=== PATIENT | male | born 1980 | race Caucasian/White ===

== ENCOUNTER 2023-04-19 08:54 | Inpatient (IN) | payer MEDICAID, SELFPAY ==
--- NOTE | 2023-04-19 09:19 | ED.C_ITS ---
Documented by User: CHAPIS Brooke 04/19/23 12:01 HPI - Psych General: Chief Complaint: Psychiatric Symptoms Stated Complaint: SI Time Seen by Provider: 04/19/23 08:55 Source: patient and other (family friend) Mode of arrival: ambulatory Limitations: no limitations History of Present Illness: Patient is a 43-year-old male who presents to ED today after being brought by a family friend for concerns of suicidal ideations. Family friend states that she was contacted early this morning by patient asking her if she would take his dog. When she questioned further, he stated that he was suicidal and had a plan to kill himself this morning. She quickly rushed to his house and convinced him to come to the emergency department for evaluation. On exam patient is sobbing stating that he feels like he has lost everything. He states he lost his mother approximately a year ago. He lost his job a few months ago secondary to untreated mental health illness/anxiety. Patient states he has never seen a psychiatrist or medical health provider. He lives alone currently with his dog, Gisel. Patient states last month he attempted suicide by medication overdose. Of note he states he has not been to a medical provider in years but states he has untreated type II diabetes. Was on Gabapentin one time due to his peripheral neuropathy but states it didn't help. complaint: suicidal ideation and feels depressed History of same: Yes Relieving factors: none Context: significant life stressor (lost mother a year ago/lost job a few months ago) Associated psychiatric symptoms: depression and suicidal ideation Associated symptoms: Reports depression and suicidal ideation; Deny auditory hallucinations, visual hallucinations or homicidal ideation Treatments prior to arrival: none If self harm: admits thoughts of self harm Review of Systems Const: Denies: fever(s) or chills Card: Denies: chest pain, palpitations, lightheadedness or syncope Resp: Denies: dyspnea GI: Denies: abdominal pain, nausea, vomiting or diarrhea Skin/Breast: Denies: rash Neuro: Denies: headache(s) Psych: Reports: anxiety, depression, hopelessness and suicidal ideation; Denies: paranoia, visual hallucinations, auditory hallucinations or homicidal ideation [facility] ED PFSH: Medical History (Updated 04/19/23 @ 13:09 by Scott Rehman MD) Diabetes Peripheral neuropathy Family History (Updated 04/19/23 @ 13:09 by Scott Rehman MD) Other Diabetes Social History (Updated 04/19/23 @ 13:09 by Scott Rehman MD) Smoking and tobacco/nicotine status: current every day tobacco/nicotine user Alcohol intake: never Substance/Drug Use: current Substance/Drug use type: Marijuana Physical Exam Const: COMMON NORMALS: average body habitus, patient oriented x3, no limitations, alert and well nourished GENERAL APPEARANCE: cooperative and in distress (sobbing) ORIENTATION/CONSCIOUSNESS: Yes awake, Yes oriented to person, Yes oriented to place and Yes oriented to time Resp: COMMON NORMALS: normal respiratory effort and clear to auscultation bilaterally AUSCULTATION: clear to auscultation bilaterally Cardio: COMMON NORMALS: regular rate and regular rhythm RATE: regular rate RHYTHM: regular rhythm Extremity: NARRATIVE EXTREMITY EXAM: bilateral LE are cool to the touch-equally; DP/PT pulses palpated Neuro: COMMON NORMALS: patient oriented x3 SENSORIUM/ORIENTATION: Yes ponce rt, Yes oriented to person, Yes oriented to place and Yes oriented to time Psych: COMMON NORMALS: mental status grossly normal, Normal thought process present, cooperative, speech normal, activity/motor behavior normal, denies hallucinations and denies homicidal ideation APPEARANCE: Yes grossly normal ATTITUDE: Yes calm ACTIVITY/MOTOR BEHAVIOR: Yes appropriate eye contact and No psychomotor agitation SPEECH: Yes normal speech MOOD & AFFECT: Yes sad and Yes tearful THOUGHT PROCESS: Normal thought process present ATTENTION/CONCENTRATION: Yes attention grossly intact and Yes concentration grossly intact MEMORY/COGNITION: Yes memory grossly intact and Yes cognition grossly intact INSIGHT: Good insight present (Psych) JUDGEMENT: Good judgement present (Psych) Course Consultations: Consultation #1: Dr. Laureano-accepts to NPU; requests hospitalist consult on patient due to his hyperglycemia Consultation #2: Dr. Rehman-will consult on patient while at NPU Vital Signs: Vital signs: Vital Signs Temperature 98.6 F 04/19/23 14:00 Pulse Rate 96 04/19/23 14:00 Respiratory Rate 16 04/19/23 14:00 Blood Pressure 104/67 04/19/23 14:00 Pulse Oximetry 92 04/19/23 14:00 Oxygen Delivery Me thod Room Air 04/19/23 14:00 MDM - Psych Medical Decision Making Patient will be admitted to NPU to Dr. Laureano for treatment/evaluation of his suicidal ideations. Dr. Rehman will consult on patient for his untreated diabetes/hyperglycemia. Lab Data 04/19/23 10:18 04/19/23 10:18 Laboratory Results WBC 9.12 10^3/uL (3.29-11.43) 04/19/23 10:18 RBC 4.97 10^6/uL (3.85-5.65) 04/19/23 10:18 Hgb 15.50 g/dL (11.27-16.99) 04/19/23 10:18 Hct 44.5 % (37-53) 04/19/23 10:18 MCV 89.5 fl (82-101) 04/19/23 10:18 MCH 31.2 pg (27-33) 04/19/23 10:18 MCHC 34.8 g/dL (30-55) 04/19/23 10:18 RDW 11.8 % (12.1-15.1) L 04/19/23 10:18 Plt Count 188 10^3/cmm (157-399) 04/19/23 10:18 MPV 11.0 fL (7.4-10.4) H 04/19/23 10:18 Neut % (Auto) 58.8 % 04/19/23 10:18 Lymph % (Auto) 32.9 % 04/19/23 10:18 Briscoe % (Auto) 6.1 % 04/19/23 10:18 Eos % (Auto) 1.6 % 04/19/23 10:18 Baso % (Auto) 0.4 % 04/19/23 10:18 Neut # (Auto) 5.35 10^3/uL (1.8-7.7) 04/19/23 10:18 Lymph # (Auto) 3.0 10^3/uL (0.8-4.8) 04/19/23 10:18 Briscoe # (Auto) 0.6 10^3/uL (0.2-0.9) 04/19/23 10:18 Eos # (Auto) 0.2 10^3/uL (0.0-0.8) 04/19/23 10:18 Baso # (Auto) 0.0 10^3/uL (0.0-0.1) 04/19/23 10:18 Nucleated RBC % (auto) 0 % 04/19/23 10:18 Nucleated RBCs # 0.0 /100WBC 04/19/23 10:18 Sodium 129 mmol/L (136-145) L 04/19/23 10:18 Potassium 4.2 mmol/L (3.5-5.1) 04/19/23 10:18 Chloride 90 mmol/L (98-107) L 04/19/23 10:18 Carbon Dioxide 29 mmol/L (22-29) 04/19/23 10:18 Anion Gap 14.2 (5-19) 04/19/23 10:18 BUN 14 mg/dL (6-20) 04/19/23 10:18 Creatinine 0.7 mg/dL (0.7-1.2) 04/19/23 10:18 GFR Calculation 122.5 mL/min (90-130) 04/19/23 10:18 Glucose 645 mg/dL (65-115) H* 04/19/23 10:18 Estimat Average Glucose 286 04/19/23 10:18 Hemoglobin A1c 11.6 % (4.0-6.0) H 04/19/23 10:18 Calculated Osmolality 299 mOsm/kg (285-295) H 04/19/23 10:18 Calcium 9.5 mg/dL (8.5-10.5) 04/19/23 10:18 Total Bilirubin 0.2 mg/dL (0.15-1.2) 04/19/23 10:18 AST 11 U/L (0-40) 04/19/23 10:18 ALT 19 U/L (0-41) 04/19/23 10:18 Alkaline Phosphatase 175 U/L (40-130) H 04/19/23 10:18 Total Protein 7.3 g/dL (6.6-8.7) 04/19/23 10:18 Albumin 3.9 g/dL (3.5-5.2) 04/19/23 10:18 Globulin 3.4 g/dL (1.3-4.6) 04/19/23 10:18 TSH 1.10 uIU/mL (0.27-4.20) 04/19/23 10:18 Salicylates < 0.3 mg/dL (3-10) L 04/19/23 10:18 Urine Opiates Screen Negative ng/mL (Negative) 04/19/23 10:22 Acetaminophen < 5.0 ug/mL (10-30) L 04/19/23 10:18 Ur Barbiturates Screen Negative ng/mL (Negative) 04/19/23 10:22 Ur Phencyclidine Scrn Negative ng/mL (Negative) 04/19/23 10:22 Ur Amphetamines Screen Negative ng/mL (Negative) 04/19/23 10:22 U Benzodiazepines Scrn Negative ng/mL (Negative) 04/19/23 10:22 Urine Cocaine Screen Negative ng/mL (Negative) 04/19/23 10:22 U Marijuana (THC) Screen Positive ng/mL (Negative) H 04/19/23 10:22 Ethyl Alcohol < 10 mg/dL (0-10) 04/19/23 10:18 No radiology studies performed this visit Discharge Plan Discharge Patient Disposition: Admitted As Inpatient Admit Provider: Chad Laureano Clinical Impression: Suicidal ideation, Diabetes, Hyperglycemia Condition: Stable Coding Level of Care Code ED Middleware Consultant for Chg Fwd Documented by User: Rashad Ramachandran DO 04/19/23 17:29 HPI - Psych General: Chief Complaint: Psychiatric Symptoms Stated Complaint: SI Time Seen by Provider: 04/19/23 08:55 PFSH ED PFSH: Medical History (Updated 04/19/23 @ 13:09 by Scott Rehman MD) Diabetes Peripheral neuropathy Family History (Updated 04/19/23 @ 13:09 by Scott Rehman MD) Other Diabetes Social History (Updated 04/19/23 @ 13:09 by Scott Rehman MD) Smoking and tobacco/nicotine status: current every day tobacco/nicotine user Alcohol intake: never Substance/Drug Use: current Substance/Drug use type: Marijuana Course Vital Signs: Vital signs: Vital Signs Temperature 98.6 F 04/19/23 14:00 Pulse Rate 96 04/19/23 14:00 Respiratory Rate 16 04/19/23 14:00 Blood Pressure 104/67 04/19/23 14:00 Pulse Oximetry 92 04/19/23 14:00 Oxygen Delivery Me thod Room Air 04/19/23 14:00 MDM - Psych Medical Decision Making Patient will be admitted to NPU to Dr. Laureano for treatment/evaluation of his suicidal ideations. Dr. Rehman will consult on patient for his untreated diabetes/hyperglycemia. Chart reviewed and patient discussed with midlevel. Agree with assessment and plan. Lab Data 04/19/23 10:18 04/19/23 10:18 Laboratory Results WBC 9.12 10^3/uL (3.29-11.43) 04/19/23 10:18 RBC 4.97 10^6/uL (3.85-5.65) 04/19/23 10:18 Hgb 15.50 g/dL (11.27-16.99) 04/19/23 10:18 Hct 44.5 % (37-53) 04/19/23 10:18 MCV 89.5 fl (82-101) 04/19/23 10:18 MCH 31.2 pg (27-33) 04/19/23 10:18 MCHC 34.8 g/dL (30-55) 04/19/23 10:18 RDW 11.8 % (12.1-15.1) L 04/19/23 10:18 Plt Count 188 10^3/cmm (157-399) 04/19/23 10:18 MPV 11.0 fL (7.4-10.4) H 04/19/23 10:18 Neut % (Auto) 58.8 % 04/19/23 10:18 Lymph % (Auto) 32.9 % 04/19/23 10:18 Briscoe % (Auto) 6.1 % 04/19/23 10:18 Eos % (Auto) 1.6 % 04/19/23 10:18 Baso % (Auto) 0.4 % 04/19/23 10:18 Neut # (Auto) 5.35 10^3/uL (1.8-7.7) 04/19/23 10:18 Lymph # (Auto) 3.0 10^3/uL (0.8-4.8) 04/19/23 10:18 Briscoe # (Auto) 0.6 10^3/uL (0.2-0.9) 04/19/23 10:18 Eos # (Auto) 0.2 10^3/uL (0.0-0.8) 04/19/23 10:18 Baso # (Auto) 0.0 10^3/uL (0.0-0.1) 04/19/23 10:18 Nucleated RBC % (auto) 0 % 04/19/23 10:18 Nucleated RBCs # 0.0 /100WBC 04/19/23 10:18 Sodium 129 mmol/L (136-145) L 04/19/23 10:18 Potassium 4.2 mmol/L (3.5-5.1) 04/19/23 10:18 Chloride 90 mmol/L (98-107) L 04/19/23 10:18 Carbon Dioxide 29 mmol/L (22-29) 04/19/23 10:18 Anion Gap 14.2 (5-19) 04/19/23 10:18 BUN 14 mg/dL (6-20) 04/19/23 10:18 Creatinine 0.7 mg/dL (0.7-1.2) 04/19/23 10:18 GFR Calculation 122.5 mL/min (90-130) 04/19/23 10:18 Glucose 645 mg/dL (65-115) H* 04/19/23 10:18 Estimat Average Glucose 286 04/19/23 10:18 Hemoglobin A1c 11.6 % (4.0-6.0) H 04/19/23 10:18 Calculated Osmolality 299 mOsm/kg (285-295) H 04/19/23 10:18 Calcium 9.5 mg/dL (8.5-10.5) 04/19/23 10:18 Total Bilirubin 0.2 mg/dL (0.15-1.2) 04/19/23 10:18 AST 11 U/L (0-40) 04/19/23 10:18 ALT 19 U/L (0-41) 04/19/23 10:18 Alkaline Phosphatase 175 U/L (40-130) H 04/19/23 10:18 Total Protein 7.3 g/dL (6.6-8.7) 04/19/23 10:18 Albumin 3.9 g/dL (3.5-5.2) 04/19/23 10:18 Globulin 3.4 g/dL (1.3-4.6) 04/19/23 10:18 TSH 1.10 uIU/mL (0.27-4.20) 04/19/23 10:18 Salicylates < 0.3 mg/dL (3-10) L 04/19/23 10:18 Urine Opiates Screen Negative ng/mL (Negative) 04/19/23 10:22 Acetaminophen < 5.0 ug/mL (10-30) L 04/19/23 10:18 Ur Barbiturates Screen Negative ng/mL (Negative) 04/19/23 10:22 Ur Phencyclidine Scrn Negative ng/mL (Negative) 04/19/23 10:22 Ur Amphetamines Screen Negative ng/mL (Negative) 04/19/23 10:22 U Benzodiazepines Scrn Negative ng/mL (Negative) 04/19/23 10:22 Urine Cocaine Screen Negative ng/mL (Negative) 04/19/23 10:22 U Marijuana (THC) Screen Positive ng/mL (Negative) H 04/19/23 10:22 Ethyl Alcohol < 10 mg/dL (0-10) 04/19/23 10:18 Discharge Plan Discharge Patient Disposition: Admitted As Inpatient Admit Provider: Chad Laureano Clinical Impression: Suicidal ideation, Diabetes, Hyperglycemia Condition: Stable Coding Level of Care Code ED Middleware Consultant for Shubham Avila
[2023-04-19 10:24] LABS: Basophils % 0.4 %; Eosinophils # 0.2 10^3/uL (0.0-0.8); Eosinophils % 1.6 %; Hematocrit 44.5 % (37-53); Lymphocytes % 32.9 %; Mean Corpuscular HGB Conc 34.8 g/dL (30-55); Mean Corpuscular Hemoglobin 31.2 pg (27-33); Mean Corpuscular Volume 89.5 fl (82-101); Monocytes # 0.6 10^3/uL (0.2-0.9); Monocytes % 6.1 %; Neutrophils # 5.35 10^3/uL (1.8-7.7); Neutrophils % 58.8 %; Nucleated Red Blood Cells % 0 %; Platelet Count 188 10^3/cmm (157-399); Red Blood Count 4.97 10^6/uL (3.85-5.65); Red Cell Distribution Width 11.8 % (12.1-15.1); White Blood Count 9.12 10^3/uL (3.29-11.43)
[2023-04-19 10:39] LABS: Amphetamines Screen Urine Negative (Negative); Barbiturates Screen Urine Negative (Negative); Benzodiazepines Screen Urine Negative (Negative); Cocaine Screen Urine Negative (Negative); Opiate Screen Urine Negative (Negative); PCP Screen Urine Negative (Negative); THC Screen Urine Positive (Negative)
[2023-04-19 10:43] LABS: Alanine Aminotransferase 19 U/L (0-41); Albumin Level 3.9 g/dL (3.5-5.2); Alkaline Phosphatase 175 U/L (40-130); Anion Gap 14.2 (5-19); Aspartate Amino Transferase 11 U/L (0-40); Blood Urea Nitrogen 14 mg/dL (6-20); Calcium 9.5 mg/dL (8.5-10.5); Carbon Dioxide 29 mmol/L (22-29); Chloride 90 mmol/L (98-107); Globulin 3.4 g/dL (1.3-4.6); Glomerular Filtration Rate 122.5 mL/min (90-130); Osmolality Calculated 299 mOsm/kg (285-295); Potassium 4.2 mmol/L (3.5-5.1); Sodium 129 mmol/L (136-145); Total Bilirubin 0.2 mg/dL (0.15-1.2); Total Protein 7.3 g/dL (6.6-8.7)
[2023-04-19 10:48] LABS: Acetaminophen < 5.0 ug/mL (10-30); Alcohol Level < 10 mg/dL (0-10); Glucose 645 mg/dL (65-115); Salicylate < 0.3 mg/dL (3-10)
[2023-04-19 10:53] VITALS: BP 104/69; PULSE 93; RESP 18; O2SAT 95
[2023-04-19 10:58] VITALS: TEMP 37.2
[2023-04-19] MEDS: insulin regular-human 100 units/1 mL 10 UNIT IVP (11:16)
[2023-04-19] MEDS: sodium chloride 0.9% 1,000 ML 999 ML IV ×2 (11:23→12:10)
[2023-04-19] MEDS: LORazepam 2 mg/mL INJ 1 mL 1 MG IM (11:38)
[2023-04-19 12:00] VITALS: PULSE 93; O2SAT 96
[2023-04-19 12:59] LABS: Glucose Point of Care 250 mg/dL (70-110)
--- NOTE | 2023-04-19 13:07 | P.CONIM_ITS ---
Providers/Reason For Consult Consulting Physician/Specialty*: Scott Rehman MD, Hospitalist Reason for Consult*: Elevated sugar Requesting Physician: Dr. Laureano Attending Physician: Chad Laureano MD Primary Care Provider: Sonu Barragan DO History of Present Illness History of Present Illness Hany Richardson is a 43 year old male who presented to the emergency department with suicidal ideation. He had been feeling very down, was wanting to give away his dog, and had apparently had a plan to kill himself. I am being consulted as his blood sugar was found to be over 600. He had no significant anion gap. The patient relates he has been diabetic for 15 years and really has not taken any medicine in years. He reports he wakes up multiple times at night to drink fluids, and urinate. He reports to some weight loss in the last year. He states he has peripheral neuropathy. He is amenable to taking medication for diabetes currently. Review of Systems General: Reports: 10 or more systems reviewed and unremarkable except in HPI and below Card: Denies: chest pain Resp: Denies: dyspnea GI: Denies: abdominal pain, nausea, hematochezia or melena Medications/Allergies Home Medications Medication Instructions Recorded Confirmed Last Taken Type No Known Home Medications 04/19/23 04/19/23 Unknown History Allergies Allergy/AdvReac Type Severity Reaction Status Date / Time No Known Allergies Allergy Unverified 04/19/23 09:39 PFSH Acute PFSH: Medical History (Updated 04/19/23 @ 13:09 by Scott Rehman MD) Diabetes Peripheral neuropathy Family History (Updated 04/19/23 @ 13:09 by Scott Rehman MD) Other Diabetes Social History (Updated 04/19/23 @ 13:09 by Scott Rehman MD) Smoking and tobacco/nicotine status: current every day tobacco/nicotine user Alcohol intake: never Substance/Drug Use: current Substance/Drug use type: Marijuana Vitals/I&O/Wt Last Vital Signs Temp 98.9 F 04/19/23 10:58 Pulse 93 04/19/23 12:00 Resp 18 04/19/23 10:53 BP 104/69 04/19/23 10:53 Pulse Ox 96 04/19/23 12:00 O2 Del Method Room Air 04/19/23 10:53 04/18/23 04/19/23 04/19/23 22:59 06:59 14:59 Intake Total 1000 / 1000 Balance 1000 / 1000 Physical Exam Narrative: General exam is a white male, conversant, very sad and tearful HEENT: Atraumatic normocephalic. Oropharynx clear. Neck is supple without any lymphadenopathy or thyromegaly Cardiovascular regular rate and rhythm without murmur, no S3 or S4 Lungs clear no wheezing or crackles Abdomen is soft with positive bowel sounds. No obvious organomegaly exam was deferred Extremities no cyanosis clubbing or edema, cap refill is brisk Skin no rash Neuro no obvious focal deficits Data 04/19/23 10:18 04/19/23 10:18 Other Labs: LFTs reviewed. Alk phos slightly high at 175 otherwise normal. I have ordered a TSH and hemoglobin A1c Urine drug screen positive for marijuana otherwise negative. Salicylate and acetaminophen level undetectable Blood sugar is now in the 200s after being given saline, and 10 units of insulin. A&P Assessment and plan (1) Diabetes: From history diabetes was diagnosed around 15 years ago, and he is not effectively treated Hemoglobin A1c is expected to be elevated Initiate metformin 500 mg twice daily Mild sliding scale insulin Await hemoglobin A1c, and further blood sugars before deciding on any further oral therapy or long-acting insulin. TSH is ordered and pending Urinalysis will be ordered to check for significant proteinuria Consistent carb diet Plan Suicidal ideation Thank you for this consultation Consult Attestations Medical Necessity Statement: As per primary Coding Level of Care Code 54086 Moderate MDM includes number and complexity of problems actively addressed during encounter and amount and/or complexity of data reviewed/ordered as do cumented Diagnoses Diabetes E11.9 Time Spent (min) 44
[2023-04-19 13:08] LABS: Estmated Average Glucose 286; Hemoglobin A1C 11.6 % (4.0-6.0)
[2023-04-19 13:22] VITALS: BP 104/67; PULSE 96; RESP 16; TEMP 37; O2SAT 92
[2023-04-19] MEDS: hyDROXYzine 25 mg Capsule 50 MG PO (13:34)
[2023-04-19 14:00] VITALS: BP 104/67; PULSE 96; RESP 16; TEMP 37; O2SAT 92
[2023-04-19 17:49] LABS: Glucose Point of Care 261 mg/dL (70-110)
[2023-04-19] MEDS: insulin lispro 100 unit/1 mL SUBCUT ×2 (17:58→20:29)
[2023-04-19] MEDS: metformin 500 mg Tablet PO (17:59)
[2023-04-19 20:05] VITALS: BP 115/78; PULSE 92; RESP 17; TEMP 36.8; O2SAT 92
[2023-04-19 20:25] LABS: Glucose Point of Care 191 mg/dL (70-110)
[2023-04-19] MEDS: insulin glargine 100 units/1 mL 20 UNIT SUBCUT (20:29)
[2023-04-19 20:31] LABS: Glucose Point of Care 409 mg/dL (70-110)
--- NOTE | 2023-04-20 03:46 | PC.NURSE ---
Pt came up to nurses desk tearful and anxious and stated I have not been able to sleep, I dont want to be here anymore, I just want to go home . Pt was offered a PRN to help sleep in which pt replied I am sick of taking pills and being forced pills . Pt was reminded that he did not have to take the PRN that was offered it was up to him. Pt was also reminded that in the morning when the doctor gets here they could discuss whether or not he could discharge. Pt was then offered distractions such as tv, coloring, a book. Pt then stated I am not [age] years old and then stomped back to his room.
[2023-04-20 06:00] VITALS: BP 100/65; PULSE 102; RESP 18; TEMP 36.9; O2SAT 95
--- NOTE | 2023-04-20 08:16 | PC.NURSE ---
patient agitated, yelling at staff, banging head against wall. security present
[2023-04-20] MEDS: LORazepam 2 mg/mL INJ 1 mL IM (08:24)
[2023-04-20] MEDS: diphenhydrAMINE 50 mg/mL SDV 1mL IM (08:24)
[2023-04-20] MEDS: haloperidol inj 5 mg/mL INJ 1 mL IM (08:24)
--- NOTE | 2023-04-20 08:45 | W.PM.BREST ---
Face to Face: Restrn/Seclusion Events leading up to initiation: Verbalizing threat to self or others and Demonstrating self-destructive behavior (cutting, hitting espinoza etc.) Evaluation of patient's immediate situation: Alert and oriented, Signs of physical distress and Signs of psychological distress Patient reaction since intervention applied: Behaviors/threats have lessened, but still present Recent labs reviewed: Yes Review of medications: Yes Patient's current medical/behavioral condition: No new concerns since last ROS Need for restraint or seclusion is: No longer present Attending notified: Attending completed assessment
--- NOTE | 2023-04-20 09:58 | PC.NURSE ---
UPon arrival to the unit for my shift, patient was agitated, pacing the halls, cursing at staff. Patient tearful. Security present. Not long after shift change, patient still agitated. Patient tearful, pacing. Patient slamming his door, not complying with unit rules. Patient banged his head against the wall multiple times. When asked if he would like medication to help him, patient stated fuck you, fuck off . Patient told a nurse that he was going to punch her in the face. Security Andres asked patient if he could assist him, patient told Andres that he would punch him in the face too. Nursing staff, security, and [employer] attempted to de-esculate patient numerous times, with no success. Code 10 was called at 0820. Patient made verbal threats to staff when presented with the notion of receiving injections. Patient refused to go to his room. Patient agitated, hostile. At about 0823, Andres held patient by his right arm, Luis held patient by his left arm, nurse Neel put hands on patient's right leg, and nurse Acacia put hands on his left leg. Patient did not kick at staff. Patient was given 50mg Benadryl, 2mg Ativan, and 5mg Haldol IM injection into left and right deltoid muscles. No adverse reactions. Patient tearful.
--- NOTE | 2023-04-20 10:51 | P.NPUHP_ITS ---
Providers/Chief Complaint Admitting Physician: Chad Laureano MD Primary Care Provider: Sonu Barragan DO Chief Complaint: SI HPI NPU History of Present Illness Hany Richardson is a 43 year old male who presented to the emergency department with the following report: Chief Complaint: Psychiatric Symptoms Stated Complaint: SI Time Seen by Provider: 04/19/23 08:55 Source: patient and other (family friend) Mode of arrival: ambulatory Limitations: no limitations History of Present Illness: Patient is a 43-year-old male who presents to ED today after being brought by a family friend for concerns of suicidal ideations. Family friend states that she was contacted early this morning by patient asking her if she would take his dog. When she questioned further, he stated that he was suicidal and had a plan to kill himself this morning. She quickly rushed to his house and convinced him to come to the emergency department for evaluation. On exam patient is sobbing stating that he feels like he has lost everything. He states he lost his mother approximately a year ago. He lost his job a few months ago secondary to untreated mental health illness/anxiety. Patient states he has never seen a psychiatrist or medical health provider. He lives alone currently with his dog, Gisel. Patient states last month he attempted suicide by medication overdose. Of note he states he has not been to a medical provider in years but states he has untreated type II diabetes. Was on Gabapentin one time due to his peripheral neuropathy but states it didn't help. complaint: suicidal ideation and feels depressed History of same: Yes Relieving factors: none Context: significant life stressor (lost mother a year ago/lost job a few months ago) Associated psychiatric symptoms: depression and suicidal ideation Associated symptoms: Reports depression and suicidal ideation; Deny auditory hallucinations, visual hallucinations or homicidal ideation Treatments prior to arrival: none If self harm: admits thoughts of self harm He was admitted to the neuropsychiatric unit for definitive treatment of those issues. He was initially seen this morning as part of a [id number] after a seclusion episode where he lost emotional control saying that he needed to go see his dog which she given to someone initially with a plan to kill himself. There was nothing anyone can say to calm him to a rational level and this escalated to him needing to be held and he was given an injection. Shortly thereafter when I went to speak to him he was lethargic secondary to the injections but was able to arouse himself to answer some questions. He continued to focus on going to see his dog and seem to forget that he had made arrangements for the pet. He was suggesting that the dog was in some danger and we did make a call and verify that he infected given that to some apparently responsible people who are reportedly taking good care of it and they advised t hat the pet would be just fine in their home and that he should remain here and get the help that he needs. He did not seem to take that information with much recognition of its significance. And continued to be quite emotional surrounding the dog. He was able to share that he is had a long history of mental health issues and depression that has been essentially untreated with a reported lack of history of any medication. He reports that he was willing to begin Prozac 20 mg p.o. daily after discussion of the risks, benefits and alternatives he understood and agreed to proceed as is documented in this note. Attempts were made to get more accurate picture of exactly why he was overwhelmed but he mostly [place] rolled around in the bed lamenting about not being with his dog and not really answering the questions with any clarity. He could not give any nidus for his suicidality just reporting that he was not feeling like himself. He denied any drug use other than the marijuana and his UDS was only positive for cannabis. Meds NPU Home Medications Medication Instructions Recorded Confirmed Last Taken Type No Known Home Medications 04/19/23 04/19/23 Unknown History Allergies Allergy/AdvReac Type Severity Reaction Status Date / Time No Known Allergies Allergy Unverified 04/19/23 09:39 PFS NPU PFS: Medical History (Updated 04/20/23 @ 22:21 by Chad Laureano MD) Diabetes Peripheral neuropathy Family History (Updated 04/19/23 @ 13:09 by Scott Rehman MD) Other Diabetes Social History (Updated 04/19/23 @ 13:09 by Scott Rehman MD) Smoking and tobacco/nicotine status: current every day tobacco/nicotine user Alcohol intake: never Substance/Drug Use: current Substance/Drug use type: Marijuana Mental Status Exam MSE Comments: This is a well-nourished well-developed white male in hospital scrubs looking older than his stated age with limited grooming and eye contact. No abnormal movements except for significant psychomotor agitation. Mostly cooperative with exam and moderate to extreme distress. Speech was normal rate and decreased volume. Mood described as overwhelmed, affect congruent. Thought process linear. Thought content: Patient denied current suicidal or homicidal ideation, there were no delusions reported or noted, he denied any auditory or visual hallucinations. Attention and concentration were limited and memory was somewhat reliable but none were formally tested. He is alert and oriented x3. Insight and judgment impaired impulse control impaired. Vitals/I&O/Wt Last Vital Signs Temp 98.5 F 04/20/23 06:00 Pulse 102 H 04/20/23 06:00 Resp 18 04/20/23 06:00 BP 100/65 04/20/23 06:00 Pulse Ox 95 04/20/23 06:00 O2 Del Method Room Air 04/20/23 06:00 04/19/23 04/19/23 04/20/23 14:59 22:59 06:59 Intake Total 1999 Balance 1999 Data NPU 04/19/23 10:18 04/19/23 10:18 A&P Assessment and plan (1) Suicidal ideation: (2) Hyperglycemia: (3) Diabetes: (4) Major depressive disorder, recurrent: (5) Personality disorder, unspecified: Plan This is a 43-year-old white male with a reported history of mental health issues who presents reporting suicidal ideation and being emotionally dysregulated to the level that he needed as needed medication and a brief restraint to calm down here with an affidavit and reporting profound sadness and open to a trial of medication. 1. Initiate Prozac 20 mg p.o. every morning. 2. Encourage individual, group and milieu therapies. 3. Continue every 15 minute checks for safety. 4. Encourage sober living treatment after discharge at the highest level of care to which he is willing to commit. Involuntary Hold Information 96 Hour Hold: 96 Hour Involuntary Admission: No Attestations NPU Medical Necessity Statement*: Inpatient psychiatric hospitalization is medically necessary and the clinically appropriate intervention at this time. We will monitor medications and make changes as indicated. He will be in the hospital for over 2 midnights. Likely length of stay 3 to 5 days. Coding Level of Care Code Acute Code for [facility] Diagnoses Suicidal ideation R45.851 Hyperglycemia R73.9 Diabetes E11.9 Major depressive disorder, recurrent F33.9 Personality disorder, unspecified F60.9
[2023-04-20 12:06] LABS: Glucose Point of Care 246 mg/dL (70-110)
[2023-04-20] MEDS: metformin 500 mg Tablet PO (12:06)
[2023-04-20 12:25] LABS: Bilirubin Urine Neg (Negative); Blood Urine Neg (Negative); Glucose Urine UA 4+ (Normal); Ketones Urine Negative (Negative); Leukocyte Esterase Urine Negative (Negative); Nitrate Urine Negative (Negative); Protein Urine Neg (Negative); Specific Gravity, Urine 1.005 (1.005-1.030); Urine Appearance Clear (CLEAR); Urine Color Colorless (Yellow); Urobilinogen Urine Norm (Negative); pH Urine 7 (5-7)
[2023-04-20 12:27] LABS: Add Urine Culture? No; Mucus Urine 1+ /hpf; WBC Urine RARE /hpf (0-5)
[2023-04-20 14:00] VITALS: BP 111/71; PULSE 84; RESP 16; TEMP 36.8; O2SAT 94
[2023-04-20 16:53] LABS: Glucose Point of Care 254 mg/dL (70-110)
--- NOTE | 2023-04-20 16:57 | PC.NURSE ---
PATIENT REFUSED LUNCH TIME HUMALOG AND DINNER TIME HUMALOG.
[2023-04-20 20:10] VITALS: BP 115/73; PULSE 90; RESP 16; TEMP 36.9; O2SAT 92
[2023-04-21 01:28] LABS: Glucose Point of Care 167 mg/dL (70-110)
[2023-04-21 06:00] VITALS: BP 112/75; PULSE 100; RESP 18; TEMP 36.4; O2SAT 93
[2023-04-21] MEDS: metformin 500 mg Tablet PO (07:08)
[2023-04-21] MEDS: nicotine 2 mg Gum BUCCAL ×2 (07:08→11:30)
--- NOTE | 2023-04-21 07:32 | P.NPUPN_ITS ---
Subjective NPU Subjective: Patient presented today continuing to talk about his dog and making sure it is okay. He talked about the fact that his dog is in appropriate hands and we are worried about his extreme emotionality and hoping that he can demonstrate control over that so that we can feel comfortable with him being ready to discharge. We discussed the social work team returning tomorrow and being able to help him get connected with outpatient resources. He denied any side effects to the medication. Mental Status Exam MSE Comments: This is a well-nourished well-developed white male in hospital scrubs looking older than his stated age with limited grooming and eye contact. No abnormal movements except for significant psychomotor agitation. Mostly cooperative with exam and moderate to extreme distress. Speech was normal rate and decreased volume. Mood described as overwhelmed, affect congruent. Thought process linear. Thought content: Patient denied current suicidal or homicidal ideation, there were no delusions reported or noted, he denied any auditory or visual hallucinations. Attention and concentration were limited and memory was somewhat reliable but none were formally tested. He is alert and oriented x3. Insight and judgment impaired impulse control impaired. Vitals/I&O/Wt Last Vital Signs Temp 97.5 F L 04/21/23 06:00 Pulse 100 04/21/23 06:00 Resp 18 04/21/23 06:00 BP 112/75 04/21/23 06:00 Pulse Ox 93 04/21/23 06:00 O2 Del Method Room Air 04/21/23 06:00 Weight last 48 hrs Weight 73.595 kg Data NPU 04/19/23 10:18 04/19/23 10:18 A&P Assessment and plan (1) Suicidal ideation: (2) Hyperglycemia: (3) Diabetes: (4) Major depressive disorder, recurrent: (5) Personality disorder, unspecified: Plan This is a 43-year-old white male with a reported history of mental health issues who presents reporting suicidal ideation and being emotionally dysregulated to the level that he needed as needed medication and a brief restraint to calm down here with an affidavit and reporting profound sadness and open to a trial of med ication. 1. Initiated Prozac 20 mg p.o. every morning. 2. Encourage individual, group and milieu therapies. 3. Continue every 15 minute checks for safety. 4. Encourage sober living treatment after discharge at the highest level of care to which he is willing to commit. Involuntary Hold Information 96 Hour Hold: 96 Hour Involuntary Admission: No Attestations NPU Medical Necessity Statement*: Inpatient psychiatric hospitalization is medically necessary and the clinically appropriate intervention at this time. We will monitor medications and make changes as indicated. Likely length of stay 2-4 days. Coding Level of Care Code Acute Code for [facility] Diagnoses Suicidal ideation R45.851 Hyperglycemia R73.9 Diabetes E11.9 Major depressive disorder, recurrent F33.9 Personality disorder, unspecified F60.9
[2023-04-21] MEDS: fluoxetine 20 mg Capsule PO (07:36)
[2023-04-21 07:58] LABS: Glucose Point of Care 289 mg/dL (70-110)
[2023-04-21] MEDS: insulin lispro 100 unit/1 mL SUBCUT ×2 (08:16→12:01)
[2023-04-21 11:59] LABS: Glucose Point of Care 215 mg/dL (70-110)
[2023-04-21] MEDS: hyDROXYzine 25 mg Capsule 50 MG PO (12:16)
--- NOTE | 2023-04-21 12:17 | PC.NURSE ---
Patient requesting medication for anxiety. Patient states that the manic patient is driving me nuts . Administered 50mg PO Vistaril to patient.
[2023-04-21 13:43] VITALS: BP 107/72; PULSE 95; RESP 18; TEMP 36.7; O2SAT 96
[2023-04-21 16:59] LABS: Glucose Point of Care 283 mg/dL (70-110)
--- NOTE | 2023-04-21 18:06 | PC.NURSE ---
REFUSED DINNER TRAY, SCHEDULED METFORMIN & SCHEDULED HUMALOG INSULIN
[2023-04-21] MEDS: insulin glargine 100 units/1 mL 20 UNIT SUBCUT (19:46)
[2023-04-21 19:50] LABS: Glucose Point of Care 316 mg/dL (70-110)
[2023-04-21] MEDS: trazodone 50 mg Tablet PO (19:51)
[2023-04-21 20:50] VITALS: BP 99/62; PULSE 93; RESP 16; TEMP 36.8; O2SAT 93
[2023-04-22 06:00] VITALS: BP 106/71; PULSE 98; RESP 18; TEMP 36.5; O2SAT 95
[2023-04-22 08:08] LABS: Glucose Point of Care 262 mg/dL (70-110)
[2023-04-22] MEDS: fluoxetine 20 mg Capsule PO (08:52)
[2023-04-22] MEDS: insulin lispro 100 unit/1 mL SUBCUT ×2 (08:52→18:23)
[2023-04-22] MEDS: metformin 500 mg Tablet PO ×2 (08:52→18:22)
[2023-04-22] MEDS: insulin glargine 100 units/1 mL 15 UNIT SUBCUT ×3 (09:42→19:54)
[2023-04-22 12:20] LABS: Glucose Point of Care 103 mg/dL (70-110)
[2023-04-22] MEDS: nicotine 4 mg lozenge MUCOUS MEM (13:29)
[2023-04-22 14:00] VITALS: BP 110/72; PULSE 57; RESP 15; TEMP 36.7; O2SAT 96
--- NOTE | 2023-04-22 17:46 | W.PM.NPUPNS ---
Subjective NPU Subjective: Patient presented today reporting that he was feeling better. This was the first day since he has been here that he was not whining or crying or lamenting about his dog. He was smiling and appropriate. We discussed the improvement and he denied any problems with the medication. We discussed monitoring for an additional day and that if he showed continued stability that we would be open to discharge in the morning. Mental Status Exam MSE Comments: This is a well-nourished well-developed white male in hospital scrubs looking older than his stated age with improving grooming and eye contact. No abnormal movements. Mostly cooperative with exam in no acute distress. Speech was normal rate and more normal volume. Mood described as better, affect congruent. Thought process linear. Thought content: Patient denied current suicidal or homicidal ideation, there were no delusions reported or noted, he denied any auditory or visual hallucinations. Attention and concentration were in tact and memory was more for reliable but none were formally tested. He is alert and oriented x3. Insight and judgment limited, but improving impulse control and improving. Vitals/I&O/Wt Last Vital Signs Temp 98.3 F 04/22/23 20:08 Pulse 61 04/22/23 20:08 Resp 16 04/22/23 20:08 BP 91/58 04/22/23 20:08 Pulse Ox 97 04/22/23 20:08 O2 Del Method Room Air 04/22/23 06:00 Weight last 48 hrs Weight 73.595 kg Data NPU 04/19/23 10:18 04/19/23 10:18 A&P Assessment and plan (1) Suicidal ideation: (2) Hyperglycemia: (3) Diabetes: (4) Major depressive disorder, recurrent: (5) Personality disorder, unspecified: Plan This is a 43-year-old white male with a reported history of mental health issues who presents reporting suicidal ideation and being emotionally dysregulated to the level that he needed as needed medication and a brief restraint to calm down here with an affidavit and reporting profound sadness and open to a trial of medication. 1. Initiated Prozac 20 mg p.o. every morning. 2. Encourage individual, group and milieu therapies. 3. Continue every 15 minute checks for safety. 4. Encourage sober living treatment after discharge at the highest level of care to which he is willing to commit. Involuntary Hold Information 96 Hour Hold: 96 Hour Involuntary Admission: No Attestations NPU Medical Necessity Statement*: Inpatient psychiatric hospitalization is medically necessary and the clinically appropriate intervention at this time. We will monitor medications and make changes as indicated. Likely length of stay 1-3 days. Coding Level of Care Code Acute Code for [facility] Diagnoses Suicidal ideation R45.851 Hyperglycemia R73.9 Diabetes E11.9 Major depressive disorder, recurrent F33.9 Personality disorder, unspecified F60.9
[2023-04-22 17:56] LABS: Glucose Point of Care 205 mg/dL (70-110)
[2023-04-22 20:08] VITALS: BP 91/58; PULSE 61; RESP 16; TEMP 36.8; O2SAT 97
[2023-04-22 20:15] LABS: Glucose Point of Care 126 mg/dL (70-110)
[2023-04-23] MEDS: trazodone 50 mg Tablet PO (01:31)
[2023-04-23 01:37] LABS: Glucose Point of Care 117 mg/dL (70-110)
[2023-04-23 06:00] VITALS: BP 94/63; PULSE 90; RESP 18; TEMP 36.4; O2SAT 96
[2023-04-23 07:40] LABS: Glucose Point of Care 144 mg/dL (70-110)
--- NOTE | 2023-04-23 07:51 | P.NPUDS_ITS ---
Diagnoses at Discharge Discharge Diagnosis (1) Suicidal ideation: Status: Resolved (2) Hyperglycemia: Status: Acute (3) Diabetes: Status: Acute (4) Major depressive disorder, recurrent: Status: Acute (5) Personality disorder, unspecified: Status: Acute Reason for Visit Reason for Visit: SI Brief History: History of Present Illness Hany Richardson is a 43 year old male who presented to the emergency department with the following report: Chief Complaint: Psychiatric Symptoms Stated Complaint: SI Time Seen by Provider: 04/19/23 08:55 Source: patient and other (family friend) Mode of arrival: ambulatory Limitations: no limitations History of Present Illness: ? Patient is a 43-year-old male who presents to ED today after being brought by a family friend for concerns of suicidal ideations.? Family friend states that she was contacted early this morning by patient asking her if she would take his dog.? When she questioned further, he stated that he was suicidal and had a plan to kill himself this morning.? She quickly rushed to his house and convinced him to come to the emergency department for evaluation.? On exam patient is sobbing stating that he feels like he has lost everything.? He states he lost his mother approximately a year ago.? He lost his job a few months ago secondary to untreated mental health illness/anxiety.? Patient states he has never seen a psychiatrist or medical health provider.? He lives alone currently with his dog, Gisel.? Patient states last month he attempted suicide by medication overdose. Of note he states he has not been to a medical provider in years but states he has untreated type II diabetes. Was on Gabapentin one time due to his peripheral neuropathy but states it didn't help. ? MD complaint: suicidal ideation and feels depressed History of same: Yes Relieving factors: none Context: significant life stressor (lost mother a year ago/lost job a few months ago) Associated psychiatric symptoms: depression and suicidal ideation Associated symptoms: Reports depression and suicidal ideation; Deny auditory hallucinations, visual hallucinations or homicidal ideation Treatments prior to arrival: none If self harm: admits thoughts of self harm He was admitted to the neuropsychiatric unit for definitive treatment of those issues.? He was initially seen this morning as part of a [id number] after a seclusion episode where he lost emotional control saying that he needed to go see his dog which she given to someone initially with a plan to kill himself.? There was nothing anyone can say to calm him to a rational level and this escalated to him needing to be held and he was given an injection.? Shortly thereafter when I went to speak to him he was lethargic secondary to the injections but was able to arouse himself to answer some questions.? He contin ued to focus on going to see his dog and seem to forget that he had made arrangements for the pet.? He was suggesting that the dog was in some danger and we did make a call and verify that he infected given that to some apparently responsible people who are reportedly taking good care of it and they advised that the pet would be just fine in their home and that he should remain here and get the help that he needs.? He did not seem to take that information with much recognition of its significance.? And continued to be quite emotional surrounding the dog.? He was able to share that he is had a long history of mental health issues and depression that has been essentially untreated with a reported lack of history of any medication.? He reports that he was willing to begin Prozac 20 mg p.o. daily after discussion of the risks, benefits and alternatives he understood and agreed to proceed as is documented in this note.? Attempts were made to get more accurate picture of exactly why he was o verwhelmed but he mostly [place] rolled around in the bed lamenting about not being with his dog and not really answering the questions with any clarity.? He could not give any nidus for his suicidality just reporting that he was not feeling like himself.? He denied any drug use other than the marijuana and his UDS was only positive for cannabis. Hospital Course Hospital Course He slowly acclimated to the individual, group and milieu therapies provided.? He presented with significant emotional dysregulation. Initially he had to be restrained and given as needed medication because he was not able to control his emotions and agitation. His diabetes was more appropriately managed during the stay which likely had a significant impact on his functioning. He was started on Prozac 20 mg p.o. daily as well as trazodone to help with sleep He was able to work with the social work team to establish appropriate aftercare and follow- up appointments. He had significant improvement during his stay and was able to contract for safety outside of the hospital prior to discharge.? During the hospitalization, patient had routine laboratory studies which were within normal limits except for few outliers.? Additionally there was a general medical evaluation which was also within normal limits and revealed no new acute processes. It is noteworthy that his blood sugars were not well managed and hospitalists intervene and assisted him in getting a reasonable regimen prior to discharge. At the time of discharge, he denied psychosis or lethality.? Mood and anxiety were well managed.? Patient endorsed a plan to avoid all drugs of abuse and follow-up with the aftercare recommendations of the treatment team.? Patient was evaluated and deemed to be absent credible lethality, and had the maximum benefit of inpatient hospitalization, so was discharged. Involuntary Hold Information 96 Hour Hold: 96 Hour Involuntary Admission: No Mental Status Exam MSE Comments: This is a well-nourished well-developed white male in hospital scrubs looking older than his stated age with improving grooming and eye contact. No abnormal movements. Mostly cooperative with exam in no acute distress. Speech was normal rate and more normal volume. Mood described as better, affect congruent. Thought process linear. Thought content: Patient denied current suicidal or homicidal ideation, there were no delusions reported or noted, he denied any auditory or visual hallucinations. Attention and concentration were in tact and memory was more for reliable but none were formally tested. He is alert and oriented x3. Insight and judgment limited, but improving impulse control and improving. Discharge Data Studies Completed and Pending: Laboratory Results WBC 9.12 10^3/uL (3.2 9-11.43) 04/19/23 10:18 RBC 4.97 10^6/uL (3.8 5-5.65) 04/19/23 10:18 Hgb 15.50 g/dL (11.27 -16.99) 04/19/23 10:18 Hct 44.5 % (37-53) 04/19/23 10:18 MCV 89.5 fl (82-101) 04/19/23 10:18 MCH 31.2 pg (27-33) 04/19/23 10:18 MCHC 34.8 g/dL (30-55) 04/19/23 10:18 RDW 11.8 % (12.1-15.1 ) L 04/19/23 10:18 Plt Count 188 10^3/cmm (157 -399) 04/19/23 10:18 MPV 11.0 fL (7.4-10.4 ) H 04/19/23 10:18 Neut % (Auto) 58.8 % 04/19/23 10:18 Lymph % (Auto) 32.9 % 04/19/23 10:18 Foster % (Auto) 6.1 % 04/19/23 10:18 Eos % (Auto) 1.6 % 04/19/23 10:18 Baso % (Auto) 0.4 % 04/19/23 10:18 Neut # (Auto) 5.35 10^3/uL (1.8 -7.7) 04/19/23 10:18 Lymph # (Auto) 3.0 10^3/uL (0.8- 4.8) 04/19/23 10:18 Foster # (Auto) 0.6 10^3/uL (0.2- 0.9) 04/19/23 10:18 Eos # (Auto) 0.2 10^3/uL (0.0- 0.8) 04/19/23 10:18 Baso # (Auto) 0.0 10^3/uL (0.0- 0.1) 04/19/23 10:18 Nucleated RBC % (a uto) 0 % 04/19/23 10:18 Nucleated RBCs # 0.0 /100WBC 04/19/23 10:18 Sodium 129 mmol/L (136-1 45) L 04/19/23 10:18 Potassium 4.2 mmol/L (3.5-5 .1) 04/19/23 10:18 Chloride 90 mmol/L (98-107 ) L 04/19/23 10:18 Carbon Dioxide 29 mmol/L (22-29) 04/19/23 10:18 Anion Gap 14.2 (5-19) 04/19/23 10:18 BUN 14 mg/dL (6-20) 04/19/23 10:18 Creatinine 0.7 mg/dL (0.7-1. 2) 04/19/23 10:18 GFR Calculation 122.5 mL/min (90- 130) 04/19/23 10:18 Glucose 645 mg/dL (65-115 ) H* 04/19/23 10:18 POC Glucose 144 mg/dL (70-110 ) H 04/23/23 07:36 Estimat Average Gl ucose 286 04/19/23 10:18 Hemoglobin A1c 11.6 % (4.0-6.0) H 04/19/23 10:18 Calculated Osmolal ity 299 mOsm/kg (285- 295) H 04/19/23 10:18 Calcium 9.5 mg/dL (8.5-10 .5) 04/19/23 10:18 Total Bilirubin 0.2 mg/dL (0.15-1 .2) 04/19/23 10:18 AST 11 U/L (0-40) 04/19/23 10:18 ALT 19 U/L (0-41) 04/19/23 10:18 Alkaline Phosphata se 175 U/L (40-130) H 04/19/23 10:18 Total Protein 7.3 g/dL (6.6-8.7 ) 04/19/23 10:18 Albumin 3.9 g/dL (3.5-5.2 ) 04/19/23 10:18 Globulin 3.4 g/dL (1.3-4.6 ) 04/19/23 10:18 TSH 1.10 uIU/mL (0.27 -4.20) 04/19/23 10:18 Urine Color Colorless (Yello w) 04/19/23 10:22 Urine Appearance Clear (CLEAR) 04/19/23 10:22 Urine pH 7 (5-7) 04/19/23 10:22 Ur Specific Gravit y 1.005 (1.005-1.0 30) 04/19/23 10:22 Urine Protein Neg (Negative) 04/19/23 10:22 Urine Glucose (UA) 4+ (Normal) H 04/19/23 10:22 Urine Ketones Negative (Negati ve) 04/19/23 10:22 Urine Blood Neg (Negative) 04/19/23 10:22 Urine Nitrate Negative (Negati ve) 04/19/23 10:22 Urine Bilirubin Neg (Negative) 04/19/23 10:22 Urine Urobilinogen Norm mg/dL (Negat garcía) 04/19/23 10:22 Ur Leukocyte Yanci ase Negative (Negati ve) 04/19/23 10:22 Urine RBC None /hpf (0-2) 04/19/23 10:22 Urine WBC Rare /hpf (0-5) 04/19/23 10:22 Ur Squamous Epith Cells None /hpf (0-5) 04/19/23 10:22 Amorphous Sediment Not Reportable 04/19/23 10:22 Urine Bacteria None /hpf (NONE) 04/19/23 10:22 Urine Mucus 1+ /hpf 04/19/23 10:22 Salicylates < 0.3 mg/dL (3-10 ) L 04/19/23 10:18 Urine Opiates Scre en Negative ng/mL (N egative) 04/19/23 10:22 Acetaminophen < 5.0 ug/mL (10-3 0) L 04/19/23 10:18 Ur Barbiturates Sc reen Negative ng/mL (N egative) 04/19/23 10:22 Ur Phencyclidine S crn Negative ng/mL (N egative) 04/19/23 10:22 Ur Amphetamines Sc reen Negative ng/mL (N egative) 04/19/23 10:22 U Benzodiazepines Scrn Negative ng/mL (N egative) 04/19/23 10:22 Urine Cocaine Scre en Negative ng/mL (N egative) 04/19/23 10:22 U Marijuana (THC) Screen Positive ng/mL (N egative) H 04/19/23 10:22 Ethyl Alcohol < 10 mg/dL (0-10) 04/19/23 10:18 Vitals: Last Vital Signs Temp 97.5 F L 04/23/23 06:00 Pulse 90 04/23/23 06:00 Resp 18 04/23/23 06:00 BP 94/63 04/23/23 06:00 Pulse Ox 96 04/23/23 06:00 O2 Del Method Room Air 04/23/23 06:00 Discharge Plan Discharge Patient Disposition: Home Condition: Stable Prescriptions: New metformin 500 mg Tablet 500 mg PO BIDWM 30 Days Qty: 60 1RF trazodone 50 mg Tablet 50 mg PO BEDTIME PRN (Reason: Sleep) 30 Days Qty: 30 1RF fluoxetine 20 mg Capsule 20 mg PO DAILY 30 Days Qty: 30 1RF hydroxyzine pamoate 25 mg Capsule 50 mg PO Q6H PRN (Reason: Anxiety) 30 Days Qty: 120 1RF Lantus Solostar U-100 Insulin 100 unit/mL (3 mL) insulin pen 15 unit SUBCUT BID Qty: 15 0RF (DME) blood-glucose meter Kit See Rx Instructions .Route Qty: 1 0RF Rx Instructions: As directed Discharge Orders: Discharge Order (Routine); Ordered 04/23/23 Ordered By: Chad Laureano Referrals: [facility] [Outside] - 04/29/23 2:15 pm (Initial assessmewnt for services) Matty Toledo MD [Physician] - 04/26/23 10:45 am Discharge Diet: Regular Discharge Activity: Resume usual activity Patient Instructions: Fluoxetine (By mouth), Trazodone (By mouth), Hydroxyzine (By mouth), Metformin (By mouth), Insulin Glargine (By injection), Hyperglycemia, Suicide Prevention (DC), Opioid Safety Activity Restrictions/Additional Instructions: Please instruct on use of Lantus Solostar prior to discharge. Follow-up with primary care provider 3 to 5 days Monitor sugars every morning and at bedtime Discussed signs and symptoms of hypoglycemia, actions to take should this occur. Discharge Attestations NPU Time Spent in Discharge Care*: less than 30 min Specific Discharge Activities: Specific discharge activities: educating patient, discussing with case technician/social workers/dc planners, documenting/other paperwork and evaluating patient/reviewing data Coding Level of Care Code Acute Chg FW DC note Diagnoses Suicidal ideation R45.851 Hyperglycemia R73.9 Diabetes E11.9 Major depressive disorder, recurrent F33.9 Personality disorder, unspecified F60.9
[2023-04-23 07:58] VITALS: BP 94/63; PULSE 90; RESP 18; TEMP 36.4; O2SAT 96
[2023-04-23] MEDS: fluoxetine 20 mg Capsule PO (08:28)
[2023-04-23] MEDS: metformin 500 mg Tablet PO (08:28)
[2023-04-23] MEDS: insulin lispro 100 unit/1 mL SUBCUT (08:28)
--- NOTE | 2023-04-23 08:51 | PM.PN ---
Subjective Subjective: I came to see Mr. Richardson as psychiatry was discharging him today. I was asked to facilitate some of his home medicines. He is amenable to taking insulin products, and is familiar with injecting Lantus Solostar in the past. Medications: Reviewed: Yes Vitals/I&O/Wt Last Vital Signs Temp 97.5 F L 04/23/23 07:58 Pulse 90 04/23/23 07:58 Resp 18 04/23/23 07:58 BP 94/63 04/23/23 07:58 Pulse Ox 96 04/23/23 07:58 O2 Del Method Room Air 04/23/23 06:00 Physical Exam Narrative: General exam no distress Data 04/19/23 10:18 04/19/23 10:18 A&P Assessment and plan (1) Diabetes: Patient has poorly controlled diabetes mellitus Metformin 500 mg twice daily was added. Discussed with patient. Lantus Solostar 15 units twice daily. Glucose monitoring kit, and patient is to take blood sugar twice daily and follow-up with his primary care provider 3 to 5 days for review of blood sugars. I discussed with him in detail the risk and benefits of insulin, including side effects. He can relate to me what to do if hypoglycemia occurs, and to notify his primary care provider. Plan Patient is currently being discharged Attestations Medical Necessity Statement*: Not applicable Diagnoses Diabetes E11.9 Time Spent (min) 21
== END 2023-04-23 10:34 | disposition home or self-care (01) | DRG 885 ==
LOC: ER 11:52 → NP 12:31
PROVIDERS: Internal Medicine; Admitting Provider Psychiatry & Neurology Psychiatry; Emergency Provider Physician Assistant; PCP Electrodiagnostic Medicine; Visit Provider Psychiatry & Neurology Psychiatry
DX: F33.9 Major depressive disorder, recurrent, unspecified (principal); R45.851 Suicidal ideations; E11.65 Type 2 diabetes mellitus with hyperglycemia; E11.42 Type 2 diabetes mellitus with diabetic polyneuropathy; Z79.4 Long term (current) use of insulin; F60.9 Personality disorder, unspecified; F41.9 Anxiety disorder, unspecified; Z63.4 Disappearance and death of family member; F17.200 Nicotine dependence, unspecified, uncomplicated
CPT/HCPCS: 36415; 36416; 80053; 80306; 80307; 81001; 82962; 83036; 84443; 85025; 96361; 96372; 96374; 97150; 97165; 99285; J1200; J1630; J1815; J2060; J7030

== ENCOUNTER 2023-06-13 09:45 | Inpatient (IN) | payer MEDICAID, SELFPAY ==
[2023-06-13] VITALS (49 sets, daily range): BP systolic 103–158; BP diastolic 65–113; PULSE 78–115; RESP 11–23; TEMP 36.3–36.9; O2SAT 94–99; BMI 25.5
--- NOTE | 2023-06-13 09:53 | ECG_ITS ---
[facility] Test Date: 2023-06-13 Pat Name: Eldon Richardson Department: Room: Gender: Male Set Designer: : 1980 Requested By: Nina Coy Order Number: [id number] Juni MD: Alvaro Enamorado M.D. Measurements Intervals Leiv[place] Rate: 112 P: 73 AL: 137 QRS: 52 QRSD: 94 T: 71 QT: 333 QTc: 456 Interpretive Statements SINUS TACHYCARDIA Compared to ECG 07/02/2014 03:04:48 No significant changes Electronically Signed On 06-13-2023 12:37:02 BOBBIN DOFFER by Alvaro Enamorado M.D. [id number]
--- NOTE | 2023-06-13 09:54 | ED_ITS ---
HPI - Overdose 2 General: Chief Complaint: Overdose Stated Complaint: overdose Time Seen by Provider: 06/13/23 09:46 Source: patient and EMS Mode of arrival: EMS Limitations: no limitations History of Present Illness: 43-year-old male who states he has been extremely depressed his mother recently he attempted suicide this morning at 9 AM. Patient had taken 3500 mg Tylenol's with Benadryl he also took 30-40 ibuprofen PM and he took 6 aspirins all in attempt to kill himself this morning at 9 AM. Had no vomiting. Review of Systems 2 Const: Denies: fever(s), chills, body aches or change in appetite ENMT: Denies: throat pain or dental pain Card: Denies: chest pain Resp: Denies: dyspnea GI: Denies: abdominal pain, nausea, vomiting or diarrhea Musc: Denies: neck pain or back pain Skin/Breast: Denies: rash Neuro: Denies: headache(s) Psych: Reports: depression and suicidal ideation PFS ED 2 PFSH: Medical History Suicidal ideation Moderate tobacco use disorder Anxiety Insomnia Personality disorder, unspecified Major depressive disorder, recurrent Peripheral neuropathy Diabetes Family History Father Cancer Pancreas, liver, colon Grandfather Cancer Maternal-pancreatic Other Diabetes Liver disease Stroke Denies family history of CAD (coronary artery disease) Aneurysm Autoimmune disease Clotting disorder Dementia Hyperlipidemia Hyperthyroidism Hypothyroidism Psychiatric illness Chronic kidney disease (CKD) Bleeding disorder Lung disease Hypertension Social History Smoking and tobacco/nicotine status: current every day tobacco/nicotine user cigarettes Alcohol intake: current Alcohol intake frequency: holidays/special occasions only Substance/Drug Use: current Substance/Drug use frequency: daily Lives independently: Yes Current occupational status: unemployed Physical Exam 2 Const: COMMON NORMALS: patient oriented x3 GENERAL APPEARANCE: disheveled HENMT: COMMON NORMALS: normocephalic and atraumatic HEAD & SCALP: n ormocephalic and atraumatic Neck/C-Spine: COMMON NORMALS: full ROM and supple Chest: COMMONS NORMALS: normal inspection of the chest and normal palpation of entire chest wall Resp: COMMON NORMALS: normal respiratory effort Cardio: COMMON NORMALS: regular rate, regular rhythm and No murmurs present (Cardio) RATE: regular rate RHYTHM: regular rhythm Extremity: COMMON NORMALS: normal to inspection and full ROM Neuro: COMMON NORMALS: patient oriented x3, moves all extremities and no focal motor deficits Psych: COMMON NORMALS: mental status grossly normal, Normal thought process present and cooperative THOUGHT PROCESS: Normal thought process present T HOUGHT CONTENT: Yes Suicidality present Skin: COMMON NORMALS: no rashes or lesions noted and no wounds GENERAL SKIN EXAM: no rashes or lesions noted Course 2 Vital Signs: Vital signs: Vital Signs Temperature 98.4 F 06/13/23 09:49 Pulse Rate 99 06/13/23 11:14 Respiratory Rate 23 H 06/13/23 11:14 Blood Pressure 128/80 06/13/23 11:14 Pulse Oximetry 97 06/13/23 11:14 Oxygen Delivery Me thod Room Air 06/13/23 11:14 MDM - Overdose Medical Decision Making Patient presents here after an overdose attempt on Tylenol along with Benadryl ibuprofen and aspirin. His aspirin level here is normal ABG is normal no signs of aspirin overdose is 1 hour Tylenol level was elevated I did speak to the hospitalist here will admit to the ICU did order a 4-hour Tylenol level at 1 and will decide at that time if he needs any note. Medical Records I reviewed the patient's medical records. Lab Data I reviewed the patient's lab results. 06/13/23 09:53 06/13/23 10:15 Laboratory Results WBC 12.66 10^3/uL (3.29-11.43) H 06/13/23 09:53 RBC 5.82 10^6/uL (3.85-5.65) H 06/13/23 09:53 Hgb 18.00 g/dL (11.27-16.99) H 06/13/23 09:53 Hct 51.4 % (37-53) 06/13/23 09:53 MCV 88.3 fl (82-101) 06/13/23 09:53 MCH 30.9 pg (27-33) 06/13/23 09:53 MCHC 35.0 g/dL (30-55) 06/13/23 09:53 RDW 11.9 % (12.1-15.1) L 06/13/23 09:53 Plt Count 212 10^3/cmm (157-399) 06/13/23 09:53 MPV 11.6 fL (7.4-10.4) H 06/13/23 09:53 Neut % (Auto) 50.2 % 06/13/23 09:53 Lymph % (Auto) 38.8 % 06/13/23 09:53 [place] % (Auto) 8.0 % 06/13/23 09:53 Eos % (Auto) 2.5 % 06/13/23 09:53 Baso % (Auto) 0.3 % 06/13/23 09:53 Neut # (Auto) 6.35 10^3/uL (1.8-7.7) 06/13/23 09:53 Lymph # (Auto) 4.9 10^3/uL (0.8-4.8) H 06/13/23 09:53 [place] # (Auto) 1.0 10^3/uL (0.2-0.9) H 06/13/23 09:53 Eos # (Auto) 0.3 10^3/uL (0.0-0.8) 06/13/23 09:53 Baso # (Auto) 0.0 10^3/uL (0.0-0.1) 06/13/23 09:53 Nucleated RBC % (auto) 0 % 06/13/23 09:53 Nucleated RBCs # 0.0 /100WBC 06/13/23 09:53 Specimen Type Arterial 06/13/23 10:05 Sample Site Radial, left 06/13/23 10:05 ABG pH 7.45 (7.35-7.45) 06/13/23 10:05 ABG pCO2 43.7 mmHg (35-45) 06/13/23 10:05 ABG pO2 69.1 mmHg (80.0-100.0) L 06/13/23 10:05 ABG PO2/FiO2 Ratio 0 06/13/23 10:05 ABG HCO3 30.0 mmol/L (22-26) H 06/13/23 10:05 ABG Base Excess 5.1 mmol/L (-2.0-2.0) H 06/13/23 10:05 Augustine Test Pos 06/13/23 10:05 Hematocrit 47.8 % (42-52) 06/13/23 10:05 O2 Delivery Device Room air 06/13/23 10:05 FiO2 21.0 % 06/13/23 10:05 Surgery Attendant ID Doreen 06/13/23 10:05 Sodium 133 mmol/L (136-145) L 06/13/23 10:15 Potassium 3.7 mmol/L (3.5-5.1) 06/13/23 10:15 Chloride 94 mmol/L (98-107) L 06/13/23 10:15 Carbon Dioxide 26 mmol/L (22-29) 06/13/23 10:15 Anion Gap 16.7 (5-19) 06/13/23 10:15 BUN 13 mg/dL (6-20) 06/13/23 10:15 Creatinine 0.8 mg/dL (0.7-1.2) 06/13/23 10:15 GFR Calculation 105.0 mL/min (90-130) 06/13/23 10:15 Glucose 482 mg/dL (65-115) H 06/13/23 10:15 POC Glucose 388 mg/dL (70-110) H 06/13/23 10:34 Calculated Osmolality 297 mOsm/kg (285-295) H 06/13/23 10:15 Calcium 9.1 mg/dL (8.5-10.5) 06/13/23 10:15 Total Bilirubin 0.3 mg/dL (0.15-1.2) 06/13/23 10:15 AST 9 U/L (0-40) 06/13/23 10:15 ALT 9 U/L (0-41) 06/13/23 10:15 Alkaline Phosphatase 154 U/L (40-130) H 06/13/23 10:15 Total Protein 7.1 g/dL (6.6-8.7) 06/13/23 10:15 Albumin 3.6 g/dL (3.5-5.2) 06/13/23 10:15 Globulin 3.5 g/dL (1.3-4.6) 06/13/23 10:15 Salicylates 5.2 mg/dL (3-10) 06/13/23 10:15 Acetaminophen 148.1 ug/mL (10-30) H* 06/13/23 10:15 Ethyl Alcohol < 10 mg/dL (0-10) 06/13/23 10:15 No radiology studies performed this visit EKG Data EKG 1: I personally reviewed and interpreted this EKG as follows: EKG interpretation date: 06/13/23 EKG interpretation time: 09:53 Interpretation: sinus tach hr [address] or t wave abnormalities qrs 94 qtc 399 Critical Care Time 2 Critical Care Time: Critical Care Time: Yes Total Critical Care Time: 45 Attestation: The high probability of a clinically significant, sudden or life threatening deterioration of the patient's od system(s) required my full and direct attention, intervention and personal management. The critical care time is as shown. This time is in addition to time spent performing any reported procedures but includes the following: [x] Data and vital sign review and interpretation [x] Patient assessment, examination and intervention [x] Documentation [x] Medication orders and management . Discharge Plan Discharge Patient Disposition: Admitted As Inpatient Clinical Impression: Suicidal ideation, Overdose by ingestion Condition: Stable Prescriptions: No Action metformin 500 mg tablet extended release 24hr 1,000 mg PO BID Qty: 120 0RF trazodone 50 mg Tablet 50 mg PO BEDTIME PRN (Reason: Sleep) 30 Days Qty: 30 1RF fluoxetine 20 mg Capsule 20 mg PO DAILY 30 Days Qty: 30 1RF hydroxyzine pamoate 25 mg Capsule 50 mg PO Q6H PRN (Reason: Anxiety) 30 Days Qty: 120 1RF insulin glargine [Lantus Solostar U-100 Insulin] 100 unit/mL (3 mL) insulin pen 15 unit SUBCUT BID Qty: 15 0RF (DME) blood-glucose meter Kit See Rx Instructions .Route Qty: 1 0RF Rx Instructions: As directed Referrals: Matty Toledo MD [Primary Care Provider] - Coding Level of Care Code ED Protein Chemist for Chg Margarita
[2023-06-13 09:57] LABS: Basophils % 0.3 %; Eosinophils # 0.3 10^3/uL (0.0-0.8); Eosinophils % 2.5 %; Hematocrit 51.4 % (37-53); Lymphocytes # 4.9 10^3/uL (0.8-4.8); Lymphocytes % 38.8 %; Mean Corpuscular Hemoglobin 30.9 pg (27-33); Mean Corpuscular Volume 88.3 fl (82-101); Mean Platelet Volume 11.6 fL (7.4-10.4); Neutrophils # 6.35 10^3/uL (1.8-7.7); Neutrophils % 50.2 %; Nucleated Red Blood Cells % 0 %; Platelet Count 212 10^3/cmm (157-399); Red Blood Count 5.82 10^6/uL (3.85-5.65); Red Cell Distribution Width 11.9 % (12.1-15.1); White Blood Count 12.66 10^3/uL (3.29-11.43)
[2023-06-13] MEDS: sodium chloride 0.9% 1,000 ML 999 ML IV (10:08)
[2023-06-13 10:19] LABS: ABG PCO2 43.7 mmHg (35-45); ABG PH Result 7.45 (7.35-7.45); Arterial Blood Gas Hematocrit 47.8 % (42-52); Base Excess ABG 5.1 mmol/L (-2.0-2.0); Blood Gas Allen Test Pos; Blood Gas Operator Identificat MONRO; Blood Gas Sample Site Radial, left; Blood Gas Sample Type Arterial; Oxygen Device ROOM AIR; PO2 ABG 69.1 mmHg (80.0-100.0); PO2 FiO2 Ratio Arterial Blood 0
[2023-06-13 10:35] LABS: Glucose Point of Care 388 mg/dL (70-110)
[2023-06-13 10:39] LABS: Alanine Aminotransferase 9 U/L (0-41); Albumin Level 3.6 g/dL (3.5-5.2); Alkaline Phosphatase 154 U/L (40-130); Anion Gap 16.7 (5-19); Aspartate Amino Transferase 9 U/L (0-40); Blood Urea Nitrogen 13 mg/dL (6-20); Calcium 9.1 mg/dL (8.5-10.5); Carbon Dioxide 26 mmol/L (22-29); Chloride 94 mmol/L (98-107); Globulin 3.5 g/dL (1.3-4.6); Glucose 482 mg/dL (65-115); Osmolality Calculated 297 mOsm/kg (285-295); Potassium 3.7 mmol/L (3.5-5.1); Salicylate 5.2 mg/dL (3-10); Sodium 133 mmol/L (136-145); Total Bilirubin 0.3 mg/dL (0.15-1.2); Total Protein 7.1 g/dL (6.6-8.7)
[2023-06-13 10:42] LABS: Acetaminophen 148.1 ug/mL (10-30); Alcohol Level < 10 mg/dL (0-10)
--- NOTE | 2023-06-13 10:45 | PC.NURSE ---
poison control notified pt ingested amounts listed acetaminophen/diphehydramine 500/25mg aspirin/caffeine 500/32.5 mg ibuprofen/diphehydramine 200/25mg at approx 0900. sba underwriter will continue to update.
--- NOTE | 2023-06-13 11:05 | P.HP_ITS ---
Providers/Chief Complaint 2 Admitting Physician: Scott Rehman MD Primary Care Provider: Matty Toledo MD Chief Complaint: overdose History of Present Illness Eldon Richardson is a 43 year old male presenting with after a suicide attempt by overdose. He has a history of depression, and suicidal ideation previously. Most recent admission was in April. He reports he took Tylenol PM, ibuprofen PM, and perhaps 6 aspirin. Tylenol PM bottle was 500 mg of acetaminophen and 25 mg of Benadryl. Potential for ingestion of 30 pills which would total 15 g of Tylenol. He is sleepy, and can answer a few questions. He states he took everything in the bottle, and the bottle was probably full. No nausea or vomiting currently. Has received some IV fluids in the emergency department. Placed on a 96-hour hold. Review of Systems 2 General: Denies: 10 or more systems reviewed and unremarkable except in HPI and below Card: Denies: chest pain Resp: Denies: dyspnea GI: Denies: abdominal pain, nausea or vomiting Medications/Allergies Home Medications Medication Instructions Recorded Confirmed Last Taken Type blood-glucose meter #1 ea 04/23/23 06/13/23 Unknown Rx fluoxetine 20 mg capsule 20 mg PO DAILY 30 days #30 caps 04/23/23 06/13/23 Unknown Rx hydroxyzine pamoate 25 mg capsule 50 mg (2 x 25 mg) PO Q6H PRN 04/23/23 06/13/23 Unknown Rx Anxiety 30 days #120 caps insulin glargine 100 unit/mL (3 15 unit (0.15 mL) SUBCUT BID #15 mL 04/23/23 06/13/23 Unknown Rx mL) subcutaneous pen (Lantus Solostar U-100 Insulin) trazodone 50 mg tablet 50 mg PO BEDTIME PRN Sleep 30 days 04/23/23 06/13/23 Unknown Rx #30 tabs metformin 500 mg tablet,extended 1,000 mg (2 x 500 mg) PO BID #120 04/26/23 06/13/23 Unknown Rx release 24hr (osmotic) tabs Allergies Allergy/AdvReac Type Severity Reaction Status Date / Time No Known Allergies Allergy Verified 05/29/23 11:48 PFSH Acute 2 PFSH: Medical History Suicidal ideation Moderate tobacco use disorder Anxiety Insomnia Personality disorder, unspecified Major depressive disorder, recurrent Peripheral neuropathy Diabetes Family History Father Cancer Pancreas, liver, colon Grandfather Cancer Maternal-pancreatic Other Diabetes Liver disease Stroke Denies family history of CAD (coronary artery disease) Aneurysm Autoimmune disease Clotting disorder Dementia Hyperlipidemia Hyperthyroidism Hypothyroidism Psychiatric illness Chronic kidney disease (CKD) Bleeding disorder Lung disease Hypertension Social History Smoking and tobacco/nicotine status: current every day tobacco/nicotine user cigarettes Alcohol intake: current Alcohol intake frequency: holidays/special occasions only Substance/Drug Use: current Substance/Drug use frequency: daily Lives independently: Yes Current occupational status: unemployed Vitals/I&O/Wt Last Vital Signs Temp 98.4 F 06/13/23 09:49 Pulse 101 H 06/13/23 10:50 Resp 13 06/13/23 10:50 BP 149/104 06/13/23 10:50 Pulse Ox 97 06/13/23 10:50 O2 Del Method Room Air 06/13/23 10:34 Weight last 48 hrs Weight 76.204 kg Physical Exam 2 Narrative: General exam is a white male, conversant but sleepy and occasionally crying. HEENT: Atraumatic and normocephalic. Oropharynx clear Neck is supple no lymphadenopathy thyromegaly Cardiovascular regular rate and rhythm, borderline tachycardic, no murmur Lungs clear no wheezing or crackles Abdomen is soft nontender positive bowel sounds. No obvious organomegaly exam is deferred Extremities no cyanosis clubbing edema, cap refill brisk Skin no rash Neuro no focal deficits. Data 06/13/23 09:53 06/13/23 10:15 Other Labs: ABG demonstrates pH 7.45, pCO2 44, pO2 of 69 LFTs are normal with exception of alk phos of 154 Salicylate level 5.2 Alcohol level less than 10 Initial acetaminophen level 148 EKG which I reviewed demonstrates sinus tachycardia, normal axis, no concerning changes. QTc approximately 450 A&P Assessment and plan (1) Overdose by ingestion: Patient presents with overdose of Tylenol, Benadryl. He also had some aspirin ingestion although this is not likely significant as bottle only contained 6 pills Initial Tylenol level is elevated Poison control has been notified CMP, CBC, INR daily Likely will need acetylcysteine, but awaiting 4-hour level. If above treatment line which is 150, initiate treatment. Otherwise supportive care Secondary to Benadryl overdose Ativan as needed, monitoring for sedation (2) Suicidal ideation: 96-hour hold Psychiatric consultation (3) Diabetes: Sliding scale insulin Consistent carb clear liquid diet Lantus 10 units daily Plan Other medical problems as outlined in past medical history Full code Low risk for DVT, no prophylaxis indicated Attestations 2 Medical Necessity Statement*: Will require greater than 2 midnight stay for evaluation and treatment of Tylenol overdose. Diagnoses Overdose by ingestion T50.901A Suicidal ideation R45.851 Diabetes E11.9 Time Spent (min) 54
--- NOTE | 2023-06-13 11:17 | PC.NURSE ---
pt sister called for pt update, verbal consent from patient to give update to sister Katie.
[2023-06-13 12:02] LABS: Amphetamines Screen Urine Positive (Negative); Barbiturates Screen Urine Negative (Negative); Benzodiazepines Screen Urine Positive (Negative); Cocaine Screen Urine Negative (Negative); Opiate Screen Urine Negative (Negative); PCP Screen Urine Negative (Negative); THC Screen Urine Positive (Negative)
--- NOTE | 2023-06-13 12:07 | PC.NURSE ---
Parvez from poison control called for pt update, no new information available will follow up with ICU.
[2023-06-13 12:33] LABS: Glucose Urine UA 4+ (Normal); Ketones Urine Negative (Negative); Protein Urine 3+ (Negative); Specific Gravity, Urine 1.015 (1.005-1.030); Urine Appearance Clear (CLEAR); Urine Color Yellow (Yellow); pH Urine 5 (5-7)
[2023-06-13 12:34] LABS: Add Urine Culture? No; Bacteria Urine TRACE /hpf; Bilirubin Urine Neg (Negative); Blood Urine Trace (Negative); Hyaline Casts Urine 0-4 /lpf; Leukocyte Esterase Urine Negative (Negative); Mucus Urine TRACE /hpf; Nitrate Urine Negative (Negative); RBC Urine 0-4 /hpf (0-2); Squamous Epithelial Cell Urine 0-4 /hpf (0-5); Urobilinogen Urine Neg (Negative); WBC Urine 0-4 /hpf (0-5)
[2023-06-13] MEDS: sodium chloride 0.9% 1,000 ML 100 ML IV ×2 (13:26→23:12)
[2023-06-13 13:55] LABS: Acetaminophen 106.6 ug/mL (10-30)
[2023-06-13 16:55] LABS: Glucose Point of Care 393 mg/dL (70-110)
[2023-06-13] MEDS: insulin lispro 100 unit/1 mL SUBCUT ×2 (16:55→21:22)
[2023-06-13 17:54] LABS: Acetaminophen 83.4 ug/mL (10-30); Salicylate 8.7 mg/dL (3-10)
--- NOTE | 2023-06-13 19:08 | PC.NURSE ---
15min Rounding: See paper chart for 1:1 15min rounding documentation.
[2023-06-13 19:42] LABS: Glucose Point of Care 227 mg/dL (70-110)
[2023-06-13] MEDS: insulin glargine 100 units/1 mL 10 UNIT SUBCUT (21:22)
[2023-06-14] VITALS (22 sets, daily range): BP systolic 91–168; BP diastolic 53–92; PULSE 85–121; RESP 13–28; TEMP 36.7–37.4; O2SAT 79–98
[2023-06-14] MEDS: ondansetron 2 mg/ML SDV 2 mL 4 MG IVP (03:48)
[2023-06-14] MEDS: pantoprazole DR 40 mg Tablet PO (03:50)
--- NOTE | 2023-06-14 03:51 | PC.NURSE ---
Abd Pain: Pt awoke, crying and reported 8/[address] Moran already in ICU and notified in person. New order to give Protonix early and for PRN TUMS.
[2023-06-14 05:53] LABS: Basophils % 0.4 %; Eosinophils # 0.1 10^3/uL (0.0-0.8); Eosinophils % 0.7 %; Hematocrit 43.3 % (37-53); Lymphocytes % 30.9 %; Mean Corpuscular HGB Conc 34.2 g/dL (30-55); Mean Corpuscular Hemoglobin 30.5 pg (27-33); Mean Corpuscular Volume 89.3 fl (82-101); Mean Platelet Volume 11.4 fL (7.4-10.4); Monocytes # 0.8 10^3/uL (0.2-0.9); Monocytes % 8.5 %; Neutrophils # 5.75 10^3/uL (1.8-7.7); Neutrophils % 59.3 %; Nucleated Red Blood Cells % 0 %; Platelet Count 220 10^3/cmm (157-399); Red Blood Count 4.85 10^6/uL (3.85-5.65); Red Cell Distribution Width 11.9 % (12.1-15.1)
[2023-06-14 06:00] LABS: INR 1.22 (0.8-1.2)
[2023-06-14 06:09] LABS: Alanine Aminotransferase 8 U/L (0-41); Albumin Level 3.3 g/dL (3.5-5.2); Alkaline Phosphatase 131 U/L (40-130); Anion Gap 14.4 (5-19); Aspartate Amino Transferase 10 U/L (0-40); Blood Urea Nitrogen 19 mg/dL (6-20); Calcium 8.7 mg/dL (8.5-10.5); Carbon Dioxide 26 mmol/L (22-29); Chloride 99 mmol/L (98-107); Globulin 3.3 g/dL (1.3-4.6); Glomerular Filtration Rate 91.7 mL/min (90-130); Glucose 205 mg/dL (65-115); Magnesium 1.8 mg/dL (1.7-2.3); Osmolality Calculated 290 mOsm/kg (285-295); Potassium 3.4 mmol/L (3.5-5.1); Sodium 136 mmol/L (136-145); Total Bilirubin 0.3 mg/dL (0.15-1.2); Total Protein 6.6 g/dL (6.6-8.7)
[2023-06-14 07:41] LABS: Glucose Point of Care 170 mg/dL (70-110)
--- NOTE | 2023-06-14 08:49 | W.PM.PSYCONS ---
Providers/Reason for Consult Consulting Physican/Specialty*: Contreras Lyon MD Reason for Consult*: suicide attempt via tylenol overdose Attending Physician: Scott Rehman MD Primary Care Provider: Matty Toledo MD Psych Consult HPI History of Present Illness Eldon Richardson is a 43 year old male Recently discharged from the neuropsychiatric unit on 04/23/2023 with suicidal ideation who was admitted to the intensive care unit after the patient had taken 6 aspirin, multiple Tylenol pills along with several pills of 25 mg of Benadryl. The patient had been given N-acetylcysteine in the intensive care unit and had potentially ingested up to 15 g of Tylenol. The patient upon evaluation in the ICU appeared distraught and stated that he has been feeling hopeless and that he had reached out to a few of his friends to let them know through phone text that he had appreciated them and that he was planning on ending his life. He had reported no improvement with his depression since his last hospitalization. Patient had reported that he had been thinking about killing himself for the past several weeks. He had continued to report feelings of hopelessness. He reports that he has been more depressed over the past 13 months since his mother had suddenly. He reports low energy and he Trudy insomnia with frequent awakenings at night. He reports that he has been more tearful. He reports continued lack of social supports and states that he frequently feels let down by others. He states that he has been crying nearly every day. He reports that he is often overwhelmed by worry and states that he has difficulties with concentration and reports often being paralyzed by inactivity. He reports that he feels that that his worry is out of control. He reports that the holidays had been worse for him as he had felt alone and reports that he continues to grieve his mother's . He had reported compliance with Prozac but stated that the medication had been unsuccessful at helping with his mood at the dose of 20 mg daily. He had reported that he had recently lost a job in January and reports that he has been concerned that he may lose the house that he owns currently. He denies any history of yuan. He denied any history of psychosis. He minimized any drug or alcohol use other than marijuana use. The patient's urine was positive for amphetamine. Inpatient psychiatric history: 1 previous hospitalization in April 2023. There had been previous Outpatient psychiatric history: He has not received psychotherapy services but has been seen through the crisis team through [facility]. Current psychiatric medications are being monitored under Dr. Seals who is his primary care physician. Current medications: Prozac 20 mg daily, hydroxyzine, insulin, metformin, trazodone Drug and alcohol history: None reported with no prior history of substance abuse treatment. He reports he has been using marijuana on a regular basis for years. Legal history: Unknown family psychiatric history: None reported medical history: Diabetes type 2., diabetic neuropathy allergies: No known drug allergies social history: Patient grew up in [place]. He is the only product of his mother and father. He states that his mother had been multiple times. He had reported that he had apparently tried to harm himself as a child but did not elaborate. He states that he moved to [place] and has never been . He has no children. He reports having a few friends and reports that he has a dog that he describes as his best friend. He had previously worked a variety of jobs and had worked at [employer] for several years but lost his job in January. He reports having half-siblings that he has little contact with. He states that his mother had 14 months ago suddenly and reports that his depression has begun after that period time. suicide attempts by medication overdose. Excerpt [facility] Discharge summary from 04/19/23 Discharge Diagnosis (1) Suicidal ideation: Status: Resolved (2) Hyperglycemia: Status: Acute (3) Diabetes: Status: Acute (4) Major depressive disorder, recurrent: Status: Acute (5) Personality disorder, unspecified: Status: Acute Reason for Visit SI Brief History: History of Present Illness Hany Richardson is a 43 year old male who presented to the emergency department with the following report: Chief Complaint: Psychiatric Symptoms Stated Complaint: SI Time Seen by Provider: 04/19/23 08:55 Source: patient and other (family friend) Mode of arrival: ambulatory Limitations: no limitations History of Present Illness: ? Patient is a 43-year-old male who presents to ED today after being brought by a family friend for concerns of suicidal ideations.? Family friend states that she was contacted early this morning by patient asking her if she would take his dog.? When she questioned further, he stated that he was suicidal and had a plan to kill himself this morning.? She quickly rushed to his house and convinced him to come to the emergency department for evaluation.? On exam patient is sobbing stating that he feels like he has lost everything.? He states he lost his mother approximately a year ago.? He lost his job a few months ago secondary to untreated mental health illness/anxiety.? Patient states he has never seen a psychiatrist or medical health provider.? He lives alone currently with his dog, Gisel.? Patient states last month he attempted suicide by medication overdose. Of note he states he has not been to a medical provider in years but states he has untreated type II diabetes. Was on Gabapentin one time due to his peripheral neuropathy but states it didn't help. ? MD complaint: suicidal ideation and feels depressed History of same: Yes Relieving factors: none Context: significant life stressor (lost mother a year ago/lost job a few months ago) Associated psychiatric symptoms: depression and suicidal ideation Associated symptoms: Reports depression and suicidal ideation; Deny auditory hallucinations, visual hallucinations or homicidal ideation Treatments prior to arrival: none If self harm: admits thoughts of self harm He was admitted to the neuropsychiatric unit for definitive treatment of those issues.? He was initially seen this morning as part of a [id number] after a seclusion episode where he lost emotional control saying that he needed to go see his dog which she given to someone initially with a plan to kill himself.? There was nothing anyone can say to calm him to a rational level and this escalated to him needing to be held and he was given an injection.? Shortly thereafter when I went to speak to him he was lethargic secondary to the injections but was able to arouse himself to answer some questions.? He continued to focus on going to see his dog and seem to forget that he had made arrangements for the pet.? He was suggesting that the dog was in some danger and we did make a call and verify that he infected given that to some apparently responsible people who are reportedly taking good care of it and they advised that the pet would be just fine in their home and that he should remain here and get the help that he needs.? He did not seem to take that information with much recognition of its significance.? And continued to be quite emotional surrounding the dog.? He was able to share that he is had a long history of mental health issues and depression that has been essentially untreated with a reported lack of history of any medication.? He reports that he was willing to begin Prozac 20 mg p.o. daily after discussion of the risks, benefits and alternatives he understood and agreed to proceed as is documented in this note.? Attempts were made to get more accurate picture of exactly why he was overwhelmed but he mostly [place] rolled around in the bed lamenting about not being with his dog and not really answering the questions with any clarity.? He could not give any nidus for his suicidality just reporting that he was not feeling like himself.? He denied any drug use other than the marijuana and his UDS was only positive for cannabis. Hospital Course Hospital Course He slowly acclimated to the individual, group and milieu therapies provided.? He presented with significant emotional dysregulation. Initially he had to be restrained and given as needed medication because he was not able to control his emotions and agitation. His diabetes was more appropriately managed during the stay which likely had a significant impact on his functioning. He was started on Prozac 20 mg p.o. daily as well as trazodone to help with sleep He was able to work with the social work team to establish appropriate aftercare and follow-up appointments. He had significant improvement during his stay and was able to contract for safety outside of the hospital prior to discharge.? During the hospitalization, patient had routine laboratory studies which were within normal limits except for few outliers.? Additionally there was a general medical evaluation which was also within normal limits and revealed no new acute processes. It is noteworthy that his blood sugars were not well managed and hospitalists intervene and assisted him in getting a reasonable regimen prior to discharge. At the time of discharge, he denied psychosis or lethality.? Mood and anxiety were well managed.? Patient endorsed a plan to avoid all drugs of abuse and follow-up with the aftercare recommendations of the treatment team.? Patient was evaluated and deemed to be absent credible lethality, and had the maximum benefit of inpatient hospitalization, so was discharged. Meds Home Medications and Allergies Home Medications Medication Instructions Recorded Confirmed Last Taken Type blood-glucose meter #1 ea 04/23/23 06/13/23 Unknown Rx fluoxetine 20 mg capsule 20 mg PO DAILY 30 days #30 caps 04/23/23 06/13/23 Unknown Rx hydroxyzine pamoate 25 mg capsule 50 mg (2 x 25 mg) PO Q6H PRN 04/23/23 06/13/23 Unknown Rx Anxiety 30 days #120 caps insulin glargine 100 unit/mL (3 15 unit (0.15 mL) SUBCUT BID #15 mL 04/23/23 06/13/23 Unknown Rx mL) subcutaneous pen (Lantus Solostar U-100 Insulin) trazodone 50 mg tablet 50 mg PO BEDTIME PRN Sleep 30 days 04/23/23 06/13/23 Unknown Rx #30 tabs metformin 500 mg tablet,extended 1,000 mg (2 x 500 mg) PO BID #120 04/26/23 06/13/23 Unknown Rx release 24hr (osmotic) tabs Allergies Allergy/AdvReac Type Severity Reaction Status Date / Time No Known Allergies Allergy Verified 05/29/23 11:48 Current Medications Current Medications Generic Name Dose Route Start Last Admin Trade Name Freq PRN Reason Stop Dose Admin Sodium Chloride 1,000 mls @ 100 mls/hr 06/13/23 12:24 06/14/23 06:00 Sodium Chloride 0.9% IV 100 mls/hr .Q10H CORNELIO Infusion Acetylcysteine 7,600 mg/ 1,038 mls @ 64.875 mls/hr 06/14/23 00:00 06/14/23 06:00 Dextrose IV 06/14/23 15:59 64 mls/hr ONCE ONE Infusion Insulin Glargine 10 unit 06/13/23 21:00 06/13/23 21:22 Insulin Glargine 100 Units/1 Ml SUBCUT 10 unit BEDTIME CORNELIO Administration Insulin Human Lispro 0 unit 06/13/23 18:00 06/13/23 21:22 Insulin Lispro 100 Unit/1 Ml SUBCUT 6 unit WM&BEDTIME CORNELIO Administration Protocol Ondansetron HCl 4 mg 06/13/23 12:24 06/14/23 03:48 Ondansetron 2 Mg/Ml Sdv 2 Ml IVP 4 mg Q6H PRN Administration NAUSEA AND VOMITING Pantoprazole Sodium 40 mg 06/14/23 09:00 06/14/23 03:[address] 40 Mg Tablet PO 40 mg DAILY CORNELIO Administration PFSH NPU PFSH: Medical History Suicidal ideation Moderate tobacco use disorder Anxiety Insomnia Personality disorder, unspecified Major depressive disorder, recurrent Peripheral neuropathy Diabetes Family History Father Cancer Pancreas, liver, colon Grandfather Cancer Maternal-pancreatic Other Diabetes Liver disease Stroke Denies family history of CAD (coronary artery disease) Aneurysm Autoimmune disease Clotting disorder Dementia Hyperlipidemia Hyperthyroidism Hypothyroidism Psychiatric illness Chronic kidney disease (CKD) Bleeding disorder Lung disease Hypertension Social History Smoking and tobacco/nicotine status: current every day tobacco/nicotine user cigarettes Alcohol intake: current Alcohol intake frequency: holidays/special occasions only Substance/Drug Use: current Substance/Drug use frequency: daily Lives independently: Yes Current occupational status: unemployed Mental Status Exam MSE Comments: This is a well-nourished well-developed white male in hospital scrubs looking older than his stated age with limited grooming and eye contact. No abnormal movements except for significant psychomotor agitation. He was cooperative with exam and was in extreme distress. Speech was normal rate and decreased in volume with normal productivity. Mood described as depressed and overwhelmed. His affect was mood congruent. Thought process was logical and linear. Thought content: Patient denied homicidal ideation and endorsed suicidal ideation acknowledging his intent of killing himself via overdose. There were no delusions reported or noted, he denied any auditory or visual hallucinations. Attention and concentration were limited and memory was somewhat reliable but none were formally tested. He is alert and oriented x3. Insight is poor and judgment is impaired with impulse control impaired. Vitals/I&O/Wt Last Vital Signs Temp 98.0 F 06/14/23 00:51 Pulse 99 06/14/23 06:00 Resp 28 H 06/14/23 06:00 BP 112/74 06/14/23 06:00 Pulse Ox 93 06/14/23 06:00 O2 Del Method Room Air 06/14/23 06:00 06/13/23 06/14/23 06/14/23 22:59 06:59 14:59 Intake Total 1488.354 / 2488.354 1452.696 / 3941.050 Output Total 150 / 150 700 / 850 Balance 1338.354 / 2338.354 752.696 / 3091.050 Weight last 48 hrs Weight 72.847 kg Weight 76.204 kg Weight 76.204 kg Data NPU 06/14/23 04:45 06/14/23 14:22 A&P Assessment and plan (1) MDD (major depressive disorder), single episode, severe: (2) Overdose on Tylenol: (3) ANGEL (generalized anxiety disorder): (4) Suicidal ideation: (5) Hyperglycemia: (6) Diabetes: (7) Major depressive disorder, recurrent: Qualifiers: Active/Remission status: currently active Major depression episode severity: severe Psychotic features: without psychotic features Qualified Code(s): F33.2 - Major depressive disorder, recurrent severe without psychotic features (8) Personality disorder, unspecified: Plan This is a 43-year-old white male with a history of ANGEL and MDD severe with recent hospitalization 7 weeks ago admitted to ICU involuntarily after overdose. Patient will require inpatient hospitalization at NPU once cleared from ICU. Patient will remain involuntarily hospitalized. 1. Will restart Prozac 20 mg p.o. every morning. 2. Encourage individual, group and milieu therapies. 3. Continue every 15 minute checks for safety. 4. Encourage sober living treatment after discharge at the highest level of care to which he is willing to commit. Transfer to [facility] Involuntary Hold Information 96 Hour Hold: 96 Hour Involuntary Admission: No Attestations NPU Medical Necessity Statement*: Inpatient psychiatric hospitalization is medically necessary and the clinically appropriate intervention at this time. We will monitor medications and make changes as indicated. He will be in the psychiatric unit for over 2 midnights. His likely length of stay 3 to 5 days. Coding Level of Care Code Acute Code for [facility] [place] Diagnoses MDD (major depressive disorder), single episode, severe F32.2 Overdose on Tylenol T39.1X1A ANGEL (generalized anxiety disorder) F41.1 Suicidal ideation R45.851 Hyperglycemia R73.9 Diabetes E11.9 Severe episode of recurrent major depressive disorder, without psychotic features F33.2 Active/Remission status: currently active Major depression episode severity: severe Psychotic features: without psychotic features Personality disorder, unspecified F60.9
[2023-06-14] MEDS: insulin lispro 100 unit/1 mL SUBCUT ×3 (09:42→17:42)
[2023-06-14] MEDS: potassium chloride ER 20 mEq Tablet 40 MEQ PO (09:42)
[2023-06-14] MEDS: sodium chloride 0.9% 1,000 ML 100 ML IV (09:43)
--- NOTE | 2023-06-14 10:36 | P.PN_ITS ---
Subjective 2 Subjective: Patient is tearful this morning. He denies any specific pain. He has been taking the medication as ordered. Medications: Reviewed: Yes Vitals/I&O/Wt Last Vital Signs Temp 98.0 F 06/14/23 00:51 Pulse 99 06/14/23 06:00 Resp 28 H 06/14/23 06:00 BP 112/74 06/14/23 06:00 Pulse Ox 93 06/14/23 06:00 O2 Del Method Room Air 06/14/23 06:00 06/13/23 06/14/23 06/14/23 22:59 06:59 14:59 Intake Total 1488.354 / 2488.354 1452.696 / 3941.050 320 / 320 Output Total 150 / 150 700 / 850 Balance 1338.354 / 2338.354 752.696 / 3091.050 320 / 320 Weight last 48 hrs Weight 72.847 kg Weight 76.204 kg Weight 76.204 kg Physical Exam 2 Narrative: General no distress Neck is supple no lymphadenopathy thyromegaly Cardiovascular regular rate and rhythm, no murmur Lungs clear no wheezing or crackles Abdomen is soft nontender positive bowel sounds. No obvious organomegaly Extremities no cyanosis clubbing edema, cap refill brisk Data 06/14/23 04:45 06/14/23 04:45 A&P Assessment and plan (1) Overdose by ingestion: Patient presents with overdose of Tylenol, Benadryl. He also had some aspirin ingestion although this is not likely significant as bottle only contained 6 pills Initial Tylenol level is elevated For our level under treatment level but 8-hour level was above treatment level. Acetylcysteine was initiated. Awaiting for CMP, Tylenol level 2 hours prior to treatment completion Poison control has been notified CMP, CBC, INR daily Continue supportive care Secondary to Benadryl overdose Ativan as needed, monitoring for sedation (2) Suicidal ideation: 96-hour hold Psychiatric consultation (3) Diabetes: Sliding scale insulin Consistent carb clear liquid diet Lantus 10 units daily Plan Other medical problems as outlined in past medical history Full code Low risk for DVT, no prophylaxis indicated Attestations 2 Medical Necessity Statement*: Needs continued hospitalization secondary to Tylenol overdose requiring acetylcysteine. Diagnoses Overdose by ingestion T50.901A Suicidal ideation R45.851 Diabetes E11.9 Time Spent (min) 25
[2023-06-14 12:42] LABS: Glucose Point of Care 292 mg/dL (70-110)
[2023-06-14 14:46] LABS: Alanine Aminotransferase 7 U/L (0-41); Alkaline Phosphatase 115 U/L (40-130); Anion Gap 11.5 (5-19); Aspartate Amino Transferase 8 U/L (0-40); Blood Urea Nitrogen 15 mg/dL (6-20); Calcium 8.6 mg/dL (8.5-10.5); Carbon Dioxide 26 mmol/L (22-29); Chloride 101 mmol/L (98-107); Globulin 2.9 g/dL (1.3-4.6); Glomerular Filtration Rate 122.5 mL/min (90-130); Glucose 282 mg/dL (65-115); Osmolality Calculated 291 mOsm/kg (285-295); Potassium 3.5 mmol/L (3.5-5.1); Sodium 135 mmol/L (136-145); Total Bilirubin 0.2 mg/dL (0.15-1.2); Total Protein 5.9 g/dL (6.6-8.7)
[2023-06-14 14:48] LABS: Acetaminophen < 5.0 ug/mL (10-30)
[2023-06-14 16:26] LABS: Glucose Point of Care 217 mg/dL (70-110)
--- NOTE | 2023-06-14 18:19 | PC.NURSE ---
SHift Summary: Uneentful shift. rested in bed most of the day, but occaisonally up to use the restroom. Acetaminophen levels now within normal limits. Pending transfer to NPU.
[2023-06-14] MEDS: trazodone 50 mg Tablet PO (20:21)
[2023-06-14] MEDS: hyDROXYzine 25 mg Capsule 50 MG PO (20:21)
[2023-06-14] MEDS: OLANZapine 5 mg ODT PO (20:21)
--- NOTE | 2023-06-14 20:36 | PC.NURSE ---
Pt arrived to the unit at 1935 via wheelchair w/ICU staff and security. Pt sat on the bench and was crying his eyes out repeating I dont want to be here, I wanna go home . I attempted to obtain VS and admission paper signatures to which Pt refused and said I dont want to do anything right now i just want to go to bed . Pt was agreeable to let us change him out and he took some water and PRN medications. Pt however did refuse to let me take his blood sugar, I attempted to educate pt on importance of this so I could give him the scheduled insulin medications and pt still refused, however agreed to come up to the desk if he felt like his blood sugars were off. Pt is now laying in bed sobbing. will continue to monitor.
[2023-06-15] MEDS: haloperidol 5 mg Tablet PO (04:02)
[2023-06-15] MEDS: LORazepam 2 mg Tablet PO (04:02)
[2023-06-15] MEDS: diphenhydrAMINE 50 mg Capsule PO (04:02)
--- NOTE | 2023-06-15 04:08 | PC.NURSE ---
Pt sitting on edge of bed in room, profusely sobbing and yelling out I just wanna go home to my dog and make sure she is okay and no one is listening to me . I offered Pt PRN medications to help relax him and pt agreed to take an oral B-52 (Haldol 5mg, Ativan 2mg, Benadryl 50mg). Pt is still sitting on edge of bed and crying but is not yelling out anymore. Will continue to monitor.
[2023-06-15 05:58] VITALS: RESP 16
[2023-06-15 08:07] LABS: Glucose Point of Care 238 mg/dL (70-110)
[2023-06-15] MEDS: fluoxetine 20 mg Capsule PO ×2 (08:38→12:08)
[2023-06-15] MEDS: pantoprazole DR 40 mg Tablet PO (08:38)
[2023-06-15] MEDS: insulin lispro 100 unit/1 mL SUBCUT ×3 (08:39→20:05)
[2023-06-15] MEDS: insulin glargine 100 units/1 mL 15 UNIT SUBCUT ×2 (08:39→17:57)
[2023-06-15] MEDS: hyDROXYzine 25 mg Capsule 50 MG PO (08:54)
--- NOTE | 2023-06-15 08:54 | PC.NURSE ---
Patient tearful, reports anxiety 10/10 about not knowing if his dog is safe.
[2023-06-15 12:12] LABS: Glucose Point of Care 195 mg/dL (70-110)
--- NOTE | 2023-06-15 12:43 | P.NPUPN_ITS ---
Subjective NPU 2 Subjective: 43-year-old white male with generalized anxiety disorder and major depressive disorder admitted after overdosing on Tylenol with lethal intent. Patient had continued to report feeling depressed. He had isolated himself on the milieu and required prompting for eating. He had reported continuing to feel hopeless. He had reported that he felt overwhelmed . He had reported that he was lost and did not know how to manage his worry. He had reported using marijuana prior to his overdose and stated that he had not been using methamphetamine despite his drug screen showing up positive for amphetamines on admission. He had acknowledged previous use of methamphetamine but stated he had not used it in several months. Mental Status Exam 2 MSE Comments: This is a well-nourished well-developed white male in hospital scrubs looking older than his stated age with poor grooming and minimal eye contact as he enveloped his body under a blanket with only his head shown to bond underwriter. No abnormal movements except for significant psychomotor retardation. He was cooperative with exam and was in moderate distress. Speech was diminished in l rate and decreased in volume. Mood described as overwhelmed. His affect was tearful. Thought process was linear, logical. Thought content: Patient denied homicidal ideation and endorsed suicidal ideation acknowledging his intent of killing himself via overdose. Themes of hopeless and helplessness was evinced. There were no delusions reported or noted. He denied any auditory or visual hallucinations and did not appear to be responding to internal stimuli. Attention was poor and concentration was impaired. He is alert and oriented to person and place but not day of the week or date. His insight is poor. His judgment is poor and his impulse control is impaired. Vitals/I&O/Wt Last Vital Signs Temp 99.3 F 06/14/23 18:00 Pulse 87 06/14/23 19:00 Resp 16 06/15/23 05:58 BP 114/71 06/14/23 19:00 Pulse Ox 94 06/14/23 19:00 O2 Del Method Room Air, Nasal Cannula 06/14/23 20:00 06/14/23 06/15/23 06/15/23 22:59 06:59 14:59 Intake Total 1669.617 / 2229.617 Balance 1669.617 / 1529.617 Weight last 48 hrs Weight 72.847 kg Data NPU 06/14/23 04:45 06/14/23 14:22 A&P Assessment and plan (1) MDD (major depressive disorder), single episode, severe: (2) Overdose on Tylenol: (3) ANGEL (generalized anxiety disorder): (4) Suicidal ideation: (5) Hyperglycemia: (6) Diabetes: (7) Major depressive disorder, recurrent: Qualifiers: Active/Remission status: currently active Major depression episode severity: severe Psychotic features: without psychotic features Qualified Code(s): F33.2 - Major depressive disorder, recurrent severe without psychotic features (8) Personality disorder, unspecified: Plan This is a 43-year-old white male with a history of ANGEL and MDD severe with recent hospitalization 7 weeks ago admitted to ICU involuntarily after overdose. Patient will require inpatient hospitalization at NPU once cleared from ICU. Patient will remain involuntarily hospitalized. 1. Increase prozac to 40mg daily. 2. Encourage individual, group and milieu therapies. 3. Continue every 15 minute checks for safety. 4. Encourage sober living treatment after discharge at the highest level of care to which he is willing to commit. Involuntary Hold Information 2 96 Hour Hold: 96 Hour Involuntary Admission: Yes 96 Hour Hold Ending Date: 06/20/23 96 Hour Hold Ending Time: 10:08 Attestations NPU 2 Medical Necessity Statement*: Inpatient psychiatric hospitalization is medically necessary and the clinically appropriate intervention at this time. We will monitor, and adjust medications as clinically indicated. His likely length of stay 5-7 days. Coding Level of Care Code Acute Code for [facility] Diagnoses MDD (major depressive disorder), single episode, severe F32.2 Overdose on Tylenol T39.1X1A ANGEL (generalized anxiety disorder) F41.1 Suicidal ideation R45.851 Hyperglycemia R73.9 Diabetes E11.9 Severe episode of recurrent major depressive disorder, without psychotic features F33.2 Active/Remission status: currently active Major depression episode severity: severe Psychotic features: without psychotic features Personality disorder, unspecified F60.9
[2023-06-15 13:32] VITALS: BP 111/71; PULSE 83; RESP 17; TEMP 36.8; O2SAT 95
[2023-06-15 17:42] LABS: Glucose Point of Care 200 mg/dL (70-110)
[2023-06-15 19:42] VITALS: BP 101/63; PULSE 89; RESP 16; TEMP 36.7; O2SAT 96
[2023-06-15 20:08] LABS: Glucose Point of Care 180 mg/dL (70-110)
[2023-06-16 06:00] VITALS: BP 101/59; PULSE 89; RESP 116; TEMP 36.8; O2SAT 97
[2023-06-16] MEDS: OLANZapine 5 mg ODT PO (07:26)
[2023-06-16] MEDS: fluoxetine 20 mg Capsule 40 MG PO (07:26)
[2023-06-16] MEDS: pantoprazole DR 40 mg Tablet PO (07:26)
[2023-06-16 07:48] LABS: Glucose Point of Care 200 mg/dL (70-110)
[2023-06-16] MEDS: insulin lispro 100 unit/1 mL SUBCUT ×3 (08:35→18:04)
[2023-06-16] MEDS: insulin glargine 100 units/1 mL 15 UNIT SUBCUT ×2 (08:36→18:06)
[2023-06-16 11:39] LABS: Glucose Point of Care 202 mg/dL (70-110)
[2023-06-16 14:00] VITALS: BP 118/70; PULSE 80; RESP 16; TEMP 37.2; O2SAT 94
[2023-06-16 17:16] LABS: Glucose Point of Care 269 mg/dL (70-110)
--- NOTE | 2023-06-16 17:27 | P.NPUPN_ITS ---
Subjective NPU 2 Subjective: 43-year-old white male with generalized anxiety disorder and major depressive disorder admitted after overdosing on Tylenol with lethal intent. The patient had continued to state that he had things to do when he left here. He reported continued excessive worry about losing his job and losing his place to live. He had continued to endorse depressed mood. He stated he felt relieved to learn that his show I will was under the care of his friend. He had reported having limited friendships. He had continued isolating himself on the milieu and spent much of the day laying in bed sleeping. He had reported some lightheadedness yesterday. He has been eating and drinking. He reported no side effects from his Prozac but still stated that he felt depressed. He had continued to endorse hopelessness. Mental Status Exam 2 MSE Comments: This is a well-nourished well-developed white male in hospital scrubs looking older than his stated age with poor grooming and fleeting eye contact. No abnormal movements except for significant psychomotor retardation. He was cooperative with exam and was in moderate distress. Speech was diminished in l rate and decreased in volume. Mood described as stressed. His affect was tearful. Thought process was linear, logical. Thought content: Patient denied homicidal ideation and endorsed suicidal ideation acknowledging his intent of killing himself via overdose. Themes of hopeless and helplessness were present. There were no delusions reported or noted. He denied any auditory or visual hallucinations and did not appear to be responding to internal stimuli. Attention was poor and concentration was impaired. He is alert and oriented to person and place but not day of the week or date. His insight is poor. His judgment is poor and his impulse control is impaired. Vitals/I&O/Wt Last Vital Signs Temp 98.9 F 06/16/23 14:00 Pulse 80 06/16/23 14:00 Resp 16 06/16/23 14:00 BP 118/70 06/16/23 14:00 Pulse Ox 94 06/16/23 14:00 O2 Del Method Room Air 06/16/23 14:00 Weight last 48 hrs Weight 77.111 kg Weight 77.111 kg Data NPU 06/14/23 04:45 06/14/23 14:22 A&P Assessment and plan (1) MDD (major depressive disorder), single episode, severe: (2) Overdose on Tylenol: (3) ANGEL (generalized anxiety disorder): (4) Suicidal ideation: (5) Hyperglycemia: (6) Diabetes: (7) Major depressive disorder, recurrent: Qualifiers: Active/Remission status: currently active Major depression episode severity: severe Psychotic features: without psychotic features Qualified Code(s): F33.2 - Major depressive disorder, recurrent severe without psychotic features (8) Personality disorder, unspecified: Plan This is a 43-year-old white male with a history of ANGEL and MDD severe with recent hospitalization 7 weeks ago admitted to ICU involuntarily after overdose. Patient will require inpatient hospitalization at NPU once cleared from ICU. Patient will remain involuntarily hospitalized. 1. Continue prozac 40mg daily. 2. Encourage individual, group and milieu therapies. 3. Continue every 15 minute checks for safety. 4. Encourage sober living treatment after discharge at the highest level of care to which he is willing to commit. Involuntary Hold Information 2 96 Hour Hold: 96 Hour Involuntary Admission: Yes 96 Hour Hold Ending Date: 06/20/23 96 Hour Hold Ending Time: 10:08 Attestations NPU 2 Medical Necessity Statement*: Inpatient psychiatric hospitalization is medically necessary and the clinically appropriate intervention at this time. We will monitor, and adjust medications as clinically indicated. His likely length of stay 5-7 days. Coding Level of Care Code Acute Code for [facility] Diagnoses MDD (major depressive disorder), single episode, severe F32.2 Overdose on Tylenol T39.1X1A ANGEL (generalized anxiety disorder) F41.1 Suicidal ideation R45.851 Hyperglycemia R73.9 Diabetes E11.9 Severe episode of recurrent major depressive disorder, without psychotic features F33.2 Active/Remission status: currently active Major depression episode severity: severe Psychotic features: without psychotic features Personality disorder, unspecified F60.9
[2023-06-16 19:24] VITALS: BP 104/68; PULSE 83; RESP 16; O2SAT 93
[2023-06-16 19:58] LABS: Glucose Point of Care 150 mg/dL (70-110)
[2023-06-17] MEDS: hyDROXYzine 25 mg Capsule 50 MG PO (03:16)
[2023-06-17 06:00] VITALS: BP 114/76; PULSE 93; RESP 18; O2SAT 94
[2023-06-17] MEDS: nicotine 4 mg lozenge MUCOUS MEM (07:46)
[2023-06-17 07:49] LABS: Glucose Point of Care 136 mg/dL (70-110)
[2023-06-17] MEDS: insulin glargine 100 units/1 mL 15 UNIT SUBCUT ×2 (08:10→17:19)
[2023-06-17] MEDS: pantoprazole DR 40 mg Tablet PO (08:41)
[2023-06-17] MEDS: fluoxetine 20 mg Capsule 40 MG PO (08:41)
[2023-06-17 11:51] LABS: Glucose Point of Care 366 mg/dL (70-110)
[2023-06-17] MEDS: insulin lispro 100 unit/1 mL SUBCUT ×2 (12:02→17:20)
[2023-06-17 14:00] VITALS: BP 97/61; PULSE 95; RESP 16; TEMP 36.6; O2SAT 97
--- NOTE | 2023-06-17 14:58 | P.NPUPN_ITS ---
Subjective NPU 2 Subjective: 43-year-old white male with generalized anxiety disorder and major depressive disorder admitted after overdosing on Tylenol with lethal intent. The patient continued to to isolate himself on the milieu. He reported that he was worrying less about his dog. He stated that he was hopeful that he would get some support from his friend and stated that he had been relieved after calling her that he would not lose his home. He had still reported some motivation with trying to go back to work. He had stated that in times of feeling overwhelmed he simply was unable to think or act. He had reported that he continued to worry about his future but stated that he had slept a little better other than awakening at 3 AM and struggling to fall back asleep. Mental Status Exam 2 MSE Comments: This is a well-nourished well-developed white male in hospital scrubs looking older than his stated age with poor grooming and fleeting eye contact. No abnormal movements except for significant psychomotor retardation. He was cooperative with exam and was in moderate distress. Speech was diminished in l rate and decreased in volume. Mood described as a little better His affect remained sullen. Thought process was linear, logical. Thought content: Patient denied homicidal ideation and endorsed suicidal ideation acknowledging his intent of killing himself via overdose. Themes of hopeless and helplessness were less prevalent today but present. There were no delusions reported or noted. He denied any auditory or visual hallucinations and did not appear to be responding to internal stimuli. Attention was poor and concentration was impaired. He is alert and oriented to person and place but not day of the week or date. His insight is poor. His judgment is poor and his impulse control is impaired. Vitals/I&O/Wt Last Vital Signs Temp 97.8 F 06/17/23 14:00 Pulse 95 06/17/23 14:00 Resp 16 06/17/23 14:00 BP 97/61 06/17/23 14:00 Pulse Ox 97 06/17/23 14:00 O2 Del Method Room Air 06/17/23 06:00 Weight last 48 hrs Weight 77.111 kg Weight 77.111 kg Data NPU 06/14/23 04:45 06/14/23 14:22 A&P Assessment and plan (1) MDD (major depressive disorder), single episode, severe: (2) Overdose on Tylenol: (3) ANGEL (generalized anxiety disorder): (4) Suicidal ideation: (5) Hyperglycemia: (6) Diabetes: (7) Personality disorder, unspecified: Plan This is a 43-year-old white male with a history of ANGEL and MDD severe with recent hospitalization 7 weeks ago admitted to ICU involuntarily after overdose. Patient will require inpatient hospitalization at NPU once cleared from ICU. Patient will remain involuntarily hospitalized. 1. Continue prozac 40mg daily. Add trazodone routinely at 100mg at night 2. Encourage individual, group and milieu therapies. 3. Continue every 15 minute checks for safety. 4. Encourage sober living treatment after discharge at the highest level of care to which he is willing to commit. Involuntary Hold Information 2 96 Hour Hold: 96 Hour Involuntary Admission: Yes 96 Hour Hold Ending Date: 06/20/23 96 Hour Hold Ending Time: 10:08 Attestations NPU 2 Medical Necessity Statement*: Inpatient psychiatric hospitalization is medically necessary and the clinically appropriate intervention at this time. We will monitor, and adjust medications as clinically indicated. His likely length of stay 5-7 days. Coding Level of Care Code Acute Code for [facility] Diagnoses MDD (major depressive disorder), single episode, severe F32.2 Overdose on Tylenol T39.1X1A ANGEL (generalized anxiety disorder) F41.1 Suicidal ideation R45.851 Hyperglycemia R73.9 Diabetes E11.9 Personality disorder, unspecified F60.9
[2023-06-17 17:09] LABS: Glucose Point of Care 280 mg/dL (70-110)
[2023-06-17 19:31] VITALS: BP 93/59; PULSE 89; RESP 16; TEMP 36.8; O2SAT 94
[2023-06-17 19:45] LABS: Glucose Point of Care 171 mg/dL (70-110)
[2023-06-18 06:00] VITALS: BP 110/71; PULSE 91; RESP 18; O2SAT 96
[2023-06-18 08:06] LABS: Glucose Point of Care 325 mg/dL (70-110)
--- NOTE | 2023-06-18 08:10 | PC.NURSE ---
Denies avh and si/hi this morning. When asking patient how his anxiety and depression have been this morning he stated, ya know, I feel really great. Patient joked with this RN this morning and appears to be in a jovial mood. Also stated he slept much better last night.
[2023-06-18] MEDS: pantoprazole DR 40 mg Tablet PO (08:37)
[2023-06-18] MEDS: fluoxetine 20 mg Capsule 40 MG PO (08:37)
[2023-06-18] MEDS: insulin glargine 100 units/1 mL 15 UNIT SUBCUT ×2 (08:38→17:38)
[2023-06-18] MEDS: insulin lispro 100 unit/1 mL SUBCUT ×4 (08:38→20:08)
[2023-06-18 12:18] LABS: Glucose Point of Care 202 mg/dL (70-110)
[2023-06-18 14:00] VITALS: BP 94/55; PULSE 88; RESP 14; TEMP 36.7; O2SAT 94
--- NOTE | 2023-06-18 14:25 | P.NPUPN_ITS ---
Subjective NPU 2 Subjective: Patient presented today reporting that he is feeling better. He says that the increase to 40 in the Prozac has been very effective for him. He very much downplayed the suicide attempt and denied currently being suicidal. We discussed concerns given his suicide attempt and wanting to make sure we are not deliberate in our process for discharge and make sure that he has appropriate follow-up and safety nets. Mental Status Exam 2 MSE Comments: This is a well-nourished well-developed white male in hospital scrubs looking older than his stated age with poor grooming and fleeting eye contact. No abnormal movements except for significant psychomotor retardation. He was cooperative with exam and was in mild distress. Speech was diminished in rate and decreased in volume. Mood described as a little better His affect slightly subdued. Thought process was linear, logical. Thought content: Patient denied suicidal or homicidal ideation. There were no delusions reported or noted. He denied any auditory or visual hallucinations and did not appear to be responding to internal stimuli. Attention and concentration appeared intact. He is alert and oriented x 3. His insight is poor. His judgment is poor and his impulse control is impaired. Vitals/I&O/Wt Last Vital Signs Temp 98.3 F 06/17/23 19:31 Pulse 91 06/18/23 06:00 Resp 18 06/18/23 06:00 BP 110/71 06/18/23 06:00 Pulse Ox 96 06/18/23 06:00 O2 Del Method Room Air 06/18/23 06:00 06/17/23 06/18/23 06/18/23 22:59 06:59 14:59 Intake Total 240 / 240 Output Total 850 / 850 Balance -610 / -610 Data NPU 06/14/23 04:45 06/14/23 14:22 A&P Assessment and plan (1) MDD (major depressive disorder), single episode, severe: (2) Overdose on Tylenol: (3) ANGEL (generalized anxiety disorder): (4) Suicidal ideation: (5) Hyperglycemia: (6) Diabetes: (7) Personality disorder, unspecified: Plan This is a 43-year-old white male with a history of ANGEL and MDD severe with recent hospitalization 7 weeks ago admitted to ICU involuntarily after overdose. Patient will require inpatient hospitalization at NPU once cleared from ICU. Patient will remain involuntarily hospitalized. 1. Continue prozac 40mg daily. Added trazodone routinely at 100mg at night 2. Encourage individual, group and milieu therapies. 3. Continue every 15 minute checks for safety. 4. Encourage sober living treatment after discharge at the highest level of care to which he is willing to commit. Involuntary Hold Information 2 96 Hour Hold: 96 Hour Involuntary Admission: Yes 96 Hour Hold Ending Date: 06/20/23 96 Hour Hold Ending Time: 10:08 Attestations NPU 2 Medical Necessity Statement*: Inpatient psychiatric hospitalization is medically necessary and the clinically appropriate intervention at this time. We will monitor, and adjust medications as clinically indicated. His likely length of stay 2-5 days. Coding Level of Care Code Acute Code for [facility]wd Diagnoses MDD (major depressive disorder), single episode, severe F32.2 Overdose on Tylenol T39.1X1A ANGEL (generalized anxiety disorder) F41.1 Suicidal ideation R45.851 Hyperglycemia R73.9 Diabetes E11.9 Personality disorder, unspecified F60.9
[2023-06-18 17:34] LABS: Glucose Point of Care 287 mg/dL (70-110)
[2023-06-18 19:56] VITALS: BP 105/66; PULSE 82; RESP 18; TEMP 36.4; O2SAT 96
[2023-06-18] MEDS: trazodone 100 mg Tablet PO (20:02)
[2023-06-18 20:03] LABS: Glucose Point of Care 195 mg/dL (70-110)
[2023-06-19 06:00] VITALS: RESP 18
[2023-06-19 08:16] LABS: Glucose Point of Care 341 mg/dL (70-110)
[2023-06-19] MEDS: insulin lispro 100 unit/1 mL SUBCUT ×4 (08:37→20:54)
[2023-06-19] MEDS: pantoprazole DR 40 mg Tablet PO (08:37)
[2023-06-19] MEDS: insulin glargine 100 units/1 mL 15 UNIT SUBCUT ×2 (08:37→18:15)
[2023-06-19] MEDS: fluoxetine 20 mg Capsule 40 MG PO (08:37)
[2023-06-19 11:55] LABS: Glucose Point of Care 243 mg/dL (70-110)
[2023-06-19 14:00] VITALS: BP 112/74; PULSE 101; RESP 16; TEMP 37.1; O2SAT 97
--- NOTE | 2023-06-19 17:50 | P.NPUPN_ITS ---
Subjective NPU 2 Subjective: Patient presented today reporting that he is doing fine. He reports continued improvement with the Prozac increase and feeling much more optimistic about a plan for discharge in the next day or so. He reports that he has a good foundation outpatient and denied any side effects of the medications. He reports he is resting better and eating fine. Mental Status Exam 2 MSE Comments: This is a well-nourished well-developed white male in hospital scrubs looking older than his stated age with improving grooming and limited eye contact. No abnormal movements except for resolving psychomotor retardation. He was cooperative with exam and was in mild distress. Speech was more normal rate and volume. Mood described as better. His affect appearing brighter. Thought process was linear, logical. Thought content: Patient denied suicidal or homicidal ideation. There were no delusions reported or noted. He denied any auditory or visual hallucinations and did not appear to be responding to internal stimuli. Attention and concentration appeared intact. He is alert and oriented x 3. His insight and judgment are limited but improving and his impulse control is improving. Vitals/I&O/Wt Last Vital Signs Temp 98.7 F 06/19/23 14:00 Pulse 101 H 06/19/23 14:00 Resp 16 06/19/23 14:00 BP 112/74 06/19/23 14:00 Pulse Ox 97 06/19/23 14:00 O2 Del Method Room Air 06/19/23 14:00 Data NPU 06/14/23 04:45 06/14/23 14:22 A&P Assessment and plan (1) MDD (major depressive disorder), single episode, severe: (2) Overdose on Tylenol: (3) ANGEL (generalized anxiety disorder): (4) Suicidal ideation: (5) Hyperglycemia: (6) Diabetes: (7) Personality disorder, unspecified: Plan This is a 43-year-old white male with a history of ANGEL and MDD severe with recent hospitalization 7 weeks ago admitted to ICU involuntarily after overdose. Patient will require inpatient hospitalization at NPU once cleared from ICU. Patient will remain involuntarily hospitalized. 1. Continue prozac 40mg daily. Added trazodone routinely at 100mg at night 2. Encourage individual, group and milieu therapies. 3. Continue every 15 minute checks for safety. 4. Encourage sober living treatment after discharge at the highest level of care to which he is willing to commit. Involuntary Hold Information 2 96 Hour Hold: 96 Hour Involuntary Admission: Yes 96 Hour Hold Ending Date: 06/20/23 96 Hour Hold Ending Time: 10:08 Attestations NPU 2 Medical Necessity Statement*: Inpatient psychiatric hospitalization is medically necessary and the clinically appropriate intervention at this time. We will monitor, and adjust medications as clinically indicated. His likely length of stay 1-3 days. Coding Level of Care Code Acute Code for [facility]wd Diagnoses MDD (major depressive disorder), single episode, severe F32.2 Overdose on Tylenol T39.1X1A ANGEL (generalized anxiety disorder) F41.1 Suicidal ideation R45.851 Hyperglycemia R73.9 Diabetes E11.9 Personality disorder, unspecified F60.9
[2023-06-19 18:02] LABS: Glucose Point of Care 271 mg/dL (70-110)
[2023-06-19 20:27] VITALS: BP 118/64; PULSE 96; RESP 16; TEMP 36.9; O2SAT 93
[2023-06-19] MEDS: trazodone 100 mg Tablet PO (20:32)
[2023-06-19 20:52] LABS: Glucose Point of Care 163 mg/dL (70-110)
[2023-06-20 07:31] LABS: Glucose Point of Care 160 mg/dL (70-110)
[2023-06-20] MEDS: insulin lispro 100 unit/1 mL SUBCUT (09:57)
--- NOTE | 2023-06-20 09:57 | P.NPUDS_ITS ---
Diagnoses at Discharge Discharge Diagnosis (1) MDD (major depressive disorder), single episode, severe: Status: Inactive (2) Overdose on Tylenol: Status: Acute (3) ANGEL (generalized anxiety disorder): Status: Acute (4) Suicidal ideation: Status: Resolved (5) Hyperglycemia: Status: Resolved (6) Diabetes: Status: Acute (7) Personality disorder, unspecified: Status: Acute Reason for Visit Reason for Visit: overdose Brief History: History of Present Illness Eldon Richardson is a 43 year old male Recently discharged from the neuropsychiatric unit on 04/23/2023 with suicidal ideation who was admitted to the intensive care unit after the patient had taken 6 aspirin, multiple Tylenol pills along with several pills of 25 mg of Benadryl. The patient had been given N-acetylcysteine in the intensive care unit and had potentially ingested up to 15 g of Tylenol. The patient upon evaluation in the ICU appeared distraught and stated that he has been feeling hopeless and that he had reached out to a few of his friends to let them know through phone text that he had appreciated them and that he was planning on ending his life. He had reported no improvement with his depression since his last hospitalization. Patient had reported that he had been thinking about killing himself for the past several weeks. He had continued to report feelings of hopelessness. He reports that he has been more depressed over the past 13 months since his mother had suddenly. He reports low energy and he Trudy insomnia with frequent awakenings at night. He reports that he has been more tearful. He reports continued lack of social supports and states that he frequently feels let down by others. He states that he has been crying nearly every day. He reports that he is often overwhelmed by worry and states that he has difficulties with concentration and reports often being paralyzed by inactivity. He reports that he feels that that his worry is out of control. He reports that the holidays had been worse for him as he had felt alone and reports that he continues to grieve his mother's . He had reported compliance with Prozac but stated that the medication had been unsuccessful at helping with his mood at the dose of 20 mg daily. He had reported that he had recently lost a job in January and reports that he has been concerned that he may lose the house that he owns currently. He denies any history of yuan. He denied any history of psychosis. He minimized any drug or alcohol use other than marijuana use. The patient's urine was positive for amphetamine. Inpatient psychiatric history: 1 previous hospitalization in April 2023. There had been previous Outpatient psychiatric history: He has not received psychotherapy services but has been seen through the crisis team through [facility]. Current psychiatric medications are being monitored under Dr. Seals who is his primary care physician. Current medications: Prozac 20 mg daily, hydroxyzine, insulin, metformin, trazodone Drug and alcohol history: None reported with no prior history of substance abuse treatment. He reports he has been using marijuana on a regular basis for years. Legal history: Unknown family psychiatric history: None reported medical history: Diabetes type 2., diabetic neuropathy allergies: No known drug allergies social history: Patient grew up in [place]. He is the only product of his mother and father. He states that his mother had been multiple times. He had reported that he had apparently tried to harm himself as a child but did not elaborate. He states that he moved to [place] and has never been . He has no children. He reports having a few friends and reports that he has a dog that he describes as his best friend. He had previously worked a variety of jobs and had worked at [employer] for several years but lost his job in January. He reports having half-siblings that he has little contact with. He states that his mother had 14 months ago suddenly and reports that his depression has begun after that period time. suicide attempts by medication overdose. Excerpt NPU Discharge summary from 04/19/23 Discharge Diagnosis (1) Suicidal ideation: Status: Resolved (2) Hyperglycemia: Status: Acute (3) Diabetes: Status: Acute (4) Major depressive disorder, recurrent : Status: Acute (5) Personality disorder, unspecified: Status: Acute Reason for Visit SI Brief History: History of Present Illness Hany Richardson is a 43 year old male who presented to the emergency department with the following report: Chief Complaint: Psychiatric Symptoms Stated Complaint: SI Time Seen by Provider: 04/19/23 08:55 Source: patient and other (family friend) Mode of arrival: ambulatory Limitations: no limitations History of Present Illness: Patient is a 43-year-old male who presents to ED today after being brought by a family friend for concerns of suicidal ideations. Family friend states that she was contacted early this morning by patient asking her if she would take his dog. When she questioned further, he stated that he was suicidal and had a plan to kill himself this morning. She quickly rushed to his house and convinced him to come to the emergency department for evaluation. On exam patient is sobbing stating that he feels like he has lost everything. He states he lost his mother approximately a year ago. He lost his job a few months ago secondary to untreated mental health illness/anxiety. Patient states he has never seen a psychiatrist or medical health provider. He lives alone currently with his dog, Gisel. Patient states last month he attempted suicide by medication overdose. Of note he states he has not been to a medical provider in years but states he has untreated type II diabetes. Was on Gabapentin one time due to his peripheral neuropathy but states it didn't help. MD complaint: suicidal ideation and feels depressed History of same: Yes Relieving factors: none Context: significant life stressor (lost mother a year ago/lost job a few months ago) Associated psychiatric symptoms: depression and suicidal ideation Associated symptoms: Reports depression and suicidal ideation; Deny auditory hallucinations, visual hallucinations or homicidal ideation Treatments prior to arrival: none If self harm: admits thoughts of self harm He was admitted to the neuropsychiatric unit for definitive treatment of those issues. He was initially seen this morning as part of a [id number] after a seclusion episode where he lost emotional control saying that he needed to go see his dog which she given to someone initially with a plan to kill himself. There was nothing anyone can say to calm him to a rational level and this escalated to him needing to be held and he was given an injection. Shortly thereafter when I went to speak to him he was lethargic secondary to the injections but was able to arouse himself to answer some questions. He continued to focus on going to see his dog and seem to forget that he had made arrangements for the pet. He was suggesting that the dog was in some danger and we did make a call and verify that he infected given that to some apparently responsible people who are reportedly taking good care of it and they advised that the pet would be just fine in their home and that he should remain here and get the help that he needs. He did not seem to take that information with much recognition of its significance. And continued to be quite emotional surrounding the dog. He was able to share that he is had a long history of mental health issues and depression that has been essentially untreated with a reported lack of history of any medication. He reports that he was willing to begin Prozac 20 mg p.o. daily after discussion of the risks, benefits and alternatives he understood and agreed to proceed as is documented in this note. Attempts were made to get more accurate picture of exactly why he was overwhelmed but he mostly Winston rolled around in the bed lamenting about not being with his dog and not really answering the questions with any clarity. He could not give any nidus for his suicidality just reporting that he was not feeling like himself. He denied any drug use other than the marijuana and his UDS was only positive for cannabis.. Hospital Course Hospital Course He slowly acclimated to the individual, group and milieu therapies provided. He presented with a significant overdose. His Prozac was discontinued and trazodone was increased to 100 mg p.o. daily. Lexapro was titrated to 20 mg p.o. daily with a positive response. He denied any side effects of the medication during his stay. He worked with the social work team for appropriate aftercare appointments. He had significant improvement and was able to contract for safety outside of the hospital prior to discharge. During the hospitalization, the patient had routine laboratory studies which were within normal limits except for a few outliers.? Additionally, there was a general medical evaluation which was also within normal limits and revealed no new acute processes except for those treated by hospitalists on the medical side.? At the time of discharge, he denied psychosis or lethality.? Mood and anxiety were well managed.? The patient endorsed a plan to avoid all drugs of abuse and follow up with the aftercare recommendations of the treatment team.? The patient was evaluated and deemed to be absent credible lethality and had achieved the maximum benefit from an inpatient hospitalization, and so was discharged. Involuntary Hold Information 96 Hour Hold: 96 Hour Involuntary Admission: Yes 96 Hour Hold Ending Date: 06/20/23 96 Hour Hold Ending Time: 10:08 Mental Status Exam MSE Comments: This is a well-nourished well-developed white male in hospital scrubs looking older than his stated age with improving grooming and limited eye contact. No abnormal movements except for resolving psychomotor retardation. He was cooperative with exam and was in mild distress. Speech was more normal rate and volume. Mood described as better. His affect appearing brighter. Thought process was linear, logical. Thought content: Patient denied suicidal or homicidal ideation. There were no delusions reported or noted. He denied any auditory or visual hallucinations and did not appear to be responding to interna l stimuli. Attention and concentration appeared intact. He is alert and oriented x 3. His insight and judgment are limited but improving and his impulse control is improving. Discharge Data Studies Completed and Pending: Laboratory Results WBC 9.70 10^3/uL (3.2 9-11.43) 06/14/23 04:45 RBC 4.85 10^6/uL (3.8 5-5.65) 06/14/23 04:45 Hgb 14.80 g/dL (11.27 -16.99) 06/14/23 04:45 Hct 43.3 % (37-53) 06/14/23 04:45 MCV 89.3 fl (82-101) 06/14/23 04:45 MCH 30.5 pg (27-33) 06/14/23 04:45 MCHC 34.2 g/dL (30-55) 06/14/23 04:45 RDW 11.9 % (12.1-15.1 ) L 06/14/23 04:45 Plt Count 220 10^3/cmm (157 -399) 06/14/23 04:45 MPV 11.4 fL (7.4-10.4 ) H 06/14/23 04:45 Neut % (Auto) 59.3 % 06/14/23 04:45 Lymph % (Auto) 30.9 % 06/14/23 04:45 Waller % (Auto) 8.5 % 06/14/23 04:45 Eos % (Auto) 0.7 % 06/14/23 04:45 Baso % (Auto) 0.4 % 06/14/23 04:45 Neut # (Auto) 5.75 10^3/uL (1.8 -7.7) 06/14/23 04:45 Lymph # (Auto) 3.0 10^3/uL (0.8- 4.8) 06/14/23 04:45 Waller # (Auto) 0.8 10^3/uL (0.2- 0.9) 06/14/23 04:45 Eos # (Auto) 0.1 10^3/uL (0.0- 0.8) 06/14/23 04:45 Baso # (Auto) 0.0 10^3/uL (0.0- 0.1) 06/14/23 04:45 Nucleated RBC % (a uto) 0 % 06/14/23 04:45 Nucleated RBCs # 0.0 /100WBC 06/14/23 04:45 PT 15.80 SECONDS (12 .1-14.9) H 06/14/23 04:45 INR 1.22 (0.8-1.2) H 06/14/23 04:45 Specimen Type Arterial 06/13/23 10:05 Sample Site Radial, left 06/13/23 10:05 ABG pH 7.45 (7.35-7.45) 06/13/23 10:05 ABG pCO2 43.7 mmHg (35-45) 06/13/23 10:05 ABG pO2 69.1 mmHg (80.0-1 00.0) L 06/13/23 10:05 ABG PO2/FiO2 Ratio 0 06/13/23 10:05 ABG HCO3 30.0 mmol/L (22-2 6) H 06/13/23 10:05 ABG Base Excess 5.1 mmol/L (-2.0- 2.0) H 06/13/23 10:05 Augustine Test Pos 06/13/23 10:05 Hematocrit 47.8 % (42-52) 06/13/23 10:05 O2 Delivery Device Room air 06/13/23 10:05 FiO2 21.0 % 06/13/23 10:05 Cafeteria Aide ID Monro 06/13/23 10:05 Sodium 135 mmol/L (136-1 45) L 06/14/23 14:22 Potassium 3.5 mmol/L (3.5-5 .1) 06/14/23 14:22 Chloride 101 mmol/L (98-10 7) 06/14/23 14:22 Carbon Dioxide 26 mmol/L (22-29) 06/14/23 14:22 Anion Gap 11.5 (5-19) 06/14/23 14:22 BUN 15 mg/dL (6-20) 06/14/23 14:22 Creatinine 0.7 mg/dL (0.7-1. 2) 06/14/23 14:22 GFR Calculation 122.5 mL/min (90- 130) 06/14/23 14:22 Glucose 282 mg/dL (65-115 ) H 06/14/23 14:22 POC Glucose 160 mg/dL (70-110 ) H 06/20/23 07:27 Calculated Osmolal ity 291 mOsm/kg (285- 295) 06/14/23 14:22 Calcium 8.6 mg/dL (8.5-10 .5) 06/14/23 14:22 Magnesium 1.8 mg/dL (1.7-2. 3) 06/14/23 04:45 Total Bilirubin 0.2 mg/dL (0.15-1 .2) 06/14/23 14:22 AST 8 U/L (0-40) 06/14/23 14:22 ALT 7 U/L (0-41) 06/14/23 14:22 Alkaline Phosphata se 115 U/L (40-130) 06/14/23 14:22 Total Protein 5.9 g/dL (6.6-8.7 ) L 06/14/23 14:22 Albumin 3.0 g/dL (3.5-5.2 ) L 06/14/23 14:22 Globulin 2.9 g/dL (1.3-4.6 ) 06/14/23 14:22 Urine Color Yellow (Yellow) 06/13/23 11:35 Urine Appearance Clear (CLEAR) 06/13/23 11:35 Urine pH 5 (5-7) 06/13/23 11:35 Ur Specific Gravit y 1.015 (1.005-1.0 30) 06/13/23 11:35 Urine Protein 3+ (Negative) H 06/13/23 11:35 Urine Glucose (UA) 4+ (Normal) H 06/13/23 11:35 Urine Ketones Negative (Negati ve) 06/13/23 11:35 Urine Blood Trace (Negative) H 06/13/23 11:35 Urine Nitrate Negative (Negati ve) 06/13/23 11:35 Urine Bilirubin Neg (Negative) 06/13/23 11:35 Urine Urobilinogen Neg mg/dL (Negati ve) 06/13/23 11:35 Ur Leukocyte Yanci ase Negative (Negati ve) 06/13/23 11:35 Urine RBC 0-4 /hpf (0-2) H 06/13/23 11:35 Urine WBC 0-4 /hpf (0-5) H 06/13/23 11:35 Ur Squamous Epith Cells 0-4 /hpf (0-5) H 06/13/23 11:35 Amorphous Sediment Not Reportable 06/13/23 11:35 Urine Bacteria Trace /hpf (NONE) 06/13/23 11:35 Hyaline Casts 0-4 /lpf H 06/13/23 11:35 Urine Mucus Trace /hpf 06/13/23 11:35 Salicylates 8.7 mg/dL (3-10) 06/13/23 17:25 Urine Opiates Scre en Negative ng/mL (N egative) 06/13/23 11:35 Acetaminophen < 5.0 ug/mL (10-3 0) L 06/14/23 14:22 Ur Barbiturates Sc reen Negative ng/mL (N egative) 06/13/23 11:35 Ur Phencyclidine S crn Negative ng/mL (N egative) 06/13/23 11:35 Ur Amphetamines Sc reen Positive ng/mL (N egative) H 06/13/23 11:35 U Benzodiazepines Scrn Positive ng/mL (N egative) H 06/13/23 11:35 Urine Cocaine Scre en Negative ng/mL (N egative) 06/13/23 11:35 U Marijuana (THC) Screen Positive ng/mL (N egative) H 06/13/23 11:35 Ethyl Alcohol < 10 mg/dL (0-10) 06/13/23 10:15 Vitals: Last Vital Signs Temp 98.5 F 06/19/23 20:27 Pulse 96 06/19/23 20:27 Resp 16 06/19/23 20:27 BP 118/64 06/19/23 20:27 Pulse Ox 93 06/19/23 20:27 O2 Del Method Room Air 06/19/23 20:27 Discharge Plan Discharge Patient Disposition: Home Condition: Stable Prescriptions: New trazodone 100 mg Tablet 100 mg PO BEDTIME 30 Days Qty: 30 1RF pantoprazole 40 mg Tablet,Delayed Release (Dr/Ec) 40 mg PO DAILY 30 Days Qty: 30 1RF Continued metformin 500 mg tablet extended release 24hr 1,000 mg PO BID Qty: 120 0RF insulin glargine [Lantus Solostar U-100 Insulin] 100 unit/mL (3 mL) insulin pen 15 unit SUBCUT BID Qty: 15 0RF hydroxyzine pamoate 25 mg Capsule 50 mg PO Q6H PRN (Reason: Anxiety) 30 Days Qty: 120 1RF Discontinued trazodone 50 mg Tablet 50 mg PO BEDTIME PRN (Reason: Sleep) 30 Days Qty: 30 1RF fluoxetine 20 mg Capsule 20 mg PO DAILY 30 Days Qty: 30 1RF No Action escitalopram oxalate [Lexapro] 20 mg tablet 20 mg PO DAILY Qty: 30 0RF (DME) blood-glucose meter Kit See Rx Instructions .Route Qty: 1 0RF Rx Instructions: As directed Discharge Orders: Discharge Order (Routine); Ordered 06/20/23 Ordered By: Chad Laureano Referrals: [facility] [Outside] - 06/24/23 2:30 pm (Initial appointment 06/24/2023 @ 2:30pm. ) Matty Toledo MD [Primary Care Provider] - 06/27/23 10:45 am (Follow up) Discharge Diet: Regular Discharge Activity: Resume usual activity Patient Instructions: Generalized Anxiety Disorder, Fluoxetine (By mouth), Trazodone (By mouth) (Desyrel, Desyrel Dividose, Oleptro, Trazamine), Pantoprazole (By mouth) (Protonix), Depression (DC), Help Prevent Suicide (DC), Suicide Prevention (DC), Opioid Safety Discharge Attestations NPU Time Spent in Discharge Care*: less than 30 min Specific Discharge Activities: Specific discharge activities: educating patient, discussing with onsite case manager/social workers/dc planners, documenting/other paperwork and evaluating patient/reviewing data Coding Level of Care Code Acute Code for g Fwd Diagnoses MDD (major depressive disorder), single episode, severe F32.2 Overdose on Tylenol T39.1X1A ANGEL (generalized anxiety disorder) F41.1 Suicidal ideation R45.851 Hyperglycemia R73.9 Diabetes E11.9 Personality disorder, unspecified F60.9
[2023-06-20] MEDS: pantoprazole DR 40 mg Tablet PO (09:58)
[2023-06-20] MEDS: fluoxetine 20 mg Capsule 40 MG PO (09:58)
[2023-06-20] MEDS: insulin glargine 100 units/1 mL 15 UNIT SUBCUT (09:58)
[2023-06-20 10:10] VITALS: BP 118/64; PULSE 96; RESP 16; TEMP 36.9; O2SAT 93
[2023-06-20 12:16] LABS: Glucose Point of Care 327 mg/dL (70-110)
== END 2023-06-20 12:51 | disposition home or self-care (01) | DRG 885 ==
LOC: ER 11:27 → ICU 11:39 → NP 06-14 19:55
PROVIDERS: Admitting Provider Internal Medicine; Emergency Provider Emergency Medicine; PCP Family Medicine; Visit Provider Psychiatry & Neurology Psychiatry
DX: F32.2 Major depressive disorder, single episode, severe without psychotic features (principal); R45.851 Suicidal ideations; E11.65 Type 2 diabetes mellitus with hyperglycemia; F17.210 Nicotine dependence, cigarettes, uncomplicated; F12.90 Cannabis use, unspecified, uncomplicated; E11.42 Type 2 diabetes mellitus with diabetic polyneuropathy; F60.9 Personality disorder, unspecified; G47.00 Insomnia, unspecified; F41.1 Generalized anxiety disorder; Z79.4 Long term (current) use of insulin; Z79.84 Long term (current) use of oral hypoglycemic drugs; Y92.9 Unspecified place or not applicable; T39.1X2A Poisoning by 4-Aminophenol derivatives, intentional self-harm, initial encounter; T45.0X2A Poisoning by antiallergic and antiemetic drugs, intentional self-harm, initial encounter
CPT/HCPCS: 36415; 36416; 36600; 51701; 80053; 80306; 80307; 81001; 82803; 82962; 83735; 85025; 85610; 93005; 96372; 97150; 97165; 99285; J0132; J1815; J2405; J7030; J7060; J7070; Q0163

== ENCOUNTER → 2023-08-20 08:53 | Outpatient (BNVA) | payer MEDICAID, SELFPAY | PROVIDERS: PCP Family Medicine; Visit Provider Psychiatry & Neurology Psychiatry | DX: F41.1 Generalized anxiety disorder (principal); Z79.899 Other long term (current) drug therapy | CPT/HCPCS: 80061; 83036 ==

== ENCOUNTER → 2024-01-20 09:54 | Outpatient (BNVA) | payer MEDICAID, SELFPAY ==
[2023-08-28 14:53] VITALS: BP 125/85; BMI 26.9
== END ==
PROVIDERS: PCP Family Medicine; Visit Provider Family Medicine
DX: E11.9 Type 2 diabetes mellitus without complications (principal)
CPT/HCPCS: 80053; 83036

== ENCOUNTER → 2024-05-07 15:56 | Outpatient (BNVA) | payer OTHER, SELFPAY ==
[2024-03-27 10:08] VITALS: BP 125/85; BMI 26.9
== END ==
PROVIDERS: PCP Family Medicine; Visit Provider Nurse Practitioner Psychiatric/Mental Health
DX: Z79.899 Other long term (current) drug therapy (principal); Z03.89 Encounter for observation for other suspected diseases and conditions ruled out; F33.2 Major depressive disorder, recurrent severe without psychotic features; F33.3 Major depressive disorder, recurrent, severe with psychotic symptoms; F41.1 Generalized anxiety disorder; E11.9 Type 2 diabetes mellitus without complications
CPT/HCPCS: 80053; 80306; 83036

== ENCOUNTER → 2024-05-28 11:36 | Outpatient (BNVA) | payer OTHER, SELFPAY ==
[2024-05-08 10:21] VITALS: BP 125/85; BMI 26.9
== END ==
PROVIDERS: PCP Family Medicine; Visit Provider Family Medicine
DX: E11.9 Type 2 diabetes mellitus without complications (principal)
CPT/HCPCS: 80048

== ENCOUNTER 2024-08-07 13:03 | Inpatient (IN) | payer OTHER, MEDICAID, SELFPAY ==
[2024-05-08 10:21] VITALS: BP 125/85; BMI 26.9
[2024-08-07 13:04] VITALS: BP 134/72; PULSE 120; RESP 18; TEMP 36.5; O2SAT 96; BMI 28.1
--- NOTE | 2024-08-07 13:08 | ECG_ITS ---
[facility] 2024-[facility]07 Pat Name: Eldon Richardson Department: Room: Gender: Male Electric Distribution Checker: : 1980 Requested By: Riri Frausto Order Number: [id number] Juni MD: PITO ANDRE Measurements Intervals [place] Rate: 123 P: 0 IN: 0 QRS: 28 QRSD: 86 T: 57 QT: 305 QTc: 437 Interpretive Statements SUPRAVENTRICULAR TACHYCARDIA Compared to ECG 06/13/2023 09:53:43 there is no change Electronically Signed On 08-11-2024 23:43:24 RN LACTATION CONSULTANT by PITO ANDRE [id number]
--- NOTE | 2024-08-07 13:09 | ED.C_ITS ---
HPI - Psych 2 General: Chief Complaint: Psychiatric Symptoms Stated Complaint: 96 Time Seen by Provider: 08/07/24 13:05 History of Present Illness: This is a 44-year-old man with a history of anxiety, diabetes who presents to the emergency room on a 96-hour court ordered hold. Eliazar says that he has poor living conditions. Apparently he got aggressive towards people and told neighbors that they cannot stop him from coming into their home. They are worried about his physical wellbeing. That he has been falling. That he has not been washing his close. Apparently he lives on their land and they told him to move and get off the land and so hold was placed on him and he was sent to the emergency room. He denies any homicidal or suicidal ideations. Related Data Previous Rx's ?Medication ?Instructions ?Recorded blood-glucose meter #1 ea 04/23/23 glipizide 10 mg tablet 10 mg PO DAILY #90 tabs 02/15 08/10 blood sugar diagnostic (Blood #200 ea 05/28/24 Glucose Test strips) quetiapine 150 mg tablet,extended 150 mg PO .q hs #30 tabs 07/01/24 release 24 hr insulin glargine-yfgn 100 unit/mL 25 unit (0.25 mL) [place] BCUT BID #15 mL 07/02/24 (3 mL) subcutaneous pen (Semglee (insulin glargine-yfgn) Pen) trazodone 100 mg tablet 100 mg PO .q hs PRN insomnia #30 07/14/24 tabs escitalopram oxalate 20 mg tablet 20 mg PO DAILY #30 t abs 07/20/24 duloxetine 30 mg capsule,delayed 30 mg PO BID #180 cap s 07/28/24 release Allergies Allergy/AdvReac Type Severity Reaction Status Date / Time avocado Allergy Severe ALGY-Swell Verified 08/07/24 13:13 Lip/Tongue/Throat green marquez Allergy Unknown Verified 08/07/24 13:13 Review of Systems 2 Narrative: Constitutional symptoms: Negative except as documented in HPI. Skin symptoms: Negative except as documented in HPI. Eye symptoms: Negative except as documented in HPI. ENMT symptoms: Negative except as documented in HPI. Respiratory symptoms: Negative except as documented in HPI. Cardiovascular symptoms: Negative except as documented in HPI. Gastrointestinal symptoms: Negative except as documented in HPI. Genitourinary symptoms: Negative except as documented in HPI. Musculoskeletal symptoms: Negative except as documented in HPI. Neurologic symptoms: Negative except as documented in HPI. Psychiatric symptoms: Negative except as documented in HPI. Endocrine symptoms: Negative except as documented in HPI. PFS ED 2 PFSH: Medical History (Updated 08/07/24 @ 13:58 by Riri Márquez MD) Inadequate housing Major depressive disorder, recurrent, severe with psychotic symptoms Psychiatric care MDD (major depressive disorder), single episode, severe Suicidal ideation Moderate tobacco use disorder Anxiety Insomnia Personality disorder, unspecified Major depressive disorder, recurrent Peripheral neuropathy Diabetes Family History Father Cancer Pancreas, liver, colon Grandfather Cancer Maternal-pancreatic Other Diabetes Liver disease Stroke Denies family history of CAD (coronary artery disease) Aneurysm Autoimmune disease Clotting disorder Dementia Hyperlipidemia Hyperthyroidism Hypothyroidism Psychiatric illness Chronic kidney disease (CKD) Bleeding disorder Lung disease Hypertension Social History Smoking and tobacco/nicotine status: current every day tobacco/nicotine user cigarettes Packs smoked per day: 0.25 Years cigarettes smoked: 21 Alcohol intake: current Alcohol intake frequency: holidays/special occasions only Substance/Drug Use: current Substance/Drug use frequency: daily Lives independently: Yes Housing: House Marital status: Single Highest education level completed: Some College, No Degree Current occupational status: unemployed Current occupational exposures/hazards: No Pets and animals: Yes Pets & animals: dog(s) Leisure activites: games and other Leisure activities details: watching TV Sexually active: No Do you think of yourself as: Lesbian/Acosta/Homosexual Current gender identity: Male Jeana/Yazdanism: Religious Special jeana needs: No Agree to transfusion: Yes Physical Exam 2 Narrative: EXAM NARRATIVE: General: Alert, no acute distress. Skin: Warm, dry. Head: Normocephalic, atraumatic. Neck: Supple, trachea midline. Eye: Extraocular movements are intact. Ears, nose, mouth and throat: mucosa moist. Cardiovascular: Regular, Normal peripheral perfusion. Respiratory: Lungs are clear to auscultation, respirations are non-labored, breath sounds are equal, Symmetrical chest wall expansion. Gastrointestinal: Soft, Nontender, Non distended Musculoskeletal: Normal ROM, no deformity. Neurological: Alert and oriented, No focal neurological deficit observed. Psychiatric: Cooperative, patient is very tearful and says he does not know why he is here. He says he is not suicidal. Course 2 Vital Signs: Vital signs: Vital Signs Temperature 97.7 F 08/07/24 13:04 Pulse Rate 120 H 08/07/24 13:04 Respiratory Rate 18 08/07/24 13:04 Blood Pressure 134/72 08/07/24 13:04 Pulse Oximetry 96 08/07/24 13:04 Oxygen Delivery Me thod Room Air 08/07/24 13:04 MDM - Psych Medical Decision Making Differential diagnosis: Patient with reported danger to himself and on a court ordered 96-hour hold. concerns for infection, alcohol intoxication, cardiac issues or other medical problems prior to psychiatric admission. Workup: labwork, ekg ordered to evaluate the pathologies and to clear the patient medically prior to psychiatric admission EKG: Time 1320. Rate 123. Sinus tachycardia, No ST-T changes, no ectopy, normal WA & QRS intervals, This was reviewed and interpreted by myself the ER physician at 1325. There is extensive interference. No evidence of any ST elevation. Patient is having no symptoms. Lab Review: Laboratory results were reviewed and interpreted by myself the emergency room physician. - Medically cleared. - EKG shows no ischemic changes. - Blood alcohol level is negative, -Tylenol and salicylate levels are negative. - Drug screen is negative - No signs of infection, urinalysis clear and white count is not elevated - No anemia. - BUN and creatinine are within normal limits. Consultation: I spoke with Dr. Laureano who is on-call for the psychiatry service who agrees to admission. Assessment and plan: Concern the patient is a danger to himself. 96-hour hold placed by a bobbin presser for psychiatric issues -Admission to neuropsychiatric unit for continued evaluation and treatment. - All lab work was reviewed and interpreted personally by myself, the ER physician - Evaluation and treatment of this problem were appropriate in the emergency setting Lab Data 08/07/24 13:40 08/07/24 13:40 Laboratory Results WBC 9.25 10^3/uL (3.29-11.43) 08/07/24 13:40 RBC 5.49 10^6/uL (3.85-5.65) 08/07/24 13:40 Hgb 16.60 g/dL (11.27-16.99) 08/07/24 13:40 Hct 48.5 % (37-53) 08/07/24 13:40 MCV 88.3 fl (82-101) 08/07/24 13:40 MCH 30.2 pg (27-33) 08/07/24 13:40 MCHC 34.2 g/dL (30-55) 08/07/24 13:40 RDW 12.2 % (12.1-15.1) 08/07/24 13:40 Plt Count 200 10^3/cmm (157-399) 08/07/24 13:40 MPV 10.9 fL (7.4-10.4) H 08/07/24 13:40 Neut % (Auto) 55.1 % 08/07/24 13:40 Lymph % (Auto) 35.7 % 08/07/24 13:40 [place] % (Auto) 6.3 % 08/07/24 13:40 Eos % (Auto) 2.3 % 08/07/24 13:40 Baso % (Auto) 0.5 % 08/07/24 13:40 Neut # (Auto) 5.10 10^3/uL (1.8-7.7) 08/07/24 13:40 Lymph # (Auto) 3.3 10^3/uL (0.8-4.8) 08/07/24 13:40 [place] # (Auto) 0.6 10^3/uL (0.2-0.9) 08/07/24 13:40 Eos # (Auto) 0.2 10^3/uL (0.0-0.8) 08/07/24 13:40 Baso # (Auto) 0.1 10^3/uL (0.0-0.1) 08/07/24 13:40 Nucleated RBC % (auto) 0 % 08/07/24 13:40 Nucleated RBCs # 0.0 /100WBC 08/07/24 13:40 Sodium 134 mmol/L (136-145) L 08/07/24 13:40 Potassium 4.6 mmol/L (3.5-5.1) 08/07/24 13:40 Chloride 92 mmol/L (98-107) L 08/07/24 13:40 Carbon Dioxide 27 mmol/L (22-29) 08/07/24 13:40 Anion Gap 19.6 (5-19) H 08/07/24 13:40 BUN 23 mg/dL (6-20) H 08/07/24 13:40 Creatinine 1.0 mg/dL (0.7-1.2) 08/07/24 13:40 GFR Calculation 80.8 mL/min (90-130) L 08/07/24 13:40 Glucose 364 mg/dL (65-115) H 08/07/24 13:40 Calculated Osmolality 296 mOsm/kg (285-295) H 08/07/24 13:40 Calcium 9.9 mg/dL (8.5-10.5) 08/07/24 13:40 Total Bilirubin 0.6 mg/dL (0.15-1.2) 08/07/24 13:40 AST 20 U/L (0-40) 08/07/24 13:40 ALT 31 U/L (0-41) 08/07/24 13:40 Alkaline Phosphatase 187 U/L (40-130) H 08/07/24 13:40 Total Protein 8.0 g/dL (6.6-8.7) 08/07/24 13:40 Albumin 4.1 g/dL (3.5-5.2) 08/07/24 13:40 Globulin 3.9 g/dL (1.3-4.6) 08/07/24 13:40 TSH 0.42 uIU/mL (0.27-4.20) 08/07/24 13:40 Urine Color Yellow (Yellow) 08/07/24 13:20 Urine Appearance Clear (CLEAR) 08/07/24 13:20 Urine pH 5.5 (5-7) 08/07/24 13:20 Ur Specific [place] 1.046 (1.005-1.030) H 08/07/24 13:20 Urine Protein 2+ (Negative) A 08/07/24 13:20 Urine Glucose (UA) 3+ (Normal) H 08/07/24 13:20 Urine Ketones Trace (Negative) 08/07/24 13:20 Urine Blood Negative (Negative) 08/07/24 13:20 Urine Nitrate Negative (Negative) 08/07/24 13:20 Urine Bilirubin Negative (Negative) 08/07/24 13:20 Urine Urobilinogen 0.2 mg/dL (Negative) 08/07/24 13:20 Ur Leukocyte Esterase Negative (Negative) 08/07/24 13:20 Urine RBC 0-4 /hpf (0-2) H 08/07/24 13:20 Urine WBC 0-4 /hpf (0-5) H 08/07/24 13:20 Ur Squamous Epith Cells T /hpf (0-5) 08/07/24 13:20 Amorphous Sediment Not Reportable 08/07/24 13:20 Urine Bacteria Trace /hpf (NONE) 08/07/24 13:20 Hyaline Casts None /lpf 08/07/24 13:20 Salicylates 0.5 mg/dL (3-10) L 08/07/24 13:40 Urine Opiates Screen Negative ng/mL (Negative) 08/07/24 13:20 Acetaminophen < 5.0 ug/mL (10-30) L 08/07/24 13:40 Ur Barbiturates Screen Negative ng/mL (Negative) 08/07/24 13:20 Ur Phencyclidine Scrn Negative ng/mL (Negative) 08/07/24 13:20 Ur Amphetamines Screen Negative ng/mL (Negative) 08/07/24 13:20 U Benzodiazepines Scrn Negative ng/mL (Negative) 08/07/24 13:20 Urine Cocaine Screen Negative ng/mL (Negative) 08/07/24 13:20 U Marijuana (THC) Screen Negative ng/mL (Negative) 08/07/24 13:20 Ethyl Alcohol < 10 mg/dL (0-10) 08/07/24 13:40 No radiology studies performed this visit Discharge Plan Discharge Patient Disposition: Admitted As Inpatient Admit Provider: Chad Laureano Clinical Impression: Patient needs psychiatric hold for evaluation, Self-harm Condition: Stable Coding Level of Care Code ED Environmental Health Safety Engineer for Shubham Avila
--- NOTE | 2024-08-07 13:46 | PC.NURSE ---
96 hr rights reviewed with patient @5515 with assistance of [facility] security support analyst Jaison Balbuena All education reviewed at this time. Patient was provided a copy of his rights. Patient also provided a water, Diet Coke, [place] and pudding cup. No further verbalized needs at this time noted to HS.
[2024-08-07 13:55] LABS: Basophils # 0.1 10^3/uL (0.0-0.1); Basophils % 0.5 %; Eosinophils # 0.2 10^3/uL (0.0-0.8); Eosinophils % 2.3 %; Hematocrit 48.5 % (37-53); Lymphocytes # 3.3 10^3/uL (0.8-4.8); Lymphocytes % 35.7 %; Mean Corpuscular HGB Conc 34.2 g/dL (30-55); Mean Corpuscular Hemoglobin 30.2 pg (27-33); Mean Corpuscular Volume 88.3 fl (82-101); Mean Platelet Volume 10.9 fL (7.4-10.4); Monocytes # 0.6 10^3/uL (0.2-0.9); Monocytes % 6.3 %; Neutrophils % 55.1 %; Nucleated Red Blood Cells % 0 %; Platelet Count 200 10^3/cmm (157-399); Red Blood Count 5.49 10^6/uL (3.85-5.65); Red Cell Distribution Width 12.2 % (12.1-15.1); White Blood Count 9.25 10^3/uL (3.29-11.43)
[2024-08-07 13:55] LABS: Bilirubin Urine Negative (Negative); Blood Urine Negative (Negative); Glucose Urine UA 3+ (Normal); Ketones Urine Trace (Negative); Leukocyte Esterase Urine Negative (Negative); Nitrate Urine Negative (Negative); Protein Urine 2+ (Negative); Urine Appearance Clear (CLEAR); Urine Color Yellow (Yellow); Urobilinogen Urine 0.2 mg/dL (Negative); pH Urine 5.5 (5-7)
[2024-08-07 14:02] LABS: Amphetamines Screen Urine Negative (Negative); Barbiturates Screen Urine Negative (Negative); Benzodiazepines Screen Urine Negative (Negative); Cocaine Screen Urine Negative (Negative); Opiate Screen Urine Negative (Negative); PCP Screen Urine Negative (Negative); THC Screen Urine Negative (Negative)
[2024-08-07 14:26] LABS: Bacteria Urine TRACE /hpf; RBC Urine 0-4 /hpf (0-2); Specific Gravity, Urine 1.046 (1.005-1.030); Squamous Epithelial Cell Urine T /hpf (0-5); UA Manual Slide Review YES; UA Slide Review UA Slide Review Perf; WBC Urine 0-4 /hpf (0-5)
[2024-08-07 14:31] LABS: Alanine Aminotransferase 31 U/L (0-41); Albumin Level 4.1 g/dL (3.5-5.2); Alkaline Phosphatase 187 U/L (40-130); Anion Gap 19.6 (5-19); Aspartate Amino Transferase 20 U/L (0-40); Blood Urea Nitrogen 23 mg/dL (6-20); Calcium 9.9 mg/dL (8.5-10.5); Carbon Dioxide 27 mmol/L (22-29); Chloride 92 mmol/L (98-107); Creatinine Clr Calc Pharmacy 98.4385; Globulin 3.9 g/dL (1.3-4.6); Glomerular Filtration Rate 80.8 mL/min (90-130); Glucose 364 mg/dL (65-115); Osmolality Calculated 296 mOsm/kg (285-295); Potassium 4.6 mmol/L (3.5-5.1); Salicylate 0.5 mg/dL (3-10); Sodium 134 mmol/L (136-145); Thyroid Stimulating Hormone 0.42 uIU/mL (0.27-4.20); Total Bilirubin 0.6 mg/dL (0.15-1.2)
[2024-08-07 14:34] LABS: Acetaminophen < 5.0 ug/mL (10-30); Alcohol Level < 10 mg/dL (0-10)
[2024-08-07 15:51] VITALS: BP 100/64; PULSE 108; RESP 16; TEMP 36.9; O2SAT 97
--- NOTE | 2024-08-07 17:01 | PC.NURSE ---
Patient arrived to unit very tearful. He says he is unsure why he is here and that he is very worried about his chiweenie and all of his belongings. Patient states he currently lives in a shack on the property of an 80 year old woman where he has a small space heater. He says the shack is unlocked with his car in the building and that they live across from tweakers who he believes may steal his things. Patient endorses falling several times the last week due to worsening diabetic neuropathy. He says he mainly falls when he is getting up. Patient does have abrasions on bilateral shins and his left elbow. Patient currently sees Brigida from [facility] and says he really likes her. The patient says he did have a disagreement with the lady whose property he lives on. He says he fell in her house and in the fall his shorts accidentally came down. In embarassment he tried to pull up his pants and she asked why he was acting strange. He says when he tried to explain what happened she continued to get agitated and they ended up having and argument where they agreed he'd have to use a camping stove on the property to cook on from now on. He says he has no idea where the statement that he was going to burn buildings down came from and that he would never do this. Patient is cooperative with this RN.
[2024-08-07 17:28] LABS: Glucose Point of Care 352 mg/dL (70-110)
[2024-08-07] MEDS: insulin lispro 100 unit/1 mL SUBCUT ×2 (18:28→20:34)
[2024-08-07 20:02] LABS: Glucose Point of Care 496 mg/dL (70-110)
[2024-08-07 20:05] VITALS: BP 97/59; PULSE 97; RESP 16; TEMP 37.1; O2SAT 98
[2024-08-07] MEDS: quetiapine XR (24HR) 50 mg Tablet 150 MG PO (20:34)
[2024-08-07] MEDS: duloxetine 30 mg Capsule PO (20:34)
[2024-08-07 21:59] LABS: Glucose Point of Care 247 mg/dL (70-110)
--- NOTE | 2024-08-07 22:16 | PC.NURSE ---
Sujit notified of 496 blood glucose. Advised to give insulin per S/S; 16 units. Rechecked after 1 hour, glucose down to 247. no additional orders given.
[2024-08-07] MEDS: hyDROXYzine 25 mg Capsule 50 MG PO (23:39)
[2024-08-08 06:00] VITALS: BP 103/68; PULSE 99; RESP 16; TEMP 36.6; O2SAT 99
[2024-08-08 07:26] LABS: Glucose Point of Care 206 mg/dL (70-110)
[2024-08-08] MEDS: escitalopram 10 mg Tablet 20 MG PO (08:25)
[2024-08-08] MEDS: insulin lispro 100 unit/1 mL SUBCUT ×4 (08:25→20:59)
[2024-08-08] MEDS: duloxetine 30 mg Capsule PO ×2 (08:25→21:00)
--- NOTE | 2024-08-08 09:40 | P.NPUHP_ITS ---
Providers/Chief Complaint 2 Admitting Physician: Chad Laureano MD Primary Care Provider: Matty Toledo MD Chief Complaint: 96 HPI NPU History of Present Illness Eldon Richardson is a 44 year old male who presented to the emergency department with the following report: Chief Complaint: Psychiatric Symptoms Stated Complaint: 96 Time Seen by Provider: 08/07/24 13:05 History of Present Illness: This is a 44-year-old man with a history of anxiety, diabetes who presents to the emergency room on a 96-hour court ordered hold. Eliazar says that he has poor living conditions. Apparently he got aggressive towards people and told neighbors that they cannot stop him from coming into their home. They are worried about his physical wellbeing. That he has been falling. That he has not been washing his close. Apparently he lives on their land and they told him to move and get off the land and so hold was placed on him and he was sent to the emergency room. He denies any homicidal or suicidal ideations. He was admitted to the neuropsychiatric unit for definitive treatment of those issues. He is known to [facility] through inpatient and outpatient services. His last psychiatric evaluation inpatient was in 2023. He presents today reporting that things have been going really well since his discharge about 14 months ago. He reports that he has a stable though less than desirable living arrangement which is probably the heart of the admission. He reports that there was some change in how his landlord wanted access to a certain building manage and he says that she misinterpreted a comment he made. He reports that he made some comment about being able to cook on his propane stove that he has for capping if he did not have access to the building that he believes she thought he was saying that he might blow the place up. He reports that his medications have been working well that he has been following up as directed at [facility] for medication and other treatment. He denies any need to be here or any need for medication changes. We discussed the fact that he is on a 96-hour hold and we need to vet the situation to make sure that he is safe for discharge. We agreed we would get collateral information and that there would be the possibility of discharge earlier than the end of his 96-hour hold but likely at earliest Saturday. Per his 06/20/2023 [facility] inpatient psychiatric discharge summary: Discharge Diagnosis (1) MDD (major depressive disorder), single episode, severe: Status: Inactive (2) Overdose on Tylenol: Status: Acute (3) ANGEL (generalized anxiety disorder): Status: Acute (4) Suicidal ideation: Status: Resolved (5) Hyperglycemia: Status: Resolved (6) Diabetes: Status: Acute (7) Personality disorder, unspecified: Status: Acute Reason for Visit Reason for Visit: overdose Brief History: History of Present Illness Eldon Richardson is a 43 year old male Recently discharged from the neuropsychiatric unit on 04/23/2023 with suicidal ideation who was admitted to the intensive care unit after the patient had taken 6 aspirin, multiple Tylenol pills along with several pills of 25 mg of Benadryl. The patient had been given N-acetylcysteine in the intensive care unit and had potentially ingested up to 15 g of Tylenol. The patient upon evaluation in the ICU appeared distraught and stated that he has been feeling hopeless and that he had reached out to a few of his friends to let them know through phone text that he had appreciated them and that he was planning on ending his life. He had reported no improvement with his depression since his last hospitalization. Patient had reported that he had been thinking about killing himself for the past several weeks. He had continued to report feelings of hopelessness. He reports that he has been more depressed over the past 13 months since his mother had suddenly. He reports low energy and he Trudy insomnia with frequent awakenings at night. He reports that he has been more tearful. He reports continued lack of social supports and states that he frequently feels let down by others. He states that he has been crying nearly every day. He reports that he is often overwhelmed by worry and states that he has difficulties with concentration and reports often being paralyzed by inactivity. He reports that he feels that that his worry is out of control. He reports that the holidays had been worse for him as he had felt alone and reports that he continues to grieve his mother's . He had reported compliance with Prozac but stated that the medication had been unsuccessful at helping with his mood at the dose of 20 mg daily. He had reported that he had recently lost a job in January and reports that he has been concerned that he may lose the house that he owns currently. He denies any history of yuan. He denied any history of psychosis. He minimized any drug or alcohol use other than marijuana use. The patient's urine was positive for amphetamine. Inpatient psychiatric history: 1 previous hospitalization in April 2023. There had been previous Outpatient psychiatric history: He has not received psychotherapy services but has been seen through the crisis team through [facility]. Current psychiatric medications are being monitored under Dr. Seals who is his primary care physician. Current medications: Prozac 20 mg daily, hydroxyzine, insulin, metformin, trazodone Drug and alcohol history: None reported with no prior history of substance abuse treatment. He reports he has been using marijuana on a regular basis for years. Legal history: Unknown family psychiatric history: None reported medical history: Diabetes type 2., diabetic neuropathy allergies: No known drug allergies social history: Patient grew up in [place]. He is the only product of his mother and father. He states that his mother had been multiple times. He had reported that he had apparently tried to harm himself as a child but did not elaborate. He states that he moved to [place] and has never been . He has no children. He reports having a few friends and reports that he has a dog that he describes as his best friend. He had previously worked a variety of jobs and had worked at [employer] for several years but lost his job in January. He reports having half-siblings that he has little contact with. He states that his mother had 14 months ago suddenly and reports that his depression has begun after that period time. suicide attempts by medication overdose. Excerpt NPU Discharge summary from 04/19/23 Discharge Diagnosis (1) Suicidal ideation: Status: Resolved (2) Hyperglycemia: Status: Acute (3) Diabetes: Status: Acute (4) Major depressive disorder, recurrent: Status: Acute (5) Personality disorder, unspecified: Status: Acute Reason for Visit SI Brief History: History of Present Illness Hany Richardson is a 43 year old male who presented to the emergency department with the following report: Chief Complaint: Psychiatric Symptoms Stated Complaint: SI Time Seen by Provider: 04/19/23 08:55 Source: patient and other (family friend) Mode of arrival: ambulatory Limitations: no limitations History of Present Illness: Patient is a 43-year-old male who presents to ED today after being brought by a family friend for concerns of suicidal ideations. Family friend states that she was contacted early this morning by patient asking her if she would take his dog. When she questioned further, he stated that he was suicidal and had a plan to kill himself this morning. She quickly rushed to his house and convinced him to come to the emergency department for evaluation. On exam patient is sobbing stating that he feels like he has lost everything. He states he lost his mother approximately a year ago. He lost his job a few months ago secondary to untreated mental health illness/anxiety. Patient states he has never seen a psychiatrist or medical health provider. He lives alone currently with his dog, Gisel. Patient states last month he attempted suicide by medication overdose. Of note he states he has not been to a medical provider in years but states he has untreated type II diabetes. Was on Gabapentin one time due to his peripheral neuropathy but states it didn't help. MD complaint: suicidal ideation and feels depressed History of same: Yes Relieving factors: none Context: significant life stressor (lost mother a year ago/lost job a few months ago) Associated psychiatric symptoms: depression and suicidal ideation Associated symptoms: Reports depression and suicidal ideation; Deny auditory hallucinations, visual hallucinations or homicidal ideation Treatments prior to arrival: none If self harm: admits thoughts of self harm He was admitted to the neuropsychiatric unit for definitive treatment of those issues. He was initially seen this morning as part of a dsvd-io-orsm after a seclusion episode where he lost emotional control saying that he needed to go see his dog which she given to someone initially with a plan to kill himself. There was nothing anyone can say to calm him to a rational level and this escalated to him needing to be held and he was given an injection. Shortly thereafter when I went to speak to him he was lethargic secondary to the injections but was able to arouse himself to answer some questions. He continued to focus on going to see his dog and seem to forget that he had made arrangements for the pet. He was suggesting that the dog was in some danger and we did make a call and verify that he infected given that to some apparently responsible people who are reportedly taking good care of it and they advised that the pet would be just fine in their home and that he should remain here and get the help that he needs. He did not seem to take that information with much recognition of its significance. And continued to be quite emotional surrounding the dog. He was able to share that he is had a long history of mental health issues and depression that has been essentially untreated with a reported lack of history of any medication. He reports that he was willing to begin Prozac 20 mg p.o. daily after discussion of the risks, benefits and alternatives he understood and agreed to proceed as is documented in this note. Attempts were made to get more accurate picture of exactly why he was overwhelmed but he mostly Morton rolled around in the bed lamenting about not being with his dog and not really answering the questions with any clarity. He could not give any nidus for his suicidality just reporting that he was not feeling like himself. He denied any drug use other than the marijuana and his UDS was only positive for cannabis.. Hospital Course He slowly acclimated to the individual, group and milieu therapies provided. He presented with a significant overdose. His Prozac was discontinued and trazodone was increased to 100 mg p.o. daily. Lexapro was titrated to 20 mg p.o. daily with a positive response. He denied any side effects of the medication during his stay. He worked with the social work team for appropriate aftercare appointments. He had significant improvement and was able to contract for safety outside of the hospital prior to discharge. During the hospitalization, the patient had routine laboratory studies which were within normal limits except for a few outliers. Additionally, there was a general medical evaluation which was also within normal limits and revealed no new acute processes except for those treated by hospitalists on the medical side. At the time of discharge, he denied psychosis or lethality. Mood and anxiety were well managed. The patient endorsed a plan to avoid all drugs of abuse and follow up with the aftercare recommendations of the treatment team. The patient was evaluated and deemed to be absent credible lethality and had achieved the maximum benefit from an inpatient hospitalization, and so was discharged. Meds NPU Home Medications ?Medication ?Instructions ?Recorded ?Confirmed ?Last Taken ?Type blood-glucose meter #1 ea 04/23/23 08/07/24 Unkn own Rx glipizide 10 mg tablet 10 mg PO DAILY #90 tabs 02/1508/07/24 08/06/24 Rx blood sugar diagnostic (Blood #200 ea 05/28/24 5 Unknown Rx Glucose Test strips) quetiapine 150 mg tablet,extended 150 mg PO .q hs #30 tabs 07/01/24 08/07/24 08/06/24 Rx release 24 hr insulin glargine-yfgn 100 unit/mL 25 unit (0.25 mL) MADISON BCUT BID #15 mL 07/02/24 08/07/24 08/06/24 Rx (3 mL) subcutaneous pen (Semglee (insulin glargine-yfgn) Pen) trazodone 100 mg tablet 100 mg PO .q hs PRN insomnia #30 07/14/24 08/07/24 08/06/24 Rx tabs escitalopram oxalate 20 mg tablet 20 mg PO DAILY #30 t abs 07/20/24 08/07/24 08/06/24 Rx duloxetine 30 mg capsule,delayed 30 mg PO BID #180 cap s 07/28/24 08/07/24 08/06/24 Rx release Allergies Allergy/AdvReac Type Severity Reaction Status Date / Time avocado Allergy Severe ALGY-Swell Verified 08/07/24 13:13 Lip/Tongue/Throat green marquez Allergy Unknown Verified 08/07/24 13:13 PFSH NPU 2 PFSH: Medical History (Updated 08/07/24 @ 13:58 by Riri Márquez MD) Inadequate housing Major depressive disorder, recurrent, severe with psychotic symptoms Psychiatric care MDD (major depressive disorder), single episode, severe Suicidal ideation Moderate tobacco use disorder Anxiety Insomnia Personality disorder, unspecified Major depressive disorder, recurrent Peripheral neuropathy Diabetes Family History Father Cancer Pancreas, liver, colon Grandfather Cancer Maternal-pancreatic Other Diabetes Liver disease Stroke Denies family history of CAD (coronary artery disease) Aneurysm Autoimmune disease Clotting disorder Dementia Hyperlipidemia Hyperthyroidism Hypothyroidism Psychiatric illness Chronic kidney disease (CKD) Bleeding disorder Lung disease Hypertension Social History Smoking and tobacco/nicotine status: current every day tobacco/nicotine user cigarettes Packs smoked per day: 0.25 Years cigarettes smoked: 21 Alcohol intake: current Alcohol intake frequency: holidays/special occasions only Substance/Drug Use: current Substance/Drug use frequency: daily Lives independently: Yes Housing: House Marital status: Single Highest education level completed: Some College, No Degree Current occupational status: unemployed Current occupational exposures/hazards: No Pets and animals: Yes Pets & animals: dog(s) Leisure activites: games and other Leisure activities details: watching TV Sexually active: No Do you think of yourself as: Lesbian/Acosta/Homosexual Current gender identity: Male Jeana/Samaritan: Congregation Special jeana needs: No Agree to transfusion: Yes Mental Status Exam 2 MSE Comments: This is a well-nourished well-developed white male in hospital scrubs looking older than his stated age with improving grooming and adequate eye contact. No abnormal movements. He was cooperative with exam and was in only mild distress. Speech was more normal rate and volume. Mood described as better. His affect appearing congruent. Thought process was linear, logical. Thought content: Patient denied suicidal or homicidal ideation. There were no delusions reported or noted. He denied any auditory or visual hallucinations and did not appear to be responding to internal stimuli. Attention and concentration appeared intact and memory appeared intact but none were formally tested.. He is alert and oriented x 3. His insight and judgment appeared fair and his impulse control limited. Vitals/I&O/Wt Last Vital Signs Temp 97.8 F 08/08/24 06:00 Pulse 99 08/08/24 06:00 Resp 16 08/08/24 06:00 BP 103/68 08/08/24 06:00 Pulse Ox 99 08/08/24 06:00 O2 Del Method Room Air 08/08/24 06:00 Weight last 48 hrs Weight 83.915 kg Data NPU 08/07/24 13:40 08/07/24 13:40 A&P Assessment and plan (1) MDD (major depressive disorder), single episode, severe: (2) ANGEL (generalized anxiety disorder): (3) Suicidal ideation: (4) Hyperglycemia: (5) Diabetes: Qualifiers: Diabetes mellitus complication detail: with nephropathy Diabetes mellitus prison insulin use: with prison use (6) Personality disorder, unspecified: Plan This is a 43-year-old white male with a history of ANGEL and MDD severe with last hospitalization 14 months ago when he was admitted to ICU involuntarily after overdose. He reports that he has been doing well in treatment and that the only thing that occurred was a misunderstanding. 1. Continue current medications. 2. Encourage individual, group and milieu therapies. 3. Continue every 15 minute checks for safety. 4. Encourage sober living treatment after discharge at the highest level of care to which he is willing to commit. However his UDS was negative at this admission. 5. Evaluate against the backdrop of the 96-hour hold for safety. PDMP PDMP Reviewed: Not Reviewed Involuntary Hold Information 2 96 Hour Hold: 96 Hour Involuntary Admission: Yes Attestations NPU 2 Medical Necessity Statement*: Inpatient psychiatric hospitalization is medically necessary and the clinically appropriate intervention at this time. We will monitor medications and make changes as indicated. He will be in the psychiatric unit for over 2 midnights. His likely length of stay 2-4 days. Coding Level of Care Code Acute Code for g Fwd Diagnoses MDD (major depressive disorder), single episode, severe F32.2 ANGEL (generalized anxiety disorder) F41.1 Suicidal ideation R45.851 Hyperglycemia R73.9 Diabetes E11.9 Diabetes mellitus complication detail: with nephropathy Diabetes mellitus prison insulin use: with moth exterminator use Personality disorder, unspecified F60.9
[2024-08-08 11:44] LABS: Glucose Point of Care 299 mg/dL (70-110)
[2024-08-08 14:00] VITALS: BP 117/79; PULSE 101; RESP 18; TEMP 37.1; O2SAT 98
[2024-08-08 19:41] LABS: Glucose Point of Care 339 mg/dL (70-110)
[2024-08-08 21:00] VITALS: BP 119/82; PULSE 95; RESP 18; TEMP 37.1; O2SAT 96
[2024-08-08] MEDS: quetiapine XR (24HR) 50 mg Tablet 150 MG PO (21:00)
[2024-08-08] MEDS: hyDROXYzine 25 mg Capsule 50 MG PO (22:39)
[2024-08-09 05:56] VITALS: BMI 28.9
[2024-08-09 06:00] VITALS: BP 106/74; PULSE 90; RESP 18; TEMP 36.8; O2SAT 96
[2024-08-09 07:31] LABS: Glucose Point of Care 238 mg/dL (70-110)
[2024-08-09] MEDS: escitalopram 10 mg Tablet 20 MG PO (08:06)
[2024-08-09] MEDS: insulin lispro 100 unit/1 mL SUBCUT ×4 (08:06→21:07)
[2024-08-09] MEDS: duloxetine 30 mg Capsule PO ×2 (08:06→20:11)
[2024-08-09 11:18] LABS: Glucose Point of Care 275 mg/dL (70-110)
--- NOTE | 2024-08-09 11:25 | P.NPUPN_ITS ---
Subjective NPU 2 Subjective: Patient presented today reporting that he was feeling all right. He continued to report that him being here is a miscommunication and that he did not say anything consistent with a threats prior to being brought to the hospital. We discussed the fact that we are awaiting the response from the person with the affidavit to determine if his story holds up and there was just a miscommunication or if there was a clear threat that was made. He continues to deny any issues, reports he has been doing really well and denies need to be here or need to change medications. He denies any side effects to his medications. Mental Status Exam 2 MSE Comments: This is a well-nourished well-developed white male in hospital scrubs looking older than his stated age with improving grooming and adequate eye contact. No abnormal movements. He was cooperative with exam and was in only mild distress. Speech was more normal rate and volume. Mood described as better. His affect appearing congruent. Thought process was linear, logical. Thought content: Patient denied suicidal or homicidal ideation. There were no delusions reported or noted. He denied any auditory or visual hallucinations and did not appear to be responding to internal stimuli. Attention and concentration appeared intact and memory appeared intact but none were formally tested.. He is alert and oriented x 3. His insight and judgment appeared fair and his impulse control limited. Vitals/I&O/Wt Last Vital Signs Temp 98.3 F 08/09/24 06:00 Pulse 90 08/09/24 06:00 Resp 18 08/09/24 06:00 BP 106/74 08/09/24 06:00 Pulse Ox 96 08/09/24 06:00 O2 Del Method Room Air 08/09/24 06:00 Weight last 48 hrs Weight 86.296 kg Weight 83.915 kg Data NPU 08/07/24 13:40 08/07/24 13:40 A&P Assessment and plan (1) MDD (major depressive disorder), single episode, severe: (2) ANGEL (generalized anxiety disorder): (3) Suicidal ideation: (4) Hyperglycemia: (5) Diabetes: Qualifiers: Diabetes mellitus complication detail: with nephropathy Diabetes mellitus nursing home insulin use: with termination clerk use (6) Personality disorder, unspecified: Plan This is a 43-year-old white male with a history of ANGEL and MDD severe with last hospitalization 14 months ago when he was admitted to ICU involuntarily after overdose. He reports that he has been doing well in treatment and that the only thing that occurred was a misunderstanding. 1. Continue current medications. 2. Encourage individual, group and milieu therapies. 3. Continue every 15 minute checks for safety. 4. Encourage sober living treatment after discharge at the highest level of care to which he is willing to commit. However his UDS was negative at this admission. 5. Evaluate against the backdrop of the 96-hour hold for safety. PDMP PDMP Reviewed: Not Reviewed Involuntary Hold Information 2 96 Hour Hold: 96 Hour Involuntary Admission: Yes Attestations NPU 2 Medical Necessity Statement*: Inpatient psychiatric hospitalization is medically necessary and the clinically appropriate intervention at this time. We will monitor medications and make changes as indicated. His likely length of stay 1-3 days. Coding Level of Care Code Acute Code for g Fwd Diagnoses MDD (major depressive disorder), single episode, severe F32.2 ANGEL (generalized anxiety disorder) F41.1 Suicidal ideation R45.851 Hyperglycemia R73.9 Diabetes E11.9 Diabetes mellitus complication detail: with nephropathy Diabetes mellitus nursing home insulin use: with termination clerk use Personality disorder, unspecified F60.9
[2024-08-09 14:00] VITALS: BP 104/70; PULSE 90; RESP 18; TEMP 36.7; O2SAT 97
[2024-08-09 17:36] LABS: Glucose Point of Care 226 mg/dL (70-110)
[2024-08-09] MEDS: hyDROXYzine 25 mg Capsule 50 MG PO (20:11)
[2024-08-09] MEDS: quetiapine XR (24HR) 50 mg Tablet 150 MG PO (20:11)
[2024-08-09] MEDS: trazodone 50 mg Tablet PO (20:14)
[2024-08-09 20:42] LABS: Glucose Point of Care 166 mg/dL (70-110)
[2024-08-09 21:06] VITALS: BP 102/63; PULSE 96; RESP 18; TEMP 36.8; O2SAT 99
[2024-08-10 06:00] VITALS: BP 87/66; PULSE 84; RESP 17; TEMP 36.4; O2SAT 97
[2024-08-10 07:28] LABS: Glucose Point of Care 244 mg/dL (70-110)
[2024-08-10] MEDS: escitalopram 10 mg Tablet 20 MG PO (08:32)
[2024-08-10] MEDS: duloxetine 30 mg Capsule PO ×2 (08:33→21:53)
[2024-08-10] MEDS: insulin lispro 100 unit/1 mL SUBCUT ×4 (08:33→21:53)
[2024-08-10 11:29] LABS: Glucose Point of Care 302 mg/dL (70-110)
--- NOTE | 2024-08-10 12:40 | W.PM.NPUPNS ---
Subjective NPU Subjective: Patient presented today reporting that he is not doing well. He reported that he got bad news and he is saddened by the fact that he will not be able to return to where he was living before. He reports this is a significant setback and he feels like he just cannot get going or move forward. We discussed understanding his feeling that way but that we needed to try to create a new foundation for him to build on. We discussed working with the social work team to figure out what he can do from a residential standpoint next. He denied any side effects to the medication. Mental Status Exam MSE Comments: This is a well-nourished well-developed white male in hospital scrubs looking older than his stated age with improving grooming and adequate eye contact. No abnormal movements. He was cooperative with exam and was in only mild distress. Speech was more normal rate and volume. Mood described as sad because I do not have a place to go. His affect appearing congruent. Thought process was linear, logical. Thought content: Patient denied suicidal or homicidal ideation. There were no delusions reported or noted. He denied any auditory or visual hallucinations and did not appear to be responding to internal stimuli. Attention and concentration appeared intact and memory appeared intact but none were formally tested.. He is alert and oriented x 3. His insight and judgment appeared fair and his impulse control limited. Vitals/I&O/Wt Last Vital Signs Temp 97.6 F 08/10/24 06:00 Pulse 84 08/10/24 06:00 Resp 17 08/10/24 06:00 BP 87/66 08/10/24 06:00 Pulse Ox 97 08/10/24 06:00 O2 Del Method Room Air 08/10/24 06:00 Weight last 48 hrs Weight 86.296 kg Data NPU 08/07/24 13:40 08/07/24 13:40 A&P Assessment and plan (1) MDD (major depressive disorder), single episode, severe: (2) ANGEL (generalized anxiety disorder): (3) Suicidal ideation: (4) Hyperglycemia: (5) Diabetes: Qualifiers: Diabetes mellitus complication detail: with nephropathy Diabetes mellitus marine oil terminal superintendent insulin use: with marine oil terminal superintendent use (6) Personality disorder, unspecified: Plan This is a 43-year-old white male with a history of ANGEL and MDD severe with last hospitalization 14 months ago when he was admitted to ICU involuntarily after overdose. He reports that he has been doing well in treatment and that the only thing that occurred was a misunderstanding. 1. Continue current medications. 2. Encourage individual, group and milieu therapies. 3. Continue every 15 minute checks for safety. 4. Encourage sober living treatment after discharge at the highest level of care to which he is willing to commit. However his UDS was negative at this admission. 5. Evaluate against the backdrop of the 96-hour hold for safety. 6. He is going to need assistance with placement as he has been advised he cannot return to his previous establishment. PDMP PDMP Reviewed: Not Reviewed Involuntary Hold Information 96 Hour Hold: 96 Hour Involuntary Admission: Yes Attestations NPU Medical Necessity Statement*: Inpatient psychiatric hospitalization is medically necessary and the clinically appropriate intervention at this time. We will monitor medications and make changes as indicated. His likely length of stay 3-5 days. Coding Level of Care Code Acute Code for [facility] Fwd Diagnoses MDD (major depressive disorder), single episode, severe F32.2 ANGEL (generalized anxiety disorder) F41.1 Suicidal ideation R45.851 Hyperglycemia R73.9 Diabetes E11.9 Diabetes mellitus complication detail: with nephropathy Diabetes mellitus fdc insulin use: with marine oil terminal superintendent use Personality disorder, unspecified F60.9
[2024-08-10] MEDS: OLANZapine 5 mg ODT PO (13:37)
[2024-08-10 14:00] VITALS: BP 120/74; PULSE 88; RESP 16; TEMP 37; O2SAT 98
[2024-08-10] MEDS: hyDROXYzine 25 mg Capsule 50 MG PO (15:13)
[2024-08-10 16:53] LABS: Glucose Point of Care 212 mg/dL (70-110)
[2024-08-10 20:54] LABS: Glucose Point of Care 282 mg/dL (70-110)
[2024-08-10 21:40] VITALS: BP 93/52; PULSE 89; RESP 18; TEMP 36.6; O2SAT 96
[2024-08-10] MEDS: quetiapine XR (24HR) 50 mg Tablet 150 MG PO (21:53)
[2024-08-11 06:00] VITALS: BP 85/55; PULSE 84; RESP 17; TEMP 36.7; O2SAT 94
[2024-08-11 07:38] LABS: Glucose Point of Care 195 mg/dL (70-110)
[2024-08-11] MEDS: duloxetine 30 mg Capsule PO ×2 (08:04→20:03)
[2024-08-11] MEDS: escitalopram 10 mg Tablet 20 MG PO (08:04)
[2024-08-11] MEDS: insulin lispro 100 unit/1 mL SUBCUT ×4 (08:36→20:03)
[2024-08-11] MEDS: hyDROXYzine 25 mg Capsule 50 MG PO ×2 (13:45→20:03)
[2024-08-11 14:00] VITALS: BP 103/68; PULSE 91; RESP 17; TEMP 37.2; O2SAT 99
[2024-08-11] MEDS: OLANZapine 5 mg ODT PO (16:11)
--- NOTE | 2024-08-11 16:28 | P.NPUPN_ITS ---
Subjective NPU 2 Subjective: Patient presented today reporting that things are going fine. He is frustrated but excepting the fact that the woman who had been kind to him and allow him to stay on her property does not want him to return. He has the rights of attendant but is trying to figure out a way to honor this [place]'s wishes and is working with the social work team towards that end. He denied any side effects to the medication. Mental Status Exam 2 MSE Comments: This is a well-nourished well-developed white male in hospital scrubs looking older than his stated age with improving grooming and adequate eye contact. No abnormal movements. He was cooperative with exam and was in only mild distress. Speech was more normal rate and volume. Mood described as sad because I do not have a place to go. His affect appearing congruent. Thought process was linear, logical. Thought content: Patient denied suicidal or homicidal ideation. There were no delusions reported or noted. He denied any auditory or visual hallucinations and did not appear to be responding to internal stimuli. Attention and concentration appeared intact and memory appeared intact but none were formally tested.. He is alert and oriented x 3. His insight and judgment appeared fair and his impulse control limited. Vitals/I&O/Wt Last Vital Signs Temp 98.9 F 08/11/24 14:00 Pulse 91 08/11/24 14:00 Resp 17 08/11/24 14:00 BP 103/68 08/11/24 14:00 Pulse Ox 99 08/11/24 14:00 O2 Del Method Room Air 08/10/24 14:00 Data NPU 08/07/24 13:40 08/07/24 13:40 A&P Assessment and plan (1) MDD (major depressive disorder), single episode, severe: (2) ANGEL (generalized anxiety disorder): (3) Suicidal ideation: (4) Hyperglycemia: (5) Diabetes: Qualifiers: Diabetes mellitus complication detail: with nephropathy Diabetes mellitus residential insulin use: with residential use (6) Personality disorder, unspecified: Plan This is a 43-year-old white male with a history of ANGEL and MDD severe with last hospitalization 14 months ago when he was admitted to ICU involuntarily after overdose. He reports that he has been doing well in treatment and that the only thing that occurred was a misunderstanding. 1. Continue current medications. 2. Encourage individual, group and milieu therapies. 3. Continue every 15 minute checks for safety. 4. Encourage sober living treatment after discharge at the highest level of care to which he is willing to commit. However his UDS was negative at this admission. 5. Evaluate against the backdrop of the 96-hour hold for safety. 6. He is going to need assistance with placement as he has been advised he cannot return to his previous establishment. PDMP PDMP Reviewed: Not Reviewed Involuntary Hold Information 2 96 Hour Hold: 96 Hour Involuntary Admission: Yes Attestations NPU 2 Medical Necessity Statement*: Inpatient psychiatric hospitalization is medically necessary and the clinically appropriate intervention at this time. We will monitor medications and make changes as indicated. His likely length of stay 2-4 days. Coding Level of Care Code Acute Code for [facility] Fwd Diagnoses MDD (major depressive disorder), single episode, severe F32.2 ANGEL (generalized anxiety disorder) F41.1 Suicidal ideation R45.851 Hyperglycemia R73.9 Diabetes E11.9 Diabetes mellitus complication detail: with nephropathy Diabetes mellitus computer terminal operator insulin use: with residential use Personality disorder, unspecified F60.9
[2024-08-11 17:11] LABS: Glucose Point of Care 202 mg/dL (70-110)
[2024-08-11 17:11] LABS: Glucose Point of Care 377 mg/dL (70-110)
[2024-08-11] MEDS: haloperidol 5 mg Tablet PO (17:51)
[2024-08-11] MEDS: quetiapine XR (24HR) 50 mg Tablet 150 MG PO (20:03)
[2024-08-11] MEDS: trazodone 50 mg Tablet PO (20:03)
[2024-08-11 20:04] LABS: Glucose Point of Care 202 mg/dL (70-110)
[2024-08-11 20:13] VITALS: BP 103/63; PULSE 83; RESP 16; TEMP 36.8; O2SAT 94
[2024-08-12 06:00] VITALS: BP 96/63; PULSE 87; RESP 16; TEMP 36.8; O2SAT 97
[2024-08-12 07:41] LABS: Glucose Point of Care 223 mg/dL (70-110)
[2024-08-12] MEDS: duloxetine 30 mg Capsule PO ×2 (08:46→20:48)
[2024-08-12] MEDS: escitalopram 10 mg Tablet 20 MG PO (08:46)
[2024-08-12] MEDS: insulin lispro 100 unit/1 mL SUBCUT ×4 (08:47→20:49)
[2024-08-12] MEDS: hyDROXYzine 25 mg Capsule 50 MG PO (09:10)
[2024-08-12 12:09] LABS: Glucose Point of Care 286 mg/dL (70-110)
[2024-08-12 14:00] VITALS: BP 101/64; PULSE 84; RESP 17; O2SAT 95
--- NOTE | 2024-08-12 14:00 | P.NPUPN_ITS ---
Subjective NPU 2 Subjective: Patient presented today reporting that he is still struggling with his situation but he is feeling a little lifted by the idea that he may be at a reasonable place in the system of having an option of a place to go. He understands that likely there will be a phase that is less palatable in the beginning that will involve him going to a nursing home. We discussed the possibility of discharge over the next 48 hours. He denied any side effects to medication. Mental Status Exam 2 MSE Comments: This is a well-nourished well-developed white male in hospital scrubs looking older than his stated age with improving grooming and adequate eye contact. No abnormal movements except for mild psychomotor retardation he was cooperative with exam and was in only mild distress. Speech was more normal rate and volume. Mood described as maybe a little better. His affect appearing congruent but still a little down. Thought process was linear, logical. Thought content: Patient denied suicidal or homicidal ideation. There were no delusions reported or noted. He denied any auditory or visual hallucinations and did not appear to be responding to internal stimuli. Attention and concentration appeared intact and memory appeared intact but none were formally tested. He is alert and oriented x 3. His insight and judgment appeared fair and his impulse control limited. Vitals/I&O/Wt Last Vital Signs Temp 98.2 F 08/12/24 06:00 Pulse 87 08/12/24 06:00 Resp 16 08/12/24 06:00 BP 96/63 08/12/24 06:00 Pulse Ox 97 08/12/24 06:00 O2 Del Method Room Air 08/12/24 06:00 Data NPU 08/07/24 13:40 08/07/24 13:40 A&P Assessment and plan (1) MDD (major depressive disorder), single episode, severe: (2) ANGEL (generalized anxiety disorder): (3) Suicidal ideation: (4) Hyperglycemia: (5) Diabetes: Qualifiers: Diabetes mellitus complication detail: with nephropathy Diabetes mellitus fci insulin use: with ferry terminal supervisor use (6) Personality disorder, unspecified: Plan This is a 43-year-old white male with a history of ANGEL and MDD severe with last hospitalization 14 months ago when he was admitted to ICU involuntarily after overdose. He reports that he has been doing well in treatment and that the only thing that occurred was a misunderstanding. 1. Continue current medications. 2. Encourage individual, group and milieu therapies. 3. Continue every 15 minute checks for safety. 4. Encourage sober living treatment after discharge at the highest level of care to which he is willing to commit. However his UDS was negative at this admission. 5. Evaluate against the backdrop of the 96-hour hold for safety. 6. He is going to need assistance with placement as he has been advised he cannot return to his previous establishment. PDMP PDMP Reviewed: Not Reviewed Involuntary Hold Information 2 96 Hour Hold: 96 Hour Involuntary Admission: Yes Attestations NPU 2 Medical Necessity Statement*: Inpatient psychiatric hospitalization is medically necessary and the clinically appropriate intervention at this time. We will monitor medications and make changes as indicated. His likely length of stay 1-3 days. Coding Level of Care Code Acute Code for g Fwd Diagnoses MDD (major depressive disorder), single episode, severe F32.2 ANGEL (generalized anxiety disorder) F41.1 Suicidal ideation R45.851 Hyperglycemia R73.9 Diabetes E11.9 Diabetes mellitus complication detail: with nephropathy Diabetes mellitus fci insulin use: with ferry terminal supervisor use Personality disorder, unspecified F60.9
[2024-08-12 17:23] LABS: Glucose Point of Care 141 mg/dL (70-110)
[2024-08-12 19:58] LABS: Glucose Point of Care 307 mg/dL (70-110)
[2024-08-12 19:59] VITALS: BP 95/61; PULSE 90; RESP 17; TEMP 36.8; O2SAT 97
[2024-08-12] MEDS: trazodone 50 mg Tablet PO (20:48)
[2024-08-12] MEDS: quetiapine XR (24HR) 50 mg Tablet 150 MG PO (20:48)
[2024-08-13 06:00] VITALS: BP 102/62; PULSE 80; RESP 16; TEMP 37.1; O2SAT 94
[2024-08-13 07:12] LABS: Glucose Point of Care 222 mg/dL (70-110)
[2024-08-13] MEDS: insulin lispro 100 unit/1 mL SUBCUT ×2 (08:00→11:26)
[2024-08-13] MEDS: escitalopram 10 mg Tablet 20 MG PO (08:00)
[2024-08-13] MEDS: duloxetine 30 mg Capsule PO (08:00)
--- NOTE | 2024-08-13 09:46 | W.PM.NPUPNS ---
Subjective NPU Subjective: Patient presented today reporting that he does understand that this current circumstance is that he is awaiting his outpatient treatment teams work to give him a possible residence. He is working with him and Drea rizo along with the [facility] program given that he has been evicted they are able to move them essentially to the front of the line so to speak to work on placement/housing. However they do identify that we will take some time likely days to weeks getting a likely August manifestation date. At this point it is appearing that the plan will be for him to get into a custodial of some sort for the next few days to weeks and then move into his place when available. Likely SOC will be used. If he denies any side effects of the medication. Mental Status Exam MSE Comments: This is a well-nourished well-developed white male in hospital scrubs looking older than his stated age with improving grooming and adequate eye contact. No abnormal movements except for mild psychomotor retardation he was cooperative with exam and was in only mild distress. Speech was more normal rate and volume. Mood described as maybe a little better. His affect appearing congruent but still a little down. Thought process was linear, logical. Thought content: Patient denied suicidal or homicidal ideation. There were no delusions reported or noted. He denied any auditory or visual hallucinations and did not appear to be responding to internal stimuli. Attention and concentration appeared intact and memory appeared intact but none were formally tested. He is alert and oriented x 3. His insight and judgment appeared fair and his impulse control limited. Vitals/I&O/Wt Last Vital Signs Temp 98.7 F 08/13/24 06:00 Pulse 80 08/13/24 06:00 Resp 16 08/13/24 06:00 BP 102/62 08/13/24 06:00 Pulse Ox 94 08/13/24 06:00 O2 Del Method Room Air 08/13/24 06:00 Data NPU 08/07/24 13:40 08/07/24 13:40 A&P Assessment and plan (1) MDD (major depressive disorder), single episode, severe: (2) ANGEL (generalized anxiety disorder): (3) Suicidal ideation: (4) Hyperglycemia: (5) Diabetes: Qualifiers: Diabetes mellitus complication detail: with nephropathy Diabetes mellitus termite control technician insulin use: with fdc use (6) Personality disorder, unspecified: Plan This is a 43-year-old white male with a history of ANGLE and MDD severe with last hospitalization 14 months ago when he was admitted to ICU involuntarily after overdose. He reports that he has been doing well in treatment and that the only thing that occurred was a misunderstanding. 1. Continue current medications. 2. Encourage individual, group and milieu therapies. 3. Continue every 15 minute checks for safety. 4. Encourage sober living treatment after discharge at the highest level of care to which he is willing to commit. However his UDS was negative at this admission. 5. Evaluate against the backdrop of the 96-hour hold for safety. 6. He is going to need assistance with placement as he has been advised he cannot return to his previous establishment. PDMP PDMP Reviewed: Not Reviewed Involuntary Hold Information 96 Hour Hold: 96 Hour Involuntary Admission: Yes Attestations NPU Medical Necessity Statement*: Inpatient psychiatric hospitalization is medically necessary and the clinically appropriate intervention at this time. We will monitor medications and make changes as indicated. His likely length of stay 1-3 days. Coding Level of Care Code Acute Code for [facility] Fwd Diagnoses MDD (major depressive disorder), single episode, severe F32.2 ANGEL (generalized anxiety disorder) F41.1 Suicidal ideation R45.851 Hyperglycemia R73.9 Diabetes E11.9 Diabetes mellitus complication detail: with nephropathy Diabetes mellitus termite control technician insulin use: with termite control technician use Personality disorder, unspecified F60.9
[2024-08-13 11:18] LABS: Glucose Point of Care 290 mg/dL (70-110)
--- NOTE | 2024-08-13 12:26 | W.PM.NPUDCS ---
Diagnoses at Discharge Discharge Diagnosis (1) MDD (major depressive disorder), single episode, severe: Status: Inactive (2) ANGEL (generalized anxiety disorder): Status: Chronic (3) Suicidal ideation: Status: Resolved (4) Hyperglycemia: Status: Resolved (5) Diabetes: Status: Chronic Qualifiers: Diabetes mellitus complication detail: with nephropathy Diabetes mellitus dedicated intermodal truck driver insulin use: with dedicated intermodal truck driver use (6) Personality disorder, unspecified: Status: Acute Reason for Visit Reason for Visit: 96 Brief History: History of Present Illness Eldon Richardson is a 44 year old male who presented to the emergency department with the following report: Chief Complaint: Psychiatric Symptoms Stated Complaint: 96 Time Seen by Provider: 08/07/24 13:05 History of Present Illness: This is a 44-year-old man with a history of anxiety, diabetes who presents to the emergency room on a 96-hour court ordered hold. Eliazar says that he has poor living conditions. Apparently he got aggressive towards people and told neighbors that they cannot stop him from coming into their home. They are worried about his physical wellbeing. That he has been falling. That he has not been washing his close. Apparently he lives on their land and they told him to move and get off the land and so hold was placed on him and he was sent to the emergency room. He denies any homicidal or suicidal ideations. He was admitted to the neuropsychiatric unit for definitive treatment of those issues. He is known to [facility] through inpatient and outpatient services. His last psychiatric evaluation inpatient was in 2023. He presents today reporting that things have been going really well since his discharge about 14 months ago. He reports that he has a stable though less than desirable living arrangement which is probably the heart of the admission. He reports that there was some change in how his landlord wanted access to a certain building manage and he says that she misinterpreted a comment he made. He reports that he made some comment about being able to cook on his propane stove that he has for capping if he did not have access to the building that he believes she thought he was saying that he might blow the place up. He reports that his medications have been working well that he has been following up as directed at [facility] for medication and other treatment. He denies any need to be here or any need for medication changes. We discussed the fact that he is on a 96-hour hold and we need to vet the situation to make sure that he is safe for discharge. We agreed we would get collateral information and that there would be the possibility of discharge earlier than the end of his 96-hour hold but likely at earliest Saturday. Per his 06/20/2023 [facility] inpatient psychiatric discharge summary: Discharge Diagnosis (1) MDD (major depressive disorder), single episode, severe: Status: Inactive (2) Overdose on Tylenol: Status: Acute (3) ANGEL (generalized anxiety disorder): Status: Acute (4) Suicidal ideation: Status: Resolved (5) Hyperglycemia: Status: Resolved (6) Diabetes: Status: Acute (7) Personality disorder, unspecified: Status: Acute Reason for Visit Reason for Visit: overdose Brief History: History of Present Illness Eldon Richardson is a 43 year old male Recently discharged from the neuropsychiatric unit on 04/23/2023 with suicidal ideation who was admitted to the intensive care unit after the patient had taken 6 aspirin, multiple Tylenol pills along with several pills of 25 mg of Benadryl. The patient had been given N-acetylcysteine in the intensive care unit and had potentially ingested up to 15 g of Tylenol. The patient upon evaluation in the ICU appeared distraught and stated that he has been feeling hopeless and that he had reached out to a few of his friends to let them know through phone text that he had appreciated them and that he was planning on ending his life. He had reported no improvement with his depression since his last hospitalization. Patient had reported that he had been thinking about killing himself for the past several weeks. He had continued to report feelings of hopelessness. He reports that he has been more depressed over the past 13 months since his mother had suddenly. He reports low energy and he Trudy insomnia with frequent awakenings at night. He reports that he has been more tearful. He reports continued lack of social supports and states that he frequently feels let down by others. He states that he has been crying nearly every day. He reports that he is often overwhelmed by worry and states that he has difficulties with concentration and reports often being paralyzed by inactivity. He reports that he feels that that his worry is out of control. He reports that the holidays had been worse for him as he had felt alone and reports that he continues to grieve his mother's . He had reported compliance with Prozac but stated that the medication had been unsuccessful at helping with his mood at the dose of 20 mg daily. He had reported that he had recently lost a job in January and reports that he has been concerned that he may lose the house that he owns currently. He denies any history of yuan. He denied any history of psychosis. He minimized any drug or alcohol use other than marijuana use. The patient's urine was positive for amphetamine. Inpatient psychiatric history: 1 previous hospitalization in April 2023. There had been previous Outpatient psychiatric history: He has not received psychotherapy services but has been seen through the crisis team through [facility]. Current psychiatric medications are being monitored under Dr. Seals who is his primary care physician. Current medications: Prozac 20 mg daily, hydroxyzine, insulin, metformin, trazodone Drug and alcohol history: None reported with no prior history of substance abuse treatment. He reports he has been using marijuana on a regular basis for years. Legal history: Unknown family psychiatric history: None reported medical history: Diabetes type 2., diabetic neuropathy allergies: No known drug allergies social history: Patient grew up in [place]. He is the only product of his mother and father. He states that his mother had been multiple times. He had reported that he had apparently tried to harm himself as a child but did not elaborate. He states that he moved to [place] and has never been . He has no children. He reports having a few friends and reports that he has a dog that he describes as his best friend. He had previously worked a variety of jobs and had worked at [employer] for several years but lost his job in January. He reports having half-siblings that he has little contact with. He states that his mother had 14 months ago suddenly and reports that his depression has begun after that period time. suicide attempts by medication overdose. Excerpt NPU Discharge summary from 04/19/23 Discharge Diagnosis (1) Suicidal ideation: Status: Resolved (2) Hyperglycemia: Status: Acute (3) Diabetes: Status: Acute (4) Major depressive disorder, recurrent: Status: Acute (5) Personality disorder, unspecified: Status: Acute Reason for Visit SI Brief History: History of Present Illness Hany Richardson is a 43 year old male who presented to the emergency department with the following report: Chief Complaint: Psychiatric Symptoms Stated Complaint: SI Time Seen by Provider: 04/19/23 08:55 Source: patient and other (family friend) Mode of arrival: ambulatory Limitations: no limitations History of Present Illness: Patient is a 43-year-old male who presents to ED today after being brought by a family friend for concerns of suicidal ideations. Family friend states that she was contacted early this morning by patient asking her if she would take his dog. When she questioned further, he stated that he was suicidal and had a plan to kill himself this morning. She quickly rushed to his house and convinced him to come to the emergency department for evaluation. On exam patient is sobbing stating that he feels like he has lost everything. He states he lost his mother approximately a year ago. He lost his job a few months ago secondary to untreated mental health illness/anxiety. Patient states he has never seen a psychiatrist or medical health provider. He lives alone currently with his dog, Gisel. Patient states last month he attempted suicide by medication overdose. Of note he states he has not been to a medical provider in years but states he has untreated type II diabetes. Was on Gabapentin one time due to his peripheral neuropathy but states it didn't help. MD complaint: suicidal ideation and feels depressed History of same: Yes Relieving factors: none Context: significant life stressor (lost mother a year ago/lost job a few months ago) Associated psychiatric symptoms: depression and suicidal ideation Associated symptoms: Reports depression and suicidal ideation; Deny auditory hallucinations, visual hallucinations or homicidal ideation Treatments prior to arrival: none If self harm: admits thoughts of self harm He was admitted to the neuropsychiatric unit for definitive treatment of those issues. He was initially seen this morning as part of a [id number] after a seclusion episode where he lost emotional control saying that he needed to go see his dog which she given to someone initially with a plan to kill himself. There was nothing anyone can say to calm him to a rational level and this escalated to him needing to be held and he was given an injection. Shortly thereafter when I went to speak to him he was lethargic secondary to the injections but was able to arouse himself to answer some questions. He continued to focus on going to see his dog and seem to forget that he had made arrangements for the pet. He was suggesting that the dog was in some danger and we did make a call and verify that he infected given that to some apparently responsible people who are reportedly taking good care of it and they advised that the pet would be just fine in their home and that he should remain here and get the help that he needs. He did not seem to take that information with much recognition of its significance. And continued to be quite emotional surrounding the dog. He was able to share that he is had a long history of mental health issues and depression that has been essentially untreated with a reported lack of history of any medication. He reports that he was willing to begin Prozac 20 mg p.o. daily after discussion of the risks, benefits and alternatives he understood and agreed to proceed as is documented in this note. Attempts were made to get more accurate picture of exactly why he was overwhelmed but he mostly [place] rolled around in the bed lamenting about not being with his dog and not really answering the questions with any clarity. He could not give any nidus for his suicidality just reporting that he was not feeling like himself. He denied any drug use other than the marijuana and his UDS was only positive for cannabis. Hospital Course Hospital Course He slowly acclimated to the individual, group and milieu therapies provided. He presented with a significant overdose. His Prozac was discontinued and trazodone was increased to 100 mg p.o. daily. Lexapro was titrated to 20 mg p.o. daily with a positive response. He denied any side effects of the medication during his stay. He worked with the social work team for appropriate aftercare appointments. He had significant improvement and was able to contract for safety outside of the hospital prior to discharge. During the hospitalization, the patient had routine laboratory studies which were within normal limits except for a few outliers. Additionally, there was a general medical evaluation which was also within normal limits and revealed no new acute processes except for those treated by hospitalists on the medical side. At the time of discharge, he denied psychosis or lethality. Mood and anxiety were well managed. The patient endorsed a plan to avoid all drugs of abuse and follow up with the aftercare recommendations of the treatment team. The patient was evaluated and deemed to be absent credible lethality and had achieved the maximum benefit from an inpatient hospitalization, and so was discharged. Involuntary Hold Information 96 Hour Hold: 96 Hour Involuntary Admission: Yes Mental Status Exam MSE Comments: This is a well-nourished well-developed white male in hospital scrubs looking older than his stated age with improving grooming and adequate eye contact. No abnormal movements except for mild psychomotor retardation he was cooperative with exam and was in only mild distress. Speech was more normal rate and volume. Mood described as maybe a little better. His affect appearing congruent but still a little down. Thought process was linear, logical. Thought content: Patient denied suicidal or homicidal ideation. There were no delusions reported or noted. He denied any auditory or visual hallucinations and did not appear to be responding to internal stimuli. Attention and concentration appeared intact and memory appeared intact but none were formally tested. He is alert and oriented x 3. His insight and judgment appeared fair and his impulse control limited. Discharge Data Studies Completed and Pending: Laboratory Results WBC 9.25 10^3/uL (3.2 9-11.43) 08/07/24 13:40 RBC 5.49 10^6/uL (3.8 5-5.65) 08/07/24 13:40 Hgb 16.60 g/dL (11.27 -16.99) 08/07/24 13:40 Hct 48.5 % (37-53) 08/07/24 13:40 MCV 88.3 fl (82-101) 08/07/24 13:40 MCH 30.2 pg (27-33) 08/07/24 13:40 MCHC 34.2 g/dL (30-55) 08/07/24 13:40 RDW 12.2 % (12.1-15.1 ) 08/07/24 13:40 Plt Count 200 10^3/cmm (157 -399) 08/07/24 13:40 MPV 10.9 fL (7.4-10.4 ) H 08/07/24 13:40 Neut % (Auto) 55.1 % 08/07/24 13:40 Lymph % (Auto) 35.7 % 08/07/24 13:40 [place] % (Auto) 6.3 % 08/07/24 13:40 Eos % (Auto) 2.3 % 08/07/24 13:40 Baso % (Auto) 0.5 % 08/07/24 13:40 Neut # (Auto) 5.10 10^3/uL (1.8 -7.7) 08/07/24 13:40 Lymph # (Auto) 3.3 10^3/uL (0.8- 4.8) 08/07/24 13:40 [place] # (Auto) 0.6 10^3/uL (0.2- 0.9) 08/07/24 13:40 Eos # (Auto) 0.2 10^3/uL (0.0- 0.8) 08/07/24 13:40 Baso # (Auto) 0.1 10^3/uL (0.0- 0.1) 08/07/24 13:40 Nucleated RBC % (a uto) 0 % 08/07/24 13:40 Nucleated RBCs # 0.0 /100WBC 08/07/24 13:40 Sodium 134 mmol/L (136-1 45) L 08/07/24 13:40 Potassium 4.6 mmol/L (3.5-5 .1) 08/07/24 13:40 Chloride 92 mmol/L (98-107 ) L 08/07/24 13:40 Carbon Dioxide 27 mmol/L (22-29) 08/07/24 13:40 Anion Gap 19.6 (5-19) H 08/07/24 13:40 BUN 23 mg/dL (6-20) H 08/07/24 13:40 Creatinine 1.0 mg/dL (0.7-1. 2) 08/07/24 13:40 GFR Calculation 80.8 mL/min (90-1 30) L 08/07/24 13:40 Glucose 364 mg/dL (65-115 ) H 08/07/24 13:40 POC Glucose 290 mg/dL (70-110 ) H 08/13/24 11:00 Calculated Osmolal ity 296 mOsm/kg (285- 295) H 08/07/24 13:40 Calcium 9.9 mg/dL (8.5-10 .5) 08/07/24 13:40 Total Bilirubin 0.6 mg/dL (0.15-1 .2) 08/07/24 13:40 AST 20 U/L (0-40) 08/07/24 13:40 ALT 31 U/L (0-41) 08/07/24 13:40 Alkaline Phosphata se 187 U/L (40-130) H 08/07/24 13:40 Total Protein 8.0 g/dL (6.6-8.7 ) 08/07/24 13:40 Albumin 4.1 g/dL (3.5-5.2 ) 08/07/24 13:40 Globulin 3.9 g/dL (1.3-4.6 ) 08/07/24 13:40 TSH 0.42 uIU/mL (0.27 -4.20) 08/07/24 13:40 Urine Color Yellow (Yellow) 08/07/24 13:20 Urine Appearance Clear (CLEAR) 08/07/24 13:20 Urine pH 5.5 (5-7) 08/07/24 13:20 Ur Specific Gravit y 1.046 (1.005-1.0 30) H 08/07/24 13:20 Urine Protein 2+ (Negative) A 08/07/24 13:20 Urine Glucose (UA) 3+ (Normal) H 08/07/24 13:20 Urine Ketones Trace (Negative) 08/07/24 13:20 Urine Blood Negative (Negati ve) 08/07/24 13:20 Urine Nitrate Negative (Negati ve) 08/07/24 13:20 Urine Bilirubin Negative (Negati ve) 08/07/24 13:20 Urine Urobilinogen 0.2 mg/dL (Negati ve) 08/07/24 13:20 Ur Leukocyte Yanci ase Negative (Negati ve) 08/07/24 13:20 Urine RBC 0-4 /hpf (0-2) H 08/07/24 13:20 Urine WBC 0-4 /hpf (0-5) H 08/07/24 13:20 Ur Squamous Epith Cells T /hpf (0-5) 08/07/24 13:20 Amorphous Sediment Not Reportable 08/07/24 13:20 Urine Bacteria Trace /hpf (NONE) 08/07/24 13:20 Hyaline Casts None /lpf 08/07/24 13:20 Salicylates 0.5 mg/dL (3-10) L 08/07/24 13:40 Urine Opiates Scre en Negative ng/mL (N egative) 08/07/24 13:20 Acetaminophen < 5.0 ug/mL (10-3 0) L 08/07/24 13:40 Ur Barbiturates Sc reen Negative ng/mL (N egative) 08/07/24 13:20 Ur Phencyclidine S crn Negative ng/mL (N egative) 08/07/24 13:20 Ur Amphetamines Sc reen Negative ng/mL (N egative) 08/07/24 13:20 U Benzodiazepines Scrn Negative ng/mL (N egative) 08/07/24 13:20 Urine Cocaine Scre en Negative ng/mL (N egative) 08/07/24 13:20 U Marijuana (THC) Screen Negative ng/mL (N egative) 08/07/24 13:20 Ethyl Alcohol < 10 mg/dL (0-10) 08/07/24 13:40 Vitals: Last Vital Signs Temp 98.7 F 08/13/24 06:00 Pulse 80 08/13/24 06:00 Resp 16 08/13/24 06:00 BP 102/62 08/13/24 06:00 Pulse Ox 94 08/13/24 06:00 O2 Del Method Room Air 08/13/24 06:00 Discharge Plan Discharge Patient Disposition: Home Condition: Stable Prescriptions: New hydroxyzine pamoate 25 mg Capsule 50 mg PO Q6H PRN (Reason: Anxiety) 30 Days Qty: 120 1RF Continued (DME) Blood Glucose Test Strip See Rx Instructions .MEDSUPPLY Qty: 200 12RF Rx Instructions: check glucose TWICE daily insulin glargine-yfgn [Semglee(insulin glarg-yfgn)Pen] 100 unit/mL (3 mL) insulin pen 25 unit SUBCUT BID Qty: 15 0RF glipizide 10 mg tablet 10 mg PO DAILY Qty: 90 0RF trazodone 100 mg tablet 100 mg PO .q hs PRN (Reason: insomnia) Qty: 30 1RF Rx Instructions: Take one tablet daily every night 1 hour prior to bedtime, if needed for insomnia escitalopram oxalate 20 mg tablet 20 mg PO DAILY Qty: 30 1RF Rx Instructions: Take one tablet by mouth every morning duloxetine 30 mg capsule,delayed release(DR/EC) 30 mg PO BID Qty: 180 0RF quetiapine 150 mg tablet extended release 24 hr 150 mg PO .q hs Qty: 30 1RF Rx Instructions: Take one tablet daily at 9 PM (DME) blood-glucose meter Kit See Rx Instructions .Route Qty: 1 0RF Rx Instructions: As directed Discharge Orders: Discharge Order (Routine); Ordered 08/13/24 Ordered By: Chad Laureano Referrals: [facility] [Other] - 08/13/24 3:00 am Ariana Miramontes APRN [Nurse Practitioner] - 09/10/24 3:45 pm (Follow up) Jin Vásquez EdD, [employer]OR [employer] [Therapist] - 08/18/24 3:45 pm (Follow up) Matty Toledo MD [Primary Care Provider] - Discharge Diet: Diabetic Discharge Activity: Resume usual activity Patient Instructions: Opioid Safety Discharge Attestations NPU Time Spent in Discharge Care*: less than 30 min Specific Discharge Activities: Specific discharge activities: educating patient, discussing with residential case manager/social workers/dc planners, documenting/other paperwork and evaluating patient/reviewing data Coding Level of Care Code Acute Code for Chg Fwd Diagnoses MDD (major depressive disorder), single episode, severe F32.2 ANGEL (generalized anxiety disorder) F41.1 Suicidal ideation R45.851 Hyperglycemia R73.9 Diabetes E11.9 Diabetes mellitus complication detail: with nephropathy 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
[2024-08-13 12:35] VITALS: BP 102/62; PULSE 80; RESP 16; TEMP 37.1; O2SAT 94
== END 2024-08-13 13:48 | disposition home or self-care (01) | DRG 885 ==
LOC: ER 13:58 → NP 14:37
PROVIDERS: Family Medicine; Admitting Provider Psychiatry & Neurology Psychiatry; Emergency Provider Emergency Medicine; PCP Family Medicine; Visit Provider Psychiatry & Neurology Psychiatry
DX: F32.2 Major depressive disorder, single episode, severe without psychotic features (principal); R45.851 Suicidal ideations; F41.1 Generalized anxiety disorder; F17.210 Nicotine dependence, cigarettes, uncomplicated; Z79.4 Long term (current) use of insulin; Z79.84 Long term (current) use of oral hypoglycemic drugs; E11.42 Type 2 diabetes mellitus with diabetic polyneuropathy; F60.9 Personality disorder, unspecified
CPT/HCPCS: 36415; 36416; 80053; 80306; 80307; 81001; 82962; 84443; 85025; 93005; 96372; 97150; 97165; 99285; J1815

== ENCOUNTER → 2024-09-17 13:37 | Outpatient (BNVA) | payer OTHER, SELFPAY ==
[2024-08-14 15:51] VITALS: BP 125/85; BMI 26.9
== END ==
PROVIDERS: PCP Family Medicine; Visit Provider Nurse Practitioner Psychiatric/Mental Health
DX: F41.1 Generalized anxiety disorder (principal); F33.2 Major depressive disorder, recurrent severe without psychotic features; Z79.899 Other long term (current) drug therapy
CPT/HCPCS: 80061; 83036

== ENCOUNTER → 2024-10-27 13:34 | Outpatient (BNVA) | payer MEDICAID, SELFPAY ==
[2024-09-18 12:05] VITALS: BP 117/68; BMI 28.5
== END ==
PROVIDERS: PCP Family Medicine; Visit Provider Registered Nurse Neonatal Intensive Care
DX: K52.9 Noninfective gastroenteritis and colitis, unspecified (principal)
CPT/HCPCS: 87045; 87338; 87427; 87449; 87493

== ENCOUNTER 2024-11-13 21:17 | Emergency (ER) | payer MEDICAID, SELFPAY ==
[2024-09-18 12:05] VITALS: BP 117/68; BMI 28.5
[2024-11-13 21:20] VITALS: BP 112/83; PULSE 95; RESP 16; TEMP 36.9; O2SAT 98; BMI 27.5
[2024-11-13 21:24] VITALS: BP 115/71; PULSE 93; O2SAT 94
[2024-11-13 21:48] LABS: Glucose Point of Care 348 mg/dL (70-110)
--- NOTE | 2024-11-13 21:53 | ED_ITS ---
HPI - Nausea/Vomiting/Diarrhea 2 General: Chief complaint: Nausea/Vomiting/Diarrhea Stated complaint: diarrhea, weakness BS dropped quickly Time Seen by Provider: 11/13/24 21:31 Source: patient Mode of arrival: ambulatory Limitations: no limitations History of Present Illness: 44yo male presents for evaluation of hayden rrhea and right upper quadrant abdominal pain that has been ongoing for the past 2 months. Patient states that the pain is intermittent and sharp in nature. States that his stool is straight liquid. Reports that he is scared to eat due to having increased bouts of diarrhea, but is still drinking. Patient also reports that his blood sugar has been variable today patient states he has previously had hepatitis A. Reports he has been seen at urgent care who tested his stool, but it was negative. States that he is currently living at a homeless [facility]. He denies fever, chills, body aches, vomiting, recent antibiotic use, any other concern at this time. Associated symtoms: Denies chest pain or headache(s) Related Data Previous Rx's ?Medication ?Instructions ?Recorded blood-glucose meter #1 ea 04/23/23 blood sugar diagnostic (Blood #200 ea 05/28/24 Glucose Test strips) insulin glargine-yfgn 100 unit/mL 25 unit (0.25 mL) [place] BCUT BID #15 mL 07/02/24 (3 mL) subcutaneous pen (Semglee (insulin glargine-yfgn) Pen) glipizide 10 mg tablet 10 mg PO DAILY #90 tabs 07/19 01/08 hydroxyzine pamoate 25 mg capsule 50 mg (2 x 25 mg) PO Q6H PRN 09/17/24 Anxiety 30 days #120 caps trazodone 150 mg tablet 150 mg PO .qhs PRN insomnia #30 10/08/24 tabs duloxetine 30 mg capsule,delayed 30 mg PO BID #60 caps 10/15/24 release escitalopram oxalate 20 mg tablet 20 mg PO DAILY #30 t abs 10/15/24 quetiapine 150 mg tablet,extended 150 mg PO .q hs #30 tabs 10/15/24 release 24 hr Allergies Allergy/AdvReac Type Severity Reaction Status Date / Time avocado Allergy Severe ALGY-Swell Verified 10/27/24 12:51 Lip/Tongue/Throat green marquez Allergy Unknown Verified 10/27/24 12:51 Review of Systems 2 Const: Denies: fever(s), chills or body aches Card: Denies: chest pain Resp: Denies: dyspnea GI: Reports: abdominal pain and diarrhea; Denies: vomiting : Denies: flank pain Musc: Denies: neck pain or back pain Neuro: Denies: headache(s) PFSH ED 2 PFSH: Medical History Inadequate housing Major depressive disorder, recurrent, severe with psychotic symptoms Psychiatric care MDD (major depressive disorder), single episode, severe Suicidal ideation Moderate tobacco use disorder Anxiety Insomnia Personality disorder, unspecified Major depressive disorder, recurrent Peripheral neuropathy Diabetes Family History Father Cancer Pancreas, liver, colon Grandfather Cancer Maternal-pancreatic Other Diabetes Liver disease Stroke Denies family history of CAD (coronary artery disease) Aneurysm Autoimmune disease Clotting disorder Dementia Hyperlipidemia Hyperthyroidism Hypothyroidism Psychiatric illness Chronic kidney disease (CKD) Bleeding disorder Lung disease Hypertension Social History (Updated 09/30/24 @ 14:42 by Chelly Briones LPN) Smoking and tobacco/nicotine status: current every day tobacco/nicotine user cigarettes Packs smoked per day: 0.25 Years cigarettes smoked: 21 Alcohol intake: former Substance/Drug Use: former Date of last use: 7 months ago Lives independently: Yes Housing: Homeless Marital status: Single Highest education level completed: Some College, No Degree Current occupational status: unemployed Current occupational exposures/hazards: No Pets and animals: Yes Pets & animals: dog(s) Leisure activites: games and other Leisure activities details: watching TV Sexually active: No Do you think of yourself as: Lesbian/Acosta/Homosexual Current gender identity: Male Jeana/Episcopalian: Faith Special jeana needs: No Agree to transfusion: Yes Physical Exam 2 Const: COMMON NORMALS: no acute distress, patient oriented x3, healthy appearing and alert GENERAL APPEARANCE: cooperative O RIENTATION/CONSCIOUSNESS: Yes awake OTHER: Patient is ambulatory to the exam room unassisted. He is sitting upright on the stretcher in no acute distress. He is able to give history with no difficulty. He is interactive with exam appropriately. No family at bedside at time of exam HENMT: COMMON NORMALS: normocephalic and atraumatic HEAD & SCALP: n ormocephalic and atraumatic Eye: COMMON NORMALS: conjunctivae normal CONJUNCTIVA: Yes conjunctivae normal Neck/C-Spine: COMMON NORMALS: full ROM Chest: CHEST: Yes Symmetrical chest wall rise Resp: COMMON NORMALS: normal respiratory effort and clear to auscultation bilaterally EFFORT & INSPECTION: Yes able to speak in complete sentences A USCULTATION: clear to auscultation bilaterally Cardio: COMMON NORMALS: regular rate and regular rhythm RATE: regular rate RHYTHM: regular rhythm GI: COMMON NORMALS: Soft to palpation and non-tender PALPATION: Yes Soft to palpation, No Tenderness to palpation present (GI), No Guarding due to palpation present (GI) and No Rigid due to palpation : COMMON NORMALS: No no CVA tenderness BLADDER/KIDNEY EXAM: No no CVA tenderness Back/Pelvis: COMMON NORMALS: negative for no CVA tenderness Extremity: COMMON NORMALS: full ROM Neuro: COMMON NORMALS: patient oriented x3 SENSORIUM/ORIENTATION: Yes alert Psych: COMMON NORMALS: cooperative Course 2 Vital Signs: Vital signs: Vital Signs Temperature 98.5 F 11/13/24 21:20 Pulse Rate 95 11/13/24 21:20 Respiratory Rate 16 11/13/24 21:20 Blood Pressure 112/83 11/13/24 21:20 Pulse Oximetry 98 11/13/24 21:20 Oxygen Delivery Me thod Room Air 11/13/24 21:20 MDM - Nausea/Vomiting/Diarrhea Medical Decision Making 44yo male presents for evaluation of diarrhea and right upper quadrant abdominal pain that has been ongoing for the past 2 months. Patient states that the pain is intermittent and sharp in nature. Stool samples obtained at urgent care earlier this month were negative. Patient is nontoxic in appearance. Vital signs are stable. No leukocytosis, white blood cell count is 8.17. No significant electrolyte, renal, or hepatic abnormalities noted. Glucose is elevated at 351, patient was provided fluids in the emergency department. Lipase noted to be mildly elevated at 114. Patient was not able to provide stool for stool sample. Contrasted CTAP with indications of a gastroenterocolitis. Discussed findings with patient. Encourage patient to begin with a bland diet and slowly increase as tolerated. Patient has not yet tried any [id number]-[id number] medications to help with the diarrhea, encouraged patient to begin using Imodium. Recommend he follow-up with primary care next week for recheck. Return precautions provided. Patient states understanding and has no further questions or concerns at this time. Medical Records I reviewed the patient's medical records. Lab Data I reviewed the patient's lab results. 11/13/24 21:46 11/13/24 21:46 Radiology Impressions Abdomen/Pelvis CT 11/13/24 23:03 IMPRESSION: 1. Prominent fluid in the stomach, small bowel and colon, please correlate for a gastroenterocolitis 2. Urinary bladder wall thickening may be due to nondistention, please correlate for cystitis. 3. Bilateral L4 pars interarticularis defects with grade 1 anterolisthesis of L4 relative to L5. 4. Prostate gland enlarged. 5. Bibasilar atelectasis. Laboratory Results WBC 8.17 10^3/uL (3.29-11.43) 11/13/24 21:46 RBC 5.42 10^6/uL (3.85-5.65) 11/13/24 21:46 Hgb 15.90 g/dL (11.27-16.99) 11/13/24 21:46 Hct 46.8 % (37-53) 11/13/24 21:46 MCV 86.3 fl (82-101) 11/13/24 21:46 MCH 29.3 pg (27-33) 11/13/24 21:46 MCHC 34.0 g/dL (30-55) 11/13/24 21:46 RDW 12.0 % (12.1-15.1) L 11/13/24 21:46 Plt Count 195 10^3/cmm (157-399) 11/13/24 21:46 MPV 10.8 fL (7.4-10.4) H 11/13/24 21:46 Neut % (Auto) 52.9 % 11/13/24 21:46 Lymph % (Auto) 35.3 % 11/13/24 21:46 Mcculloch % (Auto) 7.8 % 11/13/24 21:46 Eos % (Auto) 3.2 % 11/13/24 21:46 Baso % (Auto) 0.6 % 11/13/24 21:46 Neut # (Auto) 4.32 10^3/uL (1.8-7.7) 11/13/24 21:46 Lymph # (Auto) 2.9 10^3/uL (0.8-4.8) 11/13/24 21:46 [place] # (Auto) 0.6 10^3/uL (0.2-0.9) 11/13/24 21:46 Eos # (Auto) 0.3 10^3/uL (0.0-0.8) 11/13/24 21:46 Baso # (Auto) 0.1 10^3/uL (0.0-0.1) 11/13/24 21:46 Nucleated RBC % (auto) 0 % 11/13/24 21:46 Nucleated RBCs # 0.0 /100WBC 11/13/24 21:46 Sodium 136 mmol/L (136-145) 11/13/24 21:46 Potassium 4.6 mmol/L (3.5-5.1) 11/13/24 21:46 Chloride 96 mmol/L (98-107) L 11/13/24 21:46 Carbon Dioxide 31 mmol/L (22-29) H 11/13/24 21:46 Anion Gap 13.6 (5-19) 11/13/24 21:46 BUN 14 mg/dL (6-20) 11/13/24 21:46 Creatinine 0.7 mg/dL (0.7-1.2) 11/13/24 21:46 GFR Calculation 122.0 mL/min (90-130) 11/13/24 21:46 Glucose 351 mg/dL (65-115) H 11/13/24 21:46 POC Glucose 348 mg/dL (70-110) H 11/13/24 21:45 Calculated Osmolality 297 mOsm/kg (285-295) H 11/13/24 21:46 Calcium 9.8 mg/dL (8.5-10.5) 11/13/24 21:46 Total Bilirubin 0.3 mg/dL (0.15-1.2) 11/13/24 21:46 AST 19 U/L (0-40) 11/13/24 21:46 ALT 27 U/L (0-41) 11/13/24 21:46 Alkaline Phosphatase 177 U/L (40-130) H 11/13/24 21:46 Total Protein 7.3 g/dL (6.6-8.7) 11/13/24 21:46 Albumin 4.1 g/dL (3.5-5.2) 11/13/24 21:46 Globulin 3.2 g/dL (1.3-4.6) 11/13/24 21:46 Lipase 114 U/L (13-60) H 11/13/24 21:46 All radiology interpretation(s) finalized by discharge Discharge Plan Discharge Patient Disposition: Home Clinical Impression: Diarrhea in adult patient Condition: Stable Prescriptions: No Action hydroxyzine pamoate 25 mg capsule 50 mg PO Q6H PRN (Reason: Anxiety) 30 Days Qty: 120 1RF Rx Instructions: Take two capsules up to twice a day, if needed, for anxiety quetiapine 150 mg tablet extended release 24 hr 150 mg PO .q hs Qty: 30 1RF Rx Instructions: Take one tablet daily at 9 PM escitalopram oxalate 20 mg tablet 20 mg PO DAILY Qty: 30 1RF Rx Instructions: Take one tablet by mouth every morning duloxetine 30 mg capsule,delayed release(DR/EC) 30 mg PO BID Qty: 60 1RF Rx Instructions: Take one capsule every morning and one in the early afternoon (DME) Blood Glucose Test Strip See Rx Instructions .MEDSUPPLY Qty: 200 12RF Rx Instructions: check glucose TWICE daily insulin glargine-yfgn [Semglee(insulin glarg-yfgn)Pen] 100 unit/mL (3 mL) insulin pen 25 unit SUBCUT BID Qty: 15 0RF trazodone 150 mg tablet 150 mg PO .qhs PRN (Reason: insomnia) Qty: 30 2RF Rx Instructions: Take ONE tablet daily at bedtime, if needed for insomnia; stop other doses of this medication glipizide 10 mg tablet 10 mg PO DAILY Qty: 90 0RF (DME) blood-glucose meter Kit See Rx Instructions .Route Qty: 1 0RF Rx Instructions: As directed Discharge Orders: Discharge ED (Routine); Ordered 11/14/24 Ordered By: Tray Mcghee Referrals: Matty Toledo MD [Primary Care Provider, Family Practice] Discharge Diet: Advance as tolerated Discharge Activity: Resume usual activity Patient Instructions: Chronic Diarrhea (ED) Activity Restrictions/Additional Instructions: No significant abnormalities were noted on your labs today Your CT scan did show a gastroenteritis/colitis. We were unable to obtain stool today for testing for infectious source. You were previously tested for H. pylori, E. coli, Salmonella, and Campylobacter - all of which were negative Begin with bland foods and slowly increase as tolerated Use srwm-ubk-czethft Imodium to see if it will help with the diarrhea Follow-up with primary care, call next week with an update of symptoms and to discuss a recheck Return to the emergency department if any rapid worsening symptoms, onset of fever associated with worsening, and as needed Print Language: New Zealander Coding Level of Care Code ED Purchasing Administrator for Shubham Avila
[2024-11-13 21:54] LABS: Basophils # 0.1 10^3/uL (0.0-0.1); Basophils % 0.6 %; Eosinophils # 0.3 10^3/uL (0.0-0.8); Eosinophils % 3.2 %; Hematocrit 46.8 % (37-53); Lymphocytes # 2.9 10^3/uL (0.8-4.8); Lymphocytes % 35.3 %; Mean Corpuscular Hemoglobin 29.3 pg (27-33); Mean Corpuscular Volume 86.3 fl (82-101); Mean Platelet Volume 10.8 fL (7.4-10.4); Monocytes # 0.6 10^3/uL (0.2-0.9); Monocytes % 7.8 %; Neutrophils # 4.32 10^3/uL (1.8-7.7); Neutrophils % 52.9 %; Nucleated Red Blood Cells % 0 %; Platelet Count 195 10^3/cmm (157-399); Red Blood Count 5.42 10^6/uL (3.85-5.65); White Blood Count 8.17 10^3/uL (3.29-11.43)
[2024-11-13] MEDS: sodium chloride 0.9% 1,000 ML 999 ML IV (22:03)
[2024-11-13 22:16] LABS: Alanine Aminotransferase 27 U/L (0-41); Albumin Level 4.1 g/dL (3.5-5.2); Alkaline Phosphatase 177 U/L (40-130); Aspartate Amino Transferase 19 U/L (0-40); Blood Urea Nitrogen 14 mg/dL (6-20); Calcium 9.8 mg/dL (8.5-10.5); Carbon Dioxide 31 mmol/L (22-29); Chloride 96 mmol/L (98-107); Creatinine Clr Calc Pharmacy 139.2579; Globulin 3.2 g/dL (1.3-4.6); Glucose 351 mg/dL (65-115); Lipase 114 U/L (13-60); Osmolality Calculated 297 mOsm/kg (285-295); Sodium 136 mmol/L (136-145); Total Bilirubin 0.3 mg/dL (0.15-1.2); Total Protein 7.3 g/dL (6.6-8.7)
[2024-11-13 22:24] VITALS: BP 109/94; PULSE 87; O2SAT 95
[2024-11-13 22:36] LABS: Anion Gap 13.6 (5-19); Potassium 4.6 mmol/L (3.5-5.1)
--- NOTE | 2024-11-13 23:03 | CTR_ITS ---
PROCEDURE INFORMATION: Exam: CT Abdomen And Pelvis With Contrast Exam date and time: 11/13/2024 11:15 PM Age: 44 years old Clinical indication: Pain and abnormal findings; Abnormal lab test; Elevated lipase; Abdominal pain; Localized; Right; C/O RT sided abd pain with diarrhea. Elevated lipase. ; Additional info: Abd pain, persistent diarrhea TECHNIQUE: Imaging protocol: Computed tomography of the abdomen and pelvis with contrast. Radiation optimization: All CT scans at this facility use at least one of these dose optimization techniques: automated exposure control; mA and/or kV adjustment per patient size (includes targeted exams where dose is matched to clinical indication); or iterative reconstruction. Contrast material: OMNI 350; Contrast volume: 100 ml; Contrast route: INTRAVENOUS (IV); COMPARISON: CT abdomen pelvis w con* [id number] 10/29/2018 10:57 AM RADIATION DOSE METRICS: Total DLP (mGy-cm): 704.18 FINDINGS: Lungs: Bibasilar atelectasis. Liver: Normal. No mass. Gallbladder and biliary ducts: Normal. No calcified stones. No ductal dilation. Pancreas: Normal. No ductal dilation. Spleen: Normal. No splenomegaly. Adrenal glands: Normal. No mass. Kidneys and ureters: Normal. No hydronephrosis. Stomach and bowel: Prominent fluid in the stomach, small bowel and colon, please correlate for a gastroenterocolitis Appendix: No evidence of appendicitis. Intraperitoneal space: Unremarkable. No free air. No significant fluid collection. Vasculature: Unremarkable. No abdominal aortic aneurysm. Lymph nodes: Unremarkable. No enlarged lymph nodes. Urinary bladder: Urinary bladder wall thickening may be due to nondistention, please correlate for cystitis. Reproductive: Prostate gland enlarged. Bones/joints: Bilateral L4 pars interarticularis defects with grade 1 anterolisthesis of L4 relative to L5. Soft tissues: Unremarkable. CT/CT abdomen pelvis w con* [id number] IMPRESSION: 1. Prominent fluid in the stomach, small bowel and colon, please correlate for a gastroenterocolitis 2. Urinary bladder wall thickening may be due to nondistention, please correlate for cystitis. 3. Bilateral L4 pars interarticularis defects with grade 1 anterolisthesis of L4 relative to L5. 4. Prostate gland enlarged. 5. Bibasilar atelectasis.
[2024-11-13] MEDS: iohexol 350 mg/mL 500 mL Btl (per mL) IV (23:16)
[2024-11-13 23:24] VITALS: BP 114/69; PULSE 80; O2SAT 94
[2024-11-14 00:28] VITALS: BP 127/79; PULSE 78; O2SAT 96
[2024-11-14 00:39] VITALS: BP 118/82; PULSE 83; O2SAT 97
== END 2024-11-14 00:40 | disposition home or self-care (01) ==
PROVIDERS: Emergency Medicine; Emergency Provider Nurse Practitioner; PCP Family Medicine
DX: R19.7 Diarrhea, unspecified (principal); Z79.4 Long term (current) use of insulin; F17.210 Nicotine dependence, cigarettes, uncomplicated; E11.42 Type 2 diabetes mellitus with diabetic polyneuropathy
CPT/HCPCS: 36416; 74177; 80053; 82962; 83690; 85025; 99285; J7030

== ENCOUNTER → 2024-12-30 14:38 | Outpatient (BNVA) | payer MEDICAID, SELFPAY ==
[2024-09-18 12:05] VITALS: BP 117/68; BMI 28.5
== END ==
PROVIDERS: PCP Family Medicine; Visit Provider Surgery
DX: R10.9 Unspecified abdominal pain (principal)
CPT/HCPCS: 36415; 80048; 80076; 85025

== ENCOUNTER 2025-01-01 09:50 | Outpatient (CLI) | payer MEDICAID, SELFPAY ==
[2024-09-18 12:05] VITALS: BP 117/68; BMI 28.5
--- NOTE | 2025-01-01 10:00 | US_ITS ---
WS: [id number] ABDOMINAL ULTRASOUND LIMITED REASON FOR VISIT: RUQ pain TECHNIQUE: Grayscale and Doppler ultrasound examination of the abdomen. FINDINGS: Pancreas: No mass, ductal dilatation, or calcification. Abdominal aorta and IVC: Normal Liver: Liver measures 14.0 cm in length. Normal echotexture with no focal lesion. Normal portal venous blood flow. Gallbladder: Gallbladder wall thickness measures 0.2 mm. No bile duct dilatation. Right kidney: Right kidney measures 11.7 cm x 5.1 cm x 5.0 cm. Right kidney cortex measures 1.6 cm. No calculus, mass, or hydronephrosis. No ascites. US/US gall bladder [id number] IMPRESSION: No significant abnormality.
== END 2025-01-01 09:51 | disposition home or self-care (01) ==
LOC: RAD 09:51
PROVIDERS: PCP Family Medicine; Visit Provider Surgery
DX: R10.11 Right upper quadrant pain (principal)
CPT/HCPCS: 76705

== ENCOUNTER 2025-01-11 09:48 | Outpatient (CLI) | payer MEDICAID, SELFPAY ==
[2024-09-18 12:05] VITALS: BP 117/68; BMI 28.5
--- NOTE | 2025-01-11 10:00 | NM_ITS ---
WS: [id number] NUCLEAR MEDICINE HIDA SCAN CLINICAL INFORMATION: RUQ pain TECHNIQUE: Following intravenous administration of 7.6 mCi of technetium 99m mebrofenin, images of the abdomen were obtained over the course of 60 minutes. Next, gallbladder ejection fraction was determined by obtaining preprandial and one-hour postprandial images of the gallbladder following oral ingestion of Ensure. FINDINGS: Normal hepatic uptake at 5 minutes. Normal hepatic excretion. Gallbladder is visualized by 30 minutes. No evidence of acute cholecystitis. Normal common bile duct and small bowel activity. Gallbladder ejection fraction of 40% at the lower end of the range but within normal limits. NM/NM hepatobiliary w phar* [id number] IMPRESSION: 1. No evidence of acute cholecystitis. 2. Gallbladder ejection fraction of 40% at the lower end of the range but with in normal limits.
== END 2025-01-11 09:49 | disposition home or self-care (01) ==
PROVIDERS: PCP Family Medicine; Visit Provider Surgery
DX: R10.11 Right upper quadrant pain (principal)
CPT/HCPCS: 78227; A9537

== ENCOUNTER 2025-02-08 07:37 | Day surgery (SDC) | payer MEDICAID, SELFPAY ==
[2024-09-18 12:05] VITALS: BP 117/68; BMI 28.5
--- NOTE | 2025-02-08 07:30 | ANES.PREANE2 ---
Pre-Anesthetic Assessment Height/Weight: Height 5 ft 8 in Preop Diagnosis: Biliary dyskinesia Operation Date: 02/08/25 09:15 Proposed Procedures p Laparoscopic Cholecystectomy Lap Radha 26787 R10.11(Not Applicable) - Sundar Perez MD Was Beta Sarah taken within 24 hours: N/A Was Clonidine taken within 24 hours: N/A Social Tobacco and No alcohol Exam alert, oriented x 3 and regular rate & rhythm Airway Submandibular: within normal limits Cervical ROM: within normal limits Mallampati: Class I Comments: Comments: Edentulous Anesthetic Plan ASA status: 3 Anesthesia: General Other: No prior issues with anesthesia NPO since yesterday evening IDDM History of anxiety and MDD Current smoker, nicotine and marijuana Labs reviewed from 12/30/2024 and acceptable for procedure. NA 131 at that time Plan for GETA Medications/Allergies Home Medications ?Medication ?Instructions ?Recorded ?Confirmed ?Last Taken ?Type blood-glucose meter #1 ea 04/23/23 01/13/25 Unknown Rx blood sugar diagnostic (Blood #200 ea 05/28/24 01/13/25 Unknown Rx Glucose Test strips) duloxetine 30 mg capsule,delayed 30 mg PO BID #60 caps 10/15/24 02/04/25 02/06/25 Rx release glipizide 10 mg tablet 10 mg PO DAILY #90 tabs 11/18/24 02/04/25 02/03/25 Rx escitalopram oxalate 20 mg tablet 20 mg PO DAILY #30 tabs 12/14/24 02/04/25 02/03/25 Rx trazodone 150 mg tablet 150 mg PO .qhs PRN insomnia #30 12/14/24 02/04/25 02/03/25 Rx tabs insulin glargine 100 unit/mL (3 35 unit (0.35 mL) SUBCUT BID #30 mL 12/21/24 02/04/25 02/06/25 Rx mL) subcutaneous pen (Lantus Solostar U-100 Insulin) Pen [place] #100 ea 01/12/25 01/13/25 Unknown Rx quetiapine 150 mg tablet,extended 150 mg PO .q hs 02/04/25 02/04/25 02/03/25 History release 24 hr (Seroquel XR) Allergies Allergy/AdvReac Type Severity Reaction Status Date / Time avocado Allergy Severe ALGY-Swell Verified 02/08/25 07:49 Lip/Tongue/Throat green marquez Allergy Unknown Verified 02/08/25 07:49 [facility] Anesthesia Medical History Inadequate housing Major depressive disorder, recurrent, severe with psychotic symptoms Psychiatric care MDD (major depressive disorder), single episode, severe Suicidal ideation Moderate tobacco use disorder Anxiety Insomnia Personality disorder, unspecified Major depressive disorder, recurrent Peripheral neuropathy Diabetes Family History Father Cancer Pancreas, liver, colon Grandfather Cancer Maternal-pancreatic Other Diabetes Liver disease Stroke Denies family history of CAD (coronary artery disease) Aneurysm Autoimmune disease Clotting disorder Dementia Hyperlipidemia Hyperthyroidism Hypothyroidism Psychiatric illness Chronic kidney disease (CKD) Bleeding disorder Lung disease Hypertension Social History Smoking and tobacco/nicotine status: never used tobacco/nicotine Alcohol intake: former Substance/Drug Use: former Date of last use: 7 months ago Lives independently: Yes Housing: Homeless Marital status: Single Highest education level completed: Some College, No Degree Current occupational status: unemployed Current occupational exposures/hazards: No Pets and animals: Yes Pets & animals: dog(s) Leisure activites: games and other Leisure activities details: watching TV Sexually active: No Do you think of yourself as: Lesbian/Acosta/Homosexual Current gender identity: Male Jeana/Congregation: Hindu Special jeana needs: No Agree to transfusion: Yes
[2025-02-08 07:57] VITALS: BP 117/81; PULSE 100; RESP 16; TEMP 36.3; O2SAT 94; BMI 28.1
--- NOTE | 2025-02-08 08:39 | PC.NURSE ---
Pateint arrived for gallbladder surgery. Patient states he is currently homeless and has no place to go after surgery. Patient unable to take insulin do to no place to keep it. Patient bs 398. Dr. crews talked with dr. pritchard and have decided to cancel surgery. We are treating his blood surgery and having social work supervisor to come see patient. We also left message for his [facility] foster care case manager to call us as soon as possible.
[2025-02-08] MEDS: insulin glargine 100 units/1 mL 30 UNIT SUBCUT (08:50)
--- NOTE | 2025-02-08 09:16 | PC.NURSE ---
Dr. alvarado talked with patient. Insulin was given and he was instructed to go to pharmacy to brick picker insulin and take it as prescribed. He was informed to contact dr. brown office to reschedule procedure when he figures his living arrangement out. Alvarado melendez when released.
== END 2025-02-08 09:44 | disposition home or self-care (01) ==
PROVIDERS: PCP Family Medicine; Visit Provider Surgery
PROC: 0FT44ZZ Resection of Gallbladder, Percutaneous Endoscopic Approach (ICD-10-PCS; CPT 47562; principal; 2025-02-08 09:05)
DX: Z53.8 Procedure and treatment not carried out for other reasons (principal)
CPT/HCPCS: 36416; 82962; J1815; J2250; J2704; J3010

== ENCOUNTER 2025-02-11 18:01 | Emergency (ER) | payer MEDICAID, SELFPAY ==
[2024-09-18 12:05] VITALS: BP 117/68; BMI 28.5
[2025-02-11 18:07] VITALS: BMI 27.3
--- NOTE | 2025-02-11 18:08 | ECG_ITS ---
[facility]: 2025-02[facility]12 Pat Name: Eldon Richardson Department: Room: Gender: Male Epilepsy Physician: : 1980 Requested By: Riri Frausto Order Number: [id number] Alfredo MD: Alvaro Enamorado M.D. Measurements Intervals [place] Rate: 85 P: 76 SD: 138 QRS: 48 QRSD: 89 T: 68 QT: 389 QTc: 463 Interpretive Statements SINUS RHYTHM NONSPECIFIC T-WAVE ABNORMALITY Compared to ECG 08/07/2024 13:20:12 T-wave abnormality now present Supraventricular tachycardia no longer present Electronically Signed On 02-12-2025 22:39:31 CDT by Alvaro Enamorado M.D. [email or web address]
--- OUTSIDE RECORDS SUMMARY | 2025-02-11 18:08 | XMS_ITS | Encounter Summary ---
[facility] Address [address] [place] [address] Care Team Providers Care Rare/Endangered Species Specialist Name Role Phone Unavailable Primary Care Provider Unavailabl e Encounter Details Date Type Department Care Team (Latest Contact Info) Description 10/26/2013 Ancillary Orders [facility] General Laboratory Services [place] [address] [place] [id number] Type II or unspecified type diabetes mellitus with unspecified complication, not stated as uncontrolled (CMS/[facility]) Social History Tobacco Use Types Packs/Day Years Used Date Smoking Tobacco: Never Assessed Sex and Gender Information Value Date Recorded Sex Assigned at Not on file Legal Sex Male 9:39 PM CDT Gender Identity Not on file Sexual Orientation Not on file documented as of this encounter Plan of Treatment Not on file documented as of this encounter Visit Diagnoses Diagnosis Type II or unspecified type diabetes mellitus with unspecified complication, not stated as uncontrolled documented in this encounter
--- OUTSIDE RECORDS SUMMARY | 2025-02-11 18:08 | XMS_ITS | Clinical Summary ---
Author Organization [facility] Address [address] [facility] [address] [place] [address] Phone Care Team Providers Care Combat Systems Operator Mine War[employer] Name Role Phone Unavailable Primary Care Provider Unavailabl e Social History Tobacco Use Types Packs/Day Years Used Date Smoking Tobacco: Never Assessed Sex and Gender Information Value Date Recorded Sex Assigned at Not on file Legal Sex Male 9:39 PM CDT Gender Identity Not on file Sexual Orientation Not on file Plan of Treatment Health Maintenance Due Date Last Done Comments DTAP/TDAP/TD VACCINES (1 - Tdap) 1998 HEPATITIS B VACCINES (1 of 3 - 19+ 3-dose series) 03/19 HPV VACCINES (1 - 3-dose SCDM series) 2006 COLORECTAL SCREENING 2024 Colorectal Cancer Screening 2024 FIT-DNA Q 3 years 2024 FIT/FOBT Q 1 year 2024 Flex Sig/CT Colonography Q 5 years 2024 INFLUENZA VACCINE (#1) 2025
--- OUTSIDE RECORDS SUMMARY | 2025-02-11 18:08 | XMS_ITS | Encounter Summary ---
Author Organization [employer] [facility] IELD [facility] Address [address] [place] [address] Care Team Providers Care Founder President And Ceo Name Role Phone Unavailable Primary Care Provider Unavailabl e Encounter Details Date Type Department Care Team (Late st Contact Info) Description 01/19/2013 Ancillary Orders [facility] Services [place] [address] [place] [address] Sick Social History Tobacco Use Types Packs/Day Years Used Date Smoking Tobacco: Never Assessed Sex and Gender Information Value Date Recorded Sex Assigned at Not on file Legal Sex Male 9:39 PM CDT Gender Identity Not on file Sexual Orientation Not on file documented as of this encounter Plan of Treatment Not on file documented as of this encounter Procedures Procedure Name Priority Date/Time Associated Diagnosis Comments CBC WITH DIFFERENTIAL Routine 01/19/2013 8:33 PM CDT Sick [ICD-9-CM] TSH Routine 01/19/2013 8:33 PM CDT Sick [ICD-9-CM] HEMOGLOBIN A1C Routine 01/19/2013 8:33 PM CDT Sick [ICD-9-CM] COMPREHENSIVE METABOLIC PANEL Routine 01/19/2013 8:33 PM CDT Sick [ICD-9-CM] documented in this encounter Results * TSH (01/19/2013 8:33 PM CDT) TSH 1.37 0.30 - 4.80 uIU/mL 01/19/2013 10:08 PM CDT [facility] Blood specimen (specimen) Venipuncture - Lab Collect / Unknown 01/19/2013 8:33 PM CDT 01/19/2013 9:41 PM CDT Antwon [place] SENIOR REGULATORY AFFAIRS SPECIALIST CHEMISTRY ORDERABLES Final Resu lt [facility] CLIA # [id number] [address] [address] * (ABNORMAL) COMPREHENSIVE METABOLIC PANEL (01/19/2013 8:33 PM CDT) SODIUM 130(L) 136 - 145 mmol/L 01/19/2013 10:16 PM CDT [facility] POTASSIUM 3.6 3.5 - 5.1 mmol/L 01/19/2013 10:16 PM CDT [facility] CHLORIDE 93(L) 98 - 107 mmol/L 01/19/2013 10:16 PM CDT [facility] CO2 25 21 - 32 mmol/L 01/19/2013 10:16 PM CDT [facility] CALCIUM 9.0 8.5 - 10.1 mg/dL 01/19/2013 10:16 PM CDT [facility] BUN 21(H) 7 - 18 mg/dL 01/19/2013 10:16 PM CDT [facility] CREATININE 1.10 0.60 - 1.30 mg/dL 01/19/2013 10:16 PM CDT [facility] GLUCOSE 496(HH) 74 - 106 mg/dL 01/19/2013 10:16 PM T [facility] Comment: Verified by 2nd run. Critical lab values called to and read back by Toya/[facility] at 10:08 PM on 01/19/2013 by Imelda Cuevas. TOTAL PROTEIN 8.7(H) 6.4 - 8.2 g/dL 01/19/2013 10:16 PM CDT [facility] ALBUMIN 4.0 3.4 - 5.0 g/dL 01/19/2013 10:16 PM CDT [facility] BILIRUBIN TOTAL 0.3 0.2 - 1.0 mg/dL 01/19/2013 10:16 PM CDT [facility] ALKALINE PHOSPHATASE 208(H) 50 - 136 U/L 01/19/2013 10:16 PM CDT [facility] AST 4(L) 15 - 37 U/L 01/19/2013 10:16 PM CDT [facility] ALT 46 30 - 65 U/L 01/19/2013 10:16 PM CDT [facility] GFR 77 >=60 mL/min/1.7 3 sq meter 01/19/2013 10:16 PM CDT [facility] Comment: eGFR has not been validated for use in the elderly (> 70 years of age), women, patients with serious co-morbid conditions, or persons with extremes of body size or muscle mass and should also be interpreted with caution in patients with acute kidney failure, dialysis dependant patients, patients reporting exceptional dietary intake (e.g. vegetarian diet, high protein diets, creatine supplementation), and patients with severe liver disease. Based on National Kidney Disease Education Program GFR, 93 >=60 mL/min/1.7 3 sq meter 01/19/2013 10:16 PM T [facility] Comment: eGFR has not been validated for use in the elderly (> 70 years of age), women, patients with serious co-morbid conditions, or persons with extremes of body size or muscle mass and should also be interpreted with caution in patients with acute kidney failure, dialysis dependant patients, patients reporting exceptional dietary intake (e.g. vegetarian diet, high protein diets, creatine supplementation), and patients with severe liver disease. Based on National Kidney Disease Education Program Blood specimen (specimen) Venipuncture - Lab Collect / Unknown 01/19/2013 8:33 PM CDT 01/19/2013 9:41 PM CDT Antwon Gomez NP CHEMISTRY ORDERABLES Final Resu lt [facility] [employer] [facility] CLIA # [id number] [address] [address] * (ABNORMAL) CBC WITH DIFFERENTIAL (01/19/2013 8:33 PM CDT) WBC 10.5(H) 4.2 - 9.1 K/uL 01/19/2013 9:50 PM CDT [facility] RBC 5.77 4.63 - 6.08 M/uL 01/19/2013 9:50 PM CDT [facility] HEMOGLOBIN 17.9(H) 13.7 - 17.5 g/dL 01/19/2013 9:50 PM CDT [facility] HEMATOCRIT 49.5 40.1 - 51.0 % 01/19/2013 9:50 PM CDT [facility] MCV 85.8 79.0 - 92.2 fL 01/19/2013 9:50 PM CDT [facility] MCH 31.0 25.7 - 32.2 pg 01/19/2013 9:50 PM CDT [facility] MCHC 36.2 32.3 - 36.5 g/dL 01/19/2013 9:50 PM CDT [facility] RDW 12.3 11.0 - 14.5 % 01/19/2013 9:50 PM CDT [facility] RDW-STDEV 38.2 37.0 - 54.0 fL 01/19/2013 9:50 PM CDT [facility] PLATELETS 221 130 - 400 K/uL 01/19/2013 9:50 PM CDT [facility] MPV 11.3 10.0 - 14.8 fL 01/19/2013 9:50 PM CDT [facility] NEUTROPHILS 52 34 - 68 % 01/19/2013 9:50 PM CDT [facility] LYMPHOCYTES 37 22 - 53 % 01/19/2013 9:50 PM CDT [facility] MONOCYTES 8 5 - 12 % 01/19/2013 9:50 PM CDT [facility] EOSINOPHILS 3 1 - 7 % 01/19/2013 9:50 PM CDT [facility] BASOPHILS 0 0 - 1 % 01/19/2013 9:50 PM CDT [facility] NEUTROPHIL ABSOLUTE 5.52(H) 1.78 - 5.38 K/uL 01/19/2013 9:50 PM CDT [facility] LYMPHOCYTE ABSOLUTE 3.93(H) 1.20 - 3.40 K/uL 01/19/2013 9:50 PM CDT [facility] MONOCYTE ABSOLUTE 0.81 0.30 - 0.82 K/uL 01/19/2013 9:50 PM CDT [facility] [place] EOSINOPHIL ABSOLUTE 0.26 0.04 - 0.54 K/uL 01/19/2013 9:50 PM CDT [facility] [place] BASOPHILS ABSOLUTE 0.02 0.01 - 0.08 K/uL 01/19/2013 9:50 PM CDT [facility] Blood specimen (specimen) Venipuncture - Lab Collect / Unknown 01/19/2013 8:33 PM CDT 01/19/2013 9:41 PM CDT Antwon Gomez NP HEMATOLOGY ORDERABLES Final Res ult Performing Organization Address [facility] Co de Phone Number [facility] [employer] [facility] CLIA # [id number] [address] [place] [phone] * (ABNORMAL) HEMOGLOBIN A1C (01/19/2013 8:33 PM CDT) HEMOGLOBIN A1C 15.2(H) 4.5 - 6.2 % 01/19/2013 10:51 PM CDT [facility] EST. AVG GLUCOSE, A1C 390 mg/dL 01/19/2013 10:51 PM CDT [facility] Blood specimen (specimen) Venipuncture - Lab Collect / Unknown 01/19/2013 8:33 PM CDT 01/19/2013 9:41 PM CDT Antwon Gomez SENIOR REGULATORY AFFAIRS SPECIALIST CHEMISTRY ORDERABLES Final Resu lt Performing Organization Address City/[facility]/ZIP Co de Phone Number [facility] [employer] [facility] CLIA # [id number] [address] [place] [phone] documented in this encounter Visit Diagnoses Diagnosis Sick Other unknown and unspecified cause of morbidity or mortality documented in this encounter
--- OUTSIDE RECORDS SUMMARY | 2025-02-11 18:08 | XMS_ITS | Encounter Summary ---
Author Organization [employer] [facility] Address [address] [place] [address] Care Team Providers Care Full Time Name Role Phone Unavailable Primary Care Provider Unavailabl e Encounter Details Date Type Department Care Team (Latest Contact Info) Description 12/07/2013 Ancillary Orders [facility] [place] [address] [place] [phone] Type II or unspecified type diabetes mellitus with unspecified complication, not stated as uncontrolled (CMS/[facility]) Social History Tobacco Use Types Packs/Day [...] Procedure Name Priority Date/Time Associated Diagnosis Comments HEMOGLOBIN A1C Routine 12/07/2013 11:19 PM CDT Type II or unspecified type diabetes mellitus with unspecified complication, not stated as uncontrolled [ICD-9-CM] COMPREHENSIVE METABOLIC PANEL Routine 12/07/2013 11:19 PM CDT Type II or unspecified type diabetes mellitus with unspecified complication, not stated as uncontrolled [ICD-9-CM] documented in this encounter Results * (ABNORMAL) HEMOGLOBIN A1C (12/07/2013 11:19 PM CDT) HEMOGLOBIN A1C 13.2(H) 4.5 - 6.2 % 12/08/2013 1:03 AM CDT [facility] EST. AVG GLUCOSE, A1C 332 mg/dL 12/08/2013 1:03 AM CDT [facility] [email or web address] [facility] Blood 12/07/2013 11:1 9 PM CDT 12/07/2013 11:19 PM CDT Kalyani Laureano DO CHEMISTRY ORDERABLES Fi nal Result [facility] HUBERT # [id number] [address] [place] [id number] * (ABNORMAL) COMPREHENSIVE METABOLIC PANEL (12/07/2013 11:19 PM CDT) SODIUM 135(L) 136 - 145 mmol/L 12/08/2013 12:36 AM CDT [facility] POTASSIUM 3.4(L) 3.5 - 5.1 mmol/L 12/08/2013 12:36 AM CDT [facility] CHLORIDE 96(L) 98 - 107 mmol/L 12/08/2013 12:36 AM CDT [facility] [place] CO2 28 21 - 32 mmol/L 12/08/2013 12:36 AM [facility] CALCIUM 9.3 8.5 - 10.1 mg/dL 12/08/2013 12:36 AM T [facility] BUN 18 7 - 18 mg/dL 12/08/2013 12:36 AM T [facility] CREATININE 1.00 0.60 - 1.30 mg/dL 12/08/2013 12:36 AM T [facility] GLUCOSE 283(H) 74 - 106 mg/dL 12/08/2013 12:36 AM T [facility] TOTAL PROTEIN 8.6(H) 6.4 - 8.2 g/dL 12/08/2013 12:36 AM T [facility] ALBUMIN 3.9 3.4 - 5.0 g/dL 12/08/2013 12:36 AM CDT [facility] BILIRUBIN TOTAL 0.3 0.2 - 1.0 mg/dL 12/08/2013 12:36 AM T [facility] ALKALINE PHOSPHATASE 251(H) 50 - 136 U/L 12/08/2013 12:36 AM CDT [facility] [place] AST 11(L) 15 - 37 U/L 12/08/2013 12:36 AM CDT [facility] ALT 28(L) 30 - 65 U/L 12/08/2013 12:36 AM CDT [employer] [facility] GFR >60 >=60 mL/min/1.7 3 sq meter 12/08/2013 12:36 AM CDT [facility] [email or web address] [facility] Comment: eGFR has not been validated for use in the elderly (> 70 years of age), women, patients with serious co-morbid conditions, or persons with extremes of body size or muscle mass and should also be interpreted with caution in patients with acute kidney failure, dialysis dependent patients, patients reporting exceptional dietary intake (e.g. vegetarian diet, high protein diets, creatine supplementation), and patients with severe liver disease. Based on National Kidney Disease Education Program If patient is , please refer to the GFR result. GFR, >60 >=60 mL/min/1.7 3 sq meter 12/08/2013 12:36 AM CDT [facility] [email or web address] [facility] Blood 12/07/2013 11:1 9 PM CDT 12/07/2013 11:19 PM CDT us Kalyani Laureano DO CHEMISTRY ORDERABLES Fi nal Result [facility] [employer] [facility] CLIA # [id number] [address] [place] [phone] documented in this encounter Visit Diagnoses Diagnosis Type II or unspecified type diabetes mellitus with unspecified complication, not stated as uncontrolled documented in this encounter
--- NOTE | 2025-02-11 18:09 | W.ED.PSYCHS ---
Documented by User: Riri Márquez MD 02/11/25 21:01 HPI - Psych General: Chief Complaint: Psychiatric Symptoms Stated Complaint: 96 hr hold Time Seen by Provider: 02/11/25 18:04 History of Present Illness: 44-year-old man who presents the emergency room with police on a 96-hour court mandated hold. Apparently he had talked to his therapist the day before and had said some things like I do not want to be here anymore and other things that they felt were endorsing suicidal ideation. Today he is quite distraught. He says I took it all back . I do not want to be here and I need to get my car. I discussed with him that he is on a court mandated hold and that he to be cleared he will have to be admitted and see the psychiatrist. Related Data Home Medications ?Medication ?Instructions ?Recorded ?Confirmed quetiapine 150 mg tablet,extended 150 mg PO .q hs 02/04/25 02/04/25 release 24 hr (Seroquel XR) Previous Rx's ?Medication ?Instructions ?Recorded blood-glucose meter #1 ea 04/23/23 blood sugar diagnostic (Blood #200 ea 05/28/24 Glucose Test strips) duloxetine 30 mg capsule,delayed 30 mg PO BID #60 caps 10/15/24 release glipizide 10 mg tablet 10 mg PO DAILY #90 tabs 11/18/24 escitalopram oxalate 20 mg tablet 20 mg PO DAILY #30 tabs 12/14/24 trazodone 150 mg tablet 150 mg PO .qhs PRN insomnia #30 12/14/24 tabs insulin glargine 100 unit/mL (3 35 unit (0.35 mL) SUBCUT BID #30 mL 12/21/24 mL) subcutaneous pen (Lantus Solostar U-100 Insulin) Pen [place] #100 ea 01/12/25 Allergies Allergy/AdvReac Type Severity Reaction Status Date / Time avocado Allergy Severe ALGY-Swell Verified 02/08/25 07:49 Lip/Tongue/Throat green marquez Allergy Unknown Verified 02/08/25 07:49 Review of Systems Narrative: Constitutional symptoms: Negative except as documented in HPI. Skin symptoms: Negative except as documented in HPI. Eye symptoms: Negative except as documented in HPI. ENMT symptoms: Negative except as documented in HPI. Respiratory symptoms: Negative except as documented in HPI. Cardiovascular symptoms: Negative except as documented in HPI. Gastrointestinal symptoms: Negative except as documented in HPI. Genitourinary symptoms: Negative except as documented in HPI. Musculoskeletal symptoms: Negative except as documented in HPI. Neurologic symptoms: Negative except as documented in HPI. Psychiatric symptoms: Negative except as documented in HPI. Endocrine symptoms: Negative except as documented in HPI. PFSH ED PFSH: Medical History (Updated 02/12/25 @ 08:18 by Rashad Ramachandran DO) Inadequate housing Major depressive disorder, recurrent, severe with psychotic symptoms Psychiatric care MDD (major depressive disorder), single episode, severe Suicidal ideation Moderate tobacco use disorder Anxiety Insomnia Personality disorder, unspecified Major depressive disorder, recurrent Peripheral neuropathy Diabetes Family History Father Cancer Pancreas, liver, colon Grandfather Cancer Maternal-pancreatic Other Diabetes Liver disease Stroke Denies family history of CAD (coronary artery disease) Aneurysm Autoimmune disease Clotting disorder Dementia Hyperlipidemia Hyperthyroidism Hypothyroidism Psychiatric illness Chronic kidney disease (CKD) Bleeding disorder Lung disease Hypertension Social History Smoking and tobacco/nicotine status: never used tobacco/nicotine Alcohol intake: former Substance/Drug Use: former Date of last use: 7 months ago Lives independently: Yes Housing: Homeless Marital status: Single Highest education level completed: Some College, No Degree Current occupational status: unemployed Current occupational exposures/hazards: No Pets and animals: Yes Pets & animals: dog(s) Leisure activites: games and other Leisure activities details: watching TV Sexually active: No Do you think of yourself as: Lesbian/Acosta/Homosexual Current gender identity: Male Jeana/Uatsdin: Church Special jeana needs: No Agree to transfusion: Yes Physical Exam Narrative: EXAM NARRATIVE: General: Alert, no acute distress. Skin: Warm, dry. Head: Normocephalic, atraumatic. Neck: Supple, trachea midline. Eye: Extraocular movements are intact. Ears, nose, mouth and throat: mucosa moist. Cardiovascular: Regular, Normal peripheral perfusion. Respiratory: Lungs are clear to auscultation, respirations are non-labored, breath sounds are equal, Symmetrical chest wall expansion. Gastrointestinal: Soft, Nontender, Non distended Musculoskeletal: Normal ROM, no deformity. Neurological: Alert and oriented, No focal neurological deficit observed. Psychiatric: Patient is quite distraught and anxious. Almost to the point of tears. He denies suicidal ideation at this point. Course Vital Signs: Vital signs: Vital Signs Pulse Rate 87 02/12/25 06:00 Blood Pressure 116/72 02/12/25 06:00 Pulse Oximetry 96 02/12/25 06:00 [facility] - Psych Medical Decision Making Differential diagnosis: Patient with reported depression and suicidal ideation. concerns for infection, alcohol intoxication, cardiac issues or other medical problems prior to psychiatric admission. Workup: labwork, ekg ordered to evaluate the pathologies and to clear the patient medically prior to psychiatric admission Lab Review: Laboratory results were reviewed and interpreted by myself the emergency room physician. No leukocytosis. No anemia. No renal failure. Sodium is a little bit low at 132 but this is secondary to his glucose being 530. His bicarb is 26 and no signs of symptoms of diabetic ketoacidosis. He will need the sugar reduced some before he can be admitted. Consultation: I spoke with Dr. Freeman who is on-call for psychiatry who he would like his sugar to be down. He recommends admission to medicine. At this point there are not any beds I talked with Dr. Adam who will follow-up on his glucose and we will see if we can get it to a level where he can be admitted to the psych unit. Assessment and plan: Hyperglycemia Suicidal ideations 96-hour court ordered hold ? SARAH Jara and Adelia. Patient has been extremely uncooperative and will not allow us to treat his glucose. Security has had to be contacted. ?IV normal saline bolus and IV insulin. Patient care transitioned to Dr. Adam at shift change awaiting glucose control. Lab Data 02/11/25 18:28 02/11/25 18:28 Laboratory Results WBC 8.75 10^3/uL (3.29-11.43) 02/11/25 18: RBC 5.32 10^6/uL (3.85-5.65) 02/11/25 18: Hgb 15.80 g/dL (11.27-16.99) 02/11/25 18: Hct 46.0 % (37-53) 02/11/25 18: MCV 86.5 fl (82-101) 02/11/25 18: MCH 29.7 pg (27-33) 02/11/25 18: MCHC 34.3 g/dL (30-55) 02/11/25 18: RDW 12.4 % (12.1-15.1) 02/11/25 18: Plt Count 226 10^3/cmm (157-399) 02/11/25 18: MPV 11.0 fL (7.4-10.4) H 02/11/25 18: Neut % (Auto) 57.4 % 02/11/25 18: Lymph % (Auto) 34.5 % 02/11/25 18: [place] % (Auto) 6.5 % 02/11/25 18: Eos % (Auto) 1.0 % 02/11/25 18: Baso % (Auto) 0.5 % 02/11/25 18: Neut # (Auto) 5.02 10^3/uL (1.8-7.7) 02/11/25 18: Lymph # (Auto) 3.0 10^3/uL (0.8-4.8) 02/11/25 18: [place] # (Auto) 0.6 10^3/uL (0.2-0.9) 02/11/25 18: Eos # (Auto) 0.1 10^3/uL (0.0-0.8) 02/11/25 18: Baso # (Auto) 0.0 10^3/uL (0.0-0.1) 02/11/25 18: Nucleated RBC % (auto) 0 % 02/11/25 18: Nucleated RBCs # 0.0 /100WBC 02/11/25 18: Sodium 132 mmol/L (136-145) L 02/11/25 18: Potassium 3.7 mmol/L (3.5-5.1) 02/11/25 18: Chloride 93 mmol/L (98-107) L 02/11/25 18: Carbon Dioxide 26 mmol/L (22-29) 02/11/25 18: Anion Gap 16.7 (5-19) 02/11/25 18: BUN 12 mg/dL (6-20) 02/11/25 18: Creatinine 0.8 mg/dL (0.7-1.2) 02/11/25 18:28 GFR Calculation 104.5 mL/min (90-130) 02/11/25 18:28 Glucose 530 mg/dL (65-115) H* 02/11/25 18:28 POC Glucose 172 mg/dL (70-110) H 02/12/25 07:51 Calculated Osmolality 298 mOsm/kg (285-295) H 02/11/25 18:28 Calcium 9.6 mg/dL (8.5-10.5) 02/11/25 18:28 Total Bilirubin 0.5 mg/dL (0.15-1.2) 02/11/25 18: AST 22 U/L (0-40) 02/11/25 18: ALT 26 U/L (0-41) 02/11/25 18:28 Alkaline Phosphatase 231 U/L (40-130) H 02/11/25 18:28 Total Protein 8.1 g/dL (6.6-8.7) 02/11/25 18:28 Albumin 4.3 g/dL (3.5-5.2) 02/11/25 18:28 Globulin 3.8 g/dL (1.3-4.6) 02/11/25 18:28 TSH 0.51 uIU/mL (0.27-4.20) 02/11/25 18:28 Salicylates < 0.3 mg/dL (3-10) L 02/11/25 18:28 Acetaminophen < 5.0 ug/mL (10-30) L 02/11/25 18:28 Ethyl Alcohol < 10 mg/dL (0-10) 02/11/25 18:28 Discharge Plan Discharge Patient Disposition: Admitted As Inpatient Clinical Impression: Hyperglycemia, Depression Condition: Stable Sign Out Sign Out Data: Patient Sign Out occurred on 02/12/25 at 05:26. Patient's care was discussed, and care was transferred from Riri Márquez MD to Joshua Adam MD. Coding Level of Care Code ED Door Repairer Bus for Chg Fwd Documented by User: Rashad Ramachandran DO 02/12/25 08:28 HPI - Psych General: Chief Complaint: Psychiatric Symptoms Stated Complaint: 96 hr hold Time Seen by Provider: 02/11/25 18:04 Related Data Home Medications ?Medication ?Instructions ?Recorded ?Confirmed quetiapine 150 mg tablet,extended 150 mg PO .q hs 02/04/25 02/04/25 release 24 hr (Seroquel XR) Previous Rx's ?Medication ?Instructions ?Recorded blood-glucose meter #1 ea 04/23/23 blood sugar diagnostic (Blood #200 ea 05/28/24 Glucose Test strips) duloxetine 30 mg capsule,delayed 30 mg PO BID #60 caps 10/15/24 release glipizide 10 mg tablet 10 mg PO DAILY #90 tabs 11/18/24 escitalopram oxalate 20 mg tablet 20 mg PO DAILY #30 tabs 12/14/24 trazodone 150 mg tablet 150 mg PO .qhs PRN insomnia #30 12/14/24 tabs insulin glargine 100 unit/mL (3 35 unit (0.35 mL) SUBCUT BID #30 mL 12/21/24 mL) subcutaneous pen (Lantus Solostar U-100 Insulin) Pen [place] #100 ea 01/12/25 Allergies Allergy/AdvReac Type Severity Reaction Status Date / Time avocado Allergy Severe ALGY-Swell Verified 02/08/25 07:49 Lip/Tongue/Throat green marquez Allergy Unknown Verified 02/08/25 07:49 PFS ED PFSH: Medical History (Updated 02/12/25 @ 08:18 by Rashad Ramachandran DO) Inadequate housing Major depressive disorder, recurrent, severe with psychotic symptoms Psychiatric care MDD (major depressive disorder), single episode, severe Suicidal ideation Moderate tobacco use disorder Anxiety Insomnia Personality disorder, unspecified Major depressive disorder, recurrent Peripheral neuropathy Diabetes Family History Father Cancer Pancreas, liver, colon Grandfather Cancer Maternal-pancreatic Other Diabetes Liver disease Stroke Denies family history of CAD (coronary artery disease) Aneurysm Autoimmune disease Clotting disorder Dementia Hyperlipidemia Hyperthyroidism Hypothyroidism Psychiatric illness Chronic kidney disease (CKD) Bleeding disorder Lung disease Hypertension Social History (Reviewed 01/13/25 @ 10:02 by WILIAM Thomas Smoking and tobacco/nicotine status: never used tobacco/nicotine Alcohol intake: former Substance/Drug Use: former Date of last use: 7 months ago Lives independently: Yes Housing: Homeless Marital status: Single Highest education level completed: Some College, No Degree Current occupational status: unemployed Current occupational exposures/hazards: No Pets and animals: Yes Pets & animals: dog(s) Leisure activites: games and other Leisure activities details: watching TV Sexually active: No Do you think of yourself as: Lesbian/Acosta/Homosexual Current gender identity: Male Jeana/Uatsdin: Church Special jeana needs: No Agree to transfusion: Yes Course Vital Signs: Vital signs: Vital Signs Pulse Rate 87 02/12/25 06:00 Blood Pressure 116/72 02/12/25 06:00 Pulse Oximetry 96 02/12/25 06:00 [facility] - Psych Medical Decision Making Differential diagnosis: Patient with reported depression and suicidal ideation. concerns for infection, alcohol intoxication, cardiac issues or other medical problems prior to psychiatric admission. Workup: labwork, ekg ordered to evaluate the pathologies and to clear the patient medically prior to psychiatric admission Lab Review: Laboratory results were reviewed and interpreted by myself the emergency room physician. No leukocytosis. No anemia. No renal failure. Sodium is a little bit low at 132 but this is secondary to his glucose being 530. His bicarb is 26 and no signs of symptoms of diabetic ketoacidosis. He will need the sugar reduced some before he can be admitted. Consultation: I spoke with Dr. Freeman who is on-call for psychiatry who he would like his sugar to be down. He recommends admission to medicine. At this point there are not any beds I talked with Dr. Adam who will follow-up on his glucose and we will see if we can get it to a level where he can be admitted to the psych unit. Assessment and plan: Hyperglycemia Suicidal ideations 96-hour court ordered hold ? IM Estefani and Adelia. Patient has been extremely uncooperative and will not allow us to treat his glucose. Security has had to be contacted. ?IV normal saline bolus and IV insulin. Patient care transitioned to Dr. Adam at shift change awaiting glucose control. Care assumed at change of shift from Dr. Adam. They treated his hyperglycemia Dr. Adam related discussed Dr. Lauraeno and Dr. Laureano advised rescinding the 96-hour hold. I reevaluated the patient this morning his blood glucose was 172 on bedside Accu-Chek. He admits he not been taking his medications. He is awake alert pleasant to deal with. He relates that he had called [facility] out of frustration and made some comments about harming himself [facility] got involved and then he was 96. He is not suicidal now. He was verbalizing last time when he was brought in that he was not suicidal with no intent to kill himself. He is very fresher but his current situation he is homeless. He denies any plan. He does have potential support in form of the cook cashier food prep at [facility]. Will discharge patient home. Encouraged him to go to crisis stabilization to see what resources they can bring to bear to assist him Medical Records I reviewed the patient's medical records. Lab Data I reviewed the patient's lab results. 02/11/25 18:28 02/11/25 18:28 Laboratory Results WBC 8.75 10^3/uL (3.29-11.43) 02/11/25 18: RBC 5.32 10^6/uL (3.85-5.65) 02/11/25 18: Hgb 15.80 g/dL (11.27-16.99) 02/11/25 18: Hct 46.0 % (37-53) 02/11/25 18: MCV 86.5 fl (82-101) 02/11/25 18: MCH 29.7 pg (27-33) 02/11/25 18: MCHC 34.3 g/dL (30-55) 02/11/25 18: RDW 12.4 % (12.1-15.1) 02/11/25 18: Plt Count 226 10^3/cmm (157-399) 02/11/25 18: MPV 11.0 fL (7.4-10.4) H 02/11/25 18: Neut % (Auto) 57.4 % 02/11/25 18: Lymph % (Auto) 34.5 % 02/11/25 18: [place] % (Auto) 6.5 % 02/11/25 18: Eos % (Auto) 1.0 % 02/11/25 18:28 Baso % (Auto) 0.5 % 02/11/25 18: Neut # (Auto) 5.02 10^3/uL (1.8-7.7) 02/11/25 18: Lymph # (Auto) 3.0 10^3/uL (0.8-4.8) 02/11/25 18: [place] # (Auto) 0.6 10^3/uL (0.2-0.9) 02/11/25 18: Eos # (Auto) 0.1 10^3/uL (0.0-0.8) 02/11/25 18: Baso # (Auto) 0.0 10^3/uL (0.0-0.1) 02/11/25 18: Nucleated RBC % (auto) 0 % 02/11/25 18: Nucleated RBCs # 0.0 /100WBC 02/11/25 18: Sodium 132 mmol/L (136-145) L 02/11/25 18: Potassium 3.7 mmol/L (3.5-5.1) 02/11/25 18: Chloride 93 mmol/L (98-107) L 02/11/25 18: Carbon Dioxide 26 mmol/L (22-29) 02/11/25 18: Anion Gap 16.7 (5-19) 02/11/25 18: BUN 12 mg/dL (6-20) 02/11/25 18: Creatinine 0.8 mg/dL (0.7-1.2) 02/11/25 18: GFR Calculation 104.5 mL/min (90-130) 02/11/25 18: Glucose 530 mg/dL (65-115) H* 02/11/25 18: POC Glucose 172 mg/dL (70-110) H 02/12/25 07:51 Calculated Osmolality 298 mOsm/kg (285-295) H 02/11/25 18: Calcium 9.6 mg/dL (8.5-10.5) 02/11/25 18: Total Bilirubin 0.5 mg/dL (0.15-1.2) 02/11/25 18: AST 22 U/L (0-40) 02/11/25 18: ALT 26 U/L (0-41) 02/11/25 18:28 Alkaline Phosphatase 231 U/L (40-130) H 02/11/25 18:28 Total Protein 8.1 g/dL (6.6-8.7) 02/11/25 18:28 Albumin 4.3 g/dL (3.5-5.2) 02/11/25 18:28 Globulin 3.8 g/dL (1.3-4.6) 02/11/25 18:28 TSH 0.51 uIU/mL (0.27-4.20) 02/11/25 18:28 Salicylates < 0.3 mg/dL (3-10) L 02/11/25 18:28 Acetaminophen < 5.0 ug/mL (10-30) L 02/11/25 18:28 Ethyl Alcohol < 10 mg/dL (0-10) 02/11/25 18:28 No radiology studies performed this visit Discharge Plan Discharge Patient Disposition: Admitted As Inpatient Clinical Impression: Hyperglycemia, Depression Condition: Stable Sign Out Sign Out Data: Patient Sign Out occurred on 02/12/25 at 05:26. Patient's care was discussed, and care was transferred from Riri Márquez MD to Joshua Adam MD. Coding Level of Care Code ED Door Repairer Bus for Shubham Avila
--- NOTE | 2025-02-11 18:23 | PC.NURSE ---
PATIENT AGGRESSIVE AND REFUSING VITALS AT THIS TIME.
[2025-02-11 18:35] LABS: Hematocrit 46.0 % (37-53); Hemoglobin 15.80 g/dL (11.27-16.99); Mean Corpuscular HGB Conc 34.3 g/dL (30-55); Mean Corpuscular Hemoglobin 29.7 pg (27-33); Mean Corpuscular Volume 86.5 fl (82-101); Nucleated Red Blood Cells % 0 %; Platelet Count 226 10^3/cmm (157-399); Red Blood Count 5.32 10^6/uL (3.85-5.65); White Blood Count 8.75 10^3/uL (3.29-11.43)
--- NOTE | 2025-02-11 19:02 | PC.NURSE ---
Dr Márquez notified of patient's refusal to obtain vitals as well as refusal to obtain EKG. Nursing staff instructed to hold off on obtaining vitals and EKG per instruction of Dr Márquez.
[2025-02-11 19:06] LABS: Alanine Aminotransferase 26 U/L (0-41); Albumin Level 4.3 g/dL (3.5-5.2); Alkaline Phosphatase 231 U/L (40-130); Anion Gap 16.7 (5-19); Aspartate Amino Transferase 22 U/L (0-40); Blood Urea Nitrogen 12 mg/dL (6-20); Calcium 9.6 mg/dL (8.5-10.5); Carbon Dioxide 26 mmol/L (22-29); Chloride 93 mmol/L (98-107); Creatinine Clr Calc Pharmacy 121.5518; Globulin 3.8 g/dL (1.3-4.6); Osmolality Calculated 298 mOsm/kg (285-295); Potassium 3.7 mmol/L (3.5-5.1); Sodium 132 mmol/L (136-145); Thyroid Stimulating Hormone 0.51 uIU/mL (0.27-4.20); Total Protein 8.1 g/dL (6.6-8.7)
[2025-02-11 19:09] LABS: Acetaminophen < 5.0 ug/mL (10-30); Alcohol Level < 10 mg/dL (0-10); Glucose 530 mg/dL (65-115); Salicylate < 0.3 mg/dL (3-10)
--- NOTE | 2025-02-11 21:12 | PC.NURSE ---
96 Hour Involuntary Hold Patient Rights have been reviewed with patient and a copy of said Rights has been provided to him. Salesperson [employer] was present at chair side during presentation of Rights.
[2025-02-12 04:51] VITALS: BP 105/63; PULSE 82; O2SAT 95
[2025-02-12 06:00] VITALS: BP 116/72; PULSE 87; O2SAT 96
--- NOTE | 2025-02-12 06:58 | PC.NURSE ---
assumed PT care @ 0655. Per nail tech PT refused urine and EKG and was being combative so ED physician told nail tech to hold off on orders and let PT sleep.
--- NOTE | 2025-02-12 09:48 | PC.PHAR ---
[facility] pt has not picked up Duloxetine 30mg since 09/09/24, Glipizide 10mg since 11/18/24 and Hydroxyzine Pamoate 25mg from 11/30/24 has been dc'd.
[2025-02-12 10:29] VITALS: BP 117/72; PULSE 87; O2SAT 96
== END 2025-02-12 10:30 | disposition home or self-care (01) ==
PROVIDERS: Emergency Medicine; Student in an Organized Health Care Education/Training Program; Emergency Provider Family Medicine; PCP Family Medicine
DX: F32.A Depression, unspecified (principal); E11.65 Type 2 diabetes mellitus with hyperglycemia; E11.42 Type 2 diabetes mellitus with diabetic polyneuropathy
CPT/HCPCS: 36415; 36416; 80053; 80307; 82962; 84443; 85025; 93005; 96360; 99284; J7030

== ENCOUNTER 2025-03-06 09:47 | Emergency (ER) | payer MEDICAID, SELFPAY ==
[2025-02-16 15:42] VITALS: BP 117/68; BMI 28.5
--- OUTSIDE RECORDS SUMMARY | 2025-03-06 09:52 | XMS_ITS | Encounter Summary ---
Author Organization [employer] [facility] IELD [facility] Address [address] [place] [address] Care Team Providers Care Handicraft Or Hobby Shop Manager Name Role Phone Unavailable Primary Care Provider Unavailabl e Encounter Details Date Type Department Care Team (Latest Contact Info) Description 12/07/2013 Ancillary Orders [facility] Laboratory Services [place] [address] [place] [id number] Type II or unspecified type diabetes mellitus with unspecified complication, not stated as uncontrolled (CMS/[facility]ERLY [facility]) Social History Tobacco Use Types Packs/Day Years [...] - 6.2 % 12/08/2013 1:03 AM CDT [facility] EST. AVG GLUCOSE, A1C 332 mg/dL 12/08/2013 1:03 AM CDT [facility] Frequency [facility] Blood 12/07/2013 11:1 9 PM CDT 12/07/2013 11:19 PM CDT Kalyani Laureano DO CHEMISTRY ORDERABLES Fi nal Result [facility] HUBERT # [id number] [address] [place] [id number] * (ABNORMAL) COMPREHENSIVE METABOLIC PANEL (12/07/2013 11:19 PM CDT) SODIUM 135(L) 136 - 145 mmol/L 12/08/2013 12:36 AM CDT [facility] POTASSIUM 3.4(L) 3.5 - 5.1 mmol/L 12/08/2013 12:36 AM CDT [facility] CHLORIDE 96(L) 98 - 107 mmol/L 12/08/2013 12:36 AM CDT [facility] CO2 28 21 - 32 mmol/L 12/08/2013 12:36 AM T [facility] CALCIUM 9.3 8.5 - 10.1 mg/dL 12/08/2013 12:36 AM T [facility] BUN 18 7 - 18 mg/dL 12/08/2013 12:36 AM T [facility] CREATININE 1.00 0.60 - 1.30 mg/dL 12/08/2013 12:36 AM T [facility] GLUCOSE 283(H) 74 - 106 mg/dL 12/08/2013 12:36 AM T [facility] TOTAL PROTEIN 8.6(H) 6.4 - 8.2 g/dL 12/08/2013 12:36 AM T [facility] ALBUMIN 3.9 3.4 - 5.0 g/dL 12/08/2013 12:36 AM CDT [facility] BILIRUBIN TOTAL 0.3 0.2 - 1.0 mg/dL 12/08/2013 12:36 AM T [facility] ALKALINE PHOSPHATASE 251(H) 50 - 136 U/L 12/08/2013 12:36 AM CDT [facility] AST 11(L) 15 - 37 U/L 12/08/2013 12:36 AM CDT [facility] ALT 28(L) 30 - 65 U/L 12/08/2013 12:36 AM CDT [employer] [facility] GFR >60 >=60 mL/min/1.7 3 sq meter 12/08/2013 12:36 AM CDT [facility] Frequency [facility] Comment: eGFR has not been validated for [...] 3 sq meter 12/08/2013 12:36 AM CDT [facility] Frequency [facility] Blood 12/07/2013 11:1 9 PM CDT 12/07/2013 11:19 PM CDT us Kalyani Laureano DO CHEMISTRY ORDERABLES Fi nal Result [facility] CLIA # [id number] [address] [place] [id number] documented in this encounter Visit Diagnoses Diagnosis Type II or unspecified type diabetes mellitus with unspecified complication, not stated as uncontrolled documented in this encounter
--- OUTSIDE RECORDS SUMMARY | 2025-03-06 09:52 | XMS_ITS | Encounter Summary ---
Author Organization [facility] Address [address] [place] [address] Care Team Providers Care Controller Mechanic Name Role Phone Unavailable Primary Care Provider Unavailabl e Encounter Details Date Type Department Care Team (Latest Contact Info) Description 10/26/2013 Ancillary Orders [facility] Laboratory Services [place] [address] [place] [phone] Type II or unspecified type diabetes mellitus with unspecified complication, not stated as uncontrolled (CMS/[facility]LY [facility]) Social History Tobacco Use Types Packs/Day Years [...]
--- OUTSIDE RECORDS SUMMARY | 2025-03-06 09:52 | XMS_ITS | Clinical Summary ---
Author Organization [facility] Ferrer Address [address] [facility] [address] [place] [address] Phone Care Team Providers Care Clinical Technician Name Role Phone Unavailable Primary Care Provider [...]
--- OUTSIDE RECORDS SUMMARY | 2025-03-06 09:52 | XMS_ITS | Encounter Summary ---
Author Organization [employer] [facility] Address [address] [place] [address] Care Team Providers Care Clay Plant Treater Name Role Phone Unavailable Primary Care Provider Unavailabl e Encounter Details Date Type Department Care Team (Late st Contact Info) Description 01/19/2013 Ancillary Orders [facility] Laboratory Services [place] [address] [place] [address] Sick Social History Tobacco Use [...] - 4.80 uIU/mL 01/19/2013 10:08 PM CDT [facility] Blood specimen (specimen) Venipuncture - Lab Collect / Unknown 01/19/2013 8:33 PM CDT 01/19/2013 9:41 PM CDT [place] WASHCOAT WIPER CHEMISTRY ORDERABLES Final Resu lt [facility] CLIA # [id number] [address] [address] * (ABNORMAL) COMPREHENSIVE METABOLIC PANEL (01/19/2013 8:33 PM CDT) SODIUM 130(L) 136 - 145 mmol/L 01/19/2013 10:16 PM CDT [facility] POTASSIUM 3.6 3.5 - 5.1 mmol/L 01/19/2013 10:16 PM CDT [facility] CHLORIDE 93(L) 98 - 107 mmol/L 01/19/2013 10:16 PM CDT [facility] CO2 25 21 - 32 mmol/L 01/19/2013 10:16 PM CDT [facility] CALCIUM 9.0 8.5 - 10.1 mg/dL 01/19/2013 10:16 PM CDT [facility] BUN 21(H) 7 - 18 mg/dL 01/19/2013 10:16 PM CDT [facility] CREATININE 1.10 0.60 - 1.30 mg/dL 01/19/2013 10:16 PM CDT [facility] GLUCOSE 496(HH) 74 - 106 mg/dL 01/19/2013 10:16 PM T [facility] Comment: Verified by 2nd run. Critical lab values called to and read back by Toya/[facility] at 10:08 PM on 01/19/2013 by Imelda Cuevas. TOTAL PROTEIN 8.7(H) 6.4 - 8.2 g/dL 01/19/2013 10:16 PM CDT [facility] ALBUMIN 4.0 3.4 - 5.0 g/dL 01/19/2013 10:16 PM CDT [facility] BILIRUBIN TOTAL 0.3 0.2 - 1.0 mg/dL 01/19/2013 10:16 PM CDT [facility] ALKALINE PHOSPHATASE 208(H) 50 - 136 U/L 01/19/2013 10:16 PM CDT [facility] AST 4(L) 15 - 37 U/L 01/19/2013 10:16 PM CDT [facility] ALT 46 30 - 65 U/L 01/19/2013 10:16 PM CDT [facility] GFR 77 >=60 mL/min/1.7 3 sq meter 01/19/2013 10:16 PM CDT [facility] Comment: eGFR has not been validated for [...] 3 sq meter 01/19/2013 10:16 PM T [facility] Comment: eGFR has not been validated for [...] Gomez NP CHEMISTRY ORDERABLES Final Resu lt [facility] CLIA # [id number] [address] [address] * (ABNORMAL) CBC WITH DIFFERENTIAL (01/19/2013 8:33 PM CDT) WBC 10.5(H) 4.2 - 9.1 K/uL 01/19/2013 9:50 PM CDT [facility] RBC 5.77 4.63 - 6.08 M/uL 01/19/2013 9:50 PM CDT [facility] [place] HEMOGLOBIN 17.9(H) [...] - 36.5 g/dL 01/19/2013 9:50 PM CDT [facility] [place] RDW 12.3 11.0 - 14.5 % 01/19/2013 9:50 PM CDT [facility] [place] RDW-STDEV 38.2 37.0 - 54.0 fL 01/19/2013 9:50 PM CDT [facility] [place] PLATELETS 221 130 - 400 K/uL 01/19/2013 9:50 PM CDT [facility] [place] MPV 11.3 [...] - 0.82 K/uL 01/19/2013 9:50 PM CDT [facility] [place] EOSINOPHIL ABSOLUTE 0.26 0.04 - 0.54 K/uL 01/19/2013 9:50 PM CDT [facility] [place] BASOPHILS ABSOLUTE 0.02 0.01 - 0.08 K/uL 01/19/2013 9:50 PM CDT [facility] Blood specimen (specimen) Venipuncture - Lab Collect / Unknown 01/19/2013 8:33 PM CDT 01/19/2013 9:41 PM CDT Antwon Gomez NP HEMATOLOGY ORDERABLES Final Res ult Performing Organization Address [facility] Co de Phone Number [facility] CLIA # [id number] [address] [place] [address] * (ABNORMAL) HEMOGLOBIN A1C (01/19/2013 8:33 PM CDT) HEMOGLOBIN A1C 15.2(H) 4.5 - 6.2 % 01/19/2013 10:51 PM CDT [facility] EST. AVG GLUCOSE, A1C 390 mg/dL 01/19/2013 10:51 PM CDT [facility] Blood specimen (specimen) Venipuncture - Lab Collect / Unknown 01/19/2013 8:33 PM CDT 01/19/2013 9:41 PM CDT Antwon Gomez WASHCOAT WIPER CHEMISTRY ORDERABLES Final Resu lt Performing Organization Address City/[facility]/ZIP Co de Phone Number [facility] CLIA # [id number] [address] [place] [address] documented in this encounter Visit Diagnoses Diagnosis Sick Other unknown and unspecified cause of morbidity or mortality documented in this encounter
[2025-03-06 10:16] VITALS: BP 150/95; PULSE 100; RESP 18; TEMP 36.6; O2SAT 98
--- NOTE | 2025-03-06 10:23 | W.ED.SKABFB ---
HPI - Skin/Abscess/Foreign Bdy General: Chief complaint: Skin/Abscess/Foreign Body Stated complaint: Blister like sores Lower back body hurts Time Seen by Provider: 03/06/25 09:49 Source: patient Mode of arrival: ambulatory Limitations: no limitations History of Present Illness: 44-year-old male states he has had an abscess to his buttocks he states has been open and draining but he feels like he needs antibiotics. Having some pain he rates a 4 out of 10 denies any fevers denies any worsening from factors. Associated symptoms: Deny chills, fever(s), nausea or vomiting Related Data Home Medications ?Medication ?Instructions ?Recorded ?Confirmed quetiapine 150 mg tablet,extended 150 mg PO .q hs 02/04/25 02/12/25 release 24 hr (Seroquel XR) escitalopram oxalate 20 mg tablet 20 mg PO QAM 02/12/25 02/12/25 Previous Rx's ?Medication ?Instructions ?Recorded blood-glucose meter #1 ea 04/23/23 blood sugar diagnostic (Blood #200 ea 05/28/24 Glucose Test strips) duloxetine 30 mg capsule,delayed 30 mg PO BID #60 caps 10/15/24 release glipizide 10 mg tablet 10 mg PO DAILY #90 tabs 11/18/24 trazodone 150 mg tablet 150 mg PO .qhs PRN insomnia #30 12/14/24 tabs insulin glargine 100 unit/mL (3 35 unit (0.35 mL) SUBCUT BID #30 mL 12/21/24 mL) subcutaneous pen (Lantus Solostar U-100 Insulin) Pen [place] #100 ea 01/12/25 sulfamethoxazole 800 1 tab PO BID 10 days #20 tabs 03/06/25 mg-trimethoprim 160 mg tablet (Bactrim DS) Allergies Allergy/AdvReac Type Severity Reaction Status Date / Time avocado Allergy Severe ALGY-Swell Verified 02/08/25 07:49 Lip/Tongue/Throat green marquez Allergy Unknown Verified 02/08/25 07:49 Review of Systems Const: Denies: fever(s), chills, body aches or change in appetite ENMT: Denies: throat pain or dental pain Card: Denies: chest pain Resp: Denies: dyspnea GI: Denies: abdominal pain, nausea, vomiting or diarrhea Musc: Denies: neck pain or back pain Skin/Breast: Reports: erythema; Denies: rash Neuro: Denies: headache(s) PFSH ED PFSH: Medical History Inadequate housing Major depressive disorder, recurrent, severe with psychotic symptoms Psychiatric care MDD (major depressive disorder), single episode, severe Suicidal ideation Moderate tobacco use disorder Anxiety Insomnia Personality disorder, unspecified Major depressive disorder, recurrent Peripheral neuropathy Diabetes Family History Father Cancer Pancreas, liver, colon Grandfather Cancer Maternal-pancreatic Other Diabetes Liver disease Stroke Denies family history of CAD (coronary artery disease) Aneurysm Autoimmune disease Clotting disorder Dementia Hyperlipidemia Hyperthyroidism Hypothyroidism Psychiatric illness Chronic kidney disease (CKD) Bleeding disorder Lung disease Hypertension Social History Smoking and tobacco/nicotine status: never used tobacco/nicotine Alcohol intake: former Substance/Drug Use: former Date of last use: 7 months ago Lives independently: Yes Housing: Homeless Marital status: Single Highest education level completed: Some College, No Degree Current occupational status: unemployed Current occupational exposures/hazards: No Pets and animals: Yes Pets & animals: dog(s) Leisure activites: games and other Leisure activities details: watching TV Sexually active: No Do you think of yourself as: Lesbian/Acosta/Homosexual Current gender identity: Male Jeana/Episcopal: Islam Special jeana needs: No Agree to transfusion: Yes Physical Exam Const: COMMON NORMALS: no acute distress, patient oriented x3 and healthy appearing HENMT: COMMON NORMALS: normocephalic and atraumatic HEAD & SCALP: normocephalic and atraumatic Neck/C-Spine: COMMON NORMALS: full ROM and supple Chest: COMMONS NORMALS: normal inspection of the chest Resp: COMMON NORMALS: normal respiratory effort Cardio: COMMON NORMALS: regular rate RATE: regular rate Back/Pelvis: OTHER: Abscess right buttocks that is open and draining no erythema Extremity: COMMON NORMALS: normal to inspection and full ROM Neuro: COMMON NORMALS: patient oriented x3, moves all extremities and no focal motor deficits Psych: COMMON NORMALS: mental status grossly normal, Normal thought process present and cooperative THOUGHT PROCESS: Normal thought process present Skin: COMMON NORMALS: no rashes or lesions noted and no wounds GENERAL SKIN EXAM: no rashes or lesions noted Course Vital Signs: Vital signs: Vital Signs Temperature 97.8 F 03/06/25 10:16 Pulse Rate 100 03/06/25 10:16 Respiratory Rate 18 03/06/25 10:16 Blood Pressure 150/95 03/06/25 10:16 Pulse Oximetry 98 03/06/25 10:16 Oxygen Delivery Me thod Room Air 03/06/25 10:16 MDM - Skin/Abscess/Foreign Bdy Medicial Decision Making Patient presents for the abscess is already open drainage is not needed in size we will start him on Bactrim he has no signs of sepsis he stable for discharge follow-up PCP return if worsening. No radiology studies performed this visit Discharge Plan Discharge Patient Disposition: Home Clinical Impression: Abscess Condition: Stable Prescriptions: New sulfamethoxazole-trimethoprim [Bactrim DS] 800-160 mg tablet 1 tab PO BID 10 Days Qty: 20 0RF No Action duloxetine 30 mg capsule,delayed release(DR/EC) 30 mg PO BID Qty: 60 1RF Rx Instructions: Take one capsule every morning and one in the early afternoon trazodone 150 mg tablet 150 mg PO .qhs PRN (Reason: insomnia) Qty: 30 1RF glipizide 10 mg tablet 10 mg PO DAILY Qty: 90 1RF insulin glargine [Lantus Solostar U-100 Insulin] 100 unit/mL (3 mL) insulin pen 35 unit SUBCUT BID Qty: 30 4RF (DME) Blood Glucose Test Strip See Rx Instructions .MEDSUPPLY Qty: 200 12RF Rx Instructions: check glucose TWICE daily (DME) Pen [place] See Rx Instructions .Route .MEDSUPPLY Qty: 100 0RF Rx Instructions: As directed (DME) blood-glucose meter Kit See Rx Instructions .Route Qty: 1 0RF Rx Instructions: As directed quetiapine [Seroquel XR] 150 mg tablet extended release 24 hr 150 mg PO .q hs escitalopram oxalate 20 mg tablet 20 mg PO QAM Discharge Orders: Discharge ED (Routine); Ordered 03/06/25 Ordered By: Nina Coy Referrals: Matty Toledo MD [Primary Care Provider, Family Practice] - 4-7 days Discharge Diet: Advance as tolerated Discharge Activity: Resume usual activity Patient Instructions: Abscess (ED) Print Language: Angolan Coding Level of Care Code ED Sales Representative [employer] for Shubham Avila
[2025-03-06] MEDS: HYDROcodone-acetaminophen 5-325 mg Tablet 1 TAB PO (10:54)
[2025-03-06] MEDS: sulfamethoxazole-trimeth DS 160-800 mg Tablet 1 TAB PO (10:55)
== END 2025-03-06 10:55 | disposition home or self-care (01) ==
PROVIDERS: Emergency Provider Emergency Medicine; PCP Family Medicine
DX: L02.31 Cutaneous abscess of buttock (principal); Z79.4 Long term (current) use of insulin; E11.42 Type 2 diabetes mellitus with diabetic polyneuropathy
CPT/HCPCS: 99283; J9999

== ENCOUNTER 2025-03-22 13:11 | Inpatient (IN) | payer MEDICAID, SELFPAY ==
[2025-03-11 10:12] VITALS: BP 117/68; BMI 28.5
[2025-03-22 13:13] VITALS: BMI 27.3
--- NOTE | 2025-03-22 13:14 | W.ED.PSYCHS ---
HPI - Psych General: Chief Complaint: Psychiatric Symptoms Stated Complaint: SI Time Seen by Provider: 03/22/25 13:12 History of Present Illness: 44-year-old man with a history of diabetes, depression, peripheral neuropathy and homelessness who presents emergency room by ambulance with complaints of suicidal thoughts. He says he wants to harm himself. He has no true plan. He has chronic pain that has been bothering him. Most recent admission was back in July. Related Data Home Medications ?Medication ?Instructions ?Recorded ?Confirmed quetiapine 150 mg tablet,extended 150 mg PO .q hs 02/04/25 03/22/25 release 24 hr (Seroquel XR) escitalopram oxalate 20 mg tablet 20 mg PO QAM 02/12/25 03/22/25 Previous Rx's ?Medication ?Instructions ?Recorded blood-glucose meter #1 ea 04/23/23 blood sugar diagnostic (Blood #200 ea 05/28/24 Glucose Test strips) duloxetine 30 mg capsule,delayed 30 mg PO BID #60 caps 10/15/24 release glipizide 10 mg tablet 10 mg PO DAILY #90 tabs 11/18/24 trazodone 150 mg tablet 150 mg PO .qhs PRN insomnia #30 12/14/24 tabs insulin glargine 100 unit/mL (3 35 unit (0.35 mL) SUBCUT BID #30 mL 12/21/24 mL) subcutaneous pen (Lantus Solostar U-100 Insulin) Pen [place] #100 ea 03/10/25 Allergies Allergy/AdvReac Type Severity Reaction Status Date / Time avocado Allergy Severe ALGY-Swell Verified 02/08/25 07:49 Lip/Tongue/Throat green marquez Allergy Unknown Verified 02/08/25 07:49 Review of Systems Narrative: Constitutional symptoms: Negative except as documented in HPI. Skin symptoms: Negative except as documented in HPI. Eye symptoms: Negative except as documented in HPI. ENMT symptoms: Negative except as documented in HPI. Respiratory symptoms: Negative except as documented in HPI. Cardiovascular symptoms: Negative except as documented in HPI. Gastrointestinal symptoms: Negative except as documented in HPI. Genitourinary symptoms: Negative except as documented in HPI. Musculoskeletal symptoms: Negative except as documented in HPI. Neurologic symptoms: Negative except as documented in HPI. Psychiatric symptoms: Negative except as documented in HPI. Endocrine symptoms: Negative except as documented in HPI. PFSH ED PFSH: Medical History (Updated 03/22/25 @ 14:01 by Riri Márquez MD) Inadequate housing Major depressive disorder, recurrent, severe with psychotic symptoms Psychiatric care MDD (major depressive disorder), single episode, severe Suicidal ideation Moderate tobacco use disorder Anxiety Insomnia Personality disorder, unspecified Major depressive disorder, recurrent Peripheral neuropathy Diabetes Family History Father Cancer Pancreas, liver, colon Grandfather Cancer Maternal-pancreatic Other Diabetes Liver disease Stroke Denies family history of CAD (coronary artery disease) Aneurysm Autoimmune disease Clotting disorder Dementia Hyperlipidemia Hyperthyroidism Hypothyroidism Psychiatric illness Chronic kidney disease (CKD) Bleeding disorder Lung disease Hypertension Social History Smoking and tobacco/nicotine status: never used tobacco/nicotine Alcohol intake: former Substance/Drug Use: former Date of last use: 7 months ago Lives independently: Yes Housing: Homeless Marital status: Single Highest education level completed: Some College, No Degree Current occupational status: unemployed Current occupational exposures/hazards: No Pets and animals: Yes Pets & animals: dog(s) Leisure activites: games and other Leisure activities details: watching TV Sexually active: No Do you think of yourself as: Lesbian/Acosta/Homosexual Current gender identity: Male Jeana/Worship: Episcopal Special jeana needs: No Agree to transfusion: Yes Physical Exam Narrative: EXAM NARRATIVE: General: Alert, no acute distress. Skin: Warm, dry. Head: Normocephalic, atraumatic. Neck: Supple, trachea midline. Eye: Extraocular movements are intact. Ears, nose, mouth and throat: mucosa moist. Cardiovascular: Regular, Normal peripheral perfusion. Respiratory: Lungs are clear to auscultation, respirations are non-labored, breath sounds are equal, Symmetrical chest wall expansion. Gastrointestinal: Soft, Nontender, Non distended Musculoskeletal: Normal ROM, no deformity. Neurological: Alert and oriented, No focal neurological deficit observed. Psychiatric: Cooperative, endorses suicidal thoughts Course Vital Signs: Vital signs: Vital Signs Temperature 98.4 F 03/22/25 15:01 Pulse Rate 88 03/22/25 15:01 Respiratory Rate 16 03/22/25 15:01 Blood Pressure 116/74 03/22/25 15:01 Pulse Oximetry 97 03/22/25 15:01 Oxygen Delivery Me thod Room Air 03/22/25 15:01 MDM - Psych Medical Decision Making Differential diagnosis: Patient with reported depression and suicidal ideation. concerns for infection, alcohol intoxication, cardiac issues or other medical problems prior to psychiatric admission. Workup: labwork, ekg ordered to evaluate the pathologies and to clear the patient medically prior to psychiatric admission Lab Review: Laboratory results were reviewed and interpreted by myself the emergency room physician. - Medically cleared. - EKG shows no ischemic changes. - Blood alcohol level is negative, -Tylenol and salicylate levels are negative. ?Drug screen and urinalysis are pending at admission. - No anemia. - BUN and creatinine are within normal limits. Consultation: I spoke with Dr. Laureano who is on-call for the psychiatric service who agrees to admission. Assessment and plan: Suicidal ideation Depression -Admission to neuropsychiatric unit for continued evaluation and treatment. - All lab work was reviewed and interpreted personally by myself, the ER physician - Evaluation and treatment of this problem were appropriate in the emergency setting Lab Data 03/22/25 13:31 03/22/25 13:31 Laboratory Results WBC 8.13 10^3/uL (3.29-11.43) 03/22/25 13:31 RBC 4.94 10^6/uL (3.85-5.65) 03/22/25 13:31 Hgb 14.90 g/dL (11.27-16.99) 03/22/25 13:31 Hct 44.0 % (37-53) 03/22/25 13:31 MCV 89.1 fl (82-101) 03/22/25 13:31 MCH 30.2 pg (27-33) 03/22/25 13:31 MCHC 33.9 g/dL (30-55) 03/22/25 13:31 RDW 12.3 % (12.1-15.1) 03/22/25 13:31 Plt Count 207 10^3/cmm (157-399) 03/22/25 13:31 MPV 10.6 fL (7.4-10.4) H 03/22/25 13:31 Neut % (Auto) 62.7 % 03/22/25 13:31 Lymph % (Auto) 28.3 % 03/22/25 13:31 [place] % (Auto) 6.6 % 03/22/25 13:31 Eos % (Auto) 1.4 % 03/22/25 13:31 Baso % (Auto) 0.6 % 03/22/25 13:31 Neut # (Auto) 5.10 10^3/uL (1.8-7.7) 03/22/25 13:31 Lymph # (Auto) 2.3 10^3/uL (0.8-4.8) 03/22/25 13:31 [place] # (Auto) 0.5 10^3/uL (0.2-0.9) 03/22/25 13:31 Eos # (Auto) 0.1 10^3/uL (0.0-0.8) 03/22/25 13:31 Baso # (Auto) 0.1 10^3/uL (0.0-0.1) 03/22/25 13:31 Nucleated RBC % (auto) 0 % 03/22/25 13:31 Nucleated RBCs # 0.0 /100WBC 03/22/25 13:31 Sodium 132 mmol/L (136-145) L 03/22/25 13:31 Potassium 4.3 mmol/L (3.5-5.1) 03/22/25 13:31 Chloride 93 mmol/L (98-107) L 03/22/25 13:31 Carbon Dioxide 28 mmol/L (22-29) 03/22/25 13:31 Anion Gap 15.3 (5-19) 03/22/25 13:31 BUN 7 mg/dL (6-20) 03/22/25 13:31 Creatinine 0.6 mg/dL (0.7-1.2) L 03/22/25 13:31 GFR Calculation 145.7 mL/min (90-130) H 03/22/25 13:31 Glucose 450 mg/dL (65-115) H 03/22/25 13:31 Calculated Osmolality 292 mOsm/kg (285-295) 03/22/25 13:31 Calcium 9.1 mg/dL (8.5-10.5) 03/22/25 13:31 Total Bilirubin 0.4 mg/dL (0.15-1.2) 03/22/25 13:31 AST 15 U/L (0-40) 03/22/25 13:31 ALT 18 U/L (0-41) 03/22/25 13:31 Alkaline Phosphatase 168 U/L (40-130) H 03/22/25 13:31 Total Protein 7.1 g/dL (6.6-8.7) 03/22/25 13:31 Albumin 3.8 g/dL (3.5-5.2) 03/22/25 13:31 Globulin 3.3 g/dL (1.3-4.6) 03/22/25 13:31 TSH 0.60 uIU/mL (0.27-4.20) 03/22/25 13:31 Salicylates < 0.3 mg/dL (3-10) L 03/22/25 13:31 Acetaminophen < 5.0 ug/mL (10-30) L 03/22/25 13:31 Ethyl Alcohol < 10 mg/dL (0-10) 03/22/25 13:31 No radiology studies performed this visit Discharge Plan Discharge Patient Disposition: Admitted As Inpatient Admit Provider: Chad Laureano Clinical Impression: Depression, Suicidal ideation Condition: Stable Coding Level of Care Code ED Resort Desk Clerk for Shubham Avila
--- OUTSIDE RECORDS SUMMARY | 2025-03-22 13:16 | XMS_ITS | Encounter Summary ---
Author Organization [facility] Address [address] [place] [address] Care Team Providers Care Silverware Assembler Name Role Phone Unavailable Primary Care Provider Unavailabl e Encounter Details Date Type Department Care Team (Latest Contact Info) Description 10/26/2013 Ancillary Orders [facility] Laboratory Services [place] [address] [place] [id number] Type II or unspecified type diabetes mellitus with unspecified complication, not stated as uncontrolled (CMS/[facility]) Social History Tobacco Use Types [...]
--- OUTSIDE RECORDS SUMMARY | 2025-03-22 13:16 | XMS_ITS | Clinical Summary ---
Author Organization Keara Ferrer Address [address] [facility] [address] [place] [address] Phone Care Team Providers Care Supervising Appraiser Name Role Phone Unavailable Primary Care Provider [...]
--- OUTSIDE RECORDS SUMMARY | 2025-03-22 13:16 | XMS_ITS | Encounter Summary ---
Author Organization [employer] [facility] Address [address] [place] [address] Care Team Providers Care Fretted Instrument Maker Hand Name Role Phone Unavailable Primary Care Provider Unavailabl e Encounter Details Date Type Department Care Team (Late st Contact Info) Description 01/19/2013 Ancillary Orders [facility] Laboratory Services [place] [address] [place] [address] Sick Social History Tobacco Use [...] - 4.80 uIU/mL 01/19/2013 10:08 PM CDT [facility] Blood specimen (specimen) Venipuncture - Lab Collect / Unknown 01/19/2013 8:33 PM CDT 01/19/2013 9:41 PM CDT Antwon [place] DIRECTOR REPORT CHEMISTRY ORDERABLES Final Resu lt [facility] CLIA # [id number] [address] [address] * (ABNORMAL) COMPREHENSIVE METABOLIC PANEL (01/19/2013 8:33 PM CDT) SODIUM 130(L) 136 - 145 mmol/L 01/19/2013 10:16 PM CDT [facility] POTASSIUM 3.6 3.5 - 5.1 mmol/L 01/19/2013 10:16 PM CDT [facility] CHLORIDE 93(L) 98 - 107 mmol/L 01/19/2013 10:16 PM CDT [facility] CO2 25 21 - 32 mmol/L 01/19/2013 10:16 PM CDT [facility] CALCIUM 9.0 8.5 - 10.1 mg/dL 01/19/2013 10:16 PM CDT [facility] BUN 21(H) 7 - 18 mg/dL 01/19/2013 10:16 PM CDT [facility] CREATININE 1.10 0.60 - 1.30 mg/dL 01/19/2013 10:16 PM CDT [facility] GLUCOSE 496(HH) 74 - 106 mg/dL 01/19/2013 10:16 PM T [facility] Comment: Verified by 2nd run. Critical lab values called to and read back by Toya/[facility] at 10:08 PM on 01/19/2013 by Imelda Cuevas. TOTAL PROTEIN 8.7(H) 6.4 - 8.2 g/dL 01/19/2013 10:16 PM CDT [facility] ALBUMIN 4.0 3.4 - 5.0 g/dL 01/19/2013 10:16 PM CDT [facility] BILIRUBIN TOTAL 0.3 0.2 - 1.0 mg/dL 01/19/2013 10:16 PM CDT [facility] ALKALINE PHOSPHATASE 208(H) 50 - 136 U/L 01/19/2013 10:16 PM CDT [facility] AST 4(L) 15 - 37 U/L 01/19/2013 10:16 PM CDT [facility] ALT 46 30 - 65 U/L 01/19/2013 10:16 PM CDT [facility] GFR 77 >=60 mL/min/1.7 3 sq meter 01/19/2013 10:16 PM CDT [facility] Comment: eGFR has not been validated for [...] 3 sq meter 01/19/2013 10:16 PM T [facility] Comment: eGFR has not been validated for [...] Gomez NP CHEMISTRY ORDERABLES Final Resu lt [facility] [employer] [facility] CLIA # [id number] [address] [address] * (ABNORMAL) CBC WITH DIFFERENTIAL (01/19/2013 8:33 PM CDT) WBC 10.5(H) 4.2 - 9.1 K/uL 01/19/2013 9:50 PM CDT [facility] RBC 5.77 4.63 - 6.08 M/uL 01/19/2013 9:50 PM CDT [facility] [place] HEMOGLOBIN 17.9(H) [...] - 36.5 g/dL 01/19/2013 9:50 PM CDT [facility] [place] RDW 12.3 11.0 - 14.5 % 01/19/2013 9:50 PM CDT [facility] [place] RDW-STDEV 38.2 37.0 - 54.0 fL 01/19/2013 9:50 PM CDT [facility] [place] PLATELETS 221 130 - 400 K/uL 01/19/2013 9:50 PM CDT [facility] [place] MPV 11.3 [...] - 0.82 K/uL 01/19/2013 9:50 PM CDT [facility] [place] EOSINOPHIL ABSOLUTE 0.26 0.04 - 0.54 K/uL 01/19/2013 9:50 PM CDT [facility] [place] BASOPHILS ABSOLUTE 0.02 0.01 - 0.08 K/uL 01/19/2013 9:50 PM CDT [facility] Blood specimen (specimen) Venipuncture - Lab Collect / Unknown 01/19/2013 8:33 PM CDT 01/19/2013 9:41 PM CDT Antwon Gomez NP HEMATOLOGY ORDERABLES Final Res ult Performing Organization Address [facility] Co de Phone Number [facility] [employer] [facility] CLIA # [id number] [address] [place] [phone] * (ABNORMAL) HEMOGLOBIN A1C (01/19/2013 8:33 PM CDT) HEMOGLOBIN A1C 15.2(H) 4.5 - 6.2 % 01/19/2013 10:51 PM CDT [facility] EST. AVG GLUCOSE, A1C 390 mg/dL 01/19/2013 10:51 PM CDT [facility] Blood specimen (specimen) Venipuncture - Lab Collect / Unknown 01/19/2013 8:33 PM CDT 01/19/2013 9:41 PM CDT Antwon Gomez DIRECTOR REPORT CHEMISTRY ORDERABLES Final Resu lt Performing Organization Address City/[facility]/ZIP Co de Phone Number [facility] [employer] [facility] CLIA # [id number] [address] [place] [phone] documented in this encounter Visit Diagnoses Diagnosis Sick Other unknown and unspecified cause of morbidity or mortality documented in this encounter
--- OUTSIDE RECORDS SUMMARY | 2025-03-22 13:16 | XMS_ITS | Encounter Summary ---
Author Organization [employer] [facility] Address [address] [place] [address] Care Team Providers Care Insecticide Maker Name Role Phone Unavailable Primary Care Provider Unavailabl e Encounter Details Date Type Department Care Team (Latest Contact Info) Description 12/07/2013 Ancillary Orders [facility] Laboratory Services [place] [address] [place] [id number] Type II or unspecified type diabetes mellitus with unspecified complication, not stated as uncontrolled (CMS/[facility]) Social History Tobacco Use Types [...] - 6.2 % 12/08/2013 1:03 AM CDT [facility] EST. AVG GLUCOSE, A1C 332 mg/dL 12/08/2013 1:03 AM CDT [facility] [employer] [facility] Blood 12/07/2013 11:1 9 PM CDT 12/07/2013 11:19 PM CDT Kalyani Laureano DO CHEMISTRY ORDERABLES Fi nal Result [facility] HUBERT # [id number] [address] [place] [id number] * (ABNORMAL) COMPREHENSIVE METABOLIC PANEL (12/07/2013 11:19 PM CDT) SODIUM 135(L) 136 - 145 mmol/L 12/08/2013 12:36 AM CDT [facility] POTASSIUM 3.4(L) 3.5 - 5.1 mmol/L 12/08/2013 12:36 AM CDT [facility] CHLORIDE 96(L) 98 - 107 mmol/L 12/08/2013 12:36 AM CDT [facility] CO2 28 21 - 32 mmol/L 12/08/2013 12:36 AM T [facility] CALCIUM 9.3 8.5 - 10.1 mg/dL 12/08/2013 12:36 AM T [facility] BUN 18 7 - 18 mg/dL 12/08/2013 12:36 AM T [facility] CREATININE 1.00 0.60 - 1.30 mg/dL 12/08/2013 12:36 AM T [facility] GLUCOSE 283(H) 74 - 106 mg/dL 12/08/2013 12:36 AM T [facility] TOTAL PROTEIN 8.6(H) 6.4 - 8.2 g/dL 12/08/2013 12:36 AM T [facility] ALBUMIN 3.9 3.4 - 5.0 g/dL 12/08/2013 12:36 AM CDT [facility] BILIRUBIN TOTAL 0.3 0.2 - 1.0 mg/dL 12/08/2013 12:36 AM T [facility] ALKALINE PHOSPHATASE 251(H) 50 - 136 U/L 12/08/2013 12:36 AM CDT [facility] AST 11(L) 15 - 37 U/L 12/08/2013 12:36 AM CDT [facility] ALT 28(L) 30 - 65 U/L 12/08/2013 12:36 AM CDT [employer] [facility] GFR >60 >=60 mL/min/1.7 3 sq meter 12/08/2013 12:36 AM CDT [facility] [employer] [facility] Comment: eGFR has not been validated for [...] 3 sq meter 12/08/2013 12:36 AM CDT [facility] [employer] [facility] Blood 12/07/2013 11:1 9 PM CDT 12/07/2013 11:19 PM CDT us Kalyani Laureano DO CHEMISTRY ORDERABLES Fi nal Result [facility] [employer] [facility] CLIA # [id number] [address] [place] [phone] documented in this encounter Visit Diagnoses Diagnosis Type II or unspecified type diabetes mellitus with unspecified complication, not stated as uncontrolled documented in this encounter
[2025-03-22 13:18] VITALS: BP 111/72; PULSE 88; RESP 16; TEMP 37.1; O2SAT 95
[2025-03-22 13:47] LABS: Hematocrit 44.0 % (37-53); Hemoglobin 14.90 g/dL (11.27-16.99); Mean Corpuscular HGB Conc 33.9 g/dL (30-55); Mean Corpuscular Hemoglobin 30.2 pg (27-33); Mean Corpuscular Volume 89.1 fl (82-101); Nucleated Red Blood Cells % 0 %; Platelet Count 207 10^3/cmm (157-399); Red Blood Count 4.94 10^6/uL (3.85-5.65); White Blood Count 8.13 10^3/uL (3.29-11.43)
--- NOTE | 2025-03-22 13:59 | PC.NURSE ---
Involuntary 96 hour hold right read and reviewed with patient. Patient is very tearful, but verbalized understandings. Copy of rights given to patient.
[2025-03-22 14:12] LABS: Acetaminophen < 5.0 ug/mL (10-30); Alanine Aminotransferase 18 U/L (0-41); Albumin Level 3.8 g/dL (3.5-5.2); Alcohol Level < 10 mg/dL (0-10); Alkaline Phosphatase 168 U/L (40-130); Anion Gap 15.3 (5-19); Aspartate Amino Transferase 15 U/L (0-40); Blood Urea Nitrogen 7 mg/dL (6-20); Calcium 9.1 mg/dL (8.5-10.5); Carbon Dioxide 28 mmol/L (22-29); Chloride 93 mmol/L (98-107); Creatinine Clr Calc Pharmacy 162.0691; Globulin 3.3 g/dL (1.3-4.6); Glucose 450 mg/dL (65-115); Osmolality Calculated 292 mOsm/kg (285-295); Potassium 4.3 mmol/L (3.5-5.1); Salicylate < 0.3 mg/dL (3-10); Sodium 132 mmol/L (136-145); Thyroid Stimulating Hormone 0.60 uIU/mL (0.27-4.20); Total Protein 7.1 g/dL (6.6-8.7)
--- NOTE | 2025-03-22 14:41 | PC.PHAR ---
Patient states he did have his escitalpram and trazodone but has not taken it in 2 weeks . He wanted all other medication left on his profile because that is what he is supoose to take.
[2025-03-22 15:01] VITALS: BP 116/74; PULSE 88; RESP 16; TEMP 36.9; O2SAT 97
[2025-03-22 15:22] LABS: Glucose Urine UA 3+ (Normal); Nitrate Urine Negative (Negative)
[2025-03-22 15:30] LABS: PCP Screen Urine Negative (Negative)
--- NOTE | 2025-03-22 15:34 | PC.ADMIT ---
Homeless Admission Note: The patient,Eldon Richardson,44 y/o, was given written information regarding hospital policies, unit procedures and contact persons. Patient's smoking status: never smoked. Vital Signs - 8 hr 03/22/25 13:18 03/22/25 15:01 03/22/25 15:06 Temperature 98.8 F 98.4 F Pulse Rate 88 88 Respiratory Rate 16 16 Blood Pressure 111/72 116/74 Pulse Oximetry 95 97 Oxygen Delivery Method Room Air Room Air Room Air Pt. came into ER very emotional. Pt. says he is homeless lives in his car and just became overwheelmed. Pt. states he has been falling alot, has no teeth, is a diabetic, BLE edema. Pt. has been admitted to [facility] in the past, last admission he believes was in [place] of 2024. States last suicide attempt was in 2022 by OD, has no support system.
[2025-03-22 16:32] LABS: Add Urine Microscopic? YES; Specific Gravity, Urine 1.047 (1.005-1.030); UA Manual Slide Review YES; UA Slide Review UA Slide Review Perf
[2025-03-22 20:25] VITALS: BP 129/78; PULSE 92; RESP 17; TEMP 37.3; O2SAT 98
[2025-03-22] MEDS: insulin glargine 100 units/1 mL 35 UNIT SUBCUT (20:30)
[2025-03-22] MEDS: QUETIAPINE 150 MG PO (20:30)
[2025-03-23 06:00] VITALS: BP 104/68; PULSE 96; RESP 17; TEMP 36.8; O2SAT 97
[2025-03-23] MEDS: insulin glargine 100 units/1 mL 35 UNIT SUBCUT ×2 (07:48→18:16)
--- NOTE | 2025-03-23 07:50 | P.NPUHP_ITS ---
Providers/Chief Complaint 2 Admitting Physician: Chad Laureano MD Primary Care Provider: Matty Toledo MD Chief Complaint: SI HPI NPU History of Present Illness Eldon Richardson is a 44 year old male who presented to the emergency department with the following report: Chief Complaint: Psychiatric Symptoms Stated Complaint: SI Time Seen by Provider: 03/22/25 13:12 History of Present Illness: 44-year-old man with a history of diabetes, depression, peripheral neuropathy and homelessness who presents emergency room by ambulance with complaints of suicidal thoughts. He says he wants to harm himself. He has no true plan. He has chronic pain that has been bothering him. Most recent admission was back in July. He was admitted to the neuropsychiatric unit for definitive treatment of those issues. He is known to [facility] through inpatient and outpatient services his last inpatient stay was in July of this year. An excerpt of that note is included below for context and the fact that there are no substantive changes. Except for the fact that he is homeless again. He presents with a UDS positive for cannabis reporting that he has been doing okay but had been staying [facility] and that his time there ran out and now he is homeless living in his car feeling very depressed and wanting to just end it. The entirety of the conversation took place as he was crying about his circumstances. He would cry about any recommendation I would make saying that it was no use and he should just . We discussed working with the social work team to identify resources. Plus he identified that he had not been taking his medication and so he was struggling emotionally. We discussed the risks, benefits and alternatives of restarting his medications appropriately and he understood and agreed to proceed as is documented in this note. Per his 08/13/2024 [facility] inpatient psychiatric discharge summary: Discharge Diagnosis (1) MDD (major depressive disorder), single episode, severe: Status: Inactive (2) ANGEL (generalized anxiety disorder): Status: Chronic (3) Suicidal ideation: Status: Resolved (4) Hyperglycemia: Status: Resolved (5) Diabetes: Status: Chronic Qualifiers: Diabetes mellitus complication detail: with nephropathy Diabetes mellitus half-way insulin use: with termite control servicer use (6) Personality disorder, unspecified: Status: Acute Reason for Visit Reason for Visit: 96 Brief History: History of Present Illness Eldon Richardson is a 44 year old male who presented to the emergency department with the following report: Chief Complaint: Psychiatric Symptoms Stated Complaint: 96 Time Seen by Provider: 08/07/24 13:05 History of Present Illness: This is a 44-year-old man with a history of anxiety, diabetes who presents to the emergency room on a 96-hour court ordered hold. Martitadarinel says that he has poor living conditions. Apparently he got aggressive towards people and told neighbors that they cannot stop him from coming into their home. They are worried about his physical wellbeing. That he has been falling. That he has not been washing his close. Apparently he lives on their land and they told him to move and get off the land and so hold was placed on him and he was sent to the emergency room. He denies any homicidal or suicidal ideations. He was admitted to the neuropsychiatric unit for definitive treatment of those issues. He is known to [facility] through inpatient and outpatient services. His last psychiatric evaluation inpatient was in 2023. He presents today reporting that things have been going really well since his discharge about 14 months ago. He reports that he has a stable though less than desirable living arrangement which is probably the heart of the admission. He reports that there was some change in how his landlord wanted access to a certain building manage and he says that she misinterpreted a comment he made. He reports that he made some comment about being able to cook on his propane stove that he has for capping if he did not have access to the building that he believes she thought he was saying that he might blow the place up. He reports that his medications have been working well that he has been following up as directed at [facility] for medication and other treatment. He denies any need to be here or any need for medication changes. We discussed the fact that he is on a 96-hour hold and we need to vet the situation to make sure that he is safe for discharge. We agreed we would get collateral information and that there would be the possibility of discharge earlier than the end of his 96-hour hold but likely at earliest Saturday. Per his 06/20/2023 [facility] inpatient psychiatric discharge summary: Discharge Diagnosis (1) MDD (major depressive disorder), single episode, severe: Status: Inactive (2) Overdose on Tylenol: Status: Acute (3) ANGEL (generalized anxiety disorder): Status: Acute (4) Suicidal ideation: Status: Resolved (5) Hyperglycemia: Status: Resolved (6) Diabetes: Status: Acute (7) Personality disorder, unspecified: Status: Acute Reason for Visit Reason for Visit: overdose Brief History: History of Present Illness Eldon Richardson is a 43 year old male Recently discharged from the neuropsychiatric unit on 04/23/2023 with suicidal ideation who was admitted to the intensive care unit after the patient had taken 6 aspirin, multiple Tylenol pills along with several pills of 25 mg of Benadryl. The patient had been given N-acetylcysteine in the intensive care unit and had potentially ingested up to 15 g of Tylenol. The patient upon evaluation in the ICU appeared distraught and stated that he has been feeling hopeless and that he had reached out to a few of his friends to let them know through phone text that he had appreciated them and that he was planning on ending his life. He had reported no improvement with his depression since his last hospitalization. Patient had reported that he had been thinking about killing himself for the past several weeks. He had continued to report feelings of hopelessness. He reports that he has been more depressed over the past 13 months since his mother had suddenly. He reports low energy and he Trudy insomnia with frequent awakenings at night. He reports that he has been more tearful. He reports continued lack of social supports and states that he frequently feels let down by others. He states that he has been crying nearly every day. He reports that he is often overwhelmed by worry and states that he has difficulties with concentration and reports often being paralyzed by inactivity. He reports that he feels that that his worry is out of control. He reports that the holidays had been worse for him as he had felt alone and reports that he continues to grieve his mother's . He had reported compliance with Prozac but stated that the medication had been unsuccessful at helping with his mood at the dose of 20 mg daily. He had reported that he had recently lost a job in January and reports that he has been concerned that he may lose the house that he owns currently. He denies any history of yuan. He denied any history of psychosis. He minimized any drug or alcohol use other than marijuana use. The patient's urine was positive for amphetamine. Inpatient psychiatric history: 1 previous hospitalization in April 2023. There had been previous Outpatient psychiatric history: He has not received psychotherapy services but has been seen through the crisis team through [facility]. Current psychiatric medications are being monitored under Dr. Seals who is his primary care physician. Current medications: Prozac 20 mg daily, hydroxyzine, insulin, metformin, trazodone Drug and alcohol history: None reported with no prior history of substance abuse treatment. He reports he has been using marijuana on a regular basis for years. Legal history: Unknown family psychiatric history: None reported medical history: Diabetes type 2., diabetic neuropathy allergies: No known drug allergies social history: Patient grew up in [place]. He is the only product of his mother and father. He states that his mother had been multiple times. He had reported that he had apparently tried to harm himself as a child but did not elaborate. He states that he moved to [place] and has never been . He has no children. He reports having a few friends and reports that he has a dog that he describes as his best friend. He had previously worked a variety of jobs and had worked at [employer] for several years but lost his job in January. He reports having half-siblings that he has little contact with. He states that his mother had 14 months ago suddenly and reports that his depression has begun after that period time. suicide attempts by medication overdose. Excerpt NPU Discharge summary from 04/19/23 Discharge Diagnosis (1) Suicidal ideation: Status: Resolved (2) Hyperglycemia: Status: Acute (3) Diabetes: Status: Acute (4) Major depressive disorder, recurrent: Status: Acute (5) Personality disorder, unspecified: Status: Acute Reason for Visit SI Brief History: History of Present Illness Hany Richardson is a 43 year old male who presented to the emergency department with the following report: Chief Complaint: Psychiatric Symptoms Stated Complaint: SI Time Seen by Provider: 04/19/23 08:55 Source: patient and other (family friend) Mode of arrival: ambulatory Limitations: no limitations History of Present Illness: Patient is a 43-year-old male who presents to ED today after being brought by a family friend for concerns of suicidal ideations. Family friend states that she was contacted early this morning by patient asking her if she would take his dog. When she questioned further, he stated that he was suicidal and had a plan to kill himself this morning. She quickly rushed to his house and convinced him to come to the emergency department for evaluation. On exam patient is sobbing stating that he feels like he has lost everything. He states he lost his mother approximately a year ago. He lost his job a few months ago secondary to untreated mental health illness/anxiety. Patient states he has never seen a psychiatrist or medical health provider. He lives alone currently with his dog, Gisel. Patient states last month he attempted suicide by medication overdose. Of note he states he has not been to a medical provider in years but states he has untreated type II diabetes. Was on Gabapentin one time due to his peripheral neuropathy but states it didn't help. MD complaint: suicidal ideation and feels depressed History of same: Yes Relieving factors: none Context: significant life stressor (lost mother a year ago/lost job a few months ago) Associated psychiatric symptoms: depression and suicidal ideation Associated symptoms: Reports depression and suicidal ideation; Deny auditory hallucinations, visual hallucinations or homicidal ideation Treatments prior to arrival: none If self harm: admits thoughts of self harm He was admitted to the neuropsychiatric unit for definitive treatment of those issues. He was initially seen this morning as part of a eiey-di-hhae after a seclusion episode where he lost emotional control saying that he needed to go see his dog which she given to someone initially with a plan to kill himself. There was nothing anyone can say to calm him to a rational level and this escalated to him needing to be held and he was given an injection. Shortly thereafter when I went to speak to him he was lethargic secondary to the injections but was able to arouse himself to answer some questions. He continued to focus on going to see his dog and seem to forget that he had made arrangements for the pet. He was suggesting that the dog was in some danger and we did make a call and verify that he infected given that to some apparently responsible people who are reportedly taking good care of it and they advised that the pet would be just fine in their home and that he should remain here and get the help that he needs. He did not seem to take that information with much recognition of its significance. And continued to be quite emotional surrounding the dog. He was able to share that he is had a long history of mental health issues and depression that has been essentially untreated with a reported lack of history of any medication. He reports that he was willing to begin Prozac 20 mg p.o. daily after discussion of the risks, benefits and alternatives he understood and agreed to proceed as is documented in this note. Attempts were made to get more accurate picture of exactly why he was overwhelmed but he mostly Marshall rolled around in the bed lamenting about not being with his dog and not really answering the questions with any clarity. He could not give any nidus for his suicidality just reporting that he was not feeling like himself. He denied any drug use other than the marijuana and his UDS was only positive for cannabis. Hospital Course He slowly acclimated to the individual, group and milieu therapies provided. He presented with a significant conflict with the person on his property he lives. He continued to endorse that this was just a mixup but further exploration suggested that he may have overstepped his balance. The lady was not open to him returning and so he was very sad and struggled for several days as he was very happy where he was living. We restarted his medications including medications for his diabetes. He did well with the medications and had no difficulties. He denied any need for changing any of his psychiatric medications which we maintained at the current dose. He had a positive response to his medications. He denied any side effects of the medication during his stay. He worked with the social work team for appropriate aftercare appointments including assistance with residential arrangements. He had significant improvement and was able to contract for safety outside of the hospital prior to discharge. During the hospitalization, the patient had routine laboratory studies which were within normal limits except for a few outliers. Additionally, there was a general medical evaluation which was also within normal limits and revealed no new acute processes except for those treated by hospitalists on the medical side. At the time of discharge, he denied psychosis or lethality. Mood and anxiety were well managed. The patient endorsed a plan to avoid all drugs of abuse and follow up with the aftercare recommendations of the treatment team. The patient was evaluated and deemed to be absent credible lethality and had achieved the maximum benefit from an inpatient hospitalization, and so was discharged. Meds NPU Home Medications ?Medication ?Instructions ?Recorded ?Confirmed ?Last Taken ?Type blood-glucose meter #1 ea 04/23/23 03/22/25 Unkn own Rx blood sugar diagnostic (Blood #200 ea 05/28/24 5 Unknown Rx Glucose Test strips) duloxetine 30 mg capsule,delayed 30 mg PO BID #60 caps 10/15/24 03/22/25 02/06/25 Rx release glipizide 10 mg tablet 10 mg PO DAILY #90 tabs 10/0903/22/25 02/03/25 Rx trazodone 150 mg tablet 150 mg PO .qhs PRN insomnia #30 12/14/24 03/22/25 02/03/25 Rx tabs insulin glargine 100 unit/mL (3 35 unit (0.35 mL) SUBC UT BID #30 mL 12/21/24 03/22/25 02/06/25 Rx mL) subcutaneous pen (Lantus Solostar U-100 Insulin) quetiapine 150 mg tablet,extended 150 mg PO .q hs 01/1603/22/25 02/03/25 History release 24 hr (Seroquel XR) escitalopram oxalate 20 mg tablet 20 mg PO QAM 5 03/22/25 Unknown History Pen La Sal #100 ea 03/10/25 03/22/25 Un known Rx Allergies Allergy/AdvReac Type Severity Reaction Status Date / Time avocado Allergy Severe ALGY-Swell Verified 02/08/25 07:49 Lip/Tongue/Throat green marquez Allergy Unknown Verified 02/08/25 07:49 PFSH NPU 2 PFSH: Medical History (Updated 03/22/25 @ 14:01 by Riri Márquez MD) Inadequate housing Major depressive disorder, recurrent, severe with psychotic symptoms Psychiatric care MDD (major depressive disorder), single episode, severe Suicidal ideation Moderate tobacco use disorder Anxiety Insomnia Personality disorder, unspecified Major depressive disorder, recurrent Peripheral neuropathy Diabetes Family History Father Cancer Pancreas, liver, colon Grandfather Cancer Maternal-pancreatic Other Diabetes Liver disease Stroke Denies family history of CAD (coronary artery disease) Aneurysm Autoimmune disease Clotting disorder Dementia Hyperlipidemia Hyperthyroidism Hypothyroidism Psychiatric illness Chronic kidney disease (CKD) Bleeding disorder Lung disease Hypertension Social History Smoking and tobacco/nicotine status: never used tobacco/nicotine Alcohol intake: former Substance/Drug Use: former Date of last use: 7 months ago Lives independently: Yes Housing: Homeless Marital status: Single Highest education level completed: Some College, No Degree Current occupational status: unemployed Current occupational exposures/hazards: No Pets and animals: Yes Pets & animals: dog(s) Leisure activites: games and other Leisure activities details: watching TV Sexually active: No Do you think of yourself as: Lesbian/Acosta/Homosexual Current gender identity: Male Jeana/Hindu: Adventist Special jeana needs: No Agree to transfusion: Yes Mental Status Exam 2 MSE Comments: This is a well-nourished well-developed white male in hospital scrubs looking older than his stated age with improving grooming and adequate eye contact. No abnormal movements except for psychomotor agitation. He was cooperative with exam and was i in extreme distress. Speech was mostly normal rate and volume. Mood described as depressed and anxious, his affect appearing congruent and tearful with significant sobbing. Thought process was linear, logical. Thought content: Patient endorsed suicidal but denied homicidal ideation. There were no delusions reported or noted. He denied any auditory or visual hallucinations and did not appear to be responding to internal stimuli. Attention and concentration appeared intact and memory appeared intact but none were formally tested.. He is alert and oriented x 3. His insight, judgment and impulse control are all impaired. Vitals/I&O/Wt Last Vital Signs Temp 98.2 F 03/23/25 06:00 Pulse 96 03/23/25 06:00 Resp 17 03/23/25 06:00 BP 104/68 03/23/25 06:00 Pulse Ox 97 03/23/25 06:00 O2 Del Method Room Air 03/23/25 06:00 03/22/25 03/23/25 03/23/25 22:59 06:59 14:59 Intake Total 240 / 240 Balance 240 / 240 Weight last 48 hrs Weight 81.647 kg Data NPU 03/22/25 13:31 03/22/25 13:31 A&P Assessment and plan 1. MDD (major depressive disorder), single episode, severe: 2. ANGEL (generalized anxiety disorder): 3. Suicidal ideation: 4. Hyperglycemia: 5. Diabetes: 6. Personality disorder, unspecified: Plan: This is a 44-year-old white male with a history of ANGEL and MDD severe with last hospitalization 8 months ago when he was admitted secondary to being kicked out of a makeshift living arrangement where he had been taken in by woman who let him say that she had but she felt he was overstepping his bounds and he was struggling with being homeless. He returns with the issue of homelessness being a significant piece of the story but he also has been without his medication for some time. 1. Restart medications. 2. Encourage individual, group and milieu therapies. 3. Continue every 15 minute checks for safety. 4. Encourage sober living treatment after discharge at the highest level of care to which he is willing to commit. However his UDS was positive for cannabis. 5. Evaluate against the backdrop of the 96-hour hold for safety. 6. He is once again homeless now that his time at [facility] has run out. PDMP PDMP Reviewed: Not Reviewed Involuntary Hold Information 2 Hold Status: Legal Status: 96 Hour Hold Date/Time Hold Expires: 03/26/2025 @ 1320 96 Hour Hold: 96 Hour Involuntary Admission: Yes Attestations NPU 2 Medical Necessity Statement*: Inpatient psychiatric hospitalization is medically necessary and the clinically appropriate intervention at this time. We will monitor/initiate medications and make changes as indicated. He will be in the psychiatric unit for over 2 midnights. His likely length of stay 5-7/initiate days. Coding Level of Care Code Acute Code for g Fwd Diagnoses MDD (major depressive disorder), single episode, severe F32.2 ANGEL (generalized anxiety disorder) F41.1 Suicidal ideation R45.851 Hyperglycemia R73.9 Diabetes E11.9 Diabetes mellitus complication detail: with nephropathy Diabetes mellitus termite control servicer insulin use: with half-way use Personality disorder, unspecified F60.9
[2025-03-23 13:51] VITALS: BP 110/68; PULSE 80; RESP 16; TEMP 36.9; O2SAT 94
[2025-03-23 19:44] VITALS: BP 116/72; PULSE 83; RESP 16; TEMP 37; O2SAT 95
[2025-03-23] MEDS: QUETIAPINE 150 MG PO (20:29)
[2025-03-24 06:00] VITALS: BP 94/63; PULSE 98; RESP 15; TEMP 36.7; O2SAT 97
--- NOTE | 2025-03-24 09:17 | NUR.SHIFT ---
Pt states that he was cold all night when I asked how he slept all night. He rates his anxiety a 9/10 and depression a 9/10, he is tearful when I ask him these questions. No reports of HI or hallucinations. He does endore SI, but states he has no plan. He reports his gallbladder is bothering him and that he was supposed to have already had that removed, but they wouldn't do the surgery because he is homeless and didn't have a place to safely recover. Encouraged pt to get up and go take a shower.
[2025-03-24] MEDS: insulin glargine 100 units/1 mL 35 UNIT SUBCUT ×2 (10:04→17:26)
--- NOTE | 2025-03-24 12:47 | P.NPUPN_ITS ---
Subjective NPU 2 Subjective: Patient presented today reporting that he doing okay with the initiation of of his medication and thought about his circumstance and situation outside of the hospital. We discussed the importance of working with the social work team to determine what the possibilities are moving forward and crossing bridges when we come to them instead of his current catastrophizing approach. Staff reports this dramatic presentation and reports of sadness and lethality which was also observed and direct communication. He denied any side effects to the medication. Mental Status Exam 2 MSE Comments: This is a well-nourished well-developed white male in hospital scrubs looking older than his stated age with improving grooming and adequate eye contact. No abnormal movements except for psychomotor agitation. He was cooperative with exam and was i in extreme distress. Speech was mostly normal rate and volume. Mood described as depressed and anxious, his affect appearing congruent and tearful with significant sobbing. Thought process was linear, logical. Thought content: Patient endorsed suicidal but denied homicidal ideation. There were no delusions reported or noted. He denied any auditory or visual hallucinations and did not appear to be responding to internal stimuli. Attention and concentration appeared intact and memory appeared intact but none were formally tested.. He is alert and oriented x 3. His insight, judgment and impulse control are all impaired. Vitals/I&O/Wt Last Vital Signs Temp 98.1 F 03/24/25 06:00 Pulse 98 03/24/25 06:00 Resp 15 03/24/25 06:00 BP 94/63 03/24/25 06:00 Pulse Ox 97 03/24/25 06:00 O2 Del Method Room Air 03/24/25 06:00 Weight last 48 hrs Weight 81.647 kg Data NPU 03/22/25 13:31 03/22/25 13:31 A&P Assessment and plan 1. MDD (major depressive disorder), single episode, severe: 2. ANGEL (generalized anxiety disorder): 3. Suicidal ideation: 4. Hyperglycemia: 5. Diabetes: 6. Personality disorder, unspecified: Plan: This is a 44-year-old white male with a history of ANGEL and MDD severe with last hospitalization 8 months ago when he was admitted secondary to being kicked out of a makeshift living arrangement where he had been taken in by woman who let him say that she had but she felt he was overstepping his bounds and he was struggling with being homeless. He returns with the issue of homelessness being a significant piece of the story but he also has been without his medication for some time. 1. Restart medications. 2. Encourage individual, group and milieu therapies. 3. Continue every 15 minute checks for safety. 4. Encourage sober living treatment after discharge at the highest level of care to which he is willing to commit. However his UDS was positive for cannabis. 5. Evaluate against the backdrop of the 96-hour hold for safety. 6. He is once again homeless now that his time at [facility] has run out. PDMP PDMP Reviewed: Not Reviewed Involuntary Hold Information 2 Hold Status: Legal Status: 96 Hour Hold Date/Time Hold Expires: 03/26/2025 @ 1320 96 Hour Hold: 96 Hour Involuntary Admission: Yes Attestations NPU 2 Medical Necessity Statement*: Inpatient psychiatric hospitalization is medically necessary and the clinically appropriate intervention at this time. We will monitor/initiate medications and make changes as indicated. Patient likely length of stay 4-6 days. Coding Level of Care Code Acute Code for [facility] Fwd Diagnoses MDD (major depressive disorder), single episode, severe F32.2 ANGEL (generalized anxiety disorder) F41.1 Suicidal ideation R45.851 Hyperglycemia R73.9 Diabetes E11.9 Diabetes mellitus complication detail: with nephropathy Diabetes mellitus [facility] insulin use: with underwater photographer use Personality disorder, unspecified F60.9
[2025-03-24 14:00] VITALS: BP 78/47; PULSE 86; RESP 16; TEMP 36.8; O2SAT 93
[2025-03-24] MEDS: QUETIAPINE 150 MG PO (20:05)
[2025-03-24 20:08] VITALS: BP 106/68; PULSE 94; RESP 17; TEMP 36.9; O2SAT 96
[2025-03-25 06:00] VITALS: BP 103/61; PULSE 100; RESP 18; TEMP 36.7; O2SAT 97
--- NOTE | 2025-03-25 07:55 | W.PM.NPUPNS ---
Subjective NPU Subjective: Patient presented to the assessment once again lying in bed with the blankets pulled up over most of him. 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 He reports he is doing a little better and is in a little less pain. He continues to be sad and resistant to some levels of engagement but reporting a desperate need for our assistance in his situation especially his homelessness. He was appreciative of having his medications and denied any side effects. Mental Status Exam MSE Comments: This is a well-nourished well-developed white male in hospital scrubs looking older than his stated age with improving grooming and adequate eye contact. No abnormal movements except for psychomotor agitation. He was cooperative with exam and was i in extreme distress. Speech was mostly normal rate and volume. Mood described as depressed and anxious, his affect appearing congruent and tearful with significant sobbing. Thought process was linear, logical. Thought content: Patient endorsed suicidal but denied homicidal ideation. There were no delusions reported or noted. He denied any auditory or visual hallucinations and did not appear to be responding to internal stimuli. Attention and concentration appeared intact and memory appeared intact but none were formally tested.. He is alert and oriented x 3. His insight, judgment and impulse control are all impaired. Vitals/I&O/Wt Last Vital Signs Temp 98.0 F 03/25/25 06:00 Pulse 100 03/25/25 06:00 Resp 18 03/25/25 06:00 BP 103/61 03/25/25 06:00 Pulse Ox 97 03/25/25 06:00 O2 Del Method Room Air 03/25/25 06:00 Data NPU 03/22/25 13:31 03/22/25 13:31 A&P Assessment and plan 1. MDD (major depressive disorder), single episode, severe: 2. ANGEL (generalized anxiety disorder): 3. Suicidal ideation: 4. Hyperglycemia: 5. Diabetes: 6. Personality disorder, unspecified: Plan: This is a 44-year-old white male with a history of ANGEL and MDD severe with last hospitalization 8 months ago when he was admitted secondary to being kicked out of a makeshift living arrangement where he had been taken in by woman who let him say that she had but she felt he was overstepping his bounds and he was struggling with being homeless. He returns with the issue of homelessness being a significant piece of the story but he also has been without his medication for some time. 1. Restart medications. 2. Encourage individual, group and milieu therapies. 3. Continue every 15 minute checks for safety. 4. Encourage sober living treatment after discharge at the highest level of care to which he is willing to commit. However his UDS was positive for cannabis. 5. Evaluate against the backdrop of the 96-hour hold for safety. 6. He is once again homeless now that his time at [facility] has run out. PDMP PDMP Reviewed: Not Reviewed Involuntary Hold Information Hold Status: Legal Status: 96 Hour Hold Date/Time Hold Expires: 03/26/2025 @ 1320 96 Hour Hold: 96 Hour Involuntary Admission: Yes Attestations NPU Medical Necessity Statement*: Inpatient psychiatric hospitalization is medically necessary and the clinically appropriate intervention at this time. We will monitor/initiate medications and make changes as indicated. Patient likely length of stay 3-5 days. Coding Level of Care Code Acute Code for [facility] Fwd Diagnoses MDD (major depressive disorder), single episode, severe F32.2 ANGEL (generalized anxiety disorder) F41.1 Suicidal ideation R45.851 Hyperglycemia R73.9 Diabetes E11.9 Diabetes mellitus complication detail: with nephropathy Diabetes mellitus group home insulin use: with group home use Personality disorder, unspecified F60.9
[2025-03-25] MEDS: insulin glargine 100 units/1 mL 35 UNIT SUBCUT ×2 (08:40→17:25)
[2025-03-25 13:47] VITALS: BP 118/80; PULSE 84; RESP 17; TEMP 36.9; O2SAT 95
[2025-03-25 20:15] VITALS: BP 97/60; PULSE 101; RESP 18; TEMP 36.9; O2SAT 96
[2025-03-25] MEDS: QUETIAPINE 150 MG PO (21:32)
[2025-03-26 06:00] VITALS: BP 94/68; PULSE 94; RESP 18; TEMP 37.1; O2SAT 96
[2025-03-26] MEDS: insulin glargine 100 units/1 mL 35 UNIT SUBCUT ×2 (07:36→17:20)
--- NOTE | 2025-03-26 10:50 | CT_ITS ---
WS: [id number] CT HEAD TECHNIQUE: Noncontrast CT of the head obtained from the skullbase to the vertex. CLINICAL INFORMATION: fall COMPARISON: None. DLP: 1196.[address] scans at [facility] use at least one of these dose optimization techniques: automated exposure control; mA and/or kV adjustment per patient size (includes targeted exams where dose is matched to clinical indication); or iterative reconstruction. FINDINGS: No evidence of intracranial hemorrhage or mass effect. Ventricular system and basal cisterns are patent. No extra-axial fluid collections. No evidence of mass or mass effect. Normal pierre-white differentiation. Paranasal sinuses are well aerated. Mild mucosal thickening RIGHT mastoid tip. LEFT mastoid air cells are well aerated. CT/CT head wo con* [id number] IMPRESSION: 1. No evidence of intracranial hemorrhage or mass effect. 2. No acute intracranial findings.
[2025-03-26 10:51] VITALS: BP 102/70; PULSE 104; RESP 20; TEMP 37.1; O2SAT 97
--- NOTE | 2025-03-26 10:57 | XRR_ITS ---
PROCEDURE INFORMATION: Exam: XR Left Knee Exam date and time: 03/26/2025 1:38 PM Age: 44 years old Clinical indication: Injury or trauma; Fall; Blunt trauma; Knee; Left; Additional info: PT slipped fell on L side (arm leg knee) TECHNIQUE: Imaging protocol: Radiologic exam of the left knee. Views: 1 or 2 views. COMPARISON: No relevant prior studies available. FINDINGS: Bones/joints: Normal. Soft tissues: Vascular calcifications are present in the thigh and calf. XR/XR knee LT 1-2V [id number] IMPRESSION: No acute findings.
--- NOTE | 2025-03-26 11:01 | PC.NURSE ---
Approximately 1048 staff heard a loud thud in the hallway and the pt groaning. Staff immediately responded and found the pt on the floor on his L side near his room door. Pt stated he fell and hit his L side head / arm / leg on the floor. Pt evaluated and there were no signs of bleeding/redness. Vital signs were taken and as follows BP 102/70 P104 RR20 O297% RA and Temp98.7. Blood glucose was taken and was 184. Pt stated I sometimes have a hard time feeling my feet and I tripped over my socks because they are floppy . Pt helped up to his bed / new smaller socks placed on pt / Pt was given a fall risk bracelet & a fall bryce was placed in pt room. Per Dr. Laureano, verbal orders were given for a CT of head & X-ray of L elbow/forearm/wrist & knee. Pt is now sitting in room on bed w/ no signs of distress noted / RR even and unlabored.
[2025-03-26 14:00] VITALS: BP 110/70; PULSE 100; RESP 18; TEMP 37; O2SAT 98
--- NOTE | 2025-03-26 19:41 | P.NPUPN_ITS ---
Subjective NPU 2 Subjective: Patient presented today reporting that he is finally starting to feel a tiny bit better. He reports that he maybe slept a little better but otherwise is feeling some mild improvement. For the first time he reported having some level of optimism that his work with the social work team might yield a functional outcome. He reported that the medications are starting to make a difference and he was thankful for that. He denied any side effects to the medication and reported a continued commitment to his recovery and finding stable housing. Mental Status Exam 2 MSE Comments: This is a well-nourished well-developed white male in hospital scrubs looking older than his stated age with improving grooming and adequate eye contact. No abnormal movements except for mild psychomotor agitation. He was cooperative with exam and was in mild distress. Speech was mostly normal rate and volume. Mood described as starting to feel a little better, his affect appearing congruent. Thought process was linear, logical. Thought content: Patient denied suicidal or current homicidal ideation. There were no delusions reported or noted. He denied any auditory or visual hallucinations and did not appear to be responding to internal stimuli. Attention and concentration appeared intact and memory appeared more reliable but none were formally tested. He is alert and oriented x 3. His insight, judgment and impulse control are limited but improving. Vitals/I&O/Wt Last Vital Signs Temp 98.6 F 03/26/25 14:00 Pulse 100 03/26/25 14:00 Resp 18 03/26/25 14:00 BP 110/70 03/26/25 14:00 Pulse Ox 98 03/26/25 14:00 O2 Del Method Room Air 03/26/25 06:00 Data NPU 03/22/25 13:31 03/22/25 13:31 A&P Assessment and plan 1. MDD (major depressive disorder), single episode, severe: 2. ANGEL (generalized anxiety disorder): 3. Suicidal ideation: 4. Hyperglycemia: 5. Diabetes: 6. Personality disorder, unspecified: Plan: This is a 44-year-old white male with a history of ANGEL and MDD severe with last hospitalization 8 months ago when he was admitted secondary to being kicked out of a makeshift living arrangement where he had been taken in by woman who let him say that she had but she felt he was overstepping his bounds and he was struggling with being homeless. He returns with the issue of homelessness being a significant piece of the story but he also has been without his medication for some time. 1. Restarted medications. 2. Encourage individual, group and milieu therapies. 3. Continue every 15 minute checks for safety. 4. Encourage sober living treatment after discharge at the highest level of care to which he is willing to commit. However his UDS was positive for cannabis. 5. Evaluate against the backdrop of the 96-hour hold for safety. 6. He is once again homeless now that his time at [facility] [place] run out. 7. Patient had a fall and received that CT of his head and knee without incident. PDMP PDMP Reviewed: Not Reviewed Involuntary Hold Information 2 Hold Status: Legal Status: 96 Hour Hold Date/Time Hold Expires: 03/26/2025 @ 1320 96 Hour Hold: 96 Hour Involuntary Admission: Yes Attestations NPU 2 Medical Necessity Statement*: Inpatient psychiatric hospitalization is medically necessary and the clinically appropriate intervention at this time. We will monitor/initiate medications and make changes as indicated. Patient likely length of stay 2-4 days. Coding Level of Care Code Acute Code for g Fwd Diagnoses MDD (major depressive disorder), single episode, severe F32.2 ANGEL (generalized anxiety disorder) F41.1 Suicidal ideation R45.851 Hyperglycemia R73.9 Diabetes E11.9 Diabetes mellitus complication detail: with nephropathy Diabetes mellitus care home insulin use: with terminal supervisor use Personality disorder, unspecified F60.9
[2025-03-26 20:28] VITALS: BP 106/66; PULSE 109; RESP 18; TEMP 36.8; O2SAT 97
[2025-03-26] MEDS: QUETIAPINE 150 MG PO (20:37)
[2025-03-27 06:00] VITALS: BP 96/60; PULSE 98; RESP 16; TEMP 36.8; O2SAT 94
[2025-03-27] MEDS: insulin glargine 100 units/1 mL 35 UNIT SUBCUT ×2 (08:54→17:42)
[2025-03-27 13:08] VITALS: BP 103/78; PULSE 98; RESP 20; TEMP 37; O2SAT 94
--- NOTE | 2025-03-27 16:13 | P.NPUPN_ITS ---
Subjective NPU 2 Subjective: Patient presented today reporting that he is doing fine. He reports that his insulin can be painful because he takes so many units at once. Otherwise he continues to focus on making sure he has a reasonable place to go when he discharges. He reports he is doing fine on his medication and denied any side effects. Mental Status Exam 2 MSE Comments: This is a well-nourished well-developed white male in hospital scrubs looking older than his stated age with improving grooming and adequate eye contact. No abnormal movements except for mild psychomotor agitation. He was cooperative with exam and was in mild distress. Speech was mostly normal rate and volume. Mood described as starting to feel a little better, his affect appearing congruent. Thought process was linear, logical. Thought content: Patient denied suicidal or current homicidal ideation. There were no delusions reported or noted. He denied any auditory or visual hallucinations and did not appear to be responding to internal stimuli. Attention and concentration appeared intact and memory appeared more reliable but none were formally tested. He is alert and oriented x 3. His insight, judgment and impulse control are limited but improving. Vitals/I&O/Wt Last Vital Signs Temp 98.6 F 03/27/25 13:08 Pulse 98 03/27/25 13:08 Resp 20 H 03/27/25 13:08 BP 103/78 03/27/25 13:08 Pulse Ox 94 03/27/25 13:08 O2 Del Method Room Air 03/27/25 13:08 03/27/25 03/27/25 03/27/25 06:59 14:59 22:59 Intake Total 240 / 240 Balance 240 / 240 Data NPU 03/22/25 13:31 03/22/25 13:31 A&P Assessment and plan 1. MDD (major depressive disorder), single episode, severe: 2. ANGEL (generalized anxiety disorder): 3. Suicidal ideation: 4. Hyperglycemia: 5. Diabetes: 6. Personality disorder, unspecified: Plan: This is a 44-year-old white male with a history of ANGEL and MDD severe with last hospitalization 8 months ago when he was admitted secondary to being kicked out of a makeshift living arrangement where he had been taken in by woman who let him say that she had but she felt he was overstepping his bounds and he was struggling with being homeless. He returns with the issue of homelessness being a significant piece of the story but he also has been without his medication for some time. 1. Restarted medications. 2. Encourage individual, group and milieu therapies. 3. Continue every 15 minute checks for safety. 4. Encourage sober living treatment after discharge at the highest level of care to which he is willing to commit. However his UDS was positive for cannabis. 5. Evaluate against the backdrop of the 96-hour hold for safety. 6. He is once again homeless now that his time at [facility] has run out. 7. Patient had a fall and received that CT of his head and knee without incident. PDMP PDMP Reviewed: Not Reviewed Involuntary Hold Information 2 Hold Status: Legal Status: 96 Hour Hold Date/Time Hold Expires: 03/26/2025 @ 1320 96 Hour Hold: 96 Hour Involuntary Admission: Yes Attestations NPU 2 Medical Necessity Statement*: Inpatient psychiatric hospitalization is medically necessary and the clinically appropriate intervention at this time. We will monitor/initiate medications and make changes as indicated. Patient likely length of stay 2-4 days. Coding Level of Care Code Acute Code for g Fwd Diagnoses MDD (major depressive disorder), single episode, severe F32.2 ANGEL (generalized anxiety disorder) F41.1 Suicidal ideation R45.851 Hyperglycemia R73.9 Diabetes E11.9 Diabetes mellitus complication detail: with nephropathy Diabetes mellitus senior living insulin use: with senior living use Personality disorder, unspecified F60.9
[2025-03-27 19:57] VITALS: BP 106/67; PULSE 106; RESP 18; TEMP 37; O2SAT 96; BMI 27.6
[2025-03-27] MEDS: QUETIAPINE 150 MG PO (21:16)
[2025-03-28 06:00] VITALS: BP 89/58; PULSE 98; RESP 17; TEMP 36.8; O2SAT 96
[2025-03-28] MEDS: insulin glargine 100 units/1 mL 35 UNIT SUBCUT ×2 (08:49→17:23)
[2025-03-28 13:55] VITALS: BP 115/72; PULSE 99; RESP 15; TEMP 36.7; O2SAT 99
--- NOTE | 2025-03-28 14:43 | P.NPUPN_ITS ---
Subjective NPU 2 Subjective: Patient presented today reporting that he is feeling better slowly but surely with resumption of his medications. Continues to be concerned about the final outcome but is no longer in a fretting or overly anxious presentation per staff report and direct observation. We discussed him working with the social work team tomorrow to look at options moving forward. He denied any side effects to the medication. Mental Status Exam 2 MSE Comments: This is a well-nourished well-developed white male in hospital scrubs looking older than his stated age with improving grooming and adequate eye contact. No abnormal movements except for mild psychomotor agitation. He was cooperative with exam and was in mild distress. Speech was mostly normal rate and volume. Mood described as a little better, his affect appearing congruent. Thought process was linear, logical. Thought content: Patient denied suicidal or current homicidal ideation. There were no delusions reported or noted. He denied any auditory or visual hallucinations and did not appear to be responding to internal stimuli. Attention and concentration appeared intact and memory appeared more reliable but none were formally tested. He is alert and oriented x 3. His insight, judgment and impulse control are limited but improving. Vitals/I&O/Wt Last Vital Signs Temp 98.1 F 03/28/25 13:55 Pulse 99 03/28/25 13:55 Resp 15 03/28/25 13:55 BP 115/72 03/28/25 13:55 Pulse Ox 99 03/28/25 13:55 O2 Del Method Room Air 03/28/25 06:00 03/27/25 03/28/25 03/28/25 22:59 06:59 14:59 Intake Total 240 / 480 Balance 240 / 480 Weight last 48 hrs Weight 82.327 kg Data NPU 03/22/25 13:31 03/22/25 13:31 A&P Assessment and plan 1. MDD (major depressive disorder), single episode, severe: 2. ANGEL (generalized anxiety disorder): 3. Suicidal ideation: 4. Hyperglycemia: 5. Diabetes: 6. Personality disorder, unspecified: Plan: This is a 44-year-old white male with a history of ANGEL and MDD severe with last hospitalization 8 months ago when he was admitted secondary to being kicked out of a makeshift living arrangement where he had been taken in by woman who let him say that she had but she felt he was overstepping his bounds and he was struggling with being homeless. He returns with the issue of homelessness being a significant piece of the story but he also has been without his medication for some time. 1. Restarted medications. 2. Encourage individual, group and milieu therapies. 3. Continue every 15 minute checks for safety. 4. Encourage sober living treatment after discharge at the highest level of care to which he is willing to commit. However his UDS was positive for cannabis. 5. Evaluate against the backdrop of the 96-hour hold for safety. 6. He is once again homeless now that his time at [facility] has run out. 7. Patient had a fall and received that CT of his head and knee without incident. PDMP PDMP Reviewed: Not Reviewed Involuntary Hold Information 2 Hold Status: Legal Status: 96 Hour Hold Date/Time Hold Expires: 03/26/2025 @ 1320 96 Hour Hold: 96 Hour Involuntary Admission: Yes Attestations NPU 2 Medical Necessity Statement*: Inpatient psychiatric hospitalization is medically necessary and the clinically appropriate intervention at this time. We will monitor/initiate medications and make changes as indicated. Patient likely length of stay 1-3 days. Coding Level of Care Code Acute Code for [facility] Fwd Diagnoses MDD (major depressive disorder), single episode, severe F32.2 ANGEL (generalized anxiety disorder) F41.1 Suicidal ideation R45.851 Hyperglycemia R73.9 Diabetes E11.9 Diabetes mellitus complication detail: with nephropathy Diabetes mellitus detention insulin use: with supervisor intermediates use Personality disorder, unspecified F60.9
[2025-03-28 20:28] VITALS: BP 101/60; PULSE 101; RESP 20; TEMP 36.8; O2SAT 97
[2025-03-28] MEDS: HYDROcodone-acetaminophen 5-325 mg Tablet 1 TAB PO (22:04)
[2025-03-28] MEDS: QUETIAPINE 150 MG PO (22:04)
[2025-03-29 06:00] VITALS: BP 160/76; PULSE 93; RESP 16; TEMP 36.4; O2SAT 96
[2025-03-29] MEDS: insulin glargine 100 units/1 mL 35 UNIT SUBCUT ×3 (08:29→19:42)
[2025-03-29 14:00] VITALS: BP 115/76; PULSE 90; RESP 16; TEMP 36.7; O2SAT 97
--- NOTE | 2025-03-29 18:01 | W.PM.NPUPNS ---
Subjective NPU Subjective: Patient presented today reporting that things are going okay. He was able to identify he is wanting to see if he can lengthen with stable that he may be taken a look at what his life could be. He has some frustration as the social work team continues to work without noteworthy options for him to be discharged to him. He is feeling better overall with the medication but as concerned that there will not be an answer in time. He denied any side effects of medication. Mental Status Exam MSE Comments: This is a well-nourished well-developed white male in hospital scrubs looking older than his stated age with improving grooming and adequate eye contact. No abnormal movements except for mild psychomotor agitation. He was cooperative with exam and was in mild distress. Speech was mostly normal rate and volume. Mood described as a little better, his affect appearing congruent. Thought process was linear, logical. Thought content: Patient denied suicidal or current homicidal ideation. There were no delusions reported or noted. He denied any auditory or visual hallucinations and did not appear to be responding to internal stimuli. Attention and concentration appeared intact and memory appeared more reliable but none were formally tested. He is alert and oriented x 3. His insight, judgment and impulse control are limited but improving. Vitals/I&O/Wt Last Vital Signs Temp 98.1 F 03/29/25 20:12 Pulse 97 03/29/25 20:12 Resp 16 03/29/25 20:12 BP 111/73 03/29/25 20:12 Pulse Ox 95 03/29/25 20:12 O2 Del Method Room Air 03/29/25 20:12 Data NPU 03/22/25 13:31 03/22/25 13:31 A&P Assessment and plan 1. MDD (major depressive disorder), single episode, severe: 2. ANGEL (generalized anxiety disorder): 3. Suicidal ideation: 4. Hyperglycemia: 5. Diabetes: 6. Personality disorder, unspecified: Plan: This is a 44-year-old white male with a history of ANGEL and MDD severe with last hospitalization 8 months ago when he was admitted secondary to being kicked out of a makeshift living arrangement where he had been taken in by woman who let him say that she had but she felt he was overstepping his bounds and he was struggling with being homeless. He returns with the issue of homelessness being a significant piece of the story but he also has been without his medication for some time. 1. Restarted medications. 2. Encourage individual, group and milieu therapies. 3. Continue every 15 minute checks for safety. 4. Encourage sober living treatment after discharge at the highest level of care to which he is willing to commit. However his UDS was positive for cannabis. 5. Evaluate against the backdrop of the 96-hour hold for safety. 6. He is once again homeless now that his time [place] [facility]. 7. Patient had a fall and received that CT of his head and knee without incident. PDMP PDMP Reviewed: Not Reviewed Involuntary Hold Information Hold Status: Legal Status: 96 Hour Hold Date/Time Hold Expires: 03/26/2025 @ 1320 96 Hour Hold: 96 Hour Involuntary Admission: Yes Attestations NPU Medical Necessity Statement*: Inpatient psychiatric hospitalization is medically necessary and the clinically appropriate intervention at this time. We will monitor/initiate medications and make changes as indicated. Patient likely length of stay 1-3 days. Coding Level of Care Code Acute Code for [facility] Fwd Diagnoses MDD (major depressive disorder), single episode, severe F32.2 ANGEL (generalized anxiety disorder) F41.1 Suicidal ideation R45.851 Hyperglycemia R73.9 Diabetes E11.9 Diabetes mellitus complication detail: with nephropathy Diabetes mellitus retirement insulin use: with retirement use Personality disorder, unspecified F60.9
[2025-03-29] MEDS: QUETIAPINE 150 MG PO (20:10)
[2025-03-29 20:12] VITALS: BP 111/73; PULSE 97; RESP 16; TEMP 36.7; O2SAT 95
[2025-03-30 06:00] VITALS: BP 110/75; PULSE 97; RESP 17; TEMP 36.7; O2SAT 95
[2025-03-30] MEDS: insulin glargine 100 units/1 mL 35 UNIT SUBCUT ×2 (07:41→17:15)
--- NOTE | 2025-03-30 13:34 | P.NPUPN_ITS ---
Subjective NPU 2 Subjective: Patient presented today reporting that things are going okay. He is accepting the fact that they are no places the seem to be willing to take him. For that reason he says that he is open to discharge him and staying in his car. We discussed needing in the morning and trying to see if there are any other options we can identify to avoid that possibility. He denied any side effects to his medication. Mental Status Exam 2 MSE Comments: This is a well-nourished well-developed white male in hospital scrubs looking older than his stated age with improving grooming and adequate eye contact. No abnormal movements except for mild psychomotor agitation. He was cooperative with exam and was in mild distress. Speech was mostly normal rate and volume. Mood described as a little better, his affect appearing congruent. Thought process was linear, logical. Thought content: Patient denied suicidal or current homicidal ideation. There were no delusions reported or noted. He denied any auditory or visual hallucinations and did not appear to be responding to internal stimuli. Attention and concentration appeared intact and memory appeared more reliable but none were formally tested. He is alert and oriented x 3. His insight, judgment and impulse control are limited but improving. Vitals/I&O/Wt Last Vital Signs Temp 98.0 F 03/30/25 06:00 Pulse 97 03/30/25 06:00 Resp 17 03/30/25 06:00 BP 110/75 03/30/25 06:00 Pulse Ox 95 03/30/25 06:00 O2 Del Method Room Air 03/30/25 06:00 Data NPU 03/22/25 13:31 03/22/25 13:31 A&P Assessment and plan 1. MDD (major depressive disorder), single episode, severe: 2. ANGEL (generalized anxiety disorder): 3. Suicidal ideation: 4. Hyperglycemia: 5. Diabetes: 6. Personality disorder, unspecified: Plan: This is a 44-year-old white male with a history of ANGEL and MDD severe with last hospitalization 8 months ago when he was admitted secondary to being kicked out of a makeshift living arrangement where he had been taken in by woman who let him say that she had but she felt he was overstepping his bounds and he was struggling with being homeless. He returns with the issue of homelessness being a significant piece of the story but he also has been without his medication for some time. 1. Restarted medications. 2. Encourage individual, group and milieu therapies. 3. Continue every 15 minute checks for safety. 4. Encourage sober living treatment after discharge at the highest level of care to which he is willing to commit. However his UDS was positive for cannabis. 5. Evaluate against the backdrop of the 96-hour hold for safety. 6. He is once again homeless now that his time at [facility] has run out. 7. Patient had a fall and received that CT of his head and knee without incident. PDMP PDMP Reviewed: Not Reviewed Involuntary Hold Information 2 Hold Status: Legal Status: 96 Hour Hold Date/Time Hold Expires: 03/26/2025 @ 1320 96 Hour Hold: 96 Hour Involuntary Admission: Yes Attestations NPU 2 Medical Necessity Statement*: Inpatient psychiatric hospitalization is medically necessary and the clinically appropriate intervention at this time. We will monitor/initiate medications and make changes as indicated. Patient likely length of stay 1-3 days. Coding Level of Care Code Acute Code for [facility] Fwd Diagnoses MDD (major depressive disorder), single episode, severe F32.2 ANGEL (generalized anxiety disorder) F41.1 Suicidal ideation R45.851 Hyperglycemia R73.9 Diabetes E11.9 Diabetes mellitus complication detail: with nephropathy Diabetes mellitus special events planner insulin use: with special events planner use Personality disorder, unspecified F60.9
[2025-03-30 13:56] VITALS: BP 108/66; PULSE 93; RESP 16; TEMP 36.9; O2SAT 96
[2025-03-30 19:55] VITALS: BP 110/68; PULSE 90; RESP 16; TEMP 37.2; O2SAT 95
[2025-03-31 06:00] VITALS: BP 105/69; PULSE 96; RESP 16; TEMP 36.4; O2SAT 97
[2025-03-31] MEDS: insulin glargine 100 units/1 mL 35 UNIT SUBCUT ×2 (08:57→17:21)
--- NOTE | 2025-03-31 13:29 | P.NPUPN_ITS ---
Subjective NPU 2 Subjective: Patient presented today reporting that he is okay. We discussed the concerns about him leaving and not having any way to ultimately get his gallbladder surgery and concerned that things are worsening for him medically. We discussed a plan to review the situation with the hospital to see if there is any way he could get the surgery and be on the unit voluntarily. He was working with the social work team about some options for discharge but because of his limitations and expectations there is nothing that would fit his desires and he expresses a plan of discharge and will be in his car. He denied any side effects to his medication. Mental Status Exam 2 MSE Comments: This is a well-nourished well-developed white male in hospital scrubs looking older than his stated age with improving grooming and adequate eye contact. No abnormal movements except for mild psychomotor agitation. He was cooperative with exam and was in mild distress. Speech was mostly normal rate and volume. Mood described as a little better, his affect appearing congruent. Thought process was linear, logical. Thought content: Patient denied suicidal or current homicidal ideation. There were no delusions reported or noted. He denied any auditory or visual hallucinations and did not appear to be responding to internal stimuli. Attention and concentration appeared intact and memory appeared more reliable but none were formally tested. He is alert and oriented x 3. His insight, judgment and impulse control are limited but improving. Vitals/I&O/Wt Last Vital Signs Temp 97.6 F 03/31/25 06:00 Pulse 96 03/31/25 06:00 Resp 16 03/31/25 06:00 BP 105/69 03/31/25 06:00 Pulse Ox 97 03/31/25 06:00 O2 Del Method Room Air 03/31/25 06:00 Data NPU 03/22/25 13:31 03/22/25 13:31 A&P Assessment and plan 1. MDD (major depressive disorder), single episode, severe: 2. ANGEL (generalized anxiety disorder): 3. Suicidal ideation: 4. Hyperglycemia: 5. Diabetes: 6. Personality disorder, unspecified: Plan: This is a 44-year-old white male with a history of ANGEL and MDD severe with last hospitalization 8 months ago when he was admitted secondary to being kicked out of a makeshift living arrangement where he had been taken in by woman who let him say that she had but she felt he was overstepping his bounds and he was struggling with being homeless. He returns with the issue of homelessness being a significant piece of the story but he also has been without his medication for some time. 1. Restarted medications. 2. Encourage individual, group and milieu therapies. 3. Continue every 15 minute checks for safety. 4. Encourage sober living treatment after discharge at the highest level of care to which he is willing to commit. However his UDS was positive for cannabis. 5. Evaluate against the backdrop of the 96-hour hold for safety. 6. He is once again homeless now that his time at [facility] [place]. 7. Patient had a fall and received that CT of his head and knee without incident. 8. Will identify whether he can get his gallbladder surgery here and discharged on Saturday. PDMP PDMP Reviewed: Not Reviewed Involuntary Hold Information 2 Hold Status: Legal Status: 96 Hour Hold Date/Time Hold Expires: 03/26/2025 @ 1320 96 Hour Hold: 96 Hour Involuntary Admission: Yes Attestations NPU 2 Medical Necessity Statement*: Inpatient psychiatric hospitalization is medically necessary and the clinically appropriate intervention at this time. We will monitor/initiate medications and make changes as indicated. Patient likely length of stay 1-3 days. Coding Level of Care Code Acute Code for [facility] Fwd Diagnoses MDD (major depressive disorder), single episode, severe F32.2 ANGEL (generalized anxiety disorder) F41.1 Suicidal ideation R45.851 Hyperglycemia R73.9 Diabetes E11.9 Diabetes mellitus complication detail: with nephropathy Diabetes mellitus long-term insulin use: with long-term use Personality disorder, unspecified F60.9
[2025-03-31 14:00] VITALS: BP 123/81; PULSE 101; RESP 16; TEMP 36.9; O2SAT 98
--- NOTE | 2025-03-31 15:21 | W.PM.NPUDCS ---
Diagnoses at Discharge Discharge Diagnosis 1. MDD (major depressive disorder), single episode, severe: 2. ANGEL (generalized anxiety disorder): 3. Suicidal ideation: 4. Hyperglycemia: 5. Diabetes: 6. Personality disorder, unspecified: Reason for Visit Reason for Visit: SI Involuntary Hold Information Hold Status: Legal Status: 96 Hour Hold Date/Time Hold Expires: 03/26/2025 @ 1320 96 Hour Hold: 96 Hour Involuntary Admission: Yes Discharge Data Studies Completed and Pending: Completed Studies During Hospitalization Category Date Time Status CT head wo con* 7 0450 Routine Cat Scan 03/26/25 10:50 Completed XR knee LT 1-2V 7 3560 Routine Exams 03/26/25 10:57 Completed Radiology Impressions Head CT 03/26/25 10:50 IMPRESSION: 1. No evidence of intracranial hemorrhage or mass effect. 2. No acute intracranial findings. Knee X-Ray 03/26/25 10:57 IMPRESSION: No acute findings. Laboratory Results WBC 8.13 10^3/uL (3.2 9-11.43) 03/22/25 13:31 RBC 4.94 10^6/uL (3.8 5-5.65) 03/22/25 13:31 Hgb 14.90 g/dL (11.27 -16.99) 03/22/25 13:31 Hct 44.0 % (37-53) 03/22/25 13:31 MCV 89.1 fl (82-101) 03/22/25 13:31 MCH 30.2 pg (27-33) 03/22/25 13:31 MCHC 33.9 g/dL (30-55) 03/22/25 13:31 RDW 12.3 % (12.1-15.1 ) 03/22/25 13:31 Plt Count 207 10^3/cmm (157 -399) 03/22/25 13:31 MPV 10.6 fL (7.4-10.4 ) H 03/22/25 13:31 Neut % (Auto) 62.7 % 03/22/25 13:31 Lymph % (Auto) 28.3 % 03/22/25 13:31 [place] % (Auto) 6.6 % 03/22/25 13:31 Eos % (Auto) 1.4 % 03/22/25 13:31 Baso % (Auto) 0.6 % 03/22/25 13:31 Neut # (Auto) 5.10 10^3/uL (1.8 -7.7) 03/22/25 13:31 Lymph # (Auto) 2.3 10^3/uL (0.8- 4.8) 03/22/25 13:31 [place] # (Auto) 0.5 10^3/uL (0.2- 0.9) 03/22/25 13:31 Eos # (Auto) 0.1 10^3/uL (0.0- 0.8) 03/22/25 13:31 Baso # (Auto) 0.1 10^3/uL (0.0- 0.1) 03/22/25 13:31 Nucleated RBC % (a uto) 0 % 03/22/25 13:31 Nucleated RBCs # 0.0 /100WBC 03/22/25 13:31 Sodium 132 mmol/L (136-1 45) L 03/22/25 13:31 Potassium 4.3 mmol/L (3.5-5 .1) 03/22/25 13:31 Chloride 93 mmol/L (98-107 ) L 03/22/25 13:31 Carbon Dioxide 28 mmol/L (22-29) 03/22/25 13:31 Anion Gap 15.3 (5-19) 03/22/25 13:31 BUN 7 mg/dL (6-20) 03/22/25 13:31 Creatinine 0.6 mg/dL (0.7-1. 2) L 03/22/25 13:31 GFR Calculation 145.7 mL/min (90- 130) H 03/22/25 13:31 Glucose 450 mg/dL (65-115 ) H 03/22/25 13:31 POC Glucose 252 mg/dL (70-110 ) H 03/31/25 11:25 Calculated Osmolal ity 292 mOsm/kg (285- 295) 03/22/25 13:31 Calcium 9.1 mg/dL (8.5-10 .5) 03/22/25 13:31 Total Bilirubin 0.4 mg/dL (0.15-1 .2) 03/22/25 13:31 AST 15 U/L (0-40) 03/22/25 13:31 ALT 18 U/L (0-41) 03/22/25 13:31 Alkaline Phosphata se 168 U/L (40-130) H 03/22/25 13:31 Total Protein 7.1 g/dL (6.6-8.7 ) 03/22/25 13: Albumin 3.8 g/dL (3.5-5.2 ) 03/22/25 13: Globulin 3.3 g/dL (1.3-4.6 ) 03/22/25 13:31 TSH 0.60 uIU/mL (0.27 -4.20) 03/22/25 13:31 Urine Color Yellow (Yellow) 03/22/25 15:10 Urine Appearance Clear (CLEAR) 03/22/25 15:10 Urine pH 6.5 (5-7) 03/22/25 15:10 Ur Specific Gravit y 1.047 (1.005-1.0 30) H 03/22/25 15:10 Urine Protein 2+ (Negative) A 03/22/25 15:10 Urine Glucose (UA) 3+ (Normal) H 03/22/25 15:10 Urine Ketones Negative (Negati ve) 03/22/25 15:10 Urine Blood Negative (Negati ve) 03/22/25 15:10 Urine Nitrate Negative (Negati ve) 03/22/25 15:10 Urine Bilirubin Negative (Negati ve) 03/22/25 15:10 Urine Urobilinogen 0.2 mg/dL (Negati ve) 03/22/25 15:10 Ur Leukocyte Yanci ase Negative (Negati ve) 03/22/25 15:10 Urine RBC Rare /hpf (0-2) 03/22/25 15:10 Urine WBC None /hpf (0-5) 03/22/25 15:10 Ur Squamous Epith Cells None /hpf (0-5) 03/22/25 15:10 Amorphous Sediment Not Reportable 03/22/25 15:10 Urine Bacteria None /hpf (NONE) 03/22/25 15:10 Hyaline Casts None /lpf 03/22/25 15:10 Salicylates < 0.3 mg/dL (3-10 ) L 03/22/25 13:31 Urine Opiates Scre en Negative ng/mL (N egative) 03/22/25 15:10 Acetaminophen < 5.0 ug/mL (10-3 0) L 03/22/25 13:31 Ur Barbiturates Sc reen Negative ng/mL (N egative) 03/22/25 15:10 Ur Phencyclidine S crn Negative ng/mL (N egative) 03/22/25 15:10 Ur Amphetamines Sc reen Negative ng/mL (N egative) 03/22/25 15:10 U Benzodiazepines Scrn Negative ng/mL (N egative) 03/22/25 15:10 Urine Cocaine Scre en Negative ng/mL (N egative) 03/22/25 15:10 U Marijuana (THC) Screen Positive ng/mL (N egative) H 03/22/25 15:10 Ethyl Alcohol < 10 mg/dL (0-10) 03/22/25 13:31 Vitals: Last Vital Signs Temp 97.6 F 03/31/25 06:00 Pulse 96 03/31/25 06:00 Resp 16 03/31/25 06:00 BP 105/69 03/31/25 06:00 Pulse Ox 97 03/31/25 06:00 O2 Del Method Room Air 03/31/25 06:00 Discharge Plan Discharge Patient Disposition: Home Condition: Stable Prescriptions: New olanzapine 5 mg Tablet,Disintegrating 5 mg PO DAILY PRN (Reason: Agitation/Psychosis) 30 Days Qty: 30 1RF hydroxyzine pamoate 25 mg Capsule 50 mg PO Q6H PRN (Reason: Anxiety) 30 Days Qty: 120 1RF Continued insulin glargine [Lantus Solostar U-100 Insulin] 100 unit/mL (3 mL) insulin pen 35 unit SUBCUT BID Qty: 30 4RF (DME) Blood Glucose Test Strip See Rx Instructions .MEDSUPPLY Qty: 200 12RF Rx Instructions: check glucose TWICE daily (DME) Pen [place] See Rx Instructions .Route .MEDSUPPLY Qty: 100 0RF Rx Instructions: As directed (DME) blood-glucose meter Kit See Rx Instructions .Route Qty: 1 0RF Rx Instructions: As directed glipizide 10 mg tablet 10 mg PO DAILY Qty: 90 0RF trazodone 150 mg tablet 150 mg PO .qhs PRN (Reason: insomnia) Qty: 30 1RF escitalopram oxalate 20 mg tablet 20 mg PO QAM 30 Days Qty: 30 1RF duloxetine 30 mg capsule,delayed release(DR/EC) 30 mg PO BID Qty: 60 1RF Rx Instructions: Take one capsule every morning and one in the early afternoon quetiapine [Seroquel XR] 150 mg tablet extended release 24 hr 150 mg PO .q hs 30 Days Qty: 30 1RF Discharge Order = DC NOW: Discharge Order (Routine); Ordered 03/31/25 Ordered By: Chad Laureano Referrals: Ariana Miramontes APRN [Nurse Practitioner, Nurse Practitioner Psych/MH] - 04/13/25 1:30 pm Jin Vásquez EdD, SOLAR DESIGN ENGINEER [Therapist, Psychology] - 04/07/25 12:45 pm Matty Toledo MD [Primary Care Provider, Family Practice] Discharge Diet: Diabetic Discharge Activity: Resume usual activity Patient Instructions: Opioid Safety, Patient Portal & [facility] Instructions Coding Level of Care Code Acute Code for [facility] Fwd Diagnoses MDD (major depressive disorder), single episode, severe F32.2 ANGEL (generalized anxiety disorder) F41.1 Suicidal ideation R45.851 Hyperglycemia R73.9 Diabetes E11.9 Diabetes mellitus complication detail: with nephropathy Diabetes mellitus assistant terminal manager insulin use: with assistant terminal manager use Personality disorder, unspecified F60.9
[2025-03-31 21:56] VITALS: BP 105/70; PULSE 94; RESP 18; TEMP 36.8; O2SAT 96
[2025-03-31] MEDS: QUETIAPINE 150 MG PO (23:30)
[2025-04-01 06:00] VITALS: BP 90/52; PULSE 109; RESP 18; TEMP 36.6; O2SAT 94
--- NOTE | 2025-04-01 06:46 | PC.NURSE ---
pt vitals/ glucose pt was found to be hypotensive with morning vitals. pt stated he was dizzy. this nurse requested a glucose check which came to be 52. pt given juice and gummies and will re check. pt a&ox4 at this time.
--- NOTE | 2025-04-01 07:29 | PC.NURSE ---
pt edema pt has had 1-2+ edema in bilateral feet/ legs. pt is concerned that there is an issue that needs to be addressed before he is dc'd.
[2025-04-01] MEDS: insulin glargine 100 units/1 mL 35 UNIT SUBCUT ×2 (08:39→17:17)
[2025-04-01 13:59] VITALS: BP 119/68; PULSE 103; RESP 20; TEMP 36.8; O2SAT 98
--- NOTE | 2025-04-01 14:01 | P.NPUPN_ITS ---
Subjective NPU 2 Subjective: Patient presented today reporting that he is doing well. We discussed all of his options and it was decided that there really was no option got him out of the situation and help to his demands to stay in the area. So we discussed the risks, benefits and alternatives of discharging him and he plans to go to [place] he reports, and he understood and agreed to proceed as documented in this note. He denied any side effects to his medications. Mental Status Exam 2 MSE Comments: This is a well-nourished well-developed white male in hospital scrubs looking older than his stated age with improving grooming and adequate eye contact. No abnormal movements except for mild psychomotor agitation. He was cooperative with exam and was in mild distress. Speech was mostly normal rate and volume. Mood described as a little better, his affect appearing congruent. Thought process was linear, logical. Thought content: Patient denied suicidal or current homicidal ideation. There were no delusions reported or noted. He denied any auditory or visual hallucinations and did not appear to be responding to internal stimuli. Attention and concentration appeared intact and memory appeared more reliable but none were formally tested. He is alert and oriented x 3. His insight, judgment and impulse control are limited but improving. Vitals/I&O/Wt Last Vital Signs Temp 98.2 F 04/01/25 13:59 Pulse 103 H 04/01/25 13:59 Resp 20 H 04/01/25 13:59 BP 119/68 04/01/25 13:59 Pulse Ox 98 04/01/25 13:59 O2 Del Method Room Air 04/01/25 13:59 Data NPU 03/22/25 13:31 03/22/25 13:31 A&P Assessment and plan 1. MDD (major depressive disorder), single episode, severe: 2. ANGEL (generalized anxiety disorder): 3. Suicidal ideation: 4. Hyperglycemia: 5. Diabetes: 6. Personality disorder, unspecified: Plan: This is a 44-year-old white male with a history of ANGEL and MDD severe with last hospitalization 8 months ago when he was admitted secondary to being kicked out of a makeshift living arrangement where he had been taken in by woman who let him say that she had but she felt he was overstepping his bounds and he was struggling with being homeless. He returns with the issue of homelessness being a significant piece of the story but he also has been without his medication for some time. 1. Restarted medications. 2. Encourage individual, group and milieu therapies. 3. Continue every 15 minute checks for safety. 4. Encourage sober living treatment after discharge at the highest level of care to which he is willing to commit. However his UDS was positive for cannabis. 5. Evaluate against the backdrop of the 96-hour hold for safety. 6. He is once again homeless now that his time at [facility] has run out. 7. Patient had a fall and received that CT of his head and knee without incident. 8. Will identify whether he can get his gallbladder surgery here and discharged on Saturday. PDMP PDMP Reviewed: Not Reviewed Involuntary Hold Information 2 Hold Status: Legal Status: 96 Hour Hold Date/Time Hold Expires: 03/26/2025 @ 1320 96 Hour Hold: 96 Hour Involuntary Admission: Yes Attestations NPU 2 Medical Necessity Statement*: Inpatient psychiatric hospitalization is medically necessary and the clinically appropriate intervention at this time. We will monitor/initiate medications and make changes as indicated. Patient likely length of stay 1-3 days. Coding Level of Care Code Acute Code for [facility] Fwd Diagnoses MDD (major depressive disorder), single episode, severe F32.2 ANGEL (generalized anxiety disorder) F41.1 Suicidal ideation R45.851 Hyperglycemia R73.9 Diabetes E11.9 Diabetes mellitus complication detail: with nephropathy Diabetes mellitus terminal superintendent insulin use: with terminal superintendent use Personality disorder, unspecified F60.9
[2025-04-01 16:51] VITALS: BP 119/68; PULSE 103; RESP 20; TEMP 36.8; O2SAT 98
[2025-04-01 20:38] VITALS: BP 110/74; PULSE 97; RESP 19; TEMP 36.7; O2SAT 97
[2025-04-01] MEDS: QUETIAPINE 150 MG PO (20:53)
[2025-04-02 06:00] VITALS: BP 98/64; PULSE 97; RESP 17; TEMP 37; O2SAT 96
--- NOTE | 2025-04-02 09:02 | PC.NURSE ---
Reviewed patient discharge instructions and medication instructions. All questions answered. Patient was discharged by medicaid transport.
== END 2025-04-02 08:50 | disposition home or self-care (01) | DRG 751 ==
LOC: ER 14:04 → NP 14:14
PROVIDERS: Admitting Provider Psychiatry & Neurology Psychiatry; Emergency Provider Emergency Medicine; PCP Family Medicine; Visit Provider Psychiatry & Neurology Psychiatry
DX: F33.2 Major depressive disorder, recurrent severe without psychotic features (principal); F41.1 Generalized anxiety disorder; R45.851 Suicidal ideations; E11.65 Type 2 diabetes mellitus with hyperglycemia; E11.42 Type 2 diabetes mellitus with diabetic polyneuropathy; Z59.00 Homelessness unspecified; F60.9 Personality disorder, unspecified; Z79.84 Long term (current) use of oral hypoglycemic drugs; Z79.4 Long term (current) use of insulin
CPT/HCPCS: 36415; 36416; 70450; 73560; 80053; 80306; 80307; 81001; 82962; 84443; 85025; 96372; 97150; 97165; 99285; J1815; J9999; Q0162

== ENCOUNTER 2025-04-09 15:16 | Inpatient (IN) | payer MEDICAID, SELFPAY ==
[2025-03-11 10:12] VITALS: BP 117/68; BMI 28.5
[2025-04-09 15:14] VITALS: BP 152/87; PULSE 105; RESP 20; TEMP 36.6; O2SAT 94; BMI 29.6
--- NOTE | 2025-04-09 15:16 | ED.C_ITS ---
HPI - Psych 2 General: Chief Complaint: Psychiatric Symptoms Stated Complaint: SI Source: patient Mode of arrival: ambulatory Limitations: no limitations History of Present Illness: 44-year-old male who is here with EMS fo r suicidal ideation. He states that he is severely depressed stating he is having suicidal thoughts. He left AMA he states last week when he was states that he left twirling and has been having worsening depression since leaving he denies any attempts. Associated symptoms: Reports depression Related Data Previous Rx's ?Medication ?Instructions ?Recorded blood-glucose meter #1 ea 04/23/23 insulin glargine 100 unit/mL (3 35 unit (0.35 mL) SUBC UT BID #30 mL 12/21/24 mL) subcutaneous pen (Lantus Solostar U-100 Insulin) [place] #100 ea 03/10/25 duloxetine 30 mg capsule,delayed 30 mg PO BID #60 caps 03/31/25 release escitalopram oxalate 20 mg tablet 20 mg PO QAM 30 days #30 tabs 03/31/25 glipizide 10 mg tablet 10 mg PO DAILY #90 tabs 03/17 11/08 hydroxyzine pamoate 25 mg capsule 50 mg (2 x 25 mg) PO Q6H PRN 03/31/25 Anxiety 30 days #120 caps olanzapine 5 mg disintegrating 5 mg PO DAILY PRN 03/31 tablet Agitation/Psychosis 30 days #30 tabs quetiapine 150 mg tablet,extended 150 mg PO .q hs 30 d ays #30 tabs 03/31/25 release 24 hr (Seroquel XR) trazodone 150 mg tablet 150 mg PO .qhs PRN insomnia #30 03/31/25 tabs blood sugar diagnostic (Blood #200 ea 04/07/25 Glucose Test strips) Allergies Allergy/AdvReac Type Severity Reaction Status Date / Time avocado Allergy Severe ALGY-Swell Verified 04/09/25 15:20 Lip/Tongue/Throat green marquez Allergy Unknown Verified 04/09/25 15:20 Review of Systems 2 Psych: Reports: depression PFSH ED 2 PFSH: Medical History (Updated 04/09/25 @ 15:59 by Nina Coy MD) Inadequate housing Major depressive disorder, recurrent, severe with psychotic symptoms Psychiatric care MDD (major depressive disorder), single episode, severe Suicidal ideation Moderate tobacco use disorder Anxiety Insomnia Personality disorder, unspecified Major depressive disorder, recurrent Peripheral neuropathy Diabetes Family History Father Cancer Pancreas, liver, colon Grandfather Cancer Maternal-pancreatic Other Diabetes Liver disease Stroke Denies family history of CAD (coronary artery disease) Aneurysm Autoimmune disease Clotting disorder Dementia Hyperlipidemia Hyperthyroidism Hypothyroidism Psychiatric illness Chronic kidney disease (CKD) Bleeding disorder Lung disease Hypertension Social History Smoking and tobacco/nicotine status: current every day tobacco/nicotine user cigarettes Packs smoked per day: 0.25 Years cigarettes smoked: 21 Alcohol intake: former Substance/Drug Use: former Date of last use: 7 months ago Lives independently: Yes Housing: Homeless Marital status: Single Highest education level completed: Some College, No Degree Current occupational status: unemployed Current occupational exposures/hazards: No Pets and animals: Yes Pets & animals: dog(s) Leisure activites: games and other Leisure activities details: watching TV Sexually active: No Do you think of yourself as: Lesbian/Acosta/Homosexual Current gender identity: Male Jaena/Holiness: Lutheran Special jeana needs: No Agree to transfusion: Yes Physical Exam 2 Const: COMMON NORMALS: no acute distress, patient oriented x3 and healthy appearing HENMT: COMMON NORMALS: normocephalic and atraumatic HEAD & SCALP: n ormocephalic and atraumatic Eye: COMMON NORMALS: Equal, round and reactive pupils present and EOMs intact bilaterally PUPIL: Yes Equal, round and reactive pupils present Neck/C-Spine: COMMON NORMALS: full ROM and supple Chest: COMMONS NORMALS: normal inspection of the chest Resp: COMMON NORMALS: normal respiratory effort, No retractions, No use of accessory muscles and clear to auscultation bilaterally AUSCULTATION: clear to auscultation bilaterally Cardio: COMMON NORMALS: regular rate, regular rhythm and No murmurs present (Cardio) RATE: regular rate RHYTHM: regular rhythm GI: COMMON NORMALS: Normal to inspection, nondistended, normoactive bowel sounds present, Soft to palpation, non-tender and no masses PALPATION: Yes Soft to palpation Extremity: COMMON NORMALS: normal to inspection and full ROM Neuro: COMMON NORMALS: patient oriented x3, moves all extremities and no focal motor deficits Psych: COMMON NORMALS: mental status grossly normal, Normal thought process present and cooperative MOOD & AFFECT: Yes depressed mood THOUGHT PROCESS: Normal thought process present THOUGHT CONTENT: Yes Suicidality present Skin: COMMON NORMALS: no rashes or lesions noted and no wounds GENERAL SKIN EXAM: no rashes or lesions noted Course 2 Vital Signs: Vital signs: Vital Signs Temperature 97.9 F 04/09/25 15:14 Pulse Rate 105 H 04/09/25 15:14 Respiratory Rate 20 H 04/09/25 15:14 Blood Pressure 152/87 04/09/25 15:14 Pulse Oximetry 94 04/09/25 15:14 MDM - Psych Medical Decision Making Patient presents for suicidal ideations patient is medically cleared here he is placed on a 96-hour hold I spoke to psychiatrist Dr. Freeman who knows patient well we will admit to the [facility] at this time. Medical Records I reviewed the patient's medical records. Lab Data I reviewed the patient's lab results. 04/09/25 14:57 04/09/25 14:57 Laboratory Results WBC 7.79 10^3/uL (3.29-11.43) 04/09/25 14:57 RBC 4.83 10^6/uL (3.85-5.65) 04/09/25 14:57 Hgb 14.60 g/dL (11.27-16.99) 04/09/25 14:57 Hct 42.8 % (37-53) 04/09/25 14:57 MCV 88.6 fl (82-101) 04/09/25 14:57 MCH 30.2 pg (27-33) 04/09/25 14:57 MCHC 34.1 g/dL (30-55) 04/09/25 14:57 RDW 12.8 % (12.1-15.1) 04/09/25 14:57 Plt Count 262 10^3/cmm (157-399) 04/09/25 14:57 MPV 10.3 fL (7.4-10.4) 04/09/25 14:57 Neut % (Auto) 49.6 % 04/09/25 14:57 Lymph % (Auto) 38.6 % 04/09/25 14:57 [place] % (Auto) 7.4 % 04/09/25 14:57 Eos % (Auto) 3.6 % 04/09/25 14:57 Baso % (Auto) 0.5 % 04/09/25 14:57 Neut # (Auto) 3.86 10^3/uL (1.8-7.7) 04/09/25 14:57 Lymph # (Auto) 3.0 10^3/uL (0.8-4.8) 04/09/25 14:57 [place] # (Auto) 0.6 10^3/uL (0.2-0.9) 04/09/25 14:57 Eos # (Auto) 0.3 10^3/uL (0.0-0.8) 04/09/25 14:57 Baso # (Auto) 0.0 10^3/uL (0.0-0.1) 04/09/25 14:57 Nucleated RBC % (auto) 0 % 04/09/25 14:57 Nucleated RBCs # 0.0 /100WBC 04/09/25 14:57 Sodium 137 mmol/L (136-145) 04/09/25 14:57 Potassium 4.1 mmol/L (3.5-5.1) 04/09/25 14:57 Chloride 99 mmol/L (98-107) 04/09/25 14:57 Carbon Dioxide 27 mmol/L (22-29) 04/09/25 14:57 Anion Gap 15.1 (5-19) 04/09/25 14:57 BUN 15 mg/dL (6-20) 04/09/25 14:57 Creatinine 0.7 mg/dL (0.7-1.2) 04/09/25 14:57 GFR Calculation 122.0 mL/min (90-130) 04/09/25 14:57 Glucose 328 mg/dL (65-115) H 04/09/25 14:57 POC Glucose 305 mg/dL (70-110) H 04/09/25 15:27 Calculated Osmolality 298 mOsm/kg (285-295) H 04/09/25 14:57 Calcium 9.1 mg/dL (8.5-10.5) 04/09/25 14:57 Total Bilirubin 0.3 mg/dL (0.15-1.2) 04/09/25 14:57 AST 17 U/L (0-40) 04/09/25 14:57 ALT 29 U/L (0-41) 04/09/25 14:57 Alkaline Phosphatase 240 U/L (40-130) H 04/09/25 14:57 Total Protein 7.4 g/dL (6.6-8.7) 04/09/25 14:57 Albumin 4.0 g/dL (3.5-5.2) 04/09/25 14:57 Globulin 3.4 g/dL (1.3-4.6) 04/09/25 14:57 Salicylates < 0.3 mg/dL (3-10) L 04/09/25 14:57 Acetaminophen < 5.0 ug/mL (10-30) L 04/09/25 14:57 Ethyl Alcohol < 10 mg/dL (0-10) 04/09/25 14:57 No radiology studies performed this visit Discharge Plan Discharge Patient Disposition: Admitted As Inpatient Clinical Impression: Suicidal ideation Condition: Stable Coding Level of Care Code ED Busser for Shubham Avila
--- OUTSIDE RECORDS SUMMARY | 2025-04-09 15:23 | XMS_ITS | Encounter Summary ---
Author Organization [facility] Address [address] [place] [address] Care Team Providers Care Motor Vehicle Dispatcher Name Role Phone Unavailable Primary Care Provider Unavailabl e Encounter Details Date Type Department Care Team (Latest Contact Info) Description 10/26/2013 Ancillary Orders [facility] Services [place] [address] [place] [id number] Type II or unspecified type diabetes mellitus with unspecified complication, not stated as uncontrolled (CMS/[facility]) Social History Tobacco Use Types Packs/Day Years [...]
--- OUTSIDE RECORDS SUMMARY | 2025-04-09 15:23 | XMS_ITS | Clinical Summary ---
Author Organization Keara Ferrer Address [address] [facility] [address] [place] [address] Phone Care Team Providers Care Prison Warden Name Role Phone Unavailable Primary Care Provider [...]
--- OUTSIDE RECORDS SUMMARY | 2025-04-09 15:23 | XMS_ITS | Encounter Summary ---
Author Organization [employer] [facility] Address [address] [place] [address] Care Team Providers Care Mill Feeder Name Role Phone Unavailable Primary Care Provider Unavailabl e Encounter Details Date Type Department Care Team (Late st Contact Info) Description 01/19/2013 Ancillary Orders [facility] Laboratory Services [place] [address] [place] [address] Sick Social History Tobacco Use [...] - 4.80 uIU/mL 01/19/2013 10:08 PM CDT [facility] Blood specimen (specimen) Venipuncture - Lab Collect / Unknown 01/19/2013 8:33 PM CDT 01/19/2013 9:41 PM CDT Antwon [place] FOOD SANITARIAN CHEMISTRY ORDERABLES Final Resu lt [facility] CLIA # [id number] [address] [address] * (ABNORMAL) COMPREHENSIVE METABOLIC PANEL (01/19/2013 8:33 PM CDT) SODIUM 130(L) 136 - 145 mmol/L 01/19/2013 10:16 PM CDT [facility] POTASSIUM 3.6 3.5 - 5.1 mmol/L 01/19/2013 10:16 PM CDT [facility] CHLORIDE 93(L) 98 - 107 mmol/L 01/19/2013 10:16 PM CDT [facility] CO2 25 21 - 32 mmol/L 01/19/2013 10:[address] [facility] CALCIUM 9.0 8.5 - 10.1 mg/dL 01/19/2013 10:[address] [facility] BUN 21(H) 7 - 18 mg/dL 01/19/2013 10:[address] [facility] CREATININE 1.10 0.60 - 1.30 mg/dL 01/19/2013 10:16 PM CDT [facility] GLUCOSE 496(HH) 74 - 106 mg/dL 01/19/2013 10:16 PM T [facility] Comment: Verified by 2nd run. Critical lab values called to and read back by Toya/[facility] at 10:08 PM on 01/19/2013 by Imelda Cuevas. TOTAL PROTEIN 8.7(H) 6.4 - 8.2 g/dL 01/19/2013 10:16 PM CDT [facility] ALBUMIN 4.0 3.4 - 5.0 g/dL 01/19/2013 10:16 PM CDT [facility] BILIRUBIN TOTAL 0.3 0.2 - 1.0 mg/dL 01/19/2013 10:16 PM CDT [facility] ALKALINE PHOSPHATASE 208(H) 50 - 136 U/L 01/19/2013 10:16 PM CDT [facility] AST 4(L) 15 - 37 U/L 01/19/2013 10:[address] [facility] ALT 46 30 - 65 U/L 01/19/2013 10:[address] [facility] GFR 77 >=60 mL/min/1.7 3 sq meter 01/19/2013 10:[address] [facility] Comment: eGFR has not been validated for [...] 3 sq meter 01/19/2013 10:[address] [facility] Comment: eGFR has not been validated for [...] Gomez NP CHEMISTRY ORDERABLES Final Resu lt [facility] [employer] [facility] CLIA # [id number] [address] [address] * (ABNORMAL) CBC WITH DIFFERENTIAL (01/19/2013 8:33 PM CDT) WBC 10.5(H) 4.2 - 9.1 K/uL 01/19/2013 9:[address] [facility] RBC 5.77 4.63 - 6.08 M/uL 01/19/2013 9:50 PM CDT [facility] [place] HEMOGLOBIN 17.9(H) [...] - 36.5 g/dL 01/19/2013 9:50 PM CDT [facility] [place] RDW 12.3 11.0 - 14.5 % 01/19/2013 9:50 PM CDT [facility] [place] RDW-STDEV 38.2 37.0 - 54.0 fL 01/19/2013 9:50 PM CDT [facility] [place] PLATELETS 221 130 - 400 K/uL 01/19/2013 9:50 PM CDT [facility] [place] MPV 11.3 [...] - 0.82 K/uL 01/19/2013 9:50 PM CDT [facility] [place] EOSINOPHIL ABSOLUTE 0.26 0.04 - 0.54 K/uL 01/19/2013 9:50 PM CDT [facility] [place] BASOPHILS ABSOLUTE 0.02 0.01 - 0.08 K/uL 01/19/2013 9:50 PM CDT [facility] Blood specimen (specimen) Venipuncture - Lab Collect / Unknown 01/19/2013 8:33 PM CDT 01/19/2013 9:41 PM CDT Antwon Gomez NP HEMATOLOGY ORDERABLES Final Res ult Performing Organization Address [facility] Co de Phone Number [facility] [employer] [facility] CLIA # [id number] [address] [place] [address] * (ABNORMAL) HEMOGLOBIN A1C (01/19/2013 8:33 PM CDT) HEMOGLOBIN A1C 15.2(H) 4.5 - 6.2 % 01/19/2013 10:51 PM CDT [facility] EST. AVG GLUCOSE, A1C 390 mg/dL 01/19/2013 10:51 PM CDT [facility] Blood specimen (specimen) Venipuncture - Lab Collect / Unknown 01/19/2013 8:33 PM CDT 01/19/2013 9:41 PM CDT Antwon Gomez FOOD SANITARIAN CHEMISTRY ORDERABLES Final Resu lt Performing Organization Address City/[facility]/ZIP Co de Phone Number [facility] [employer] [facility] CLIA # [id number] [address] [place] [address] documented in this encounter Visit Diagnoses Diagnosis Sick Other unknown and unspecified cause of morbidity or mortality documented in this encounter
--- OUTSIDE RECORDS SUMMARY | 2025-04-09 15:23 | XMS_ITS | Encounter Summary ---
Author Organization [employer] [facility] Address [address] [place] [address] Care Team Providers Care Pianos And Organs Salesperson Name Role Phone Unavailable Primary Care Provider Unavailabl e Encounter Details Date Type Department Care Team (Latest Contact Info) Description 12/07/2013 Ancillary Orders [facility] Laboratory Services [place] [address] [place] [phone] Type II or unspecified type diabetes mellitus with unspecified complication, not stated as uncontrolled (CMS/[facility]) Social History Tobacco Use Types Packs/Day Years [...] - 6.2 % 12/08/2013 1:[address] [facility] EST. AVG GLUCOSE, A1C 332 mg/dL 12/08/2013 1:[address] [facility] [employer] [facility] Blood 12/07/2013 11:1 9 PM CDT 12/07/2013 11:19 PM CDT Kalyani Laureano DO CHEMISTRY ORDERABLES Fi nal Result [facility] HUBERT # [id number] [address] [place] [address] * (ABNORMAL) COMPREHENSIVE METABOLIC PANEL (12/07/2013 11:19 PM CDT) SODIUM 135(L) 136 - 145 mmol/L 12/08/2013 12:[address] [facility] POTASSIUM 3.4(L) 3.5 - 5.1 mmol/L 12/08/2013 12:[address] [facility] CHLORIDE 96(L) 98 - 107 mmol/L 12/08/2013 12:[address] [facility] CO2 28 21 - 32 mmol/L 12/08/2013 12:36 AM T [facility] CALCIUM 9.3 8.5 - 10.1 mg/dL 12/08/2013 12:[address] [facility] BUN 18 7 - 18 mg/dL 12/08/2013 12:[address] [facility] CREATININE 1.00 0.60 - 1.30 mg/dL 12/08/2013 12:[address] [facility] GLUCOSE 283(H) 74 - 106 mg/dL 12/08/2013 12:[address] [facility] TOTAL PROTEIN 8.6(H) 6.4 - 8.2 g/dL 12/08/2013 12:[address] [facility] ALBUMIN 3.9 3.4 - 5.0 g/dL 12/08/2013 12:[address] [facility] BILIRUBIN TOTAL 0.3 0.2 - 1.0 mg/dL 12/08/2013 12:[address] [facility] ALKALINE PHOSPHATASE 251(H) 50 - 136 U/L 12/08/2013 12:[address] [facility] AST 11(L) 15 - 37 U/L 12/08/2013 12:[address] [facility] ALT 28(L) 30 - 65 U/L 12/08/2013 12:[address] [facility] GFR >60 >=60 mL/min/1.7 3 sq meter 12/08/2013 12:[address] [facility] [employer] [facility] Comment: eGFR has not been [...] 3 sq meter 12/08/2013 12:[address] [facility] [employer] [facility] Blood 12/07/2013 11:1 9 PM CDT 12/07/2013 11:19 PM CDT us Kalyani Laureano DO CHEMISTRY ORDERABLES Fi nal Result [facility] [employer] [facility] CLIA # [id number] [address] [place] [address] documented in this encounter Visit Diagnoses Diagnosis Type II or unspecified type diabetes mellitus with unspecified complication, not stated as uncontrolled documented in this encounter
[2025-04-09 15:30] LABS: Hematocrit 42.8 % (37-53); Hemoglobin 14.60 g/dL (11.27-16.99); Mean Corpuscular HGB Conc 34.1 g/dL (30-55); Mean Corpuscular Hemoglobin 30.2 pg (27-33); Mean Corpuscular Volume 88.6 fl (82-101); Nucleated Red Blood Cells % 0 %; Platelet Count 262 10^3/cmm (157-399); Red Blood Count 4.83 10^6/uL (3.85-5.65); White Blood Count 7.79 10^3/uL (3.29-11.43)
--- NOTE | 2025-04-09 15:34 | PC.NURSE ---
Pt was read his 96 hour hold rights at this time. Security present
[2025-04-09 15:49] LABS: Alanine Aminotransferase 29 U/L (0-41); Albumin Level 4.0 g/dL (3.5-5.2); Alkaline Phosphatase 240 U/L (40-130); Anion Gap 15.1 (5-19); Aspartate Amino Transferase 17 U/L (0-40); Blood Urea Nitrogen 15 mg/dL (6-20); Calcium 9.1 mg/dL (8.5-10.5); Carbon Dioxide 27 mmol/L (22-29); Chloride 99 mmol/L (98-107); Globulin 3.4 g/dL (1.3-4.6); Glucose 328 mg/dL (65-115); Osmolality Calculated 298 mOsm/kg (285-295); Potassium 4.1 mmol/L (3.5-5.1); Sodium 137 mmol/L (136-145); Total Protein 7.4 g/dL (6.6-8.7)
[2025-04-09 15:52] LABS: Acetaminophen < 5.0 ug/mL (10-30); Alcohol Level < 10 mg/dL (0-10); Salicylate < 0.3 mg/dL (3-10)
[2025-04-09 17:10] VITALS: BP 141/84; PULSE 102; RESP 20; TEMP 37; O2SAT 95
--- NOTE | 2025-04-09 17:21 | PC.ADMIT ---
Homeless Admission Note: The patient,Eldon Richardson,44 y/o, was given written information regarding hospital policies, unit procedures and contact persons. Patient's smoking status: current every day smoker. Vital Signs - 8 hr 04/09/25 15:14 04/09/25 17:10 Temperature 97.9 F 98.6 F Pulse Rate 105 H 102 H Respiratory Rate 20 H 20 H Blood Pressure 152/87 141/84 Pulse Oximetry 94 95 Pt. went into the ER claiming SI. Pt. was admitted to the [facility] on a 96 hr hold d/t telling staff he planed on taking his sleeping pills and hoped not to wake up. Pt. is homeless and living in his car that is not in working order. Pt. was admitted to the [facility] just last week and was DC. Pt. is a diabetic and upon skin assessment pt. has a large red pimple to the left lower back, and the left foot has a cut between the great toe and second toe, also to the left outer foot is a closed wound, right bottom of foot has a closed wound as well. Dr. Lyon was informed of these wounds and signee informed that wound care may need to be consulted d/t pt. being a diabetic. Signee educated pt. on the importance of taking care of his feet since he was a diabetic and pt. stated it's kind of hard to do that when you are homeless, so sorry about that. Pt. had a whinny childlike voice when talking with signee. Dr. Lyon replied back to signee that he would consult with the medical DrPiop tomorrow regarding the wounds to the BL feet. Pt. also has BLE edema about a 2+ pitting.
--- NOTE | 2025-04-09 17:45 | PC.NURSE ---
Medications reconciled.
[2025-04-09] MEDS: insulin glargine 100 units/1 mL 35 UNIT SUBCUT (18:06)
--- NOTE | 2025-04-09 18:22 | PC.NURSE ---
accucheck assessment added to worklist
[2025-04-09 19:57] VITALS: BP 102/61; PULSE 100; RESP 17; TEMP 36.9; O2SAT 94
[2025-04-09] MEDS: QUETIAPINE 150 MG PO (20:05)
[2025-04-10 06:00] VITALS: BP 110/74; PULSE 90; RESP 16; TEMP 36.8; O2SAT 94
--- NOTE | 2025-04-10 10:53 | P.NPUHP_ITS ---
Providers/Chief Complaint 2 Admitting Physician: Contreras Lyon MD Primary Care Provider: Matty Toledo MD Chief Complaint: SI HPI NPU History of Present Illness Eldon Richardson is a 44 year old male who presents to the emergency department with complaints of suicidal ideation. The patient had been hospitalized from March 23, 2025 to April 01, 2025 on the neuropsychiatric unit for depression. He reports that since his discharge there he has been homeless as there had been no retirement available at [facility] and he has been living out of his car. He continued to report feelings of hopelessness and stated that he is fearful that he may overdose on his medications. He endorses that he continues to cry frequently. He reports having problems with chronic worry as he states that he frequently worries and finds it difficult to fall asleep because he worries so much. He reports that he often gets tension and reports that his worry is out of control to the point that he becomes irritable and unable to concentrate. He had reported relative compliance to his medication regimen. He had reported no substantial changes in his psychosocial stressors since his discharge less than 10 days ago. The patient was admitted to the neuropsychiatric unit for further evaluation and treatment. Medications: Cymbalta 30 mg twice a day, Lexapro 20 mg daily, glipizide 10 mg daily, hydroxyzine as needed, insulin subcutaneously 35 units twice a day, quetiapine XR 150 mg at night Excerpt from NPU Admission from 03/23/2025 below: History of Present Illness Eldon Richardson is a 44 year old male who presented to the emergency department with the following report: Chief Complaint: Psychiatric Symptoms Stated Complaint: SI Time Seen by Provider: 03/22/25 13:12 History of Present Illness: 44-year-old man with a history of diabetes, depression, peripheral neuropathy and homelessness who presents emergency room by ambulance with complaints of suicidal thoughts. He says he wants to harm himself. He has no true plan. He has chronic pain that has been bothering him. Most recent admission was back in July. He was admitted to the neuropsychiatric unit for definitive treatment of those issues. He is known to [facility] through inpatient and outpatient services his last inpatient stay was in July of this year. An excerpt of that note is included below for context and the fact that there are no substantive changes. Except for the fact that he is homeless again. He presents with a UDS positive for cannabis reporting that he has been doing okay but had been staying at [facility] and that his time there ran out and now he is homeless living in his car feeling very depressed and wanting to just end it. The entirety of the conversation took place as he was crying about his circumstances. He would cry about any recommendation I would make saying that it was no use and he should just . We discussed working with the social work team to identify resources. Plus he identified that he had not been taking his medication and so he was struggling emotionally. We discussed the risks, benefits and alternatives of restarting his medications appropriately and he understood and agreed to proceed as is documented in this note. Per his 08/13/2024 [facility] inpatient psychiatric discharge summary: Discharge Diagnosis (1) MDD (major depressive disorder), single episode, severe: Status: Inactive (2) ANGEL (generalized anxiety disorder): Status: Chronic (3) Suicidal ideation: Status: Resolved (4) Hyperglycemia: Status: Resolved (5) Diabetes: Status: Chronic Qualifiers: Diabetes mellitus complication detail: with nephropathy Diabetes mellitus intermediate manager insulin use: with senior care use (6) Personality disorder, unspecified: Status: Acute Reason for Visit Reason for Visit: 96 Brief History: History of Present Illness Eldon Richardson is a 44 year old male who presented to the emergency department with the following report: Chief Complaint: Psychiatric Symptoms Stated Complaint: 96 Time Seen by Provider: 08/07/24 13:05 History of Present Illness: This is a 44-year-old man with a history of anxiety, diabetes who presents to the emergency room on a 96-hour court ordered hold. Eliazar says that he has poor living conditions. Apparently he got aggressive towards people and told neighbors that they cannot stop him from coming into their home. They are worried about his physical wellbeing. That he has been falling. That he has not been washing his close. Apparently he lives on their land and they told him to move and get off the land and so hold was placed on him and he was sent to the emergency room. He denies any homicidal or suicidal ideations. He was admitted to the neuropsychiatric unit for definitive treatment of those issues. He is known to [facility] through inpatient and outpatient services. His last psychiatric evaluation inpatient was in 2023. He presents today reporting that things have been going really well since his discharge about 14 months ago. He reports that he has a stable though less than desirable living arrangement which is probably the heart of the admission. He reports that there was some change in how his landlord wanted access to a certain building manage and he says that she misinterpreted a comment he made. He reports that he made some comment about being able to cook on his propane stove that he has for capping if he did not have access to the building that he believes she thought he was saying that he might blow the place up. He reports that his medications have been working well that he has been following up as directed at [facility] for medication and other treatment. He denies any need to be here or any need for medication changes. We discussed the fact that he is on a 96-hour hold and we need to vet the situation to make sure that he is safe for discharge. We agreed we would get collateral information and that there would be the possibility of discharge earlier than the end of his 96-hour hold but likely at earliest Saturday. Per his 06/20/2023 [facility] inpatient psychiatric discharge summary: Discharge Diagnosis (1) MDD (major depressive disorder), single episode, severe: Status: Inactive (2) Overdose on Tylenol: Status: Acute (3) ANGEL (generalized anxiety disorder): Status: Acute (4) Suicidal ideation: Status: Resolved (5) Hyperglycemia: Status: Resolved (6) Diabetes: Status: Acute (7) Personality disorder, unspecified: Status: Acute Reason for Visit Reason for Visit: overdose Brief History: History of Present Illness Eldon Richardson is a 43 year old male Recently discharged from the neuropsychiatric unit on 04/23/2023 with suicidal ideation who was admitted to the intensive care unit after the patient had taken 6 aspirin, multiple Tylenol pills along with several pills of 25 mg of Benadryl. The patient had been given N-acetylcysteine in the intensive care unit and had potentially ingested up to 15 g of Tylenol. The patient upon evaluation in the ICU appeared distraught and stated that he has been feeling hopeless and that he had reached out to a few of his friends to let them know through phone text that he had appreciated them and that he was planning on ending his life. He had reported no improvement with his depression since his last hospitalization. Patient had reported that he had been thinking about killing himself for the past several weeks. He had continued to report feelings of hopelessness. He reports that he has been more depressed over the past 13 months since his mother had suddenly. He reports low energy and he Trudy insomnia with frequent awakenings at night. He reports that he has been more tearful. He reports continued lack of social supports and states that he frequently feels let down by others. He states that he has been crying nearly every day. He reports that he is often overwhelmed by worry and states that he has difficulties with concentration and reports often being paralyzed by inactivity. He reports that he feels that that his worry is out of control. He reports that the holidays had been worse for him as he had felt alone and reports that he continues to grieve his mother's . He had reported compliance with Prozac but stated that the medication had been unsuccessful at helping with his mood at the dose of 20 mg daily. He had reported that he had recently lost a job in January and reports that he has been concerned that he may lose the house that he owns currently. He denies any history of yuan. He denied any history of psychosis. He minimized any drug or alcohol use other than marijuana use. The patient's urine was positive for amphetamine. Inpatient psychiatric history: 1 previous hospitalization in April 2023. There had been previous Outpatient psychiatric history: He has not received psychotherapy services but has been seen through the crisis team through [facility]. Current psychiatric medications are being monitored under Dr. Seals who is his primary care physician. Current medications: Prozac 20 mg daily, hydroxyzine, insulin, metformin, trazodone Drug and alcohol history: None reported with no prior history of substance abuse treatment. He reports he has been using marijuana on a regular basis for years. Legal history: Unknown family psychiatric history: None reported medical history: Diabetes type 2., diabetic neuropathy allergies: No known drug allergies social history: Patient grew up in [place]. He is the only product of his mother and father. He states that his mother had been multiple times. He had reported that he had apparently tried to harm himself as a child but did not elaborate. He states that he moved to [place] and has never been . He has no children. He reports having a few friends and reports that he has a dog that he describes as his best friend. He had previously worked a variety of jobs and had worked at [employer] for several years but lost his job in January. He reports having half-siblings that he has little contact with. He states that his mother had 14 months ago suddenly and reports that his depression has begun after that period time. suicide attempts by medication overdose. Excerpt NPU Discharge summary from 04/19/23 Discharge Diagnosis (1) Suicidal ideation: Status: Resolved (2) Hyperglycemia: Status: Acute (3) Diabetes: Status: Acute (4) Major depressive disorder, recurrent: Status: Acute (5) Personality disorder, unspecified: Status: Acute Reason for Visit SI Brief History: History of Present Illness Hany Richardson is a 43 year old male who presented to the emergency department with the following report: Chief Complaint: Psychiatric Symptoms Stated Complaint: SI Time Seen by Provider: 04/19/23 08:55 Source: patient and other (family friend) Mode of arrival: ambulatory Limitations: no limitations History of Present Illness: Patient is a 43-year-old male who presents to ED today after being brought by a family friend for concerns of suicidal ideations. Family friend states that she was contacted early this morning by patient asking her if she would take his dog. When she questioned further, he stated that he was suicidal and had a plan to kill himself this morning. She quickly rushed to his house and convinced him to come to the emergency department for evaluation. On exam patient is sobbing stating that he feels like he has lost everything. He states he lost his mother approximately a year ago. He lost his job a few months ago secondary to untreated mental health illness/anxiety. Patient states he has never seen a psychiatrist or medical health provider. He lives alone currently with his dog, Gisel. Patient states last month he attempted suicide by medication overdose. Of note he states he has not been to a medical provider in years but states he has untreated type II diabetes. Was on Gabapentin one time due to his peripheral neuropathy but states it didn't help. complaint: suicidal ideation and feels depressed History of same: Yes Relieving factors: none Context: significant life stressor (lost mother a year ago/lost job a few months ago) Associated psychiatric symptoms: depression and suicidal ideation Associated symptoms: Reports depression and suicidal ideation; Deny auditory hallucinations, visual hallucinations or homicidal ideation Treatments prior to arrival: none If self harm: admits thoughts of self harm He was admitted to the neuropsychiatric unit for definitive treatment of those issues. He was initially seen this morning as part of a [id number] after a seclusion episode where he lost emotional control saying that he needed to go see his dog which she given to someone initially with a plan to kill himself. There was nothing anyone can say to calm him to a rational level and this escalated to him needing to be held and he was given an injection. Shortly thereafter when I went to speak to him he was lethargic secondary to the injections but was able to arouse himself to answer some questions. He continued to focus on going to see his dog and seem to forget that he had made arrangements for the pet. He was suggesting that the dog was in some danger and we did make a call and verify that he infected given that to some apparently responsible people who are reportedly taking good care of it and they advised that the pet would be just fine in their home and that he should remain here and get the help that he needs. He did not seem to take that information with much recognition of its significance. And continued to be quite emotional surrounding the dog. He was able to share that he is had a long history of mental health issues and depression that has been essentially untreated with a reported lack of history of any medication. He reports that he was willing to begin Prozac 20 mg p.o. daily after discussion of the risks, benefits and alternatives he understood and agreed to proceed as is documented in this note. Attempts were made to get more accurate picture of exactly why he was overwhelmed but he mostly [place] rolled around in the bed lamenting about not being with his dog and not really answering the questions with any clarity. He could not give any nidus for his suicidality just reporting that he was not feeling like himself. He denied any drug use other than the marijuana and his UDS was only positive for cannabis. Hospital Course He slowly acclimated to the individual, group and milieu therapies provided. He presented with a significant conflict with the person on his property he lives. He continued to endorse that this was just a mixup but further exploration suggested that he may have overstepped his balance. The lady was not open to him returning and so he was very sad and struggled for several days as he was very happy where he was living. We restarted his medications including medications for his diabetes. He did well with the medications and had no difficulties. He denied any need for changing any of his psychiatric medications which we maintained at the current dose. He had a positive response to his medications. He denied any side effects of the medication during his stay. He worked with the social work team for appropriate aftercare appointments including assistance with residential arrangements. He had significant improvement and was able to contract for safety outside of the hospital prior to discharge. During the hospitalization, the patient had routine laboratory studies which were within normal limits except for a few outliers. Additionally, there was a general medical evaluation which was also within normal limits and revealed no new acute processes except for those treated by hospitalists on the medical side. At the time of discharge, he denied psychosis or lethality. Mood and anxiety were well managed. The patient endorsed a plan to avoid all drugs of abuse and follow up with the aftercare recommendations of the treatment team. The patient was evaluated and deemed to be absent credible lethality and had achieved the maximum benefit from an inpatient hospitalization, and so was discharged. Meds NPU Home Medications ?Medication ?Instructions ?Recorded ?Confirmed ?Last Taken ?Type blood-glucose meter #1 ea 04/23/23 04/09/25 Unkn own Rx insulin glargine 100 unit/mL (3 35 unit (0.35 mL) SUBC UT BID #30 mL 12/21/24 04/09/25 02/06/25 Rx mL) subcutaneous pen (Lantus Solostar U-100 Insulin) Pen [place]asta #100 ea 03/10/25 04/09/25 Un known Rx duloxetine 30 mg capsule,delayed 30 mg PO BID #60 caps 03/31/25 04/09/25 Unknown Rx release escitalopram oxalate 20 mg tablet 20 mg PO QAM 30 days #30 tabs 03/31/25 04/09/25 Unknown Rx glipizide 10 mg tablet 10 mg PO DAILY #90 tabs 03/1704/09/25 Unknown Rx hydroxyzine pamoate 25 mg capsule 50 mg (2 x 25 mg) PO Q6H PRN 03/31/25 04/09/25 Unknown Rx Anxiety 30 days #120 caps olanzapine 5 mg disintegrating 5 mg PO DAILY PRN 03/3104/09/25 Unknown Rx tablet Agitation/Psychosis 30 days #30 tabs blood sugar diagnostic (Blood #200 ea 04/07/25 5 Unknown Rx Glucose Test strips) quetiapine 150 mg tablet,extended 150 mg PO BEDTIME 04/09/25 Unknown History release 24 hr (Seroquel XR) trazodone 150 mg tablet 150 mg PO BEDTIME PRN insomn ia 04/09/25 04/09/25 Unknown History Allergies Allergy/AdvReac Type Severity Reaction Status Date / Time avocado Allergy Severe ALGY-Swell Verified 04/09/25 15:20 Lip/Tongue/Throat green marquez Allergy Unknown Verified 04/09/25 15:20 PFSH NPU 2 PFSH: Medical History (Updated 04/09/25 @ 15:59 by Nina Coy MD) Inadequate housing Major depressive disorder, recurrent, severe with psychotic symptoms Psychiatric care MDD (major depressive disorder), single episode, severe Suicidal ideation Moderate tobacco use disorder Anxiety Insomnia Personality disorder, unspecified Major depressive disorder, recurrent Peripheral neuropathy Diabetes Family History Father Cancer Pancreas, liver, colon Grandfather Cancer Maternal-pancreatic Other Diabetes Liver disease Stroke Denies family history of CAD (coronary artery disease) Aneurysm Autoimmune disease Clotting disorder Dementia Hyperlipidemia Hyperthyroidism Hypothyroidism Psychiatric illness Chronic kidney disease (CKD) Bleeding disorder Lung disease Hypertension Social History Smoking and tobacco/nicotine status: current every day tobacco/nicotine user cigarettes Packs smoked per day: 0.25 Years cigarettes smoked: 21 Alcohol intake: former Substance/Drug Use: former Date of last use: 7 months ago Lives independently: Yes Housing: Homeless Marital status: Single Highest education level completed: Some College, No Degree Current occupational status: unemployed Current occupational exposures/hazards: No Pets and animals: Yes Pets & animals: dog(s) Leisure activites: games and other Leisure activities details: watching TV Sexually active: No Do you think of yourself as: Lesbian/Acosta/Homosexual Current gender identity: Male Jeana/Voodoo: Druze Special jeana needs: No Agree to transfusion: Yes Mental Status Exam 2 MSE Comments: This is a well-nourished well-developed white male in hospital scrubs looking older than his stated age with poor grooming and poor eye contact covered in his blanket. There was no evidence of any abnormal involuntary motor movements, tics or tremors appreciated. He was cooperative on interview and appeared in moderate distress. His speech was normal in regards to rate, rhythm, and prosody. His mood was described as depressed. His affect was tearful. Thought process was linear, logical. Thought content: The patient endorsed suicidal thoughts with a plan to overdose. He denied any homicidal ideation. There were no delusions reported or noted. He denied any auditory or visual hallucinations and did not appear to be responding to internal stimuli. Attention span was fair. He endorsed a sense of hopelessness and worthlessness. He is alert and oriented x 3. His recent and remote memory were grossly intact. His insight was poor. His judgment is impaired. His impulse control appeared limited. Limited. Vitals/I&O/Wt Last Vital Signs Temp 98.3 F 04/10/25 06:00 Pulse 90 04/10/25 06:00 Resp 16 04/10/25 06:00 BP 110/74 04/10/25 06:00 Pulse Ox 94 04/10/25 06:00 O2 Del Method Room Air 04/10/25 06:00 04/09/25 04/10/25 04/10/25 22:59 06:59 14:59 Intake Total 0 / 0 Balance 0 / 0 Weight last 48 hrs Weight 88.451 kg Data NPU 04/09/25 14:57 04/09/25 14:57 A&P Assessment and plan 1. Personality disorder, unspecified: 2. Major depressive disorder, recurrent: 3. ANGEL (generalized anxiety disorder): Plan: 44-year-old homeless male with diabetes continuing to report depression and anxiety with suicidal ideation with a plan to overdose. He was recently hospitalized and discharged less than 10 days ago to the psychiatric unit. 1. ?Encourage individual, group and milieu therapy. 2. Recommend sober living treatment at the highest level of care to which the patient is willing to commit. 3. Continue q-15 minute checks for safety 4. Restart outpatient medications but reduce lexapro to 10mg daily with plan to discontinue and increase Cymbalta to 90mg tommorow. 5. Increase seroquel xr to 200mg at 1900. 6. Will attempt to gather collateral information. 7. Patient may need medical consult for diabetes, gall bladder problems. PDMP PDMP Reviewed: Not Reviewed Involuntary Hold Information 2 Hold Status: Legal Status: 96 Hour Hold Date/Time Hold Expires: 1 @1520 96 Hour Hold: 96 Hour Involuntary Admission: Yes Attestations NPU 2 Medical Necessity Statement*: Inpatient psychiatric hospitalization is medically necessary and the clinically appropriate intervention at this time. We will monitor/initiate medications and make changes as indicated. He will be in the psychiatric unit for over 2 midnights. His likely length of stay is 5-7 days. Coding Level of Care Code Acute Code for Chg Fwd Diagnoses Personality disorder, unspecified F60.9 Major depressive disorder, recurrent F33.9 ANGEL (generalized anxiety disorder) F41.1
[2025-04-10 13:31] VITALS: BP 128/82; PULSE 94; RESP 16; TEMP 36.9; O2SAT 96
[2025-04-10] MEDS: insulin glargine 100 units/1 mL 35 UNIT SUBCUT (16:52)
--- NOTE | 2025-04-10 17:00 | PC.NURSE ---
UA collected and sent to lab
[2025-04-10 17:16] LABS: PCP Screen Urine Negative (Negative)
[2025-04-10 20:17] VITALS: BP 111/68; PULSE 91; RESP 17; TEMP 36.9; O2SAT 94
[2025-04-11 06:00] VITALS: BP 127/78; PULSE 92; RESP 16; TEMP 37; O2SAT 95
[2025-04-11] MEDS: insulin glargine 100 units/1 mL 35 UNIT SUBCUT ×2 (08:49→17:44)
--- NOTE | 2025-04-11 13:14 | P.NPUPN_ITS ---
Subjective NPU 2 Subjective: 44-year-old male with a past history of methamphetamine abuse admitted with depression and suicidal ideation. Patient continued to isolate himself on the milieu. He continued to struggle with maintaining self-care as he had reported a lack of motivation and continued to report that he had no supports here in regards to housing. Patient had required significant redirection for engaging in showering. He continued to appear with any goal-directed activities. He continued to endorse some feelings of hopelessness and worthlessness. The patient reports that he would likely just simply choose to live outside of his car. Mental Status Exam 2 MSE Comments: This is a well-nourished well-developed white male in hospital scrubs looking older than his stated age with poor grooming and poor eye contact covered in his blanket. There was no evidence of any abnormal involuntary motor movements, tics or tremors appreciated. There was considerable psychomotor retardation. He was cooperative on interview and appeared in moderate distress. His speech was normal in regards to rate, rhythm, and prosody. His mood was described as depressed. His affect was restricted in range. Thought process was linear, logical and goal directed. Thought content: The patient endorsed suicidal thoughts with a plan to overdose. He denied any homicidal ideation. There were no delusions reported or noted. He denied any auditory or visual hallucinations and did not appear to be responding to internal stimuli. Attention span was fair. He endorsed a sense of hopelessness and worthlessness. He is alert and oriented x 3. His recent and remote memory were grossly intact. His insight was poor. His judgment is impaired. His impulse control appeared limited. Vitals/I&O/Wt Last Vital Signs Temp 98.6 F 04/11/25 06:00 Pulse 92 04/11/25 06:00 Resp 16 04/11/25 06:00 BP 127/78 04/11/25 06:00 Pulse Ox 95 04/11/25 06:00 O2 Del Method Room Air 04/10/25 20:17 Weight last 48 hrs Weight 87.815 kg Weight 88.451 kg Data NPU 04/09/25 14:57 04/09/25 14:57 A&P Assessment and plan 1. Personality disorder, unspecified: 2. Major depressive disorder, recurrent: 3. ANGEL (generalized anxiety disorder): Plan: 44-year-old homeless male with diabetes continuing to report depression and anxiety with suicidal ideation with a plan to overdose. He was recently hospitalized and discharged less than 10 days ago to the psychiatric unit. 1. ?Encourage individual, group and milieu therapy. 2. Recommend sober living treatment at the highest level of care to which the patient is willing to commit. 3. Continue q-15 minute checks for safety 4. Restart outpatient medications but reduce lexapro to 10mg daily with plan to discontinue and increase Cymbalta to 90mg tommorow. 5. Continue seroquel xr at 200mg at 1900. 6. Will attempt to gather collateral information. 7. Patient may need medical consult for diabetes, wound healing. PDMP PDMP Reviewed: Not Reviewed Involuntary Hold Information 2 Hold Status: Legal Status: 96 Hour Hold Date/Time Hold Expires: 1 @1520 96 Hour Hold: 96 Hour Involuntary Admission: Yes Attestations NPU 2 Medical Necessity Statement*: Inpatient psychiatric hospitalization is medically necessary and the clinically appropriate intervention at this time. We will monitor/initiate medications and make changes as indicated. His likely length of stay is 5-7 days. Coding Level of Care Code Acute Code for [facility] Fwd Diagnoses Personality disorder, unspecified F60.9 Major depressive disorder, recurrent F33.9 ANGEL (generalized anxiety disorder) F41.1
[2025-04-11 13:39] VITALS: BP 117/76; PULSE 94; RESP 16; TEMP 36.8; O2SAT 93
--- NOTE | 2025-04-11 17:31 | PM.CONSULT ---
Providers/Reason For Consult Consulting Physician/Specialty*: Internal medicine Donis Berry MD Reason for Consult*: Uncontrolled blood glucose, management of diabetes and complications Attending Physician: Contreras Lyon MD Primary Care Provider: Matty Toledo MD History of Present Illness History of Present Illness As per the previous notes and the patient Eldon Richardson is a 44 year old male who presents to the emergency department with complaints of suicidal ideation. The patient had been hospitalized from March 23, 2025 to April 01, 2025 on the neuropsychiatric unit for depression. He reports that since his discharge there he has been homeless as there had been no penitentiary available at [facility] and he has been living out of his car. He continued to report feelings of hopelessness and stated that he is fearful that he may overdose on his medications. Internal medicine consulted for the management of diabetes and diabetes related complications Patient has been on an insulin 35 units twice daily And glipizide 10 mg daily, he is on Cymbalta for diabetic neuropathy. The patient has been on 35 units of insulin at home without any hypoglycemic episodes and has been regularly taking it. The patient did not report any dizziness, shortness of breath, abdominal pain nausea vomiting diarrhea or any fever or chills in the past few days. However he is tearing and is concerned about his feet since he is painful to walk for him. Rest of the review of system unremarkable Medications/Allergies Home Medications ?Medication ?Instructions ?Recorded ?Confirmed ?Last Taken ?Type blood-glucose meter #1 ea 04/23/23 04/09/25 Unknown Rx insulin glargine 100 unit/mL (3 35 unit (0.35 mL) SUBCUT BID #30 mL 12/21/24 04/09/25 02/06/25 Rx mL) subcutaneous pen (Lantus Solostar U-100 Insulin) Pen [place] #100 ea 03/10/25 04/09/25 Unknown Rx duloxetine 30 mg capsule,delayed 30 mg PO BID #60 caps 03/31/25 04/09/25 Unknown Rx release escitalopram oxalate 20 mg tablet 20 mg PO QAM 30 days #30 tabs 03/31/25 04/09/25 Unknown Rx glipizide 10 mg tablet 10 mg PO DAILY #90 tabs 03/31/25 04/09/25 Unknown Rx hydroxyzine pamoate 25 mg capsule 50 mg (2 x 25 mg) PO Q6H PRN 03/31/25 04/09/25 Unknown Rx Anxiety 30 days #120 caps olanzapine 5 mg disintegrating 5 mg PO DAILY PRN 03/31/25 04/09/25 Unknown Rx tablet Agitation/Psychosis 30 days #30 tabs blood sugar diagnostic (Blood #200 ea 04/07/25 04/09/25 Unknown Rx Glucose Test strips) quetiapine 150 mg tablet,extended 150 mg PO BEDTIME 04/09/25 04/09/25 Unknown History release 24 hr (Seroquel XR) trazodone 150 mg tablet 150 mg PO BEDTIME PRN insomnia 04/09/25 04/09/25 Unknown History Allergies Allergy/AdvReac Type Severity Reaction Status Date / Time avocado Allergy Severe ALGY-Swell Verified 04/09/25 15:20 Lip/Tongue/Throat green marquez Allergy Unknown Verified 04/09/25 15:20 Current Medications Generic Name Dose Route Start Last Admin Trade Name Freq PRN Reason Stop Dose Admin Insulin Glargine 35 unit 04/10/25 18:00 04/11/25 08:49 Insulin Glargine 100 Units/1 Ml SUBCUT 35 unit BIDWM CORNELIO Administration Trazodone HCl 150 mg 04/09/25 17:43 04/10/25 20:46 Trazodone 150 Mg Tablet PO 150 mg BEDTIME PRN Administration INSOMNIA PFSH Acute PFSH: Medical History (Updated 04/11/25 @ 18:22 by Donis Berry MD) Inadequate housing Major depressive disorder, recurrent, severe with psychotic symptoms Psychiatric care MDD (major depressive disorder), single episode, severe Suicidal ideation Moderate tobacco use disorder Anxiety Insomnia Personality disorder, unspecified Major depressive disorder, recurrent Peripheral neuropathy Diabetes Family History Father Cancer Pancreas, liver, colon Grandfather Cancer Maternal-pancreatic Other Diabetes Liver disease Stroke Denies family history of CAD (coronary artery disease) Aneurysm Autoimmune disease Clotting disorder Dementia Hyperlipidemia Hyperthyroidism Hypothyroidism Psychiatric illness Chronic kidney disease (CKD) Bleeding disorder Lung disease Hypertension Social History Smoking and tobacco/nicotine status: current every day tobacco/nicotine user cigarettes Packs smoked per day: 0.25 Years cigarettes smoked: 21 Alcohol intake: former Substance/Drug Use: former Date of last use: 7 months ago Lives independently: Yes Housing: Homeless Marital status: Single Highest education level completed: Some College, No Degree Current occupational status: unemployed Current occupational exposures/hazards: No Pets and animals: Yes Pets & animals: dog(s) Leisure activites: games and other Leisure activities details: watching TV Sexually active: No Do you think of yourself as: Lesbian/Acosta/Homosexual Current gender identity: Male Jeana/Religious: Episcopal Special jeana needs: No Agree to transfusion: Yes Vitals/I&O/Wt Last Vital Signs Temp 98.3 F 04/11/25 13:39 Pulse 94 04/11/25 13:39 Resp 16 04/11/25 13:39 BP 117/76 04/11/25 13:39 Pulse Ox 93 04/11/25 13:39 O2 Del Method Room Air 04/11/25 13:39 Weight last 48 hrs Weight 87.815 kg Physical Exam Narrative: General: Alert and oriented, lying comfortably without any distress HEENT: Normocephalic, atraumatic, grossly unremarkable exam Cardio: normal rate rhythm, normal S1-S2 without any murmurs, rubs, or gallops and JVD normal Respiratory: normal vascular breathing on auscultation without any wheezes, stridor, rhonchi GI: Abdomen soft, nontender, nondistended, normoactive bowel sounds present all 4 quadrants, Neuro: intact cranial nerves motor and sensory and cerebellar/coordination function without any focal neurological deficit Behavior: Appropriate and cooperative Extremities/skin: bilateral trace pedal edema with skin changes secondary to diabetes, blanching from ankles to the feet with decreased/feeble palpable pulses. Data 04/09/25 14:57 04/09/25 14:57 A&P Assessment and plan 1. Diabetes: Patient is on insulin glargine 35 units twice daily with meals and did not report any previous history of hypoglycemias with his home dose regimen. Patient had blood glucose in the 80s running as inpatient in the morning with concerns of hypoglycemia Start insulin glargine 40 units at bedtime, and to add insulin sliding scale with high dose regimen Repeat HbA1c and lipid panel Patient to be counseled about diet control and adequate endocrinology/PCP follow-up at the time of discharge Considering patient has seen psychiatry if on olanzapine and other antipsychotics, it can further worsen HbA1c and cause metabolic syndrome therefore he needs regular close follow-ups with general manager in training for further adjustment for postdischarge HbA1c and daily blood glucose guided insulin regimen will be adjusted 2. Bilateral leg edema: Clinical examination revealed bilateral chronic skin changes with blanching of the ankles to the feet SHAUN, ultrasound arterial and venous duplex Consider podiatry consult 3. Diabetic neuropathy: Continue Cymbalta 60 mg daily 4. Tobacco abuse counseling: Adequate emphasis and counseling has been provided for smoking cessation PDMP PDMP Reviewed: Not Reviewed Consult Attestations Medical Necessity Statement: Patient will stay overnight as per discretion of the primary team and psychiatry Time Spent in Patient Care: 16 - 35 minutes (>than 50% of time spent in counselling and/or direct pt care on unit). Other Attestations: Other Attestations: Patient condition has been discussed at length with the patient/family, I have independently reviewed the chart labs imaging/diagnostics/EKG. the goals of care and code status with the patient/family/NOK/legal underwriting account representative, and documented accordingly. The patient/family has been informed about the current condition and further plan of care. Agreed with the plan of care and understood without any language barrier. Every effort was made to ensure accuracy of scientific director. Any obvious errors or omissions should be clarified with the author of the document. Coding Level of Care Code 10339 Diagnoses Diabetes E11.9 Bilateral leg edema R60.0 Diabetic neuropathy E11.40 Tobacco abuse counseling Z71.6
[2025-04-11 17:59] LABS: Cholesterol 194 mg/dL (0-200); Estmated Average Glucose 272; HDL Cholesterol 49 mg/dL (60-100); Hemoglobin A1C 11.1 % (4.0-6.0); Triglycerides 174 mg/dL (0-150)
[2025-04-11 20:55] VITALS: BP 88/54; PULSE 94; RESP 18; TEMP 36.9; O2SAT 96
[2025-04-12 06:00] VITALS: BP 112/74; PULSE 94; RESP 16; TEMP 36.8; O2SAT 96
--- NOTE | 2025-04-12 09:48 | PC.NURSE ---
hypoglycemic episode follow up Dr. Berry called this morning inquiring about pt insulin that was given last night since pt went hypoglycemic. for future reference, physician states 'please make sure that the patient his an accucheck 2-3 in between insulin doses.'
[2025-04-12 14:00] VITALS: BP 108/71; PULSE 101; RESP 16; TEMP 36.8; O2SAT 97
--- NOTE | 2025-04-12 15:29 | W.PM.NPUPNS ---
Subjective NPU Subjective: 44-year-old male with a past history of methamphetamine abuse admitted with depression and suicidal ideation. Patient continued to endorse depressed mood. He had reported some feelings of hopelessness. He had continued to report struggles with frequent periods of crying and endorsed some feelings of hopelessness. He reported low motivation and continue to isolate himself in the room. He had continued to struggle with maintaining control over his blood sugars and medicine consultation for insulin remained prominent. He continues to require prompting for completion of activities of daily living. He reported continued ideas of wanting to overdose on his medications if he were to leave here Mental Status Exam MSE Comments: This is a well-nourished well-developed white male in hospital scrubs looking older than his stated age with poor grooming and poor eye contact covered in his blanket. There was no evidence of any abnormal involuntary motor movements, tics or tremors appreciated. There was considerable psychomotor retardation. He was cooperative on interview and appeared in moderate distress. His speech was normal in regards to rate, rhythm, and prosody. His mood was described as depressed. His affect was restricted in range. Thought process was linear, logical and goal directed. Thought content: The patient endorsed suicidal thoughts with a plan to overdose. He denied any homicidal ideation. There were no delusions reported or noted. He denied any auditory or visual hallucinations and did not appear to be responding to internal stimuli. Attention span was fair. He endorsed a sense of hopelessness and worthlessness. He is alert and oriented x 3. His recent and remote memory were grossly intact. His insight was poor. His judgment is impaired. His impulse control appeared limited. Vitals/I&O/Wt Last Vital Signs Temp 98.2 F 04/12/25 14:00 Pulse 101 H 04/12/25 14:00 Resp 16 04/12/25 14:00 BP 108/71 04/12/25 14:00 Pulse Ox 97 04/12/25 14:00 O2 Del Method Room Air 04/12/25 14:00 Weight last 48 hrs Weight 87.815 kg Data NPU 04/09/25 14:57 04/09/25 14:57 A&P Assessment and plan 1. Personality disorder, unspecified: 2. Major depressive disorder, recurrent: 3. ANGEL (generalized anxiety disorder): Plan: 44-year-old homeless male with diabetes continuing to report depression and anxiety with suicidal ideation with a plan to overdose. He was recently hospitalized and discharged less than 10 days ago to the psychiatric unit. 1. ?Encourage individual, group and milieu therapy. 2. Recommend sober living treatment at the highest level of care to which the patient is willing to commit. 3. Continue q-15 minute checks for safety 4. increase Cymbalta to 90mg at night today. 5. Continue seroquel xr at 200mg at 1900. 6. Will attempt to gather collateral information. 7. Patient may need medical consult for diabetes, wound healing. PDMP PDMP Reviewed: Not Reviewed Involuntary Hold Information Hold Status: Legal Status: 96 Hour Hold Date/Time Hold Expires: 04/15/25 @ 15:20 96 Hour Hold: 96 Hour Involuntary Admission: Yes Attestations NPU Medical Necessity Statement*: Inpatient psychiatric hospitalization is medically necessary and the clinically appropriate intervention at this time. We will monitor/initiate medications and make changes as indicated. His likely length of stay is 5-7 days. Coding Level of Care Code Acute Code for [facility] Fwd Diagnoses Personality disorder, unspecified F60.9 Major depressive disorder, recurrent F33.9 ANGEL (generalized anxiety disorder) F41.1
--- NOTE | 2025-04-12 17:40 | PM.MISC ---
Miscellaneous Note Purpose of Documentation: Follow-up post insulin regimen adjustment Note: Patient has been on 35 units twice daily outside the hospital however he was unable to take his insulin on a regular basis since he was homeless HbA1c showed 11.1% therefore the patient will benefit from outpatient referral to the liability claims examiner apart from insulin regimen adjustment Inpatient the patient started on 40 units of glargine with high dose regimen insulin sliding scale, however patient got extra 12 units around 8 to 9 PM yesterday due to miscalculation of the insulin dose based on his blood sugar levels and has mild episode of hypoglycemia that was corrected and was uneventful. Further elaboration and discussion was made with the nursing team taking care of the patient, and adequate counseling provided for further management. Dose adjusted today with insulin glargine 30 units in the morning and insulin sliding scale low-dose. Continue to monitor, target glucose range 140-180. And later to adjust his insulin regimen based on sliding scale requirement in 24 hours.
--- NOTE | 2025-04-12 18:20 | USCV_ITS ---
DebraEldon tim Age: 44 Gender: M : 1980 Exam Date: 04/12/2025 22:57 Ordering Phys: Donis Berry MD Technologist: JOSHUA Exam Location: [facility] [place] Indication: Lower extremity decreased perfusion and blanching HISTORY: Lower extremity decreased perfusion and blanching PROCEDURES: Venous duplex imaging was performed in bilateral lower extremities. The following venous structures were evaluated: common femoral vein, profunda vein, proximal portion of the greater saphenous vein, superficial femoral vein, and the popliteal vein. In addition, the posterior tibial and peroneal veins were evaluated. FINDINGS: Normal 2-D Doppler and augmentation and compressibility throughout the lower extremity venous structures. Additional imaging through the proximal calf veins also reveals no thrombus. Limited evaluation of the greater saphenous vein is patent with no thrombus. CONCLUSIONS No DVT bilateral lower extremities. Dr. Myriam Franco DO (Electronically Signed) Final Date: 14 April 2025 07:46 S
--- NOTE | 2025-04-12 18:20 | USR_ITS ---
PROCEDURE INFORMATION: Exam: US Duplex Bilateral Lower Extremity Arteries Exam date and time: 04/12/2025 11:32 PM Age: 44 years old Clinical indication: Other: Lower extremity decreased perfusion and blanching TECHNIQUE: Imaging protocol: Real-time ultrasound scan of the arteries of the bilateral lower extremities with 2-D pierre scale, color Doppler flow and spectral waveform analysis. Images documented and saved. COMPARISON: CT abdomen pelvis w con* [id number] 11/13/2024 11:15 PM FINDINGS: Right common femoral artery: No occlusion or significant stenosis. Normal waveform. Right superficial femoral artery: No occlusion or significant stenosis. Normal waveform. Right popliteal artery: No occlusion or significant stenosis. Normal waveform. Right calf/foot arteries: No occlusion or significant stenosis in the visualized arteries. Normal waveforms. Dorsalis pedis artery is patent. PSV in cm/sec as follows:; BOOM STORAGE: 108; SFA: 85, 86, 108; Popliteal: 112; Post tib: 99; Dorsalis pedis: 40; Left common femoral artery: No occlusion or significant stenosis. Normal waveform. Left superficial femoral artery: No occlusion or significant stenosis. Normal waveform. Left popliteal artery: No occlusion or significant stenosis. Normal waveform. Left calf/foot arteries: No occlusion or significant stenosis in the visualized arteries. Normal waveforms. Dorsalis pedis artery is patent. PSV in cm/sec as follows:; BOOM STORAGE: 87; PFA:; SFA: 102, 112, 144; Popliteal: 153; Post tib: 99; Dorsalis pedis: 35 US/CV arterial duplex [facility] [id number] IMPRESSION: No definitive sonographic evidence of hemodynamically significant stenosis or occlusion.
--- NOTE | 2025-04-12 19:15 | PC.NURSE ---
ORDER CLARIFICATION CALL PLACED TO DR MANSFIELD AT 1910 TO CLARIFY [address] BY HIM FOR ACCU CHECKS TIMES FOR THIS PATIENT. STATED THAT PATIENTS BLOOD SUGAR IS TO BE CHECKED BEFORE EACH MEAL, WELL AT 2100. HE WOULD ALSO LIKE IT CHECKED AGAIN AT MIDNIGHT.
[2025-04-12] MEDS: insulin glargine 100 units/1 mL 30 UNIT SUBCUT (20:53)
[2025-04-12 21:39] VITALS: BP 109/70; PULSE 102; RESP 18; TEMP 36.6; O2SAT 97
--- NOTE | 2025-04-12 23:00 | PC.NURSE ---
ULTRASOUND ULTRASOUND FINALLY HERE TO DO PATIENTS CV ARTERIAL DUPLEX LE BI
[2025-04-13 06:00] VITALS: BP 111/61; PULSE 97; RESP 18; TEMP 36.9; O2SAT 95
--- NOTE | 2025-04-13 12:08 | PM.MISC ---
Miscellaneous Note Purpose of Documentation: Follow-up post insulin regimen adjustment Note: Patient has been on 35 units twice daily outside the hospital however he was unable to take his insulin on a regular basis since he was homeless HbA1c showed 11.1% Inpatient the patient started on 40 units of glargine with high dose regimen insulin sliding scale, however patient got extra 12 units around 8 to 9 PM on 04/11/2025 due to miscalculation of the insulin dose based on his blood sugar levels and has mild episode of hypoglycemia that was corrected and was uneventful. Further elaboration and discussion was made with the nursing team taking care of the patient, and adequate counseling provided for further management. 04/12/2025-04/13/2025: Dose adjusted today with insulin glargine 30 units daily and insulin sliding scale low-dose. Continue to monitor, target glucose range 140-180. Blood glucose is getting better within the last 24 hours without any events. Continue the same dose of insulin glargine 30 units with low-dose regimen insulin sliding scale with meals and monitoring of glucose. To review insulin sliding scale requirement next day. And later if needed to adjust the dose. The patient will benefit from outpatient referral to the director of capital giving for further management of his diabetes in general Patient also needs case management on board to help with his homelessness so that he can further comply with his medication for his better mental health and quality of life
[2025-04-13 14:00] VITALS: BP 105/68; PULSE 91; RESP 16; TEMP 36.6; O2SAT 97
--- NOTE | 2025-04-13 14:01 | P.NPUPN_ITS ---
Subjective NPU 2 Subjective: 44-year-old male with a past history of methamphetamine abuse admitted with depression and suicidal ideation. Patient continued to endorse depressed mood and reported having thoughts of overdosing if he were to be discharged. He had endorsed having some foot pain. He reported no motivation to complete activities of daily living. He had been less isolative on the milieu. He reported that he had struggled with managing his blood sugars outside of the hospital. He had continued to report some difficulties falling asleep. He had continued to report some pain in his back. Mental Status Exam 2 MSE Comments: This is a well-nourished well-developed white male in hospital scrubs looking older than his stated age with poor grooming and poor eye contact seen on the milieu today. There was no evidence of any abnormal involuntary motor movements, tics or tremors appreciated. There was considerable psychomotor retardation. He was cooperative on interview and appeared in moderate distress. His speech was normal in regards to rate, rhythm, and prosody. His mood was described as depressed. His affect was flat. Thought process was linear, logical and goal directed. Thought content: The patient endorsed suicidal thoughts with a plan to overdose. He denied any homicidal ideation. There were no delusions reported or noted. He denied any auditory or visual hallucinations and did not appear to be responding to internal stimuli. Attention span was fair. He endorsed a sense of hopelessness and worthlessness. He is alert and oriented x 3. His recent and remote memory were grossly intact. His insight was poor. His judgment is impaired. His impulse control appeared limited. Vitals/I&O/Wt Last Vital Signs Temp 98.4 F 04/13/25 06:00 Pulse 97 04/13/25 06:00 Resp 18 04/13/25 06:00 BP 111/61 04/13/25 06:00 Pulse Ox 95 04/13/25 06:00 O2 Del Method Room Air 04/13/25 06:00 Data NPU 04/09/25 14:57 04/09/25 14:57 A&P Assessment and plan 1. Personality disorder, unspecified: 2. Major depressive disorder, recurrent: 3. ANGEL (generalized anxiety disorder): Plan: 44-year-old homeless male with diabetes continuing to report depression and anxiety with suicidal ideation with a plan to overdose. He was recently hospitalized and discharged less than 10 days ago to the psychiatric unit. 1. ?Encourage individual, group and milieu therapy. 2. Recommend sober living treatment at the highest level of care to which the patient is willing to commit. 3. Continue q-15 minute checks for safety 4. continue Cymbalta 90mg at night today. 5. Continue seroquel xr at 200mg at 1900. 6. Will attempt to gather collateral information, seeking placement in [facility]. Patient not able to be homeless. Requires patient to have medicine given to him secondary to diabetes type I. 7. Appreciate medicine consult for DM type I. PDMP PDMP Reviewed: Not Reviewed Involuntary Hold Information 2 Hold Status: Legal Status: 96 Hour Hold Date/Time Hold Expires: 04/15/25 @ 15:20 96 Hour Hold: 96 Hour Involuntary Admission: Yes Attestations NPU 2 Medical Necessity Statement*: Inpatient psychiatric hospitalization is medically necessary and the clinically appropriate intervention at this time. We will monitor/initiate medications and make changes as indicated. His likely length of stay is 5-7 days. Coding Level of Care Code Acute Code for [facility] Fwd Diagnoses Personality disorder, unspecified F60.9 Major depressive disorder, recurrent F33.9 ANGEL (generalized anxiety disorder) F41.1
[2025-04-13] MEDS: insulin glargine 100 units/1 mL 30 UNIT SUBCUT (19:46)
[2025-04-13 19:56] VITALS: BP 93/58; PULSE 103; RESP 18; TEMP 37; O2SAT 91
[2025-04-14 06:00] VITALS: BP 95/63; PULSE 92; RESP 18; TEMP 36.8; O2SAT 90
--- NOTE | 2025-04-14 13:24 | PM.MISC ---
Miscellaneous Note Purpose of Documentation: Follow-up post insulin regimen adjustment Note: Patient HbA1c 11.1% Patient reported to be on 35 insulin glargine twice daily however was not taking since he was homeless. Patient had few episodes of hypoglycemia as inpatient which were uneventful and but developed according to protocol. 04/12/2025-04/13/2025: Patient was kept on insulin glargine 30 units with sliding scale low-dose. His blood glucose levels are better in the morning however postmeal glucose levels are high 04/14/2025: Added insulin lispro 3 units before meals and to continue on insulin sliding scale as correctional dose. To monitor units of insulin required in 24 hours to adjust according to fixed Premeal dose Continue to monitor blood glucose level and avoid hypoglycemic episodes Patient to have referral as outpatient to [facility] for further management of diabetes Patient send plan discussed with the primary physician taking care of the patient. He also has bilateral feet numbness and pain which could be secondary to diabetic foot with neuropathy. Consider dyeing machine tender consult. Follow-up with the venous duplex and [facility]UN Patient also needs case management on board to help with his homelessness so that he can further comply with his medication for his better mental health and quality of life
--- NOTE | 2025-04-14 13:32 | P.NPUPN_ITS ---
Subjective NPU 2 Subjective: 44-year-old male with a past history of methamphetamine abuse admitted with depression and suicidal ideation. The patient had reported that he was feeling somewhat better. He had reported having pain in his legs. He had reported having slept better. He had reported having struggles with his health as he continued to require continuous adjustments in his insulin with his inconsistent oral intake and his elevated blood sugars. The patient had reported having difficulties with managing his physical care and remained agreeable to receiving more help in a potential long-term. He had reported continued feelings of hopelessness but stated that he was feeling a little bit better. He can continue to isolate himself at times but did appear more social. Mental Status Exam 2 MSE Comments: This is a well-nourished well-developed white male in hospital scrubs looking older than his stated age with some improved grooming and poor eye contact seen on the milieu today. There was no evidence of any abnormal involuntary motor movements, tics or tremors appreciated. There was moderate psychomotor retardation. He was cooperative on interview and appeared in moderate distress. His speech was normal in regards to rate, rhythm, and prosody. His mood was described as depressed. His affect was restricted in range. Thought process was linear, logical and goal directed. Thought content: The patient endorsed suicidal thoughts with a plan to overdose. He denied any homicidal ideation. There were no delusions reported or noted. He denied any auditory or visual hallucinations and did not appear to be responding to internal stimuli. Attention span was fair. He endorsed a sense of hopelessness and worthlessness. He is alert and oriented x 3. His recent and remote memory were grossly intact. His insight was poor. His judgment is impaired. His impulse control appeared limited. Vitals/I&O/Wt Last Vital Signs Temp 98.2 F 04/14/25 06:00 Pulse 92 04/14/25 06:00 Resp 18 04/14/25 06:00 BP 95/63 04/14/25 06:00 Pulse Ox 90 04/14/25 06:00 O2 Del Method Room Air 04/14/25 06:00 04/13/25 04/14/25 04/14/25 22:59 06:59 14:59 Intake Total 0 / 0 Balance 0 / 0 Data NPU 04/09/25 14:57 04/09/25 14:57 A&P Assessment and plan 1. Major depressive disorder, recurrent: 2. Personality disorder, unspecified: 3. ANGEL (generalized anxiety disorder): Plan: 44-year-old homeless male with diabetes continuing to report depression and anxiety with suicidal ideation with a plan to overdose. He was recently hospitalized and discharged less than 10 days ago to the psychiatric unit. 1. ?Encourage individual, group and milieu therapy. 2. Recommend sober living treatment at the highest level of care to which the patient is willing to commit. 3. Continue q-15 minute checks for safety 4. continue Cymbalta 90mg at night today. 5. Continue seroquel xr at 200mg at 1900. 6. Will attempt to gather collateral information, seeking placement in long-term. Patient not able to be homeless. Requires patient to have medicine given to him secondary to diabetes type I. 7. Appreciate medicine consult for DM type I. 8. Patient on hold, may ask for patient to sign into hospital voluntarily. PDMP PDMP Reviewed: Not Reviewed Involuntary Hold Information 2 Hold Status: Legal Status: 96 Hour Hold Date/Time Hold Expires: 04/15/25 @ 15:20 96 Hour Hold: 96 Hour Involuntary Admission: Yes Attestations NPU 2 Medical Necessity Statement*: Inpatient psychiatric hospitalization is medically necessary and the clinically appropriate intervention at this time. We will monitor/initiate medications and make changes as indicated. His likely length of stay is 5-7 days. Coding Level of Care Code Acute Code for [facility] Fwd Diagnoses Major depressive disorder, recurrent F33.9 Personality disorder, unspecified F60.9 ANGEL (generalized anxiety disorder) F41.1
[2025-04-14 14:00] VITALS: BP 118/79; PULSE 98; RESP 17; TEMP 36.9; O2SAT 97
--- NOTE | 2025-04-14 18:29 | PC.NURSE ---
dstick @ time of insulin administrations today are noted in the comments of the orders, as the glucometer appears not to be loading the recent checks, or there is a significant delay. The last entry is showing what was obtained @ on Saturday at the time of this writing.
--- NOTE | 2025-04-14 18:46 | PC.NURSE ---
dsticks: [id number]
[2025-04-14 20:06] VITALS: BP 107/69; PULSE 105; RESP 17; TEMP 36.9; O2SAT 92
[2025-04-14] MEDS: insulin glargine 100 units/1 mL 30 UNIT SUBCUT (20:53)
[2025-04-15 06:00] VITALS: BP 98/64; PULSE 94; RESP 17; TEMP 36.7; O2SAT 98
--- NOTE | 2025-04-15 12:52 | P.NPUPN_ITS ---
Subjective NPU 2 Subjective: 44-year-old male with a past history of methamphetamine abuse admitted with depression and suicidal ideation. Patient had continued to report feeling depressed and struggled with motivation. He had reported pain in his lower legs and reported having side effects from gabapentin in the past stating that it made him suicidal. Patient had reported no suicidal thoughts at this time. He had continued to express some interest in placement in a custodial as he had reported having struggles with accurately addressing his problems with insulin regimens and his type 1 diabetes. He had been somewhat isolative on the milieu. He had required some prompting for engaging in self-care. He had reported some improvement in sleep but stated that he woke up at night due to pain. Mental Status Exam 2 MSE Comments: This is a well-nourished well-developed white male in hospital scrubs looking older than his stated age with some adequate grooming and poor eye contact seen on the milieu today. There was no evidence of any abnormal involuntary motor movements, tics or tremors appreciated. There was moderate psychomotor retardation. He was cooperative on interview and appeared in less distress. His speech was normal in regards to rate, rhythm, and prosody. His mood was described as depressed. His affect was restricted in range and mood congruent. Thought process was linear, logical and goal directed. Thought content: The patient denied suicidal thoughts at this time. He denied any homicidal ideation. There were no delusions reported or noted. He denied any auditory or visual hallucinations and did not appear to be responding to internal stimuli. Attention span was fair. He endorsed a sense of hopelessness and worthlessness. He is alert and oriented x 3. His recent and remote memory were grossly intact. His insight was poor. His judgment is impaired. His impulse control appeared limited. Vitals/I&O/Wt Last Vital Signs Temp 98.1 F 04/15/25 06:00 Pulse 94 04/15/25 06:00 Resp 17 04/15/25 06:00 BP 98/64 04/15/25 06:00 Pulse Ox 98 04/15/25 06:00 O2 Del Method Room Air 04/15/25 06:00 Data NPU 04/09/25 14:57 04/09/25 14:57 A&P Assessment and plan 1. Major depressive disorder, recurrent: 2. Personality disorder, unspecified: 3. ANGEL (generalized anxiety disorder): Plan: 44-year-old homeless male with diabetes continuing to report depression and anxiety with suicidal ideation with a plan to overdose. He was recently hospitalized and discharged less than 10 days ago to the psychiatric unit. 1. ?Encourage individual, group and milieu therapy. 2. Recommend sober living treatment at the highest level of care to which the patient is willing to commit. 3. Continue q-15 minute checks for safety 4. continue Cymbalta 90mg at night with increase to 120mg in 2-3 days. 5. Continue seroquel xr at 200mg at 1900. 6. Will attempt to gather collateral information, seeking placement in custodial. Patient not able to be homeless. Requires patient to have medicine given to him secondary to diabetes type I. 7. Appreciate medicine consult for DM type I. 8. Patient on hold, may ask for patient to sign into hospital voluntarily. PDMP PDMP Reviewed: Not Reviewed Involuntary Hold Information 2 Hold Status: Legal Status: 96 Hour Hold Date/Time Hold Expires: 04/15/25 @ 15:20 96 Hour Hold: 96 Hour Involuntary Admission: Yes Attestations NPU 2 Medical Necessity Statement*: Inpatient psychiatric hospitalization is medically necessary and the clinically appropriate intervention at this time. We will monitor/initiate medications and make changes as indicated. His likely length of stay is 5-7 days. Coding Level of Care Code Acute Code for [facility] Fwd Diagnoses Major depressive disorder, recurrent F33.9 Personality disorder, unspecified F60.9 ANGEL (generalized anxiety disorder) F41.1
[2025-04-15 14:00] VITALS: BP 121/83; PULSE 98; RESP 16; TEMP 36.8; O2SAT 98
--- NOTE | 2025-04-15 17:55 | PC.NURSE ---
current accu check order from 04/15/25 WM&Bedtime, completed 2 other active accucheck on worksheet documentation.
[2025-04-15] MEDS: insulin glargine 100 units/1 mL 30 UNIT SUBCUT (20:05)
[2025-04-15 21:51] VITALS: BP 117/68; PULSE 101; RESP 16; TEMP 36.8; O2SAT 98
[2025-04-16 06:00] VITALS: BP 99/64; PULSE 99; RESP 17; TEMP 36.7; O2SAT 95
--- NOTE | 2025-04-16 14:22 | P.NPUPN_ITS ---
Subjective NPU 2 Subjective: Patient presented today reporting that he is doing okay. He reports that the medication is effective and there are no concerns about that at this time. He has continued to report some concerns for safety given his tenuous situation. He is working with the social work team on discharge planning and possible residential placement. He denied any side effects to his medication. Mental Status Exam 2 MSE Comments: This is a well-nourished well-developed white male in hospital scrubs looking older than his stated age with some adequate grooming and poor eye contact seen on the milieu today. There was no evidence of any abnormal involuntary motor movements, tics or tremors appreciated. There was moderate psychomotor retardation. He was cooperative on interview and appeared in less distress. His speech was normal in regards to rate, rhythm, and prosody. His mood was described as depressed. His affect was restricted in range and mood congruent. Thought process was linear, logical and goal directed. Thought content: The patient denied suicidal thoughts at this time. He denied any homicidal ideation. There were no delusions reported or noted. He denied any auditory or visual hallucinations and did not appear to be responding to internal stimuli. Attention span was fair. He endorsed a sense of hopelessness and worthlessness. He is alert and oriented x 3. His recent and remote memory were grossly intact. His insight was poor. His judgment is impaired. His impulse control appeared limited. Vitals/I&O/Wt Last Vital Signs Temp 98.1 F 04/16/25 06:00 Pulse 99 04/16/25 06:00 Resp 17 04/16/25 06:00 BP 99/64 04/16/25 06:00 Pulse Ox 95 04/16/25 06:00 O2 Del Method Room Air 04/16/25 06:00 04/15/25 04/16/25 04/16/25 22:59 06:59 14:59 Intake Total 0 / 0 Balance 0 / 0 Data NPU 04/09/25 14:57 04/09/25 14:57 A&P Assessment and plan 1. Major depressive disorder, recurrent: 2. Personality disorder, unspecified: 3. ANGEL (generalized anxiety disorder): Plan: 44-year-old homeless male with diabetes continuing to report depression and anxiety with suicidal ideation with a plan to overdose. He has been recently hospitalized and discharged less than 10 days prior to admission at this psychiatric unit. 1. ?Encourage individual, group and milieu therapy. 2. Recommend sober living treatment at the highest level of care to which the patient is willing to commit. 3. Continue q-15 minute checks for safety 4. continue Cymbalta 90mg at night with increase to 120mg in 2-3 days. 5. Continue seroquel xr at 200mg at 1900. 6. Will attempt to gather collateral information, seeking placement in [facility]. Patient not able to be homeless. Requires patient to have medicine given to him secondary to diabetes type I. 7. Appreciate medicine consult for DM type I. 8. Patient on hold, may ask for patient to sign into hospital voluntarily. Ensure that he is signed into the hospital. PDMP PDMP Reviewed: Not Reviewed Involuntary Hold Information 2 Hold Status: Legal Status: 96 Hour Hold Date/Time Hold Expires: 04/15/25 @ 15:20 96 Hour Hold: 96 Hour Involuntary Admission: Yes Attestations NPU 2 Medical Necessity Statement*: Inpatient psychiatric hospitalization is medically necessary and the clinically appropriate intervention at this time. We will monitor/initiate medications and make changes as indicated. His likely length of stay is 4-6 days. Coding Level of Care Code Acute Code for [facility] Fwd Diagnoses Major depressive disorder, recurrent F33.9 Personality disorder, unspecified F60.9 ANGEL (generalized anxiety disorder) F41.1
[2025-04-16 20:43] VITALS: BP 113/73; PULSE 100; RESP 19; TEMP 36.7; O2SAT 90
[2025-04-16] MEDS: insulin glargine 100 units/1 mL 30 UNIT SUBCUT (21:02)
[2025-04-17 06:00] VITALS: BP 105/68; PULSE 95; RESP 18; TEMP 36.8; O2SAT 94
[2025-04-17 14:16] VITALS: BP 108/71; PULSE 100; RESP 18; TEMP 37.1; O2SAT 98
--- NOTE | 2025-04-17 15:35 | W.PM.NPUPNS ---
Subjective NPU Subjective: Patient presented today reporting that he is having some pain from his feet and neuropathy. We discussed the plan as he understood it was he was fairly limited on a clear understanding of the plan to be here. He reports that Dr. Toledo sent him in here. We discussed his continued struggles with residential options. We discussed the possibilities of intermediate or other living arrangements. He seemed open to what ever was possible. We discussed waiting for the treatment team on Saturday to understand what options have been identified. He denied any side effects of medication. Mental Status Exam MSE Comments: This is a well-nourished well-developed white male in hospital scrubs looking older than his stated age with some adequate grooming and poor eye contact seen on the milieu today. There was no evidence of any abnormal involuntary motor movements, tics or tremors appreciated. There was moderate psychomotor retardation. He was cooperative on interview and appeared in less distress. His speech was normal in regards to rate, rhythm, and prosody. His mood was described as depressed. His affect was restricted in range and mood congruent. Thought process was linear, logical and goal directed. Thought content: The patient denied suicidal thoughts at this time. He denied any homicidal ideation. There were no delusions reported or noted. He denied any auditory or visual hallucinations and did not appear to be responding to internal stimuli. Attention span was fair. He endorsed a sense of hopelessness and worthlessness. He is alert and oriented x 3. His recent and remote memory were grossly intact. His insight was poor. His judgment is impaired. His impulse control appeared limited. Vitals/I&O/Wt Last Vital Signs Temp 98.7 F 04/17/25 14:16 Pulse 100 04/17/25 14:16 Resp 18 04/17/25 14:16 BP 108/71 04/17/25 14:16 Pulse Ox 98 04/17/25 14:16 O2 Del Method Room Air 04/17/25 06:00 Data NPU 04/09/25 14:57 04/09/25 14:57 A&P Assessment and plan 1. Major depressive disorder, recurrent: 2. Personality disorder, unspecified: 3. ANGEL (generalized anxiety disorder): Plan: 44-year-old homeless male with diabetes continuing to report depression and anxiety with suicidal ideation with a plan to overdose. He has been recently hospitalized and discharged less than 10 days prior to admission at this psychiatric unit. 1. ?Encourage individual, group and milieu therapy. 2. Recommend sober living treatment at the highest level of care to which the patient is willing to commit. 3. Continue q-15 minute checks for safety 4. continue Cymbalta 90mg at night with increase to 120mg in 2-3 days. 5. Continue seroquel xr at 200mg at 1900. 6. Will attempt to gather collateral information, seeking placement in intermediate. Patient not able to be homeless. Requires patient to have medicine given to him secondary to diabetes type I. 7. Appreciate medicine consult for DM type I. 8. Patient on hold, may ask for patient to sign into hospital voluntarily. Ensure that he is signed into the hospital. PDMP PDMP Reviewed: Not Reviewed Involuntary Hold Information Hold Status: Legal Status: 96 Hour Hold Date/Time Hold Expires: 04/15/25 @ 15:20 96 Hour Hold: 96 Hour Involuntary Admission: Yes Attestations NPU Medical Necessity Statement*: Inpatient psychiatric hospitalization is medically necessary and the clinically appropriate intervention at this time. We will monitor/initiate medications and make changes as indicated. His likely length of stay is 4-6 days. Coding Level of Care Code Acute Code for [facility] Fwd Diagnoses Major depressive disorder, recurrent F33.9 Personality disorder, unspecified F60.9 ANGEL (generalized anxiety disorder) F41.1
[2025-04-17 20:18] VITALS: BP 102/65; PULSE 107; RESP 18; TEMP 36.9; O2SAT 95
[2025-04-17] MEDS: insulin glargine 100 units/1 mL 30 UNIT SUBCUT (21:01)
[2025-04-18 06:00] VITALS: BP 94/63; PULSE 96; RESP 17; TEMP 36.9; O2SAT 95
[2025-04-18 14:00] VITALS: BP 123/81; PULSE 101; RESP 17; TEMP 37.2; O2SAT 99
--- NOTE | 2025-04-18 14:21 | PM.MISC ---
Miscellaneous Note Purpose of Documentation: Follow-up post insulin regimen adjustment and DM foot Note: Patient HbA1c 11.1% 1- DM: At home: Patient reported to be on 35 insulin glargine twice daily however was not taking since he was homeless. Patient had few episodes of hypoglycemia as inpatient which were uneventful and but developed according to protocol. 04/12/2025-04/13/2025: Patient was kept on insulin glargine 30 units with sliding scale low-dose. His blood glucose levels are better in the morning however postmeal glucose levels are high 04/14/2025: Added insulin lispro 3 units before meals and to continue on insulin sliding scale as correctional dose. To monitor units of insulin required in 24 hours to adjust according to fixed Premeal dose Continue to monitor blood glucose level and avoid hypoglycemic episodes Patient to have referral as outpatient to draw operator for further management of diabetes 04/16/2025- 04/18/2025: Since there was some complexities with the order of fixed dosing and insulin S/S, the insulin S/S was removed and kept on insulin 30 units glargine that is helping in fasting sugars better and later insulin premeals increased to 4 units TID for better control At the time of discharge to have referral to draw operator for further management Patient if plan for discharge, consider endocrinology on board, if unable to get draw operator on board for discharge plan then can be discharged on 35 units insulin glargine with Metformin/sitagliptin: mg twice daily and Jardiance 10 mg daily with glucometer and diabetic supplies for monitoring at home postdischarge DM feet: patient has diabetic neuropathy involving his both feet with skin changes he needs podiatry onboard to help venous and arterial Duplex did not show any thrombus can start pregabalin 25mg bid patient already taking duloxetine 90 daily consider podiatry consult Thank you for involving the care of this patient Sign off, in case of any concerns or queries further, can consult at any time Patient also needs case management on board to help with his homelessness so that he can further comply with his medication for his better mental health and quality of life
--- NOTE | 2025-04-18 17:26 | W.PM.NPUPNS ---
Subjective NPU Subjective: Patient presented today reporting that things are going okay. He discussed the fact that he was still having some neuropathy/foot pain. We discussed the fact that he had this diabetes for about 15 years. He reports that when he was first diagnosed he weighed about 367 pounds. He is reduce his weight dramatically and we discussed however the insidious process that diabetes is not causing endorgan damage on a slow quiet methodical pattern. We discussed the social work team having a plan and attempting to locate options for his discharge but the obvious time challenges of this endeavor. He denied any side effects to his medication. Mental Status Exam MSE Comments: This is a well-nourished well-developed white male in hospital scrubs looking older than his stated age with some adequate grooming and poor eye contact seen on the milieu today. There was no evidence of any abnormal involuntary motor movements, tics or tremors appreciated. There was moderate psychomotor retardation. He was cooperative on interview and appeared in less distress. His speech was normal in regards to rate, rhythm, and prosody. His mood was described as depressed. His affect was restricted in range and mood congruent. Thought process was linear, logical and goal directed. Thought content: The patient denied suicidal thoughts at this time. He denied any homicidal ideation. There were no delusions reported or noted. He denied any auditory or visual hallucinations and did not appear to be responding to internal stimuli. Attention span was fair. He endorsed a sense of hopelessness and worthlessness. He is alert and oriented x 3. His recent and remote memory were grossly intact. His insight was poor. His judgment is impaired. His impulse control appeared limited. Vitals/I&O/Wt Last Vital Signs Temp 98.8 F 04/18/25 20:55 Pulse 100 04/18/25 20:55 Resp 19 H 04/18/25 20:55 BP 102/68 04/18/25 20:55 Pulse Ox 97 04/18/25 20:55 O2 Del Method Room Air 04/18/25 20:55 Weight last 48 hrs Weight 84.368 kg Data NPU 04/09/25 14:57 04/09/25 14:57 A&P Assessment and plan 1. Major depressive disorder, recurrent: 2. Personality disorder, unspecified: 3. ANGEL (generalized anxiety disorder): Plan: 44-year-old homeless male with diabetes continuing to report depression and anxiety with suicidal ideation with a plan to overdose. He has been recently hospitalized and discharged less than 10 days prior to admission at this psychiatric unit. 1. ?Encourage individual, group and milieu therapy. 2. Recommend sober living treatment at the highest level of care to which the patient is willing to commit. 3. Continue q-15 minute checks for safety 4. continue Cymbalta 90mg at night with increase to 120mg in 2-3 days. 5. Continue seroquel xr at 200mg at 1900. 6. Will attempt to gather collateral information, seeking placement in half-way. Patient not able to be homeless. Requires patient to have medicine given to him secondary to diabetes type I. 7. Appreciate medicine consult for DM type I. 8. Patient on hold, may ask for patient to sign into hospital voluntarily. Ensure that he is signed into the hospital. PDMP PDMP Reviewed: Not Reviewed Involuntary Hold Information Hold Status: Legal Status: 96 Hour Hold Date/Time Hold Expires: 04/15/25 @ 15:20 96 Hour Hold: 96 Hour Involuntary Admission: Yes Attestations NPU Medical Necessity Statement*: Inpatient psychiatric hospitalization is medically necessary and the clinically appropriate intervention at this time. We will monitor/initiate medications and make changes as indicated. His likely length of stay is 3-5 days. Coding Level of Care Code Acute Code for [facility] Fwd Diagnoses Major depressive disorder, recurrent F33.9 Personality disorder, unspecified F60.9 ANGEL (generalized anxiety disorder) F41.1
[2025-04-18] MEDS: insulin glargine 100 units/1 mL 30 UNIT SUBCUT (20:00)
[2025-04-18 20:55] VITALS: BP 102/68; PULSE 100; RESP 19; TEMP 37.1; O2SAT 97
[2025-04-19 06:00] VITALS: BP 101/65; PULSE 90; RESP 17; TEMP 36.4; O2SAT 95
[2025-04-19 13:05] VITALS: BP 108/72; PULSE 99; RESP 16; TEMP 36.8; O2SAT 95
--- NOTE | 2025-04-19 18:05 | P.NPUPN_ITS ---
Subjective NPU 2 Subjective: Patient presented today reporting that things are going fine. He denied any major issue other than his standard issues of neuropathy and is standard concerns for whether placement is going to occur. He did identify that he was advised that a bed was available at [address] place that he was referred to but is unclear whether they will actually accept him. However they do have bed availability tomorrow also if excepted he could leave then. He denied any side effects of his medication and his continued frustration about not having clear options. Mental Status Exam 2 MSE Comments: This is a well-nourished well-developed white male in hospital scrubs looking older than his stated age with some adequate grooming and poor eye contact seen on the milieu today. There was no evidence of any abnormal involuntary motor movements, tics or tremors appreciated. There was mild psychomotor retardation. He was cooperative on interview and appeared in less distress. His speech was normal in regards to rate, rhythm, and prosody. His mood was described as a little better. His affect was restricted in range and mood congruent. Thought process was linear, logical and goal directed. Thought content: The patient denied suicidal thoughts at this time. He denied any homicidal ideation. There were no delusions reported or noted. He denied any auditory or visual hallucinations and did not appear to be responding to internal stimuli. Attention span was fair. He endorsed a sense of hopelessness and worthlessness. He is alert and oriented x 3. His recent and remote memory were grossly intact. His insight was poor. His judgment is impaired. His impulse control appeared limited. Vitals/I&O/Wt Last Vital Signs Temp 98.4 F 04/19/25 20:02 Pulse 99 04/19/25 20:02 Resp 16 04/19/25 20:02 BP 104/67 04/19/25 20:02 Pulse Ox 96 04/19/25 20:02 O2 Del Method Room Air 04/19/25 20:02 Data NPU 04/09/25 14:57 04/09/25 14:57 A&P Assessment and plan 1. Major depressive disorder, recurrent: 2. Personality disorder, unspecified: 3. ANGEL (generalized anxiety disorder): Plan: 44-year-old homeless male with diabetes continuing to report depression and anxiety with suicidal ideation with a plan to overdose. He has been recently hospitalized and discharged less than 10 days prior to admission at this psychiatric unit. 1. ?Encourage individual, group and milieu therapy. 2. Recommend sober living treatment at the highest level of care to which the patient is willing to commit. 3. Continue q-15 minute checks for safety 4. continue Cymbalta 90mg at night with increase to 120mg in 2-3 days. 5. Continue seroquel xr at 200mg at 1900. 6. Will attempt to gather collateral information, seeking placement in detention. Patient not able to be homeless. Requires patient to have medicine given to him secondary to diabetes type I. 7. Appreciate medicine consult for DM type I. 8. Patient on hold, may ask for patient to sign into hospital voluntarily. Ensure that he is signed into the hospital. 9. Possible placement at [place] tomorrow with bed availability noted but they have yet to accept patient. PDMP PDMP Reviewed: Not Reviewed Involuntary Hold Information 2 Hold Status: Legal Status: 96 Hour Hold Date/Time Hold Expires: 04/15/25 @ 15:20 96 Hour Hold: 96 Hour Involuntary Admission: Yes Attestations NPU 2 Medical Necessity Statement*: Inpatient psychiatric hospitalization is medically necessary and the clinically appropriate intervention at this time. We will monitor/initiate medications and make changes as indicated. His likely length of stay is 2-4 days. Coding Level of Care Code Acute Code for [facility] Fwd Diagnoses Major depressive disorder, recurrent F33.9 Personality disorder, unspecified F60.9 ANGEL (generalized anxiety disorder) F41.1
[2025-04-19 20:02] VITALS: BP 104/67; PULSE 99; RESP 16; TEMP 36.9; O2SAT 96
[2025-04-19] MEDS: insulin glargine 100 units/1 mL 30 UNIT SUBCUT (20:09)
[2025-04-20 06:00] VITALS: BP 109/69; PULSE 86; RESP 16; TEMP 36.8; O2SAT 95
[2025-04-20 14:00] VITALS: BP 124/76; PULSE 103; RESP 17; TEMP 36.8; O2SAT 98
--- NOTE | 2025-04-20 16:53 | W.PM.NPUPNS ---
Subjective NPU Subjective: Patient presented today reporting that he is doing okay but is frustrated because he wants to leave. We had a long discussion about the fact that if the left we will be repeating the same patterns from his last hospitalizations which it ended without any movement forward. He is challenged by the fact that he has no source of income making it so places that would normally except him would not. We discussed the possibility of him going to a place like [place] where there is greater resources and trying to build on that versus his plan to stay here and stay in his car with the weather likely being below 0 within a week and him not even having money to keep the car going for heat. He endorsed he would consider that plan as he is working with social work. He denied any side effects to the medications. Mental Status Exam MSE Comments: This is a well-nourished well-developed white male in hospital scrubs looking older than his stated age with some adequate grooming and poor eye contact seen on the milieu today. There was no evidence of any abnormal involuntary motor movements, tics or tremors appreciated. There was mild psychomotor retardation. He was cooperative on interview and appeared in less distress. His speech was normal in regards to rate, rhythm, and prosody. His mood was described as a little better. His affect was restricted in range and mood congruent. Thought process was linear, logical and goal directed. Thought content: The patient denied suicidal thoughts at this time. He denied any homicidal ideation. There were no delusions reported or noted. He denied any auditory or visual hallucinations and did not appear to be responding to internal stimuli. Attention span was fair. He endorsed a sense of hopelessness and worthlessness. He is alert and oriented x 3. His recent and remote memory were grossly intact. His insight was poor. His judgment is impaired. His impulse control appeared limited. Vitals/I&O/Wt Last Vital Signs Temp 98.7 F 04/20/25 19:32 Pulse 103 H 04/20/25 19:32 Resp 18 04/20/25 19:32 BP 95/53 04/20/25 19:32 Pulse Ox 95 04/20/25 19:32 O2 Del Method Room Air 04/20/25 19:32 04/20/25 14:59 Intake Total Balance Data NPU 04/09/25 14:57 04/09/25 14:57 A&P Assessment and plan 1. Major depressive disorder, recurrent: 2. Personality disorder, unspecified: 3. ANGEL (generalized anxiety disorder): Plan: 44-year-old homeless male with diabetes continuing to report depression and anxiety with suicidal ideation with a plan to overdose. He has been recently hospitalized and discharged less than 10 days prior to admission at this psychiatric unit. 1. ?Encourage individual, group and milieu therapy. 2. Recommend sober living treatment at the highest level of care to which the patient is willing to commit. 3. Continue q-15 minute checks for safety 4. continue Cymbalta 90mg at night with increase to 120mg in 2-3 days. 5. Continue seroquel xr at 200mg at 1900. 6. Will attempt to gather collateral information, seeking placement in long term. Patient not able to be homeless. Requires patient to have medicine given to him secondary to diabetes type I. 7. Appreciate medicine consult for DM type I. 8. Patient on hold, may ask for patient to sign into hospital voluntarily. Ensure that he is signed into the hospital. 9. Possible placement at [place] tomorrow with bed availability noted but they have yet to accept patient. Tentative plan for discharge to be examination tomorrow PDMP PDMP Reviewed: Last Reviewed 04/20/25 15:29 EST by hCad Laureano MD Involuntary Hold Information Hold Status: Legal Status: 96 Hour Hold Date/Time Hold Expires: 04/15/25 @ 15:20 96 Hour Hold: 96 Hour Involuntary Admission: Yes Attestations NPU Medical Necessity Statement*: Inpatient psychiatric hospitalization is medically necessary and the clinically appropriate intervention at this time. We will monitor/initiate medications and make changes as indicated. His likely length of stay is 1-3 days. Coding Level of Care Code Acute Code for [facility] Fwd Diagnoses Major depressive disorder, recurrent F33.9 Personality disorder, unspecified F60.9 ANGEL (generalized anxiety disorder) F41.1
--- NOTE | 2025-04-20 18:20 | PC.NURSE ---
Pt was tearful and anxious most of the shift, requiring PRN anxiety meds. Pt stated that he wants to be discharged to his car. Social work team is still seeking placement for pt during these winter months.
[2025-04-20 19:32] VITALS: BP 95/53; PULSE 103; RESP 18; TEMP 37.1; O2SAT 95
[2025-04-20] MEDS: insulin glargine 100 units/1 mL 30 UNIT SUBCUT (20:03)
[2025-04-21 06:00] VITALS: BP 103/73; PULSE 89; RESP 16; TEMP 36.5; O2SAT 98
--- NOTE | 2025-04-21 07:30 | P.NPUPN_ITS ---
Subjective NPU 2 Subjective: Patient presented today reporting that things are going all right. We discussed that the options that he has are limited and the only safe option has him going to [place] and hoping to engage in greater resources. His current situation here in [place] is absent resources and his plan to live in his car would prove very problematic when it supposed to be below 30 degrees starting Saturday at times and he does not have any resources to keep his engine running to stay warm. He has no access to a place to stay and so he discharged to the streets and was playing with appear to be brought with safety concerns. He denied any side effects to his medication. Mental Status Exam 2 MSE Comments: This is a well-nourished well-developed white male in hospital scrubs looking older than his stated age with some adequate grooming and poor eye contact seen on the milieu today. There was no evidence of any abnormal involuntary motor movements, tics or tremors appreciated. There was mild psychomotor retardation. He was cooperative on interview and appeared in less distress. His speech was normal in regards to rate, rhythm, and prosody. His mood was described as a little better. His affect was restricted in range and mood congruent. Thought process was linear, logical and goal directed. Thought content: The patient denied suicidal thoughts at this time. He denied any homicidal ideation. There were no delusions reported or noted. He denied any auditory or visual hallucinations and did not appear to be responding to internal stimuli. Attention span was fair. He endorsed a sense of hopelessness and worthlessness. He is alert and oriented x 3. His recent and remote memory were grossly intact. His insight was poor. His judgment is impaired. His impulse control appeared limited. Vitals/I&O/Wt Last Vital Signs Temp 97.7 F 04/21/25 06:00 Pulse 89 04/21/25 06:00 Resp 16 04/21/25 06:00 BP 103/73 04/21/25 06:00 Pulse Ox 98 04/21/25 06:00 O2 Del Method Room Air 04/21/25 06:00 Data NPU 04/09/25 14:57 04/09/25 14:57 A&P Assessment and plan 1. Major depressive disorder, recurrent: 2. Personality disorder, unspecified: 3. ANGEL (generalized anxiety disorder): Plan: 44-year-old homeless male with diabetes continuing to report depression and anxiety with suicidal ideation with a plan to overdose. He has been recently hospitalized and discharged less than 10 days prior to admission at this psychiatric unit. 1. ?Encourage individual, group and milieu therapy. 2. Recommend sober living treatment at the highest level of care to which the patient is willing to commit. 3. Continue q-15 minute checks for safety 4. continue Cymbalta 90mg at night with increase to 120mg in 2-3 days. 5. Continue seroquel xr at 200mg at 1900. 6. Will attempt to gather collateral information, seeking placement in correction. Patient not able to be homeless. Requires patient to have medicine given to him secondary to diabetes type I. 7. Appreciate medicine consult for DM type I. 8. Patient on hold, may ask for patient to sign into hospital voluntarily. Ensure that he is signed into the hospital. 9. Possible placement at [place] tomorrow with bed availability noted but they have yet to accept patient. Tentative plan for discharge to [place] tomorrow. There is great challenges with disposition for this patient due to his resistance to going to [place] but the high risk for a very bad outcome if he stays here and ultimately subject himself to the upcoming cold weather with no resources to keep his car warm when he decides to live there. PDMP PDMP Reviewed: Last Reviewed 04/20/25 15:29 EST by Chad Laureano MD Involuntary Hold Information 2 Hold Status: Legal Status: 96 Hour Hold Date/Time Hold Expires: 04/15/25 @ 15:20 96 Hour Hold: 96 Hour Involuntary Admission: Yes Attestations NPU 2 Medical Necessity Statement*: Inpatient psychiatric hospitalization is medically necessary and the clinically appropriate intervention at this time. We will monitor/initiate medications and make changes as indicated. His likely length of stay is 1-3 days. Coding Level of Care Code Acute Code for [facility] Fwd Diagnoses Major depressive disorder, recurrent F33.9 Personality disorder, unspecified F60.9 ANGEL (generalized anxiety disorder) F41.1
[2025-04-21 14:00] VITALS: BP 107/74; PULSE 93; RESP 17; O2SAT 98
[2025-04-21] MEDS: insulin glargine 100 units/1 mL 30 UNIT SUBCUT (19:57)
[2025-04-21 20:26] VITALS: BP 115/73; PULSE 98; RESP 17; TEMP 37.3; O2SAT 97
[2025-04-22 06:00] VITALS: BP 109/71; PULSE 95; RESP 16; TEMP 36.7; O2SAT 98
--- NOTE | 2025-04-22 11:50 | P.NPUPN_ITS ---
Subjective NPU 2 Subjective: Patient presented today continuing to be more reasonable per staff reports and direct observation. There is an RTF in [place] that we will entertain taking him and there is a interview plan this afternoon and he is agreeable to participate in hopes that that might be an opportunity for him given all other opportunities seeming to dry up. He denied any side effects of his medication. Mental Status Exam 2 MSE Comments: This is a well-nourished well-developed white male in hospital scrubs looking older than his stated age with some adequate grooming and poor eye contact seen on the milieu today. There was no evidence of any abnormal involuntary motor movements, tics or tremors appreciated. There was mild psychomotor retardation. He was cooperative on interview and appeared in less distress. His speech was normal in regards to rate, rhythm, and prosody. His mood was described as a little better. His affect was restricted in range and mood congruent. Thought process was linear, logical and goal directed. Thought content: The patient denied suicidal thoughts at this time. He denied any homicidal ideation. There were no delusions reported or noted. He denied any auditory or visual hallucinations and did not appear to be responding to internal stimuli. Attention span was fair. He endorsed a sense of hopelessness and worthlessness. He is alert and oriented x 3. His recent and remote memory were grossly intact. His insight was poor. His judgment is impaired. His impulse control appeared limited. Vitals/I&O/Wt Last Vital Signs Temp 98.0 F 04/22/25 06:00 Pulse 95 04/22/25 06:00 Resp 16 04/22/25 06:00 BP 109/71 04/22/25 06:00 Pulse Ox 98 04/22/25 06:00 O2 Del Method Room Air 04/22/25 06:00 04/22/25 14:59 Intake Total Balance Data NPU 04/09/25 14:57 04/09/25 14:57 A&P Assessment and plan 1. Major depressive disorder, recurrent: 2. Personality disorder, unspecified: 3. ANGEL (generalized anxiety disorder): Plan: 44-year-old homeless male with diabetes continuing to report depression and anxiety with suicidal ideation with a plan to overdose. He has been recently hospitalized and discharged less than 10 days prior to admission at this psychiatric unit. 1. ?Encourage individual, group and milieu therapy. 2. Recommend sober living treatment at the highest level of care to which the patient is willing to commit. 3. Continue q-15 minute checks for safety 4. continue Cymbalta 90mg at night with increase to 120mg in 2-3 days. 5. Continue seroquel xr at 200mg at 1900. 6. Will attempt to gather collateral information, seeking placement in [place]. Patient not able to be homeless. Requires patient to have medicine given to him secondary to diabetes type I. 7. Appreciate medicine consult for DM type I. 8. Patient on hold, may ask for patient to sign into hospital voluntarily. Ensure that he is signed into the hospital. 9. Possible placement at [place] tomorrow with bed availability noted but they have yet to accept patient. Tentative plan for discharge to [place] tomorrow. There is great challenges with disposition for this patient due to his resistance to going to [place] but the high risk for a very bad outcome if he stays here and ultimately subject himself to the upcoming cold weather with no resources to keep his car warm when he decides to live there. 10. Possible chance for transfer to [facility] in [place] tomorrow. PDMP PDMP Reviewed: Last Reviewed 04/20/25 15:29 EST by Chad Laureano MD Involuntary Hold Information 2 Hold Status: Legal Status: 96 Hour Hold Date/Time Hold Expires: vol with aff 96 Hour Hold: 96 Hour Involuntary Admission: Yes Attestations NPU 2 Medical Necessity Statement*: Inpatient psychiatric hospitalization is medically necessary and the clinically appropriate intervention at this time. We will monitor/initiate medications and make changes as indicated. His likely length of stay is 1-3 days. Coding Level of Care Code Acute Code for [facility] Fwd Diagnoses Major depressive disorder, recurrent F33.9 Personality disorder, unspecified F60.9 ANGEL (generalized anxiety disorder) F41.1
[2025-04-22 13:38] VITALS: BP 110/76; PULSE 80; RESP 16; O2SAT 98
--- NOTE | 2025-04-22 19:56 | PC.NURSE ---
Pt refused acucheck blood sugar testing. Insulin not given.
[2025-04-22 20:35] VITALS: BP 101/63; PULSE 95; RESP 16; TEMP 36.7; O2SAT 90
--- NOTE | 2025-04-22 22:48 | PC.NURSE ---
Pt refused acucheck stating his fingers and toes were too sore. No insulin was given. He was very adamant that he did not want his blood glucose checked
[2025-04-23 06:00] VITALS: BP 93/59; PULSE 92; RESP 16; TEMP 36.8; O2SAT 93
--- NOTE | 2025-04-23 12:15 | P.NPUPN_ITS ---
Subjective NPU 2 Subjective: Patient presented today reporting that things are going okay. He was interviewed and was accepted at an [facility] in [place] and is happy about that plan. Discharge will be Saturday. We discussed the plan for the opportunity ahead of him and he endorses a plan to work to make sure that this is a good fit and somewhere he can stay and work on his issues going forward. He denied any side effects of his medication. Mental Status Exam 2 MSE Comments: This is a well-nourished well-developed white male in hospital scrubs looking older than his stated age with some adequate grooming and poor eye contact seen on the milieu today. There was no evidence of any abnormal involuntary motor movements, tics or tremors appreciated. There was mild psychomotor retardation. He was cooperative on interview and appeared in less distress. His speech was normal in regards to rate, rhythm, and prosody. His mood was described as a little better. His affect was restricted in range and mood congruent. Thought process was linear, logical and goal directed. Thought content: The patient denied suicidal thoughts at this time. He denied any homicidal ideation. There were no delusions reported or noted. He denied any auditory or visual hallucinations and did not appear to be responding to internal stimuli. Attention span was fair. He endorsed a sense of hopelessness and worthlessness. He is alert and oriented x 3. His recent and remote memory were grossly intact. His insight was poor. His judgment is impaired. His impulse control appeared limited. Vitals/I&O/Wt Last Vital Signs Temp 98.3 F 04/23/25 06:00 Pulse 92 04/23/25 06:00 Resp 16 04/23/25 06:00 BP 93/59 04/23/25 06:00 Pulse Ox 93 04/23/25 06:00 O2 Del Method Room Air 04/23/25 06:00 04/22/25 04/23/25 04/23/25 22:59 06:59 14:59 Intake Total 480 / 480 Balance 480 / 480 Data NPU 04/09/25 14:57 04/09/25 14:57 A&P Assessment and plan 1. Major depressive disorder, recurrent: 2. Personality disorder, unspecified: 3. ANGEL (generalized anxiety disorder): Plan: 44-year-old homeless male with diabetes continuing to report depression and anxiety with suicidal ideation with a plan to overdose. He has been recently hospitalized and discharged less than 10 days prior to admission at this psychiatric unit. 1. ?Encourage individual, group and milieu therapy. 2. Recommend sober living treatment at the highest level of care to which the patient is willing to commit. 3. Continue q-15 minute checks for safety 4. continue Cymbalta 90mg at night with increase to 120mg in 2-3 days. 5. Continue seroquel xr at 200mg at 1900. 6. Will attempt to gather collateral information, seeking placement in [place]. Patient not able to be homeless. Requires patient to have medicine given to him secondary to diabetes type I. 7. Appreciate medicine consult for DM type I. 8. Patient on hold, may ask for patient to sign into hospital voluntarily. Ensure that he is signed into the hospital. 9. Possible placement at [place] tomorrow with bed availability noted but they have yet to accept patient. Tentative plan for discharge to [place] tomorrow. There is great challenges with disposition for this patient due to his resistance to going to [place] but the high risk for a very bad outcome if he stays here and ultimately subject himself to the upcoming cold weather with no resources to keep his car warm when he decides to live there. 10. Possible chance for transfer to [facility] in [place] tomorrow. Patient accepted by [facility] and will discharge on Saturday morning. PDMP PDMP Reviewed: Last Reviewed 04/20/25 15:29 EST by Chad Laureano MD Involuntary Hold Information 2 Hold Status: Legal Status: 96 Hour Hold Date/Time Hold Expires: vol with aff 96 Hour Hold: 96 Hour Involuntary Admission: Yes Attestations NPU 2 Medical Necessity Statement*: Inpatient psychiatric hospitalization is medically necessary and the clinically appropriate intervention at this time. We will monitor/initiate medications and make changes as indicated. His likely length of stay is 3 days. Coding Level of Care Code Acute Code for Chg Fwd Diagnoses Major depressive disorder, recurrent F33.9 Personality disorder, unspecified F60.9 ANGEL (generalized anxiety disorder) F41.1
[2025-04-23 14:00] VITALS: BP 131/79; PULSE 102; RESP 17; TEMP 36.9; O2SAT 98
[2025-04-23] MEDS: insulin glargine 100 units/1 mL 30 UNIT SUBCUT (19:59)
[2025-04-23 20:29] VITALS: BP 119/83; PULSE 99; RESP 18; TEMP 36.9; O2SAT 96
[2025-04-24 06:00] VITALS: BP 113/76; PULSE 94; RESP 16; TEMP 36.7; O2SAT 93
[2025-04-24 14:00] VITALS: BP 114/77; PULSE 99; RESP 16; TEMP 36.6; O2SAT 97
--- NOTE | 2025-04-24 17:56 | P.NPUPN_ITS ---
Subjective NPU 2 Subjective: Patient presented today reporting he is doing okay. He is excited about the opportunity in [place] and we continue to discuss a plan for discharge good morning. He had no new issues and reports that he is glad that we finally found an answer because he was worried that he was not going to have any options or choices. He denied any side effects to his medication. Mental Status Exam 2 MSE Comments: This is a well-nourished well-developed white male in hospital scrubs looking older than his stated age with some adequate grooming and poor eye contact seen on the milieu today. There was no evidence of any abnormal involuntary motor movements, tics or tremors appreciated. There was mild psychomotor retardation. He was cooperative on interview and appeared in less distress. His speech was normal in regards to rate, rhythm, and prosody. His mood was described as better. His affect was less restricted in range and mood congruent. Thought process was linear, logical and goal directed. Thought content: The patient denied suicidal thoughts at this time. He denied any homicidal ideation. There were no delusions reported or noted. He denied any auditory or visual hallucinations and did not appear to be responding to internal stimuli. Attention span was fair. He endorsed a sense of hopelessness and worthlessness. He is alert and oriented x 3. His recent and remote memory were grossly intact. His insight was poor. His judgment is impaired. His impulse control appeared limited. Vitals/I&O/Wt Last Vital Signs Temp 98.3 F 04/24/25 20:49 Pulse 99 04/24/25 20:49 Resp 18 04/24/25 20:49 BP 115/70 04/24/25 20:49 Pulse Ox 96 04/24/25 20:49 O2 Del Method Room Air 04/24/25 20:49 Data NPU 04/09/25 14:57 04/09/25 14:57 A&P Assessment and plan 1. Major depressive disorder, recurrent: 2. Personality disorder, unspecified: 3. ANGEL (generalized anxiety disorder): Plan: 44-year-old homeless male with diabetes continuing to report depression and anxiety with suicidal ideation with a plan to overdose. He has been recently hospitalized and discharged less than 10 days prior to admission at this psychiatric unit. 1. ?Encourage individual, group and milieu therapy. 2. Recommend sober living treatment at the highest level of care to which the patient is willing to commit. 3. Continue q-15 minute checks for safety 4. continue Cymbalta 90mg at night with increase to 120mg in 2-3 days. 5. Continue seroquel xr at 200mg at 1900. 6. Will attempt to gather collateral information, seeking placement in [place]. Patient not able to be homeless. Requires patient to have medicine given to him secondary to diabetes type I. 7. Appreciate medicine consult for DM type I. 8. Patient on hold, may ask for patient to sign into hospital voluntarily. Ensure that he is signed into the hospital. 9. Possible placement at [place] tomorrow with bed availability noted but they have yet to accept patient. Tentative plan for discharge to [place] tomorrow. There is great challenges with disposition for this patient due to his resistance to going to [place] but the high risk for a very bad outcome if he stays here and ultimately subject himself to the upcoming cold weather with no resources to keep his car warm when he decides to live there. 10. Possible chance for transfer to [facility] in [place] tomorrow. Patient accepted by [facility] and will discharge on Saturday morning. PDMP PDMP Reviewed: Last Reviewed 04/20/25 15:29 EST by Chad Laureano MD Involuntary Hold Information 2 Hold Status: Legal Status: 96 Hour Hold Date/Time Hold Expires: vol with aff 96 Hour Hold: 96 Hour Involuntary Admission: Yes Attestations NPU 2 Medical Necessity Statement*: Inpatient psychiatric hospitalization is medically necessary and the clinically appropriate intervention at this time. We will monitor/initiate medications and make changes as indicated. His likely length of stay is 2 days. Coding Level of Care Code Acute Code for Chg Fwd Diagnoses Major depressive disorder, recurrent F33.9 Personality disorder, unspecified F60.9 ANGEL (generalized anxiety disorder) F41.1
[2025-04-24] MEDS: insulin glargine 100 units/1 mL 30 UNIT SUBCUT (20:21)
[2025-04-24 20:49] VITALS: BP 115/70; PULSE 99; RESP 18; TEMP 36.8; O2SAT 96
[2025-04-25 06:00] VITALS: BP 111/73; PULSE 92; RESP 18; TEMP 36.7; O2SAT 92; BMI 30.5
[2025-04-25 13:36] VITALS: BP 113/71; PULSE 97; RESP 16; TEMP 36.4; O2SAT 94
--- NOTE | 2025-04-25 14:16 | P.NPUPN_ITS ---
Subjective NPU 2 Subjective: Patient presented today reporting he is doing well. He is expressed excitement about the opportunity in [place] and we continue to discuss a plan for discharge tomorrow morning. He had no new issues and he denied any side effects to his medication. Mental Status Exam 2 MSE Comments: This is a well-nourished well-developed white male in hospital scrubs looking older than his stated age with some adequate grooming and poor eye contact seen on the milieu today. There was no evidence of any abnormal involuntary motor movements, tics or tremors appreciated. There was mild psychomotor retardation. He was cooperative on interview and appeared in no acute distress. His speech was normal in regards to rate, rhythm, and prosody. His mood was described as excited about tomorrow. His affect was less restricted in range and mood congruent. Thought process was linear, logical and goal directed. Thought content: The patient denied suicidal thoughts at this time. He denied any homicidal ideation. There were no delusions reported or noted. He denied any auditory or visual hallucinations and did not appear to be responding to internal stimuli. Attention span was fair. He endorsed a sense of hopelessness and worthlessness. He is alert and oriented x 3. His recent and remote memory were grossly intact. His insight was poor. His judgment is impaired. His impulse control appeared limited. Vitals/I&O/Wt Last Vital Signs Temp 97.5 F L 04/25/25 13:36 Pulse 97 04/25/25 13:36 Resp 16 04/25/25 13:36 BP 113/71 04/25/25 13:36 Pulse Ox 94 04/25/25 13:36 O2 Del Method Room Air 04/25/25 13:36 Weight last 48 hrs Weight 91.172 kg Data NPU 04/09/25 14:57 04/09/25 14:57 A&P Assessment and plan 1. Major depressive disorder, recurrent: 2. Personality disorder, unspecified: 3. ANGEL (generalized anxiety disorder): Plan: 44-year-old homeless male with diabetes continuing to report depression and anxiety with suicidal ideation with a plan to overdose. He has been recently hospitalized and discharged less than 10 days prior to admission at this psychiatric unit. 1. ?Encourage individual, group and milieu therapy. 2. Recommend sober living treatment at the highest level of care to which the patient is willing to commit. 3. Continue q-15 minute checks for safety 4. continue Cymbalta 90mg at night with increase to 120mg in 2-3 days. 5. Continue seroquel xr at 200mg at 1900. 6. Will attempt to gather collateral information, seeking placement in [place]. Patient not able to be homeless. Requires patient to have medicine given to him secondary to diabetes type I. 7. Appreciate medicine consult for DM type I. 8. Patient on hold, may ask for patient to sign into hospital voluntarily. Ensure that he is signed into the hospital. 9. Possible placement at [place] tomorrow with bed availability noted but they have yet to accept patient. Tentative plan for discharge to [place] tomorrow. There is great challenges with disposition for this patient due to his resistance to going to [place] but the high risk for a very bad outcome if he stays here and ultimately subject himself to the upcoming cold weather with no resources to keep his car warm when he decides to live there. 10. Possible chance for transfer to [facility] in [place] tomorrow. Patient accepted by [facility] and will discharge on tomorrow morning. PDMP PDMP Reviewed: Last Reviewed 04/20/25 15:29 EST by Chad Laureano MD Involuntary Hold Information 2 Hold Status: Legal Status: 96 Hour Hold Date/Time Hold Expires: vol with aff 96 Hour Hold: 96 Hour Involuntary Admission: Yes Attestations NPU 2 Medical Necessity Statement*: Inpatient psychiatric hospitalization is medically necessary and the clinically appropriate intervention at this time. We will monitor/initiate medications and make changes as indicated. His likely length of stay is 1 day. Coding Level of Care Code Acute Code for [facility] Fwd Diagnoses Major depressive disorder, recurrent F33.9 Personality disorder, unspecified F60.9 ANGEL (generalized anxiety disorder) F41.1
[2025-04-25] MEDS: insulin glargine 100 units/1 mL 30 UNIT SUBCUT (20:08)
[2025-04-25 20:32] VITALS: BP 144/87; PULSE 101; RESP 19; TEMP 36.7; O2SAT 98
[2025-04-26 06:00] VITALS: BP 102/67; PULSE 83; RESP 17; TEMP 36.6; O2SAT 92
--- NOTE | 2025-04-26 09:17 | P.NPUDS_ITS ---
Diagnoses at Discharge Discharge Diagnosis 1. Severe episode of recurrent major depressive disorder, without psychotic features: 2. Personality disorder, unspecified: 3. ANGEL (generalized anxiety disorder): Reason for Visit Reason for Visit: SI Involuntary Hold Information Hold Status: Legal Status: 96 Hour Hold Date/Time Hold Expires: vol with aff 96 Hour Hold: 96 Hour Involuntary Admission: Yes Mental Status Exam MSE Comments: This is a well-nourished well-developed white male in hospital scrubs looking older than his stated age with some adequate grooming and poor eye contact seen on the milieu today. There was no evidence of any abnormal involuntary motor movements, tics or tremors appreciated. There was mild psychomotor retardation. He was cooperative on interview and appeared in no acute distress. His speech was normal in regards to rate, rhythm, and prosody. His mood was described as excited about tomorrow. His affect was less restricted in range and mood congruent. Thought process was linear, logical and goal directed. Thought content: The patient denied suicidal thoughts at this time. He denied any homicidal ideation. There were no delusions reported or noted. He denied any auditory or visual hallucinations and did not appear to be responding to internal stimuli. Attention span was fair. He endorsed a sense of hopelessness and worthlessness. He is alert and oriented x 3. His recent and remote memory were grossly intact. His insight was poor. His judgment is impaired. His impulse control appeared limited. Discharge Data Studies Completed and Pending: Completed Studies During Hospitalization Category Date Time [place] [address] Rout ine Ultrasound 04/12/25 18:20 [place] [id number] Routin e Ultrasound 04/12/25 18:20 Completed Radiology Impressions Duplex Scan Lower Extremity Artery 04/12/25 18:20 IMPRESSION: No definitive sonographic evidence of hemodynamically significant stenosis or occlusion. Laboratory Results WBC 7.79 10^3/uL (3.2 9-11.43) 04/09/25 14:57 RBC 4.83 10^6/uL (3.8 5-5.65) 04/09/25 14:57 Hgb 14.60 g/dL (11.27 -16.99) 04/09/25 14:57 Hct 42.8 % (37-53) 04/09/25 14:57 MCV 88.6 fl (82-101) 04/09/25 14:57 MCH 30.2 pg (27-33) 04/09/25 14:57 MCHC 34.1 g/dL (30-55) 04/09/25 14:57 RDW 12.8 % (12.1-15.1 ) 04/09/25 14:57 Plt Count 262 10^3/cmm (157 -399) 04/09/25 14:57 MPV 10.3 fL (7.4-10.4 ) 04/09/25 14:57 Neut % (Auto) 49.6 % 04/09/25 14:57 Lymph % (Auto) 38.6 % 04/09/25 14:57 [place] % (Auto) 7.4 % 04/09/25 14:57 Eos % (Auto) 3.6 % 04/09/25 14:57 Baso % (Auto) 0.5 % 04/09/25 14:57 Neut # (Auto) 3.86 10^3/uL (1.8 -7.7) 04/09/25 14:57 Lymph # (Auto) 3.0 10^3/uL (0.8- 4.8) 04/09/25 14:57 [place] # (Auto) 0.6 10^3/uL (0.2- 0.9) 04/09/25 14:57 Eos # (Auto) 0.3 10^3/uL (0.0- 0.8) 04/09/25 14:57 Baso # (Auto) 0.0 10^3/uL (0.0- 0.1) 04/09/25 14:57 Nucleated RBC % (a uto) 0 % 04/09/25 14:57 Nucleated RBCs # 0.0 /100WBC 04/09/25 14:57 Sodium 137 mmol/L (136-1 45) 04/09/25 14:57 Potassium 4.1 mmol/L (3.5-5 .1) 04/09/25 14:57 Chloride 99 mmol/L (98-107 ) 04/09/25 14:57 Carbon Dioxide 27 mmol/L (22-29) 04/09/25 14:57 Anion Gap 15.1 (5-19) 04/09/25 14:57 BUN 15 mg/dL (6-20) 04/09/25 14:57 Creatinine 0.7 mg/dL (0.7-1. 2) 04/09/25 14:57 GFR Calculation 122.0 mL/min (90- 130) 04/09/25 14:57 Glucose 328 mg/dL (65-115 ) H 04/09/25 14:57 POC Glucose 170 mg/dL (70-110 ) H 04/26/25 06:04 Estimat Average Gl ucose 272 04/09/25 14:57 Hemoglobin A1c 11.1 % (4.0-6.0) H 04/09/25 14:57 Calculated Osmolal ity 298 mOsm/kg (285- 295) H 04/09/25 14:57 Calcium 9.1 mg/dL (8.5-10 .5) 04/09/25 14:57 Total Bilirubin 0.3 mg/dL (0.15-1 .2) 04/09/25 14:57 AST 17 U/L (0-40) 04/09/25 14:57 ALT 29 U/L (0-41) 04/09/25 14:57 Alkaline Phosphata se 240 U/L (40-130) H 04/09/25 14:57 Total Protein 7.4 g/dL (6.6-8.7 ) 04/09/25 14:57 Albumin 4.0 g/dL (3.5-5.2 ) 04/09/25 14:57 Globulin 3.4 g/dL (1.3-4.6 ) 04/09/25 14:57 Triglycerides 174 mg/dL (0-150) H 04/09/25 14:57 Cholesterol 194 mg/dL (0-200) 04/09/25 14:57 LDL Cholesterol, C alc 110 mg/dL (50-129 ) 04/09/25 14:57 HDL Cholesterol 49 mg/dL (60-100) L 04/09/25 14:57 LDL/HDL Ratio 2.24 RATIO (0.00- 3.22) 04/09/25 14:57 Cholesterol/HDL Ra jyotsna 3.96 mg/dL (1.0-5 .00) 04/09/25 14:57 Salicylates < 0.3 mg/dL (3-10 ) L 04/09/25 14:57 Urine Opiates Scre en Negative ng/mL (N egative) 04/09/25 16:50 Acetaminophen < 5.0 ug/mL (10-3 0) L 04/09/25 14:57 Ur Barbiturates Sc reen Negative ng/mL (N egative) 04/09/25 16:50 Ur Phencyclidine S crn Negative ng/mL (N egative) 04/09/25 16:50 Ur Amphetamines Sc reen Negative ng/mL (N egative) 04/09/25 16:50 U Benzodiazepines Scrn Negative ng/mL (N egative) 04/09/25 16:50 Urine Cocaine Scre en Negative ng/mL (N egative) 04/09/25 16:50 U Marijuana (THC) Screen Positive ng/mL (N egative) H 04/09/25 16:50 Ethyl Alcohol < 10 mg/dL (0-10) 04/09/25 14:57 Vitals: Last Vital Signs Temp 97.9 F 04/26/25 06:00 Pulse 83 04/26/25 06:00 Resp 17 04/26/25 06:00 BP 102/67 04/26/25 06:00 Pulse Ox 92 04/26/25 06:00 O2 Del Method Room Air 04/26/25 06:00 Discharge Plan Discharge Patient Disposition: Home Condition: Stable Prescriptions: New insulin glargine [Lantus U-100 Insulin] 100 unit/mL Solution 30 unit SUBCUT BEDTIME 30 Days Qty: 9 1RF insulin lispro [Humalog U-100 Insulin] 100 unit/mL Solution 5 unit SUBCUT AC 30 Days Qty: 1.5 1RF duloxetine 30 mg Capsule,Delayed Release(Dr/Ec) 30 mg PO 1900 30 Days Qty: 30 1RF duloxetine 60 mg Capsule,Delayed Release(Dr/Ec) 60 mg PO 1900 30 Days Qty: 30 1RF pregabalin 25 mg Capsule 25 mg PO BID 30 Days Qty: 60 1RF quetiapine 200 mg Tablet Extended Release 24 Hr 200 mg PO 1900 30 Days Qty: 30 1RF Continued (DME) Pen Farrell See Rx Instructions .Route .MEDSUPPLY Qty: 100 0RF Rx Instructions: As directed (DME) Blood Glucose Test Strip See Rx Instructions .MEDSUPPLY Qty: 200 12RF Rx Instructions: check glucose TWICE daily glipizide 10 mg tablet 10 mg PO DAILY Qty: 90 0RF olanzapine 5 mg Tablet,Disintegrating 5 mg PO DAILY PRN (Reason: Agitation/Psychosis) 30 Days Qty: 30 1RF hydroxyzine pamoate 25 mg Capsule 50 mg PO Q6H PRN (Reason: Anxiety) 30 Days Qty: 120 1RF (DME) blood-glucose meter Kit See Rx Instructions .Route Qty: 1 0RF Rx Instructions: As directed Changed trazodone 150 mg tablet 150 mg PO BEDTIME PRN (Reason: insomnia) 30 Days Qty: 30 1RF Discontinued insulin glargine [Lantus Solostar U-100 Insulin] 100 unit/mL (3 mL) insulin pen 35 unit SUBCUT BID Qty: 30 4RF quetiapine [Seroquel XR] 150 mg tablet extended release 24 hr 150 mg PO BEDTIME escitalopram oxalate 20 mg tablet 20 mg PO QAM 30 Days Qty: 30 1RF duloxetine 30 mg capsule,delayed release(DR/EC) 30 mg PO BID Qty: 60 1RF Rx Instructions: Take one capsule every morning and one in the early afternoon Discharge Order = DC NOW: Discharge Order (Routine); Ordered 04/26/25 Ordered By: Chad Laureano Referrals: Estephanie Tse [facility] [Other] - 04/26/25 11:00 am Referral Note: Admission [facility] [Other] Referral Note: Walk in assessment Saturday through Saturday 8 am-5pm. Sharyn Kevin CSS [Interline Clerk, CPRC] Ariana Miramontes APRN [Nurse Practitioner, Nurse Practitioner Psych/MH] Jin Vásquez EdD, LUNCH COUNTER MANAGER [Therapist, Psychology] Matty Toledo MD [Primary Care Provider, Family Practice] Discharge Diet: Diabetic Discharge Activity: Resume usual activity Patient Instructions: Insulin Lispro (By injection) (Humalog, Humalog Pen, Lispro-PFC,..., Depression (DC), Diabetic Neuropathy (DC), Foot Ulcers in a Person with Diabetes (DC), Anxiety (DC), Diabetic Hyperglycemia (DC), Suicide Prevention (DC), Opioid Safety, Patient Portal & [place] Instructions Discharge Attestations NPU Time Spent in Discharge Care*: less than 30 min Specific Discharge Activities: Specific discharge activities: educating patient, discussing with piano case and bench assembler/social workers/dc planners, documenting/other paperwork and evaluating patient/reviewing data Coding Level of Care Code Acute Code for Chg Fwd Diagnoses Severe episode of recurrent major depressive disorder, without psychotic features F33.2 Active/Remission status: currently active Major depression episode severity: severe Psychotic features: without psychotic features Personality disorder, unspecified F60.9 ANGEL (generalized anxiety disorder) F41.1
[2025-04-26 09:52] VITALS: BP 102/67; PULSE 83; RESP 17; TEMP 36.6; O2SAT 92
== END 2025-04-26 11:07 | disposition home or self-care (01) | DRG 752 ==
LOC: ER 15:59 → NP 16:05
PROVIDERS: Student in an Organized Health Care Education/Training Program; Admitting Provider Psychiatry & Neurology Psychiatry; Emergency Provider Emergency Medicine; PCP Family Medicine; Visit Provider Psychiatry & Neurology Psychiatry
DX: F60.9 Personality disorder, unspecified (principal); F33.9 Major depressive disorder, recurrent, unspecified; F41.1 Generalized anxiety disorder; R45.851 Suicidal ideations; F17.210 Nicotine dependence, cigarettes, uncomplicated; G47.00 Insomnia, unspecified; E11.40 Type 2 diabetes mellitus with diabetic neuropathy, unspecified; R60.9 Edema, unspecified; E11.649 Type 2 diabetes mellitus with hypoglycemia without coma; Z59.02 Unsheltered homelessness; Z79.84 Long term (current) use of oral hypoglycemic drugs; Z79.4 Long term (current) use of insulin
CPT/HCPCS: 36415; 36416; 80053; 80061; 80306; 80307; 82962; 83036; 85025; 93925; 93970; 96360; 96372; 97150; 97165; 99285; J1815; J7030; J9999